=== PATIENT | female | born 1940 | race Caucasian/White ===

== ENCOUNTER 2023-02-05 12:11 | Emergency (ER) | payer MEDICARE, BC, SELFPAY ==
[2023-02-05 12:16] VITALS: BP 148/55; PULSE 61; RESP 18; TEMP 36.4; O2SAT 96; BMI 36.6
--- NOTE | 2023-02-05 12:25 | CT_ITS ---
The [address] [address] Patient Name: MAGDALENO WOODS MRN: [facility]:[id number] date: 1940 Sex: F Assigned Patient Location: ER Current Patient Location: ER Accession/Order Number: [id number] Exam Date: 02/05/2023 12:42 Report Date: 02/05/2023 13:03 At the request of: SERGIO CASTRO Procedure: CT head/brain wo con EXAM: CT head/brain wo con HISTORY: CESAR COMPARISON: None. TECHNIQUE: Axial noncontrast CT imaging of the head was performed with coronal and sagittal reformats. This CT exam was performed using one or more of the following dose reduction techniques: Automated exposure control, adjustment of the MA and/or kV according to patient size, or use of iterative reconstruction technique. FINDINGS: Calvarium/skull base: No evidence of acute fracture or destructive lesion. Mastoids and middle ears demonstrate no substantial mucosal disease. Paranasal sinuses: No air fluid levels. Brain: No acute intracranial hemorrhage. No acute large vascular territory infarct. Subcentimeter indeterminate hypodensity involving the inferior right lentiform nucleus. Minimal patchy hypoattenuation is present involving the periventricular white matter likely relating to sequela small vessel disease. Partially empty sella. No mass lesion or mass effect. No hydrocephalus. CT/CT head/brain wo con IMPRESSION: 1. No acute large vascular territory infarct or acute intracranial hemorrhage. 2. Subcentimeter age indeterminate hypodensity involving the right lentiform nucleus. This is age-indeterminate given lack available comparison. If there is clinical concern for acute ischemia recommend MRI brain for further evaluation. Electronically authenticated by: ERMELINDA SALAZAR Date: 02/05/2023 13:03
--- NOTE | 2023-02-05 12:25 | ED.GENADUL1 ---
HPI - General Adult General Chief complaint: Headache Stated complaint: HEADACHE Time Seen by Provider: 02/05/23 12:14 Source: patient Mode of arrival: walk-in Limitations: no limitations History of Present Illness HPI narrative: 82-year-old female presents to the emergency department for headache which is now resolved. She states that early this morning when she woke up her vision seemed blurred but it went away after she sat down for a short period of time. Then, about forty-five minutes ago, she was sitting at a restaurant eating breakfast and had not sudden onset of a headache. It's primarily in the back of her head and it came forward to the front of her head. The headache is now gone. She just feels a little bit shaky. No localized weakness or numbness and she had no speech issues. Related Data Allergies Allergy/AdvReac Type Severity Reaction Status Date / Time No Known Drug Allergies Allergy Verified 02/05/23 12:16 Review of Systems ROS Narrative A ten point review of systems is negative except as noted above. Exam Narrative Exam Narrative: Nurses note and vital signs reviewed and patient is not hypoxic. General: The patient appears well and in no apparent distress. Patient is resting comfortably on cart. Skin: Warm, dry, no pallor noted. There is no rash noted. Head: Normocephalic, atraumatic Eye: Normal conjunctiva, no drainage PERRL, EOMI Ears, Nose, Mouth, and Throat: oral mucosa is moist. Nares patent. Cardiovascular: Regular Rate and Rhythm Respiratory: Patient is in no distress, no accessory muscle use, lungs are clear to auscultation, no wheezing, rales or rhonchi Back: non-tender GI: Normal bowel sounds, no tenderness to palpation, no masses appreciated. No rebound, guarding, or rigidity noted. Musculoskeletal: The patient has no evidence of calf tenderness, no pitting edema, symmetrical pulses noted bilaterally Neurological: A&O x4, normal speech, upper and lower extremity strength five out of five and symmetric Psychiatric: Cooperative Constitutional Vital Signs, click to edit/add: Last Vital Signs Temp 97.6 F 02/05/23 12:16 Pulse 61 02/05/23 12:16 Resp 18 02/05/23 12:16 BP 148/55 H 02/05/23 12:16 Pulse Ox 96 02/05/23 12:16 O2 Del Method Room Air 02/05/23 12:16 Course Vital Signs Vital signs: Vital Signs Temperature 97.6 F 02/05/23 12:16 Pulse Rate 61 02/05/23 12:16 Respiratory Rate 18 02/05/23 12:16 Blood Pressure 148/55 H 02/05/23 12:16 Pulse Oximetry 96 02/05/23 12:16 Oxygen Delivery Method Room Air 02/05/23 12:16 Temperature 97.6 F 02/05/23 12:16 Pulse Rate 61 02/05/23 12:16 Respiratory Rate 18 02/05/23 12:16 Blood Pressure 148/55 H 02/05/23 12:16 Pulse Oximetry 96 02/05/23 12:16 Oxygen Delivery Method Room Air 02/05/23 12:16 Medical Decision Making MDM Narrative Medical decision making narrative: CAT scan shows no intracranial hemorrhage. The small area of hypodensity was discussed with the patient and does not appear to be related to her current visit. She is completely asymptomatic now and is being discharged home. She has no headache and she doesn't feel shaky any longer. Treatment diagnosis and follow-up were discussed with the patient. Differential Diagnosis Differential Diagnosis: subarachnoid hemorrhage, subdural hematoma, tension headache, nonspecific h Lab Data Lab results reviewed: Yes I reviewed the patient's lab results Labs: Lab Results 02/05/23 Range/Units 12:30 WBC 8.4 (4.0-11.0) 10^3/uL RBC 4.29 (4.20-5.40) 10^6/uL Hgb 13.7 (12.0-16.0) g/dL Hct 40.4 (36.0-48.0) % MCV 94.2 (81.0-99.0) fL MCH 31.9 (26.7-34.0) pg MCHC 33.9 (29.9-35.2) g/dL RDW 14.5 (11.0-15.0) % Plt Count 336 (150-450) 10^3/uL MPV 11.4 (9.5-13.5) fL Neut % (Auto) 72.8 (43.0-75.0) % Lymph % (Auto) 15.4 L (20.5-60.0) % [place] % (Auto) 8.1 (1.7-12.0) % Eos % (Auto) 2.5 (0.9-7.0) % Baso % (Auto) 1.0 (0.2-2.0) % Neut # (Auto) 6.1 (1.4-6.5) 10^3/uL Lymph # (Auto) 1.3 (1.2-3.8) 10^3/uL [place] # (Auto) 0.7 (0.3-0.8) 10^3/uL Eos # (Auto) 0.2 (0.0-0.7) 10^3/uL Baso # (Auto) 0.1 (0.0-0.1) 10^3/uL Abs Immat Gran (auto) 0.02 (0.00-0.03) 10^3/uL Imm/Tot Granulo (auto) 0.2 (0.0-0.5) % Sodium 131 L (136-145) mmol/L Potassium 4.3 (3.5-5.1) mmol/L Chloride 98 (98-107) mmol/L Carbon Dioxide 29.1 (21.0-32.0) mmol/L Anion Gap 8.2 BUN 27.0 H (7.0-18.0) mg/dL Creatinine 0.97 (0.55-1.02) mg/dL Est GFR ( Amer) >60 (>=60) Est GFR (Non-Af Amer) 55 L (>=60) BUN/Creatinine Ratio 27.8 Glucose 102 (74-106) mg/dL Calcium 9.1 (8.5-10.1) mg/dL Imaging Data CT scan - head: Radiologist's impression: Procedure: CT head/brain wo con EXAM: CT head/brain wo con HISTORY: CESAR COMPARISON: None. TECHNIQUE: Axial noncontrast CT imaging of the head was performed with coronal and sagittal reformats. This CT exam was performed using one or more of the following dose reduction techniques: Automated exposure control, adjustment of the MA and/or kV according to patient size, or use of iterative reconstruction technique. FINDINGS: Calvarium/skull base: No evidence of acute fracture or destructive lesion. Mastoids and middle ears demonstrate no substantial mucosal disease. Paranasal sinuses: No air fluid levels. Brain: No acute intracranial hemorrhage. No acute large vascular territory infarct. Subcentimeter indeterminate hypodensity involving the inferior right lentiform nucleus. Minimal patchy hypoattenuation is present involving the periventricular white matter likely relating to sequela small vessel disease. Partially empty sella. No mass lesion or mass effect. No hydrocephalus. IMPRESSION: 1. No acute large vascular territory infarct or acute intracranial hemorrhage. 2. Subcentimeter age indeterminate hypodensity involving the right lentiform nucleus. This is age-indeterminate given lack available comparison. If there is clinical concern for acute ischemia recommend MRI brain for further evaluation. Electronically authenticated by: ERMELINDA SALAZAR Date: 02/05/2023 13:03 Discharge Plan Discharge Chief Complaint: Headache Clinical Impression: Headache Patient Disposition: Home, Self-Care Time of Disposition Decision: 13:26 Condition: Good Mode of Transportation: Private Vehicle Instructions: Acute Headache (ED) Stand Alone Forms: Portal Instructions Referrals: ELKE PIKE [Primary Care Provider] - 1 week
[2023-02-05 12:35] LABS: Basophils Absolute Auto 0.1 10^3/uL (0.0-0.1); Eosinophils Absolute Auto 0.2 10^3/uL (0.0-0.7); Eosinophils Percent Auto 2.5 % (0.9-7.0); Hematocrit 40.4 % (36.0-48.0); Hemoglobin 13.7 g/dL (12.0-16.0); Immature Granulocytes Abs Auto 0.02 10^3/uL (0.00-0.03); Immature Granulocytes Pct Auto 0.2 % (0.0-0.5); Lymphocytes Absolute Auto 1.3 10^3/uL (1.2-3.8); Lymphocytes Percent Auto 15.4 % (20.5-60.0); Mean Corpuscular HGB Conc 33.9 g/dL (29.9-35.2); Mean Corpuscular Hemoglobin 31.9 pg (26.7-34.0); Mean Corpuscular Volume 94.2 fL (81.0-99.0); Mean Platelet Volume 11.4 fL (9.5-13.5); Monocytes Absolute Auto 0.7 10^3/uL (0.3-0.8); Monocytes Percent Auto 8.1 % (1.7-12.0); Neutrophils Absolute Auto 6.1 10^3/uL (1.4-6.5); Neutrophils Percent Auto 72.8 % (43.0-75.0); Platelet Count 336 10^3/uL (150-450); Red Blood Count 4.29 10^6/uL (4.20-5.40); Red Cell Distribution Width 14.5 % (11.0-15.0); White Blood Count 8.4 10^3/uL (4.0-11.0)
[2023-02-05 12:45] LABS: Anion Gap 8.2; BUN Creatinine Ratio 27.8; Calcium 9.1 mg/dL (8.5-10.1); Carbon Dioxide 29.1 mmol/L (21.0-32.0); Chloride 98 mmol/L (98-107); Estimated GFR (African America >60 (>=60); Estimated GFR (Non-African Ame 55 (>=60); Glucose 102 mg/dL (74-106); Potassium 4.3 mmol/L (3.5-5.1); Sodium 131 mmol/L (136-145)
== END 2023-02-05 13:33 | disposition home or self-care (01) ==
PROVIDERS: Emergency Provider Emergency Medicine; PCP Family Medicine
DX: R51.9 Headache, unspecified (principal)
CPT/HCPCS: 36415; 70450; 80048; 85025; 99284

== ENCOUNTER 2023-03-10 10:23 | Outpatient (OUT) | payer MEDICARE, BC, SELFPAY ==
--- NOTE | 2023-03-10 10:30 | MR_ITS ---
The [address] [address] Patient Name: MAGDALENO WOODS MRN: [id number] date: 1940 Sex: F Assigned Patient Location: MRI Current Patient Location: MRI Accession/Order Number: [id number] Exam Date: 03/10/2023 11:12 Report Date: 03/10/2023 15:36 At the request of: ELKE PIKE Procedure: MR head/brain wo con EXAM: MR head/brain wo con HISTORY: Acute Nonintractable Headache R51.9 COMPARISON: January [address] TECHNIQUE: Axial sagittal T1, axial T2, axial FLAIR, axial GRE, axial DWI. FINDINGS: 8 mm subtle diffusion hyperintensity right inferior cerebellum. Hyperintense on T2 and dark on ADC map Mild parenchymal volume loss. Mild underlying T2 hyperintensity in the central white matter, periventricular white matter, and joaquin. There is no cortical abnormality. There is no mass, mass effect, nor hydrocephalus. The right vertebral arteries diminutive the left is dominant. Patent flow voids of the distal basilar and internal carotid arteries. The extra-axial structures appear unremarkable. The internal auditory canals appear normal. 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 Probable dominant left vertebral artery. Associated T2 hyperintensity. Consider short interval follow-up MRI with MRA and contrast to exclude appropriate evolution and an enhancing lesion. Mild underlying T2 hyperintensity in the white matter and joaquin. Most likely sequela small vessel ischemic change or other demyelinating process Results placed in the stat call folder to expedite Electronically authenticated by: TATYANA ADAME Date: 03/10/2023 15:36
== END 2023-03-10 10:24 | disposition home or self-care (01) ==
LOC: MRI 10:24
PROVIDERS: PCP Family Medicine; Visit Provider Family Medicine
DX: R51.9 Headache, unspecified (principal)
CPT/HCPCS: 70551

== ENCOUNTER 2023-03-24 14:54 | Outpatient (OUT) | payer MEDICARE, BC, SELFPAY ==
--- NOTE | 2023-03-24 15:03 | MR_ITS ---
The [address] [address] Patient Name: MAGDALENO WOODS MRN: [facility]:[id number] date: 1940 Sex: F Assigned Patient Location: LAB Current Patient Location: LAB Accession/Order Number: [id number] Exam Date: 03/24/2023 15:21 Report Date: 03/24/2023 16:55 At the request of: ELKE PIKE Procedure: MR angio head wo/w con MR angio head wo/w con, 03/24/2023 3:21 PM EST INDICATION: Cerebrovascular accident I63.50 COMPARISON: Prior MRI dated 03/10/2023 Technique: Multiplanar, multisequential [id number] MRA images of [place] were obtained without contrast. 3-D reconstruction was performed. FINDINGS: The visualized portion of [place] is unremarkable. The DENI, MCA, SE[employer]GER and the vertebral and basilar arteries are unremarkable. The right vertebral artery ends in PICA. The left vertebral artery is dominant. There are patent posterior and anterior communicating arteries. The right posterior communicating artery is hypoplastic. No aneurysm or significant stenosis is noted. Small encephalomalacia within the right cerebellar hemisphere is noted. MR/MR angio head wo/w con IMPRESSION: Normal MRA of the brain. STENOSIS REFERENCE: MILD = <50% stenosis. MODERATE = 50-69% stenosis. SEVERE = >70% stenosis. Electronically authenticated by: NORBERT MADDOX Date: 03/24/2023 16:55
[2023-03-24 15:09] LABS: Estimated GFR (African America >60 (>=60); Estimated GFR (Non-African Ame >60 (>=60)
== END 2023-03-24 14:55 | disposition home or self-care (01) ==
LOC: LAB 14:54
PROVIDERS: PCP Family Medicine; Visit Provider Family Medicine
DX: I63.50 Cerebral infarction due to unspecified occlusion or stenosis of unspecified cerebral artery (principal)
CPT/HCPCS: 36415; 70546; 82565; A9575

== ENCOUNTER 2023-03-31 14:01 | Outpatient (OUT) | payer MEDICARE, BC, SELFPAY ==
--- NOTE | 2023-03-31 14:05 | US_ITS ---
[address] [address] Patient Name: MAGDALENO WOODS MRN: [id number] date: 1940 Sex: F Assigned Patient Location: Current Patient Location: [facility] Accession/Order Number: [id number] Exam Date: 03/31/2023 14:11 Report Date: 04/01/2023 07:11 At the request of: ELKE PIKE Procedure: US carotid duplex BI EXAMINATION: US carotid duplex BI HISTORY: Cerebrovascular Accident I63.50 COMPARISON: No relevant comparison available. TECHNIQUE: Duplex Doppler ultrasound analysis of carotid and vertebral arteries. . Bilateral carotid arterial duplex examination was performed using B-mode, color flow and spectral analysis. Carotid stenosis is reported according to validated velocity parameters, similar to NASCET criteria. FINDINGS: RIGHT CAROTID ARTERY Marked atherosclerotic plaque. Maximum area reduction 70% in the proximal ICA Subclavian: PSV: 289.7 cm/s cm/s EDV: 18.1 cm/s cm/s CCA: Prox: PSV: 90.5 cm/s cm/s EDV: 13.6 cm/s cm/s Mid: PSV: 85.4 cm/s cm/s EDV: 17.6 cm/s cm/s Distal: PSV: 62.0 cm/s cm/s EDV: 8.9 cm/s cm/s BULB: PSV: 64.6 cm/s cm/s EDV: 12.8 cm/s cm/s ICA: Prox: PSV: 112.9 cm/s cm/s EDV: 16.0 cm/s cm/s Mid: PSV: 127.0 cm/s cm/s EDV: 28.4 cm/s cm/s Distal: PSV: 70.7 cm/s cm/s EDV: 16.3 cm/s cm/s ECA: PSV: 99.1 cm/s cm/s EDV: 7.2 cm/s cm/s VERTEBRAL: PSV: 41.5 cm/s cm/s EDV: 6.6 cm/s cm/s, antegrade ICA/CCA ratio: PSV: 1.5 EDV: 1.6 LEFT CAROTID ARTERY Moderate atherosclerotic plaque. Maximum area of reduction 57% in the carotid bulb Subclavian: PSV: 154.9 cm/s cm/s EDV: 0.0 cm/s CCA: Prox: PSV: 133.2 cm/s cm/s EDV: 18.9 cm/s Mid: PSV: 123.3 cm/s cm/s EDV: 20.9 cm/s Distal: PSV: 80.1 cm/s cm/s EDV: 13.9 cm/s BULB: PSV: 83.6 cm/s cm/s EDV: 17.6 cm/s ICA: Prox: PSV: 88.8 cm/s cm/s EDV: 25.4 cm/s Mid: PSV: 114.0 cm/s cm/s EDV: 31.7 cm/s Distal: PSV: 110.8 cm/s cm/s EDV: 30.0 cm/s ECA: PSV: 151.0 cm/s cm/s EDV: 9.1 cm/s VERTEBRAL: PSV: 47.9 cm/s cm/s EDV: 12.8 cm/s , antegrade ICA/CCA ratio: PSV: 0.9 EDV: 1.5 US/US carotid duplex BI IMPRESSION: 70% stenosis measured in the proximal right ICA 0-49% flow stenosis left internal carotid artery Spectral Doppler US Thresholds (Reference: Butch EG, et al. Radiology 2000; 214:247-252) Stenosis (%) PSV (cm/sec) VICA/VCCA 0-49 <150 <2.5 50-69 150-225 2.5-4.0 >70 >225 >4.0 Electronically authenticated by: STUART TEJADA Date: 04/01/2023 07:11
--- OUTSIDE RECORDS SUMMARY | 2023-03-31 14:05 | XMS_ITS | CCD ---
Author Name Unknown Address [address] [place] [id number] Organization [facility] Care Team Providers Care Induction Heat Treater Name Role Phone ANGELITA HOFF Primary Care Unavailable KATI MARSHALL Admitting Unavailable SELF, REFERRED Referring Unavailable JON BAHENA Attending Unavailable ELTAHAWY, DR CORCORAN Admitting Unavailable ELTAHAWY, DR CORCORAN Attending Unavailable PETZNICK, DR BEDOYA Primary Care Unavailable PETZNICK, DR BEDOYA Admitting Unavailable PETZNICK, DR BEDOYA Attending Unavailable PETZNICK, DR BEDOYA Primary Care Unavailable PETZNICK, DR BEDOYA Consulting Unavailable ELTAHAWY, DR CORCORAN Admitting Unavailable ELTAHAWY, DR CORCORAN Attending Unavailable PETZNICK, DR BEDOYA Primary Care Unavailable BARBARAJOB Graham Consulting Unavailable RIANAHOTHELOISA DICKSON Attending Unavailable BARBARAJOB Attending Unavailable PETZNICK, ELKE Tse Attending Unavailable PETZNICK, ELKE Tse Referring Unavailable APLINGJOHN Attending Unavailable APLING, JOHN Wright Attending Unavailable Problems Active Problems Problem Classification Problem Date Documented Date Episodic/Chronic Acute myocardial infarction (2 sources) Non-ST elevation (NSTEMI) myocardial infarction; Translations: [Non-ST elevation (NSTEMI) myocardial infarction] Onset: 05-02-2022 Chronic Coronary atherosclerosis and other heart disease (6 sources) 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; Translations: [ASHD TANGIRNAQ CA W/O ANGINA PECTORIS] Onset: 05-02-2022 Chronic Disorders of lipid metabolism (3 sources) Mixed hyperlipidemia; Translations: [MIXED HYPERLIPIDEMIA] Onset: 05-02-2022 Chronic Essential hypertension (3 sources) Essential (primary) hypertension; Translations: [ESSENTIAL PRIMARY HYPERTENSION] Onset: 05-02-2022 Chronic Unclassified (3 sources) COUGH, UNSPECIFIED; Translations: [COUGH, UNSPECIFIED] Onset: 07-07-2022 Unclassified (1 source) CONTACT W/AND (SUSP) EXPOS COVID-19; Translations: [CONTACT W/AND (SUSP) EXPOS COVID-19] Onset: 07-07-2022 Past or Other Problems Problem Classification Problem Date Documented Da te Episodic/Chronic Unclassified (1 source) COUGH, UNSPECIFIED; Translations: [COUGH, UNSPECIFIED] Onset: 07-02-2022 Results Test Name Value Interpretation Reference Range Facility Office Visiton 11-10-2022 Follow-up visit [id number] PeggyMagdaleno Aislinn 1940 F Date Provider Department Center 11/10/2022 3848-ELOISA WILSON [facility] Family History Problem Relation Age of Onset Heart attack Father Stroke Father Heart failure Paternal Grandfather Family Status - Relation Status Age at Father Paternal Grandfather Level of Service:92232 MI OFFICE/OUTPATIENT ESTABLISHED LOW MDM 20-29 MIN Reason for Visit and Comments: Follow-up [892789] - 6 mo follow up Normal [facility] Covid-19 PCR (CVDTB)on SARS-CoV-2 (COVID-19) RNA OMAR+probe Ql (Unsp spec) Not detected Normal NOT DETECTED [facility] Comment on above: Result Comment: This test is not yet approved or cleared by the [place] FDA. When there are no FDA-approved or cleared tests available, and other criteria are met, FDA can make tests available under an emergency access mechanism called an Emergency Use Authorization (EUA). The EUA for this test is supported by the [place] of Health and Human Service's (HHS's) declaration that circumstances exist to justify the emergency use of in vitro diagnostics for the detection and/or diagnosis of the virus that causes COVID-19. This EUA will remain in effect (meaning this test can be used) for the duration of the COVID-19 declaration justifying emergency of IVDs, unless it is terminated or revoked by FDA (after which the test may no longer be used). When diagnostic testing is negative, the possibility of a false negative should be considered in the context of a patient's recent exposures and the presence of clinical signs and symptoms consistent with SARS-CoV-2. Performed By: #### C VDTB #### [facility] [address] [place] [address] Dr. Lisa Mckeon SYMPTOMATIC COVID-19 ANTIGEN on 07-02-2022 EUA Statement SEE BELOW Normal [facility] Comment on above: Result Comment: This test has not been FDA cleared or approved, but has been authorized by the FDA under an Emergency Use Authorization (EUA) for use by authorized laboratories certified under CLIA that meet the requirements to perform moderate or high complexity testing. This test has been authorized only for the detection of proteins from SARS-CoV-2, not for any other viruses or pathogens. The emergency use of this test is authorized for the duration of the declaration that circumstances exist justifying the authorization of emergency use of in vitro diagnostic tests for detection and/or diagnosis of Covid-19 under section 564(b)(1) of the Act, 21 U.S.C. 360bbb-3(b)(1), unless the declaration is terminated or authorization is revoked sooner. Performed By: #### C VDAGS #### [facility] [address] [place] [address] Dr. Lisa Mckeon SARS-CoV-2 (COVID-19) RNA OMAR+probe Ql (Unsp spec) Negative Normal NEGATIVE [facility] Comment on above: Performed By: #### C VDAGS #### [facility] [address] [place] [address] Dr. Lisa Mckeon CBC AUTO DIFFon 05-09-2022 BASO # 0.1 103/ul Normal 0.0-0.1 [facility] Comment on above: Performed By: #### C BC #### [facility] [address] [place] [address] Dr. Lisa Mckeon Basophils/100 WBC (Bld) 0.9 % Normal 0.2-2.0 [facility] Comment on above: Performed By: #### C BC #### [facility] [address] [place] [address] Dr. Lisa Mckeon EO # 0.2 103/ul Normal 0.0-0.7 [facility] Comment on above: Performed By: #### C BC #### [facility] [address] [place] [address] Dr. Lisa Mckeon Eosinophils/100 WBC (Bld) 2.6 % Normal 0.9-7.0 [facility] Comment on above: Performed By: #### C BC #### [facility] [address] [place] [address] Dr. Lisa Mckeon Erythrocyte distribution width (RBC) [Ratio] 14.5 % Normal 11.0-15.0 [facility] Comment on above: Performed By: #### C BC #### [facility] [address] [place] [address] Dr. Lisa Mckeon Hematocrit (Bld) [Volume fraction] 40.4 % Normal 36.0-48.0 [facility] Comment on above: Performed By: #### C BC #### [facility] [address] [place] [address] Dr. Lisa Mckeon Hemoglobin (Bld) [Mass/Vol] 13.5 g/dL Normal 12.0-16.0 [facility] Comment on above: Performed By: #### C BC #### [facility] [address] [place] [address] Dr. Lisa Mckeon IG # 0.04 10e3/ul Critically high 0.00-0.03 [facility] Comment on above: Performed By: #### C BC #### [facility] [address] [place] [address] Dr. Lisa Mckeon IG % 0.5 % Normal 0.0-0.5 [facility] Comment on above: Performed By: #### C BC #### [facility] [address] [place] [address] Dr. Lisa Mckeon LYMPH # 1.3 103/ul Normal 1.2-3.8 [facility] Comment on above: Performed By: #### C BC #### [facility] [address] [place] [address] Dr. Lisa Mckeon Lymphocytes/100 WBC (Bld) 16.2 % Critically low 20.5-60.0 [facility] Comment on above: Performed By: #### C BC #### [facility] [address] [place] [address] Dr. Lisa Mckeon MANUAL DIFF REQ NO Normal [facility] Comment on above: Performed By: #### C BC #### [facility] [address] [place] [address] Dr. Lisa Mckeon MCH (RBC) [Entitic mass] 30.8 pg Normal 26.7-34.0 [facility] Comment on above: Performed By: #### C BC #### [facility] [address] [place] [address] Dr. Lisa Mckeon MCHC (RBC) [Mass/Vol] 33.4 g/dL Normal 29.9-35.2 [facility] Comment on above: Performed By: #### C BC #### [facility] [address] [place] [address] Dr. Lisa Mckeon MCV (RBC) [Entitic vol] 92.0 fL Normal 81.0-99.0 [facility] Comment on above: Performed By: #### C BC #### [facility] [address] [place] [address] Dr. Lisa Mckeon MONO # 0.7 103/ul Normal 0.3-0.8 [facility] Comment on above: Performed By: #### C BC #### [facility] [address] [place] [address] Dr. Lisa Mckeon Monocytes/100 WBC (Bld) 8.7 % Normal 1.7-12.0 [facility] Comment on above: Performed By: #### C BC #### [facility] [address] [place] [address] Dr. Lisa Mckeon NEUT # 5.6 103/ul Normal 1.4-6.5 [facility] Comment on above: Performed By: #### C BC #### [facility] [address] [place] [address] Dr. Lisa Mckeon Neutrophils/100 WBC (Bld) 71.1 % Normal 43.0-75.0 [facility] Comment on above: Performed By: #### C BC #### [facility] [address] [place] [address] Dr. Lisa Mckeon Platelet mean volume (Bld) [Entitic vol] 11.7 fL Normal 9.5-13.5 [facility] Comment on above: Performed By: #### C BC #### [facility] [address] [place] [address] Dr. Lisa Mckeon PLT 319 103/ul Normal 150-450 [facility] Comment on above: Performed By: #### C BC #### [facility] [address] [address] [address] Lisa Mckeon RBC 4.39 106/ul Normal 4.20-5.40 [facility] Comment on above: Performed By: #### C BC #### [facility] [address] [place] [address] Dr. Lisa Mckeon WBC 7.9 103/ul Normal 4.0-11.0 [facility] Comment on above: Performed By: #### C BC #### [facility] [address] [place] [address] Dr. Lisa Mckeon LIPID PROFILEon 05-09-2022 CHOL-HDL RATIO NORM SEE BELOW Normal [facility] Comment on above: Result Comment: 3.3 - 4.4 LOW RISK 4.4 - 7.1 AVERAGE RISK 7.1 - 11.0 MODERATE RISK >11.0 HIGH RISK Performed By: #### L IPID, CMP #### [facility] [address] [place] [address] Dr. Lisa Mckeon Cholesterol [Mass/Vol] 101 mg/dL Normal <=200 [facility] Comment on above: Performed By: #### L IPID, CMP #### [facility] [address] [place] [address] Dr. Lisa Mckeon Cholesterol in HDL [Mass/Vol] 42 mg/dL Normal 40-60 [facility] Comment on above: Performed By: #### L IPID, CMP #### [facility] [address] [place] [address] Dr. Lisa Mckeon Cholesterol in LDL [Mass/Vol] 43.8 mg/dL Normal [facility] Comment on above: Performed By: #### L IPID, CMP #### [facility] [address] [address] [address] Lisa Mckeon Cholesterol.total/Ch olesterol in HDL [Mass ratio] 2.4 {ratio} Normal [facility] Comment on above: Performed By: #### L IPID, CMP #### [facility] [address] [place] [address] Dr. Lisa Mckeon HDL NORMAL > or = 60 mg/dl - LOW CARDIOVASCULAR RISK <40 mg/dl - HIGH CARDIOVASCULAR RISK Normal [facility] Comment on above: Performed By: #### L IPID, CMP #### [facility] [address] [address] [address] Lisa Mkceon LDL CALC NORMAL SEE BELOW Normal [facility] Comment on above: Result Comment: <100 mg/dl OPTIMAL 100 - 129 mg/dl NEAR OR ABOVE OPTIMAL 130 - 159 mg/dl BORDERLINE HIGH 160 - 189 mg/dl HIGH >190 mg/dl VERY HIGH Performed By: #### L IPID, CMP #### [facility] [address] [place] [address] Dr. Lisa Mckeon Triglyceride [Mass/Vol] 76 mg/dL Normal <=150 [facility] Comment on above: Performed By: #### L IPID, CMP #### [facility] [address] [place] [address] Dr. Lisa Mckeon VLDL CALC 15.2 mg/dL Normal [facility] Comment on above: Performed By: #### L IPID, CMP #### [facility] [address] [place] [address] Dr. Lisa Mckeon PROF 14(COMP METB)on 023 Albumin [Mass/Vol] 3.4 g/dL Normal 3.4-5.0 [facility] Comment on above: Performed By: #### L IPID, CMP #### [facility] [address] [place] [address] Dr. Lisa Mckeon Albumin/Globulin [Mass ratio] 1.1 {ratio} Normal [facility] Comment on above: Performed By: #### L IPID, CMP #### [facility] [address] [address] [address] Lisa Mckeon ALP [Catalytic activity/Vol] 69 U/L Normal 46-116 [facility] Comment on above: Performed By: #### L IPID, CMP #### [facility] [address] [address] [address] Lisa Mckeon ALT [Catalytic activity/Vol] 24 U/L Normal 14-59 [facility] Comment on above: Performed By: #### L IPID, CMP #### [facility] [address] [place] [address] Dr. Lisa Mckeon Anion gap [Moles/Vol] 13.2 mmol/L Normal [facility] Comment on above: Performed By: #### L IPID, CMP #### [facility] [address] [place] [address] Dr. Lisa Mckeon AST [Catalytic activity/Vol] 17 U/L Normal 15-37 [facility] Comment on above: Performed By: #### L IPID, CMP #### [facility] [address] [place] [address] Dr. Lisa Mckeon Bilirubin [Mass/Vol] 0.4 mg/dL Normal 0.2-1.0 [facility] Comment on above: Performed By: #### L IPID, CMP #### [facility] [address] [place] [address] Dr. Lisa Mckeon Calcium [Mass/Vol] 9.3 mg/dL Normal 8.5-10.1 [facility] Comment on above: Performed By: #### L IPID, CMP #### [facility] [address] [place] [address] Dr. Lisa Mckeon Chloride [Moles/Vol] 100 mmol/L Normal 98-107 [facility] Comment on above: Performed By: #### L IPID, CMP #### [facility] [address] [place] [address] Dr. Lisa Mckeon CO2 [Moles/Vol] 28.8 mmol/L Normal 21.0-32.0 [facility] Comment on above: Performed By: #### L IPID, CMP #### [facility] [address] [address] [address] Lisa Mckeon Creatinine [Mass/Vol] 0.72 mg/dL Normal 0.55-1.02 [facility] Comment on above: Performed By: #### L IPID, CMP #### [facility] [address] [address] [address] Lisa Mckeon EGFR-AF CYMRO >60 Normal >=60 [facility] Comment on above: Performed By: #### L IPID, CMP #### [facility] [address] [address] [address] Lisa Mckeon EGFR-NON AF CYMRO >60 Normal >=60 [facility] Comment on above: Performed By: #### L IPID, CMP #### [facility] [address] [address] [address] Lisa Mckeon Globulin (S) [Mass/Vol] 3.1 g/dL Normal [facility] Comment on above: Performed By: #### L IPID, CMP #### [facility] [address] [address] [address] Lisa Mckeon Glucose [Mass/Vol] 89 mg/dL Normal 74-106 [facility] Comment on above: Performed By: #### L IPID, CMP #### [facility] [address] [address] [address] Lisa Mckeon Potassium [Moles/Vol] 5.0 mmol/L Normal 3.5-5.1 [facility] Comment on above: Performed By: #### L IPID, CMP #### [facility] [address] [address] [address] Lisa Mckeon Protein [Mass/Vol] 6.5 g/dL Normal 6.4-8.2 [facility] Comment on above: Performed By: #### L IPID, CMP #### [facility] [address] [address] [address] Lisa Mckeon Sodium [Moles/Vol] 137 mmol/L Normal 136-145 [facility] Comment on above: Performed By: #### L IPID, CMP #### [facility] [address] [place], [place] [address] Dr. Lisa Mckeon Urea nitrogen [Mass/Vol] 27.0 mg/dL Critically high 7.0-18.0 [facility] Comment on above: Performed By: #### L IPID, CMP #### [facility] [address] [place], [place] [address] Dr. Lisa Mckeon Urea nitrogen/Creatinine [Mass ratio] 37.5 mg/mg Normal [facility] Comment on above: Performed By: #### L IPID, CMP #### [facility] [address] [place], [place] [address] Dr. Lisa Mckeon Office Visiton 05-02-2022 Follow-up visit [id number] Magdaleno Woods 1940 F Date Provider Department Center 05/02/2022 JOB HAWKINS [facility] Family History Problem Relation Age of Onset Heart attack Father Stroke Father Heart failure Paternal Grandfather Family Status - Relation Status Age at Father Paternal Grandfather Level of Service:89183 MI OFFICE/OUTPATIENT ESTABLISHED MOD MDM 30-39 MIN Reason for Visit and Comments: Coronary Artery Disease [187] Hypertension [073982] Normal [facility] Complete Blood Count with Au to Diffon 06-20-2021 Basophils (Bld) [#/Vol] 0.04 10*3/uL Normal 0.00-0.20 [facility] Comment on above: Performed By: #### C BCAD, LIPD, CMP, TSH #### [facility] [address] [place], [place] [id number] Basophils/100 WBC (Bld) 0.6 % Normal [facility] Comment on above: Performed By: #### C BCAD, LIPD, CMP, TSH #### [facility] [address] [place], [place] [id number] Eosinophils (Bld) [#/Vol] 0.00 10*3/uL Low 0.02-0.50 [facility] Comment on above: Performed By: #### C BCAD, LIPD, CMP, TSH #### [facility] [address] [place], [place] [id number] Eosinophils/100 WBC (Bld) 0.0 % Normal [facility] Comment on above: Performed By: #### C BCAD, LIPD, CMP, TSH #### [facility] [address] [place], [place] [id number] Erythrocyte distribution width (RBC) [Ratio] 14.0 % Normal 11.0-15.0 [facility] Comment on above: Performed By: #### C BCAD, LIPD, CMP, TSH #### [facility] [address] [place], [place] [id number] Hematocrit (Bld) [Volume fraction] 40.6 % Normal 35.0-47.0 [facility] Comment on above: Performed By: #### C BCAD, LIPD, CMP, TSH #### [facility] [address] [place], [place] [id number] Hemoglobin (Bld) [Mass/Vol] 13.2 g/dL Normal 11.6-15.5 [facility] Comment on above: Performed By: #### C BCAD, LIPD, CMP, TSH #### [facility] [address] [place], [place] [id number] Lymphocytes (Bld) [#/Vol] 1.3 10*3/uL Normal 0.9-3.9 [facility] Comment on above: Performed By: #### C BCAD, LIPD, CMP, TSH #### [facility] [address] [place], [place] [id number] Lymphocytes/100 WBC (Bld) 20.4 % Normal [facility] Comment on above: Performed By: #### C BCAD, LIPD, CMP, TSH #### [facility] [address] [place], [place] [id number] MCH (RBC) [Entitic mass] 30.1 pg Normal 27.0-33.0 [facility] Comment on above: Performed By: #### C BCAD, LIPD, CMP, TSH #### [facility] [address] [place], [place] [id number] MCHC (RBC) [Mass/Vol] 32.5 g/dL Normal 32.0-36.0 [facility] Comment on above: Performed By: #### C BCAD, LIPD, CMP, TSH #### [facility] [address] [facility] [place] [id number] MCV (RBC) [Entitic vol] 93 fL Normal 80-100 [facility] Comment on above: Performed By: #### C BCAD, LIPD, CMP, TSH #### [facility] [address] [place], [place] [id number] Monocytes (Bld) [#/Vol] 0.8 10*3/uL Normal 0.2-0.9 [facility] Comment on above: Performed By: #### C BCAD, LIPD, CMP, TSH #### [facility] [address] [facility] [place] [id number] Monocytes/100 WBC (Bld) 12.3 % Normal [facility] Comment on above: Performed By: #### C BCAD, LIPD, CMP, TSH #### [facility] [address] [place], [place] [id number] Neutrophils (Bld) [#/Vol] 4.3 10*3/uL Normal 1.5-7.8 [facility] Comment on above: Performed By: #### C BCAD, LIPD, CMP, TSH #### [facility] [address] [place], [place] [id number] Neutrophils/100 WBC (Bld) 66.4 % Normal [facility] Comment on above: Performed By: #### C BCAD, LIPD, CMP, TSH #### [facility] [address] [place], [place] [id number] Platelet mean volume (Bld) [Entitic vol] 12.80 fL High 7.50-12.50 [facility] Comment on above: Performed By: #### C BCAD, LIPD, CMP, TSH #### [facility] [address] [facility] [id number] Platelets (Bld) [#/Vol] 228 10*3/uL Normal 140-400 [facility] Comment on above: Performed By: #### C BCAD, LIPD, CMP, TSH #### [facility] [address] [facility] [place] [id number] RBC (Bld) [#/Vol] 4.38 10*6/uL Normal 3.90-5.20 [facility] Comment on above: Performed By: #### C BCAD, LIPD, CMP, TSH #### [facility] [address] [place], [place] [id number] RDW-SD 47.0 fL Normal 37.0-50.0 [facility] Comment on above: Performed By: #### C BCAD, LIPD, CMP, TSH #### [facility] [address] [place], [place] [id number] WBC (Bld) [#/Vol] 6.5 10*3/uL Normal 3.8-11.0 [facility] Comment on above: Performed By: #### C BCAD, LIPD, CMP, TSH #### [facility] [address] [place], [place] [id number] Comprehensive Metabolic Pane sharif 06-20-2021 Albumin [Mass/Vol] 4.1 g/dL Normal 3.6-5.1 [facility] Comment on above: Performed By: #### C BCAD, LIPD, CMP, TSH #### [facility] [address] [place], [place] [id number] Albumin/Globulin [Mass ratio] 2.0 {ratio} Normal 1.0-2.5 [facility] Comment on above: Performed By: #### C BCAD, LIPD, CMP, TSH #### [facility] [address] [place], [place] [id number] ALP [Catalytic activity/Vol] 64 U/L Normal 35-119 [facility] Comment on above: Performed By: #### C BCAD, LIPD, CMP, TSH #### [facility] [address] [place], [place] [id number] ALT [Catalytic activity/Vol] 31 U/L Normal 6-33 [facility] Comment on above: Result Comment: 02/27 Female reference range changed. Performed By: #### C BCAD, LIPD, CMP, TSH #### [facility] [address] [place], [place] [id number] Anion gap [Moles/Vol] 17 mmol/L Normal 12-20 [facility] Comment on above: Result Comment: Effe ctive 04/04/2019 reference range changed. Performed By: #### C BCAD, LIPD, CMP, TSH #### [facility] [address] [place], [place] [id number] AST [Catalytic activity/Vol] 26 U/L Normal 9-34 [facility] Comment on above: Performed By: #### C BCAD, LIPD, CMP, TSH #### [facility] [address] [place], [place] [id number] Bilirubin [Mass/Vol] 0.35 mg/dL Normal 0.30-1.20 [facility] Comment on above: Performed By: #### C BCAD, LIPD, CMP, TSH #### [facility] [address] [place], [place] [id number] BUN/CREA 33 Ratio High 6-22 [facility] Comment on above: Performed By: #### C BCAD, LIPD, CMP, TSH #### [facility] [address] [place], [place] [id number] Calcium [Mass/Vol] 9.5 mg/dL Normal 8.6-10.[address] [facility] Comment on above: Performed By: #### C BCAD, LIPD, CMP, TSH #### [facility] [address] [place], [place] [id number] Chloride [Moles/Vol] 104 mmol/L Normal 98-107 [place] [facility] Comment on above: Performed By: #### C BCAD, LIPD, CMP, TSH #### [facility] [address] [place], [place] [id number] CO2 [Moles/Vol] 22 mmol/L Normal 20-31 [facility] Comment on above: Performed By: #### C BCAD, LIPD, CMP, TSH #### [facility] [address] [place], [place] [id number] Creatinine [Mass/Vol] 0.9 mg/dL Normal 0.6-1.4 [facility] Comment on above: Performed By: #### C BCAD, LIPD, CMP, TSH #### [facility] [address] [place], [place] [id number] eGFRAA 72 mL/min/1.73m2 Normal >60 [facility] Comment on above: Performed By: #### C BCAD, LIPD, CMP, TSH #### [facility] [address] [place], [place] [id number] eGFRNAA 60 mL/min/1.73m2 Low >60 [facility] Comment on above: Performed By: #### C BCAD, LIPD, CMP, TSH #### [facility] [address] [place], [place] [id number] Globulin (S) [Mass/Vol] 2.1 g/dL Normal 1.9-3.7 [facility] Comment on above: Performed By: #### C BCAD, LIPD, CMP, TSH #### [facility] [address] [place], [place] [id number] Glucose [Mass/Vol] 106 mg/dL High 65-99 [facility] Comment on above: Result Comment: For FASTING Glucose --- ADA reference ranges: Normal 65-99 mg/dl Prediabetes 100-125 Diabetes >/= 126 Performed By: #### C BCAD, LIPD, CMP, TSH #### [facility] [address] [place], [place] [id number] Potassium [Moles/Vol] 4.8 mmol/L Normal 3.5-5.5 [facility] Comment on above: Performed By: #### C BCAD, LIPD, CMP, TSH #### [facility] [address] [place], [place] [id number] Protein [Mass/Vol] 6.2 g/dL Normal 6.1-8.1 [facility] Comment on above: Performed By: #### C BCAD, LIPD, CMP, TSH #### [facility] [address] [place], [place] [id number] Sodium [Moles/Vol] 138 mmol/L Normal 135-146 [place] [facility] Comment on above: Performed By: #### C BCAD, LIPD, CMP, TSH #### [facility] [address] [place], [place] [id number] Urea nitrogen [Mass/Vol] 30 mg/dL High 7-25 [facility] Comment on above: Performed By: #### C BCAD, LIPD, CMP, TSH #### [facility] [address] [place], [place] [id number] Lipid Panelon 06-20-2021 Cholesterol [Mass/Vol] 108 mg/dL Low 125-200 [facility] Comment on above: Result Comment: Low risk < 200mg/dL Borderline risk 201-239 mg/dl High risk > or equal to 240 Performed By: #### C BCAD, LIPD, CMP, TSH #### [facility] [address] [place], [place] [id number] Cholesterol in HDL [Mass/Vol] 34 mg/dL Low >40 [facility] Comment on above: Result Comment: High Cardiovascular Risk HDL <40 mg/dL Low Cardiovascular Risk HDL > or equal to 60 mg/dl Performed By: #### C BCAD, LIPD, CMP, TSH #### [facility] [address] [place], [place] [id number] Cholesterol in LDL [Mass/Vol] 50 mg/dL Normal [facility] Comment on above: Result Comment: LDL ATP III CLASSIFICATION LDL less than 100 mg/dl Optimal LDL 100-129 mg/dl Near or above optimal LDL 130-159 Borderline high LDL 160-189 High LDL greater than 189 mg/dl Very High Performed By: #### C BCAD, LIPD, CMP, TSH #### [facility] [address] [place], [place] [id number] Cholesterol in VLDL [Mass/Vol] 24 mg/dL Normal [facility] Comment on above: Performed By: #### C BCAD, LIPD, CMP, TSH #### [facility] [address] [place], [place] [id number] Cholesterol.total/Ch olesterol in HDL [Mass ratio] 3 {ratio} Normal [facility] Comment on above: Performed By: #### C BCAD, LIPD, CMP, TSH #### [facility] [address] [place], [place] [id number] Triglyceride [Mass/Vol] 119 mg/dL Normal 30-150 [facility] Comment on above: Result Comment: TRIG ATPIII CLASSIFICATIONS TRIG less than 150 mg/dl Normal TRIG 150-199 mg/dl Borderline High TRIG 200-500 mg/dl High TRIG greather than 500 mg/dl Very High Performed By: #### C BCAD, LIPD, CMP, TSH #### [facility] [address] [place], [place] [id number] TSHon 06-20-2021 TSH 2.640 uIU/mL Normal 0.400-4.500 [facility] Comment on above: Performed By: #### C BCAD, LIPD, CMP, TSH #### [facility] [address] [place], [place] [id number] CREATININE BLOODon Creatinine [Mass/Vol] 0.81 mg/dL Normal 0.60-1.20 [facility] Comment on above: Order Comment: No: D o not add to previous draw Performed By: #### 5 7307, 50801 #### [facility] [address] [place] [address], [facility] GFR/1.73 sq M.predicted among blacks MDRD (S/P/Bld) [Vol rate/Area] mL/min/{1.73_m2} Normal >60 [facility] Comment on above: Order Comment: No: D o not add to previous draw Result Comment: Calc ulation may not be valid for patients over 70 years Performed By: #### 5 7307, 22819 #### [facility] [address] [place] [address], [facility] GFR/1.73 sq M.predicted among non-blacks MDRD (S/P/Bld) [Vol rate/Area] mL/min/{1.73_m2} Normal >60 [facility] Comment on above: Order Comment: No: D o not add to previous draw Result Comment: Calc ulation may not be valid for patients over 70 years Performed By: #### 5 7307, 26610 #### [facility] [address] [place] [address], [facility] Cardiovascular Lab Reporton 2021 Cardiovascular Lab Report [facility] Patient Name: [facility] MR #: [id number] Department of Physician: Jennifer Beebe M.D. Division of Service Date: 04/19/2021 Cardiology Birthdate: 1940 Adult Cardiovascular Room #: 4AB [id number] [place] [address] Cardiovascular Laboratory Report CLINICAL PRESENTATION: The patient is a 80-year-old female with history of obesity, hypertension, and hyperlipidemia. The patient was admitted with chest pain and diagnosed with NSTEMI. Her troponin peaked at approximately 2.5. She is referred for cardiac catheterization. FINAL IMPRESSION: 1. Cardiac catheterization reveals severe single-vessel CAD. The proximal LAD has 80% stenosis and the first diagonal branch has 80% stenosis. This is a bifurcation stenosis, Retana classification 1, 1, 1. This was successfully treated with bifurcation stenting using the DK crush technique. The LAD was treated with a Synergy 3.0 x 20 mm drug-eluting stent. The first diagonal branch was treated with a 2.5 x 32 mm drug-eluting stent. Final kissing balloon angioplasty was performed with an NC Emerge 2.5 x 8 mm balloon in the 1st diagonal branch and an NC Emerge 3.5 x 8 mm balloon in the LAD. Final proximal optimization technique (POT) was also performed with a 3.5 mm noncompliant balloon. 2. The RCA has diffuse 30% to 40% stenosis in the mid segment. 3. The circumflex is patent. PLAN: 1. Aggressive medical therapy for secondary prevention of CAD, status post PCI. 2. Aspirin 81 mg daily long-term. 3. Effient (prasugrel) 10 mg daily. After 3-6 months, can de-escalate from prasugrel to clopidogrel 75 mg daily. Recommend long-term dual-antiplatelet therapy (DAPT) for bifurcation coronary stenting. 4. High-intensity statin therapy. 5. LVEDP is elevated at 21 mmHg, consistent with acute diastolic congestive heart failure. Start spironolactone and/or SGLT2 inhibitor for HFpEF. 6. Outpatient followup with [facility]. 7. Referral to cardiac rehabilitation. PROCEDURES: Coronary angiogram, left heart catheterization, PCI LAD, PCI 1st diagonal branch, conscious sedation at 121 minutes. INDICATION: NSTEMI. PROCEDURE DESCRIPTION: The patient was brought to the cardiac catheterization lab in a fasting state. Informed written consent was obtained. She was prepped and draped in usual sterile fashion over the left wrist. Time-out was performed. She was given Versed and fentanyl for sedation. A 1% lidocaine was infiltrated in the left radial artery. A 6-Portuguese Terumo Glidesheath slender was placed in the left radial artery. Radial anti-vasospasm cocktail of verapamil 2.5 mg and nitroglycerin 200 mcg was administered through the sheath. All catheter exchanges were made over the Wiggins guidewire. A 5-Portuguese JR4 was used to engage the right coronary artery. A 5-Portuguese JL3.5 was used to engage the left main coronary artery. Coronary angiogram was performed in multiple orthogonal views using hand injection of contrast. 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 I elected to proceed with PCI. Heparin anticoagulation was administered for this procedure. ACT was maintained greater than 200 seconds. A [facility] EBU 3.0 guide was engaged to the left main coronary artery. A Prowater wire was manipulated to the distal LAD. A BMW wire was manipulated to the first diagonal branch. The first diagonal branch was dilated with an Emerge 2.5 x 20 mm balloon at 8 atmospheres, but this could not pass all the way through, so I then used a Takeru 2.0 x 15 mm balloon for further predilation of the first diagonal branch at 14 atmospheres. The LAD was pre-dilated. There was moderate calcification, and therefore, I used an AngioSculpt 3.0 x 15 mm scoring balloon. This was inflated to 12 atmospheres. At this time, it was apparent that there was embolization of thrombus to the mid to distal LAD. There was lucency and limited blood flow beyond this lucency consistent with thrombus embolization. I then rapidly performed aspiration thrombectomy using a priority one aspiration catheter and this resolved the issue with confucianist of blood flow into the LAD. At this point, the situation was stabilized and I proceeded with the PCI procedure. Aggrastat bolus was also administered and then Aggrastat was turned off at the end of the procedure. I elected to use a DK Crush Technique for bifurcation stenosis with Retana classification 1, 1, 1 bifurcation stenosis. The 1st Diagonal branch also had severe disease in its mid section, so I elected to use one long stent for the diagonal branch. The Synergy 2.5 x 32 mm drug-eluting stent was deployed in the first diagonal branch. A 3.0 x 15 mm NC balloon was in the LAD and this was then used to crushed the proxima (more content not included)... Normal [facility] POC GLUCOSE LABon 2021 Glucose [Mass/Vol] 125 mg/dL High 70-100 [facility] Comment on above: Performed By: #### 0 0121, 71087, 24201, 73949 #### [facility] [address] Glucose [Mass/Vol] 103 mg/dL High 70-100 [facility] Comment on above: Performed By: #### 5 7317, 02624 #### [facility] [address] [facility]. [address] UFH HEPARIN ASSAYon 04-20-19 UNFRACTIONATED HEPARIN <0.10 Critically low 0.30-0.70 [facility] Comment on above: Order Comment: This order is a replacement of the rejected order with accession number [id number]. Result Comment: Resu lts called. Accurately read back by Sharona Chaidez, RN, 4B pt's nurse, at 0029, 20-Apr-2021. Rivaroxaban and Apixaban will interfere with the anti Xa assay used to monitor UFH and LMWH. Performed By: #### 0 0121, 11986, 64012, 53327 #### [facility] [address] [facility]. [address] CBC COMPLETE BLOOD COUNTon 0 04-19-2021 Erythrocyte distribution width (RBC) [Ratio] 14.2 % Normal 11.5-15.0 [facility] Comment on above: Order Comment: No: D o not add to previous draw Performed By: #### 5 9207, 01082 #### [facility] [address] [place] [address], [facility] Hematocrit (Bld) [Volume fraction] 40.5 % Normal 36.0-45.0 [facility] Comment on above: Order Comment: No: D o not add to previous draw Performed By: #### 5 73, 18571 #### [facility] [address] [place] [id number], [facility] Hemoglobin (Bld) [Mass/Vol] 13.9 g/dL Normal 12.0-15.0 [facility] Comment on above: Order Comment: No: D o not add to previous draw Performed By: #### 5 73, 54085 #### [facility] [address] [place] [id number], [facility] MCH (RBC) [Entitic mass] 31.2 pg Normal 27.0-33.0 [facility] Comment on above: Order Comment: No: D o not add to previous draw Performed By: #### 5 73, 21958 #### [facility] [address] [place] [id number], [facility] MCHC (RBC) [Mass/Vol] 34.3 g/dL Normal 32.0-35.0 [facility] Comment on above: Order Comment: No: D o not add to previous draw Performed By: #### 5 73Maia, 18090 #### [facility] [address] [place] [address], [facility] MCV (RBC) [Entitic vol] 90.8 fL Normal 82.0-98.0 [facility] Comment on above: Order Comment: No: D o not add to previous draw Performed By: #### 5 7365, 33054 #### [facility] [address] [place] [address], [facility] Nucleated RBC/100 WBC (Bld) [Ratio] 0 % Normal 0-0 [facility] Comment on above: Order Comment: No: D o not add to previous draw Performed By: #### 5 7307, 03722 #### [facility] [address] [place] [id number], [facility] PLAT CNT 233 10*3/uL Normal 150-400 [facility] Comment on above: Order Comment: No: D o not add to previous draw Performed By: #### 5 7307, 46147 #### [facility] [address] [place] [address], [facility] RBC (Bld) [#/Vol] 4.46 10*6/uL Normal 3.80-5.00 [facility] Comment on above: Order Comment: No: D o not add to previous draw Performed By: #### 5 7307, 60413 #### [facility] [address] [place] [address], [place] WBC (Bld) [#/Vol] 9.64 10*3/uL Normal 4.00-10.60 [facility] Comment on above: Order Comment: No: D o not add to previous draw Performed By: #### 5 7307, 03524 #### [facility] [address] [place] [address], [facility] HEMOGLOBIN A1Con 04-19-2021 Glucose [Moles/Vol] 126 mmol/L Normal [facility] Comment on above: Order Comment: Yes: Add to Previous draw if able Performed By: #### 3 1791 #### [facility] [address] [place] [address], [facility] HbA1c (Bld) [Mass fraction] 6.0 % Normal 4.0-6.0 [facility] Comment on above: Order Comment: Yes: Add to Previous draw if able Performed By: #### 3 1791 #### [facility] [address] [place] [address], [place] LIPID PROFILEon 04-19-2021 Cholesterol [Mass/Vol] 113 mg/dL Low 120-200 [facility] Comment on above: Result Comment: CHOL ESTEROL REFERENCE RANGE: 20 YEARS AND OLDER CARDIOVASCULAR RISK Less than 200 mg/dl Low Risk 200 to 239 mg/dl Borderline Risk 240 mg/dl and greater High Risk Performed By: #### 4 6413 #### [facility] [address] [place] [address], [facility] Cholesterol in HDL [Mass/Vol] 35 mg/dL Normal 23-92 [facility] Comment on above: Result Comment: Slig ht variation in normal range could be due to gender and/or age. HDL CHOLESTEROL REFERENCE RANGE: 20 years and older Cardiovascular Risk > or =60 mg/dL Desirable 40 TO 59 mg/dL Low Risk <40 mg/dL High Risk Performed By: #### 4 6413 #### [facility] [address] [place] [address], [place] Cholesterol in LDL [Mass/Vol] 51 mg/dL Normal 0-130 [facility] Comment on above: Result Comment: LDL IS A CALCULATION LDL IS ONLY VALID IF THE TRIG IS LESS THAN 400. Performed By: #### 4 6413 #### [facility] [address] [place] [address], [facility] Cholesterol.total/Ch olesterol in HDL [Mass ratio] 3.2 {ratio} Normal .0-4.5 [facility] Comment on above: Performed By: #### 4 6413 #### [facility] [address] [place] [address], [facility] NON-HDL CHOLESTEROL 78 mg/dL Normal The [facility] Comment on above: Performed By: #### 4 6413 #### [facility] [address] [place] [address], [facility] Triglyceride [Mass/Vol] 133 mg/dL Normal 40-149 [facility] Comment on above: Result Comment: TRIG LYCERIDE REFERENCE RANGE: 20 YEARS AND OLDER CARDIOVASCULAR RISK LESS THAN 150 mg/dl LOW RISK 150 TO 199 mg/dl BORDERLINE RISK 200 mg/dl AND GREATER HIGH RISK Performed By: #### 4 4513 #### [facility] [address] [place] [address], [place] VLDL CHOL 27 mg/dL Normal 0-40 [facility] Comment on above: Performed By: #### 4 5113 #### [facility] [address] [facility] [address], [facility] POC GLUCOSE LABon 04-19-2021 Glucose [Mass/Vol] 104 mg/dL High 70-100 [facility] Comment on above: Performed By: #### 5 7307, 39527 #### [facility] [address] [facility] [place] [address], [facility] TROPONIN-Ion 04-19-2021 Troponin I.cardiac [Mass/Vol] 2.01 ng/mL Critically high 0.00-0.04 [facility] Comment on above: Order Comment: No: D o not add to previous draw Result Comment: M-MI EVIOUS CRITICAL RESULT REFERENCE RANGES: 0.00 - 0.04 ng/ml NORMAL 0.05 - 0.50 ng/ml INDETERMINATE > 0.50 ng/ml CONSISTENT WITH AN M.I. Performed By: #### 3 5200 #### [facility] [address] [facility]. [address] Troponin I.cardiac [Mass/Vol] 2.46 ng/mL Critically high 0.00-0.04 [facility] Comment on above: Result Comment: M-MI EVIOUS CRITICAL RESULT REFERENCE RANGES: 0.00 - 0.04 ng/ml NORMAL 0.05 - 0.50 ng/ml INDETERMINATE > 0.50 ng/ml CONSISTENT WITH AN M.I. Performed By: #### 5 7307, 28172 #### [facility] [address] UFH HEPARIN ASSAYon 04-19-19 UNFRACTIONATED HEPARIN 0.35 IU/mL Normal 0.30-0.70 [facility] Comment on above: Result Comment: [place] roxaban and Apixaban will interfere with the anti Xa assay used to monitor UFH and LMWH. Performed By: #### 5 7307, 22463 #### [facility] [address] [place] [address], [facility] APTTon 04-18-2021 aPTT Coag (Bld) [Time] 46.6 s High 25.0-35.[address] [facility] Comment on above: Order Comment: No: D o not add to previous draw Result Comment: ALL RESULTS MUST BE INTERPRETED WITH RESPECT TO BLOOD DRAWING ARTIFACT OR DILUTION ERROR OF ANTICOAGULANT AT THE TIME OF SAMPLING. THE APTT SHOULD NOT BE USED TO MONITOR UNFRACTIONATED HEPARIN THERAPY, THIS LABORATORY NO LONGER HAS AN ESTABLISHED THERAPEUTIC RANGE BASED ON THE APTT. IT IS RECOMMENDED THAT THE UFH - HEPARIN ASSAY (ANTI-XA ACTIVITY) BE USED FOR THIS PURPOSE. Performed By: #### 5 7307, 90380 #### [facility] [address] aPTT Coag (Bld) [Time] 58.2 s High 25.0-35.[address] [facility] Comment on above: Result Comment: Resu lt checked and called. Accurately read back by KJ VELAZQUEZ RN ON 04/18/2021 AT 17:56 ALL RESULTS MUST BE INTERPRETED WITH RESPECT TO BLOOD DRAWING ARTIFACT OR DILUTION ERROR OF ANTICOAGULANT AT THE TIME OF SAMPLING. THE APTT SHOULD NOT BE USED TO MONITOR UNFRACTIONATED HEPARIN THERAPY, THIS LABORATORY NO LONGER HAS AN ESTABLISHED THERAPEUTIC RANGE BASED ON THE APTT. IT IS RECOMMENDED THAT THE UFH - HEPARIN ASSAY (ANTI-XA ACTIVITY) BE USED FOR THIS PURPOSE. Performed By: #### 0 0121, 87018, 11854, 25272 #### [facility] [address] CBC W/DIFFon 04-18-2021 ABS IMM GRANS 0.0 10*3/uL Normal 0.0-0.2 [facility] Comment on above: Order Comment: This order is a replacement of the rejected order with accession number [id number]. Performed By: #### 0 0121, 94142, 32462, 30116 #### [facility] [address] ABS NEUTROPHILS 6.6 10*3/uL Normal 1.6-7.[address] [facility] Comment on above: Order Comment: This order is a replacement of the rejected order with accession number [id number]. Performed By: #### 0 0121, 30201, 92501, 92729 #### [facility] [address] [place] [address], [facility] Basophils (Bld) [#/Vol] 0.1 10*3/uL Normal 0.0-0.2 [facility] Comment on above: Order Comment: This order is a replacement of the rejected order with accession number [id number]. Performed By: #### 0 0121, 08448, 67116, 27721 #### [facility] [address] [place] [address], [facility] Basophils/100 WBC (Bld) 0.8 % Normal 0.0-1.0 [facility] Comment on above: Order Comment: This order is a replacement of the rejected order with accession number [id number]. Performed By: #### 0 0121, 65804, 30146, 69997 #### [facility] [address] [place] [address], [facility] Eosinophils (Bld) [#/Vol] 0.2 10*3/uL Normal 0.0-0.5 [facility] Comment on above: Order Comment: This order is a replacement of the rejected order with accession number [id number]. Performed By: #### 0 0121, 29840, 97369, 06349 #### [facility] [address] [place] [address], [facility] Eosinophils/100 WBC (Bld) 2.2 % Normal 0.0-6.0 [facility] Comment on above: Order Comment: This order is a replacement of the rejected order with accession number [id number]. Performed By: #### 0 0121, 53462, 38423, 81065 #### [facility] [address] [place] [address], [facility] Erythrocyte distribution width (RBC) [Ratio] 14.0 % Normal 11.5-15.0 [facility] Comment on above: Order Comment: This order is a replacement of the rejected order with accession number [id number]. Performed By: #### 0 0121, 84740, 95363, 63670 #### [facility] [address] Hematocrit (Bld) [Volume fraction] 43.4 % Normal 36.0-45.[address] [facility] Comment on above: Order Comment: This order is a replacement of the rejected order with accession number [id number]. Performed By: #### 0 0121, 12807, 37760, 29991 #### [facility] [address] Hemoglobin (Bld) [Mass/Vol] 14.1 g/dL Normal 12.0-15.[address] [facility] Comment on above: Order Comment: This order is a replacement of the rejected order with accession number [id number]. Performed By: #### 0 0121, 40823, 58616, 80789 #### [facility] [address] IMM PLATELET FRAC 7.9 % High 0.8-6.3 [facility] Comment on above: Order Comment: This order is a replacement of the rejected order with accession number [id number]. Performed By: #### 0 0121, 88331, 62409, 89300 #### [facility] [address] IMMATURE GRANS 0.3 % Normal 0.0-1.0 [facility] Comment on above: Order Comment: This order is a replacement of the rejected order with accession number [id number]. Performed By: #### 0 0121, 83316, 25655, 80088 #### [facility] [address] Lymphocytes (Bld) [#/Vol] 2.5 10*3/uL Normal 1.2-4.[address] [facility] Comment on above: Order Comment: This order is a replacement of the rejected order with accession number [id number]. Performed By: #### 0 0121, 28331, 00273, 96027 #### [facility] [address] Lymphocytes/100 WBC (Bld) 23.8 % Normal 20.0-45.0 [facility] Comment on above: Order Comment: This order is a replacement of the rejected order with accession number [id number]. Performed By: #### 0 0121, 88596, 82667, 40886 #### [facility] [address] MCH (RBC) [Entitic mass] 30.4 pg Normal 27.0-33.0 [facility] Comment on above: Order Comment: This order is a replacement of the rejected order with accession number [id number]. Performed By: #### 0 0121, 62387, 21551, 57506 #### [facility] [address] MCHC (RBC) [Mass/Vol] 32.5 g/dL Normal 32.0-35.0 [facility] Comment on above: Order Comment: This order is a replacement of the rejected order with accession number [id number]. Performed By: #### 0 0121, 47230, 19239, 69861 #### [facility] [address] MCV (RBC) [Entitic vol] 93.5 fL Normal 82.0-98.0 [facility] Comment on above: Order Comment: This order is a replacement of the rejected order with accession number [id number]. Performed By: #### 0 0121, 13620, 54628, 05623 #### [facility] [address] Monocytes (Bld) [#/Vol] 1.1 10*3/uL High 0.1-1.0 [facility] Comment on above: Order Comment: This order is a replacement of the rejected order with accession number [id number]. Performed By: #### 0 0121, 92835, 73682, 88089 #### [facility] [address] MONOS 10.6 % Normal 5.0-12.[address] [facility] Comment on above: Order Comment: This order is a replacement of the rejected order with accession number [id number]. Performed By: #### 0 0121, 94165, 62547, 25131 #### [facility] [address] Neutrophils/100 WBC (Bld) 62.3 % Normal 40.0-72.[address] [facility] Comment on above: Order Comment: This order is a replacement of the rejected order with accession number [id number]. Performed By: #### 0 0121, 19316, 22390, 95763 #### [facility] [address] Nucleated RBC/100 WBC (Bld) [Ratio] 0 % Normal 0-[address] [facility] Comment on above: Order Comment: This order is a replacement of the rejected order with accession number [id number]. Performed By: #### 0 0121, 98606, 34136, 25524 #### [facility] [address] PLAT CNT 220 10*3/uL Normal 150-400 [facility] Comment on above: Order Comment: This order is a replacement of the rejected order with accession number [id number]. Performed By: #### 0 0121, 24088, 28338, 14885 #### [facility] [address] RBC (Bld) [#/Vol] 4.64 10*6/uL Normal 3.80-5.00 The [facility] Comment on above: Order Comment: This order is a replacement of the rejected order with accession number [id number]. Performed By: #### 0 0121, 86724, 37163, 79981 #### [facility] [address] [place] [address], [facility] WBC (Bld) [#/Vol] 10.52 10*3/uL Normal 4.00-10.[address] [facility] Comment on above: Order Comment: This order is a replacement of the rejected order with accession number [id number]. Performed By: #### 0 0121, 37901, 80926, 93251 #### [facility] [address] COMP METABOLIC PANELon 04-18 Albumin [Mass/Vol] 4.1 g/dL Normal 3.5-5.7 [facility] Comment on above: Order Comment: This order is a replacement of the rejected order with accession number [id number]. Performed By: #### 0 0121, 49336, 66532, 31279 #### [facility] [address] ALKALINE PHOSPH 61 IU/L Normal 34-104 [facility] Comment on above: Order Comment: This order is a replacement of the rejected order with accession number [id number]. Performed By: #### 0 0121, 41031, 86206, 64848 #### [facility] [address] ALT [Catalytic activity/Vol] 20 U/L Normal 7-[address] [facility] Comment on above: Order Comment: This order is a replacement of the rejected order with accession number [id number]. Performed By: #### 0 0121, 02323, 03125, 55981 #### [facility] [address] [place] [address], [facility] AST [Catalytic activity/Vol] 29 U/L Normal 13-[address] [facility] Comment on above: Order Comment: This order is a replacement of the rejected order with accession number [id number]. Performed By: #### 0 0121, 61824, 66521, 66327 #### [facility] [address] [place] [address], [place] Bilirubin [Mass/Vol] 0.5 mg/dL Normal 0.3-1.[address] [facility] Comment on above: Order Comment: This order is a replacement of the rejected order with accession number [id number]. Performed By: #### 0 0121, 29558, 36296, 64618 #### [facility] [address] [place] [address], [place] Calcium [Mass/Vol] 9.5 mg/dL Normal 8.6-10.3 [facility] Comment on above: Order Comment: This order is a replacement of the rejected order with accession number [id number]. Performed By: #### 0 0121, 61635, 27145, 21882 #### [facility] [address] [place] [address], [place] Chloride [Moles/Vol] 101 mmol/L Normal 98-[address] [facility] Comment on above: Order Comment: This order is a replacement of the rejected order with accession number [id number]. Performed By: #### 0 0121, 62292, 10150, 48658 #### [facility] [address] [place] [address], [place] CO2 [Moles/Vol] 26 mmol/L Normal 21-31 [facility] Comment on above: Order Comment: This order is a replacement of the rejected order with accession number [id number]. Performed By: #### 0 0121, 48700, 17495, 19529 #### [facility] [address] [place] [address], [place] Creatinine [Mass/Vol] 0.83 mg/dL Normal 0.60-1.[address] [facility] Comment on above: Order Comment: This order is a replacement of the rejected order with accession number [id number]. Performed By: #### 0 0121, 15255, 49414, 44138 #### [facility] [address] [place] [address], [place] GFR/1.73 sq M.predicted among blacks MDRD (S/P/Bld) [Vol rate/Area] mL/min/{1.73_m2} Normal >60 [facility] Comment on above: Order Comment: This order is a replacement of the rejected order with accession number [id number]. Result Comment: Calc ulation may not be valid for patients over 70 years Performed By: #### 0 0121, 67386, 84930, 07193 #### [facility] [address] [place] [address], [place] GFR/1.73 sq M.predicted among non-blacks MDRD (S/P/Bld) [Vol rate/Area] mL/min/{1.73_m2} Normal >60 [facility] Comment on above: Order Comment: This order is a replacement of the rejected order with accession number [id number]. Result Comment: Calc ulation may not be valid for patients over 70 years Performed By: #### 0 0121, 17744, 37492, 14447 #### [facility] [address] [place] [address], [place] Glucose [Mass/Vol] 98 mg/dL Normal 70-100 [facility] Comment on above: Order Comment: This order is a replacement of the rejected order with accession number [id number]. Performed By: #### 0 0121, 88029, 57462, 65414 #### [facility] [address] [place] [address], [place] Potassium [Moles/Vol] 4.5 mmol/L Normal 3.5-5.1 [facility] Comment on above: Order Comment: This order is a replacement of the rejected order with accession number [id number]. Performed By: #### 0 0121, 31947, 48243, 23793 #### [facility] [address] [place] [address], [facility] Protein [Mass/Vol] 7.0 g/dL Normal 6.0-8.3 [facility] Comment on above: Order Comment: This order is a replacement of the rejected order with accession number [id number]. Performed By: #### 0 0121, 06837, 34785, 73977 #### [facility] [address] [place] [address], [facility] Sodium [Moles/Vol] 134 mmol/L Low 136-145 [facility] Comment on above: Order Comment: This order is a replacement of the rejected order with accession number [id number]. Performed By: #### 0 0121, 45341, 26803, 03672 #### [facility] [address] [place] [address], [facility] Urea nitrogen [Mass/Vol] 26 mg/dL High 7-25 [facility] Comment on above: Order Comment: This order is a replacement of the rejected order with accession number [id number]. Performed By: #### 0 0121, 39330, 18715, 04549 #### [facility] [address] [place] [address], [facility] LACTATE BLOODon 04-18-2021 Lactate [Moles/Vol] 1.6 mmol/L Normal .5-2.2 [facility] Comment on above: Order Comment: No: D o not add to previous draw Performed By: #### 1 0054 #### [facility] [address] [place] [address], [facility] MAGNESIUM BLOODon 04-18-2021 Magnesium [Mass/Vol] 1.5 mg/dL Low 1.9-2.7 [facility] Comment on above: Order Comment: This order is a replacement of the rejected order with accession number [id number]. Performed By: #### 0 0121, 54830, 19427, 38454 #### [facility] [address] [place] [address], [facility] PHOSPHORUS BLOODon Phosphate [Mass/Vol] 3.3 mg/dL Normal 2.5-5.0 [facility] Comment on above: Order Comment: This order is a replacement of the rejected order with accession number [id number]. Performed By: #### 0 0121, 87871, 29381, 16920 #### [facility] [address] [facility] [place], [place] [address] PORTABLE CHEST 1 VIEWon 03-31 PORTABLE CHEST 1 VIEW [facility] Department of Radiology [address] [place] [address] Patient Name: MAGDALENO WOODS : 1940 Sex: F Age: Race: Other Pt. Location: [facility] Patient Status: E Ordered Date: 04/18/2021 5:10:00 PM Completed Date: 04/18/2021 05:24 PM Requesting Provider: ABBY JEROME Attending Provider: DONI SAXENA Report Copy To: Signs & Symptoms: Chest Pain History: Comments: evaluate for Cardiomegaly Exam: PORTABLE CHEST 1 VIEW PORTABLE CHEST 1 VIEW 04/18/2021 5:24 PM CLINICAL INDICATIONS: Chest Pain TECHNOLOGIST COMMENTS: Chest Pain QUESTION FOR THE RADIOLOGIST: evaluate for Cardiomegaly PROTOCOL: AP(PA) view was obtained. COMPARISON: No prior study FINDINGS: Upper mediastinum unremarkable hilar regions normal. Heart appears enlarged but is magnified by AP portable technique. There is some mild pulmonary venous congestion no pneumonia no pleural effusion IMPRESSION: Mild pulmonary venous congestion no pneumonia no pleural effusion. Mild cardiomegaly Electronically signed: Leilani Mccullough. Transcribed by: [email or web address], User Resident: Electronically Signed by: LEILANI MCCULLOUGH @ 04/18/2021 05:28 PM Normal [facility] Comment on above: Order Comment: evalu ate for Cardiomegaly PROTHROMBIN TIMEon 2 INR Coag (PPP) [Relative time] 1.12 {INR} Normal 0.91-1.16 [facility] Comment on above: Result Comment: ACCC P RECOMMENDED INR FOR WARFARIN THERAPY ------- ------- CONDITION INR PROPHYLAXIS OF VENOUS THROMBOSIS 2-3 (HIGH-RISK SURGERY) TREATMENT OF VENOUS THROMBOSIS 2-3 TREATMENT OF PULMONARY EMBOLISM 2-3 PREVENTION OF SYSTEMIC EMBOLISM: 2-3 ACUTE MYOCARDIAL INFARCTION TISSUE HEART VALVES VALVULAR HEART DISEASE ATRIAL FIBRILLATION RECURRENT SYSTEMIC EMBOLISM MECHANICAL HEART VALVE 2.5-3.5 FROM: ORAL ANTICOAGULANTS. MECHANISM OF ACTION, CLINICAL EFFECTIVENESS, AND OPTIMAL THERAPEUTIC RANGE. CHEST 1995;108:231S-246S. Performed By: #### 0 0121, 64147, 47888, 69043 #### [facility] [address] [facility] [place] [address], [facility] PT Coag (PPP) [Time] 14.4 s Normal 12.3-14.8 [facility] Comment on above: Result Comment: ALL RESULTS MUST BE INTERPRETED WITH RESPECT TO BLOOD DRAWING ARTIFACT OR DILUTION ERROR OF ANTICOAGULANT AT THE TIME OF SAMPLING. Performed By: #### 0 0121, 87649, 77850, 15011 #### [facility] [address] [place] [address], [facility] TROPONIN-Ion 04-18-2021 Troponin I.cardiac [Mass/Vol] 2.26 ng/mL Critically high 0.00-0.04 [facility] Comment on above: Order Comment: This order is a replacement of the rejected order with accession number [id number]. Result Comment: M-MI EVIOUS CRITICAL RESULT REFERENCE RANGES: 0.00 - 0.04 ng/ml NORMAL 0.05 - 0.50 ng/ml INDETERMINATE > 0.50 ng/ml CONSISTENT WITH AN M.I. Performed By: #### 0 0121, 70962, 67538, 10179 #### [facility] [address] [facility] [place] [address], [facility] Troponin I.cardiac [Mass/Vol] 1.52 ng/mL Critically high 0.00-0.04 [facility] Comment on above: Result Comment: M-TR OPONIN INITIAL CRITICAL HIGH; RESPUN AND RETESTED M-CRITICAL RESULT(S) REVIEWED, CALLED TO AND READ BACK BY Blayne Carlisle RN at 1845. REFERENCE RANGES: 0.00 - 0.04 ng/ml NORMAL 0.05 - 0.50 ng/ml INDETERMINATE > 0.50 ng/ml CONSISTENT WITH AN M.I. Performed By: #### 5 7307, 05087 #### [facility] [address] [place] [address], [facility] UFH HEPARIN ASSAYon 04-18-19 UNFRACTIONATED HEPARIN 0.16 IU/mL Critically low 0.30-0.70 [facility] Comment on above: Result Comment: Resu lt checked and called. Accurately read back by LUH GARCIA RN ON 04/18/2021 AT 20:49 Rivaroxaban and Apixaban will interfere with the anti Xa assay used to monitor UFH and LMWH. Performed By: #### 5 7307, 90323 #### [facility] [address] [place] [address], [facility] Encounters Encounter Date Encounter Type Care Provider Facility Start: 03-09-2023 End: 03-09-2023 ambulatory JOHN B APLING Not Available Start: 02-23-2023 End: 02-23-2023 ambulatory JOHN Wright APLING Not Available Start: 02-13-2023 End: 02-13-2023 ambulatory ELKE Dedrick MICHELLEJOSH Not Available Start: 11-10-2022 End: 11-10-2022 [facility] Start: 07-02-2022 End: 07-02-[address] ELKE PIKE Facility:[facility] Start: 05-09-2022 End: 05-10-[address] JEWELL SALAZAR Facility:[facility] Start: 05-02-2022 End: 05-02-2022 ambulatory JOB JIMENEZ [facility] Start: 09-10-[address] JEWELL SALAZAR Facili ty:[facility] Start: 04-18-2021 End: 2021 Evaluation and management of inpatient ANGELITA HOFF Facility:[facility] Procedures Date Procedure Procedure Detail Performing Clinician Start: 11-10-2022 [facility] Payers Date Payer Category Payer Medicare [id number] 1957 Self-pay [id number] 1957 Unknown [id number] 1940 Unknown [id number] 2.16.8 [id number] 1940 Unknown [id number] 2.16.84 [id number] 1940 Unknown [id number] 2.16.84 [id number] 1940 Unknown [id number] 1940 Unknown [id number] 2.16.840 [id number] 1940 Unknown [id number] [id number] Unknown [id number] 2.16.84 [id number] Progress note 11-10-2022 Note Date & Type Note Facility 11-10-2022 Note Cardiology Follow Up Progress Note Chief Complaint: follow up HPI: Magdaleno Woods is a 82 y.o. female past medical history including CAD status post PCI of For spinal branch of LAD, hypertension, hyperlipidemia. She presents to cardiology clinic for routine follow-up. Patient adamantly denies any cardiac complaints or concerns. Patient denies any chest pain or shortness of breath. Patient denies any lower extremity edema, orthopnea, or proximal nocturnal dyspnea. No near-syncope or syncope. No dizziness or lightheadedness. She remains on cardiac rehab. She is doing well. She denies any cardiac complaints with her activity at rehab. Cardiology ROS: GENERAL: Denies fever, chills, night sweats, weight loss. HEENT: Denies changes in vision, photophobia, changes in hearing, epistaxis, oral bleeding. CARDIOVASCULAR: Denies chest pain, exertional dyspnea, orthopnea/PND, lower extremity edema, palpitations, lightheadedness/dizziness. RESPIRATORY: Denies SOB, coughing, wheezing GI: Denies abdominal pain, nausea/vomiting, heartburn, melena/hematochezia. RENAL: Denies dysuria, hematuria, flank pain. MSK: Denies muscle weakness/pain, arthralgias/joint pain. NEUROLOGIC: Denies LOC, weakness, numbness, headaches. SKIN: Denies abnormal rashes or bleeding. PSYCH: Denies significant anxiety, depression, sleep disturbances. Medications Current Outpatient Medications on File Prior to Visit Medication Sig Dispense Refill acetaminophen (Tylenol) 500 mg tablet Take 500 mg by mouth at bedtime. amLODIPine (Norvasc) 5 mg tablet Take 1 tablet (5 mg) by mouth once daily as directed. 90 tablet 3 aspirin 81 mg chewable tablet in the morning. atorvastatin (Lipitor) 80 mg tablet atorvastatin 80 mg tablet TAKE 1 TABLET BY MOUTH ONCE DAILY 90 tablet 3 clopidogrel (Plavix) 75 mg tablet clopidogrel 75 mg tablet TAKE 1 TABLET BY MOUTH ONCE DAILY 90 tablet 3 levothyroxine (Synthroid, Levoxyl) 150 mcg tablet Euthyrox 150 mcg tablet TAKE 1 TABLET BY MOUTH ONCE DAILY ON AN EMPTY STOMACH IN THE MORNING lisinopriL-hydrochlorothiazide 20-25 mg tablet lisinopril 20 mg-hydrochlorothiazide 25 mg tablet TAKE 1 TABLET BY MOUTH ONCE DAILY spironolactone (Aldactone) 25 mg tablet spironolactone 25 mg tablet TAKE 1 TABLET BY MOUTH ONCE DAILY WITH FOOD No current facility-administered medications on file prior to visit. Allergies Patient has no known allergies. Physical Exam VITAL SIGNS: BP 111/51 (BP Location: Left arm, Patient Position: Sitting, BP Cuff Size: Large adult) Pulse 53 Ht 1.575 m (5' 2 ) Wt 91 kg (200 lb 9.6 oz) SpO2 97% BMI 36.69 kg/m??? Constitutional: Well developed, Well nourished, No acute distress, Non-toxic appearance. HENT: Normocephalic, Atraumatic, Bilateral external ears have normal appearance, Nose appears normal, nares are patent. Eyes: PERRLA, EOMI, Conjunctiva normal, No discharge. Neck: Normal range of motion, No tenderness, Supple, No stridor. No cervical lymphadenopathy noted. Cardiovascular: Normal heart rate, Normal rhythm, No murmurs, No rubs, No gallops. Thorax & Lungs: Normal breath sounds, No respiratory distress, No wheezing, No chest tenderness to palpation. Abdomen: Bowel sounds normal, Soft, Nontender, No masses, No pulsatile masses. Skin: Warm, Dry, No erythema, No rash. Back: No tenderness, No CVA tenderness. Extremities: Intact distal pulses, No edema, No tenderness, No cyanosis, No clubbing. Musculoskeletal: Grossly normal strength in extremities Neurologic: Alert & oriented x 3, no gross focal neurological deficits Psychiatric: Affect normal, Judgment normal, Mood normal. Impression: -CAD status post PCI of first diagonal branch of LAD: No angina or anginal equivalent -Hypertension: Well-controlled -Hyperlipidemia: on high intensity statin -Bradycardia: Chronic, asymptomatic Plan: -Given that PCI was over 1 year ago, discussed discontinuation of Plavix and continuing with aspirin monotherapy. She denies any bleeding complications and would like to remain on DAPT at this time. We will continue DAPT. Continue malik intensity statin -Patient is not on beta-sonu due to bradycardia. -Continue current antihypertensive regimen. Blood pressure is well controlled -Optimize medical management -Aggressive risk factor modification -Plan of care discussed with patient. All questions were answered. Patient voices understanding and is agreeable with current plan. -Patient was educated on red flag symptoms. Strict return precautions were provided. Patient verbalizes understanding -Follow-up in cardiology clinic in 6 months, or sooner as needed Eloisa Wilson MD Interventional Cardiology [facility] Progress note 05-02-2022 Note Date & Type Note Facility 05-02-2022 Note Hypertension is well controlled 120/59 Continue amlodipine, lisinopril/HCTZ and aldactone Script for routine labs provided to pt [facility] Progress note 05-02-2022 Note Date & Type Note Facility 05-02-2022 Note Continue statin [facility] Progress note 05-02-2022 Note Date & Type Note Facility 05-02-2022 Note Coronary artery dise ase is stable Tolerating cardiac rehab well GDMT- continue ASA, lipitor, plavix, lisinopril [facility] Progress note 05-02-2022 Note Date & Type Note Facility 05-02-2022 Note [facility] CARDIOLOGY PROGR ESS NOTE HPI: Magdaleno Woods is a 82 y.o. female here for Coronary Artery Disease and Hypertension Patient here for 6 mo follow up CAD, hypertension, and acute [place]. Says her LE edema is no more than usual. Denies chest pain and SOB. Goes to cardiac rehab at [facility] 3 days a week. Overall she is doing very well. Review of Systems Cardiovascular: Positive for leg swelling. Musculoskeletal: Positive for arthritis, back pain and joint pain. All other systems reviewed and are negative. Visit Vitals BP 120/59 (BP Location: Left arm, Patient Position: Sitting) Pulse 53 Ht 1.562 m (5' 1.5 ) Wt 90.7 kg (200 lb) SpO2 99% BMI 37.18 kg/m??? Smoking Status Never BSA 1.98 m??? No Known Allergies Medications: Current Outpatient Medications on File Prior to Visit Medication Sig Dispense Refill amLODIPine (Norvasc) 5 mg tablet Take 5 mg by mouth in the morning. aspirin 81 mg chewable tablet in the morning. atorvastatin (Lipitor) 80 mg tablet atorvastatin 80 mg tablet TAKE 1 TABLET BY MOUTH ONCE DAILY clopidogrel (Plavix) 75 mg tablet clopidogrel 75 mg tablet TAKE 1 TABLET BY MOUTH ONCE DAILY levothyroxine (Synthroid, Levoxyl) 150 mcg tablet Euthyrox 150 mcg tablet TAKE 1 TABLET BY MOUTH ONCE DAILY ON AN EMPTY STOMACH IN THE MORNING lisinopriL-hydrochlorothiazide 20-25 mg tablet lisinopril 20 mg-hydrochlorothiazide 25 mg tablet TAKE 1 TABLET BY MOUTH ONCE DAILY spironolactone (Aldactone) 25 mg tablet spironolactone 25 mg tablet TAKE 1 TABLET BY MOUTH ONCE DAILY WITH FOOD No current facility-administered medications on file prior to visit. Physical Exam: Constitutional: Appearance: Normal appearance. Without apparent distress, obese HENT: Head: Normocephalic and atraumatic. Nose: Nose normal. Mouth/Throat: Mouth: Mucous membranes are moist. Eyes: Extraocular Movements: Extraocular movements intact. Conjunctiva/sclera: Conjunctivae normal. Neck: Vascular: No JVD. Cardiovascular: Rate and Rhythm: Normal rate and regular rhythm. Pulses: Dorsalis pedis pulses are 3 on the right side and 3on the left side. Posterior tibial pulses are 3 on the right side and 3 on the left side. Heart sounds: Normal heart sounds, S1 normal and S2 normal. Pulmonary: Effort: Pulmonary effort is normal. Breath sounds: Normal breath sounds. Abdominal: General: Bowel sounds are normal. Palpations: Abdomen is soft. Musculoskeletal: General: Normal range of motion. Cervical back: Normal range of motion. Right lower leg: No edema. Left lower leg: No edema. Skin: General: Skin is warm and dry. Capillary Refill: Capillary refill takes less than 2 seconds. Neurological: General: No focal deficit present. Mental Status: She is alert and oriented to person, place, and time. Psychiatric: Mood and Affect: Mood normal. Behavior: Behavior normal. Thought Content: Thought content normal. Judgment: Judgment normal. Labs: 06/03/21 renal function normal K+ 5.0 Last lab values have been reviewed CV Testin04/19/21 Cath 04/19/21 Echo Assessment/Plan: Coronary arteriosclerosis Coronary artery disease is stable Tolerating cardiac rehab well GDMT- continue ASA, lipitor, plavix, lisinopril Hyperlipidemia Continue statin Hypertensive disorder Hypertension is well controlled 120/59 Continue amlodipine, lisinopril/HCTZ and aldactone Script for routine labs provided to pt RTC 6 months [facility] Progress note 05-02-2022 Note Date & Type Note Facility 05-02-2022 Note Patient here for 6 m o follow up CAD, hypertension, and acute WA. Says her LE edema is no more than usual. Denies chest pain and SOB. Goes to cardiac rehab at [facility] 3 days a week. Review of Systems Cardiovascular: Positive for leg swelling. Musculoskeletal: Positive for arthritis, back pain and joint pain. All other systems reviewed and are negative. [facility] Discharge summary note 2021 Note Date & Type Note Facility 2021 Note MR#: [id number] I [facility] Pt. Name: Magdaleno Woods Admitted: 04/18/2021 Discharged: 2021 Date of : 1940 Physician: Jon Bahena MD DISCHARGE SUMMARY PRIMARY CARE PHYSICIAN: Not on record. CONSULTING PHYSICIAN: Cardiology Team. FINAL DIAGNOSES: 1. Acute non-ST elevation myocardial infarction status post cardiac catheterization, status post stent deployment. 2. Essential hypertension. 3. Unspecified dyslipidemia. 4. Morbid obesity. 5. Hypothyroidism, asymptomatic. HOSPITAL COURSE: This is a 81-year-old female with past medical history of aforementioned comorbidities, who came to the hospital with chest pain with positive cardiac markers concerning for an acute non-ST elevation myocardial infarction. The patient admitted, started on heparin infusion along with medical management. The patient was seen by Cardiology and underwent cardiac catheterization, which the patient tolerated well, revealed severe single-vessel coronary artery disease. Two stents were deployed, which the patient tolerated very well. The patient was monitored overnight without any chest pain or shortness of breath, remained stable. The patient was discharged on medical management. The patient was also started on beta-sonu as the patient has baseline bradycardia and will be followed by Cardiology as an outpatient for further recommendation and medical optimization. PHYSICAL EXAMINATION: GENERAL: When examined today, hemodynamically stable. NECK: Supple. CARDIOVASCULAR: Regular rate and rhythm. ABDOMEN: Positive bowel sounds. EXTREMITIES: No pedal edema. LABORATORY DATA: Reviewed. MEDICATIONS: Per the computer reconciliation list. TIME SPENT: Time spent in coordination of care 35 minutes. Electronically Signed by: Jon Bahena MD 04/23/2021 08:00 A Jon Bahena MD Date Dict: 04/20/2021/08:49 A/Jon Bahena MD Date Trans: 2021 09:07 Theo/glen [id number] [facility] Summary Purpose Family History No Family History Records FoundNo Family History Records FoundNo Family History Records FoundNo Family History Records FoundNo Family History Records Found Advance Directives No Advanced Directives Records FoundNo Advanced Directives Records FoundNo Advanced Directives Records FoundNo Advanced Directives Records FoundNo Advanced Directives Records Found Additional Source Comments INFORMATION SOURCE (unrecogn ized section and content) DATE CREATED AUTHOR 04/25/[address] [facility] DATE CREATED AUTHOR AUTHOR'S ORGANIZ ATION 06/21/2021 [facility] dical Specialist DATE CREATED AUTHOR AUTHOR'S ORGANIZ ATION 07/07/2022 [facility] DATE CREATED AUTHOR AUTHOR'S ORGANIZ ATION 11/10/2022 [facility] DATE CREATED AUTHOR AUTHOR'S ORGANIZ ATION 03/10/2023 [facility] dical Specialists EPIC FOR RECORDS PERTAINING TO PATIENTS WHO ARE OR HAVE BEEN ENROLLED IN A CHEMICAL DEPENDENCY/SUBSTANCEABUSE PROGRAM, SOME INFORMATION MAY BE OMITTED. This clinical summary was aggregated from multiple sources. Caution should be exercised in using it in the provision of clinical care. This summary normalizes information from multiple sources, and as a consequence, information in this document may materially change the coding, format and clinical context of patient data. In addition, data may be omitted in some cases. CLINICAL DECISIONS SHOULD BE BASED ON THE PRIMARY CLINICAL RECORDS. [facility]. provides no warranty or guarantee of the accuracy or completeness of information in this document.
--- NOTE | 2023-03-31 15:40 | CA_ITS ---
Patient Name: MAGDALENO WOODS MR#: [id number] : 1940 Exam Date: 03/31/2023 Ordering Doctor: DR ELKE PIKE ECHOCARDIOGRAM REPORT PROCEDURE: CA ECHO DOPPLER COMPLETE INDICATIONS: Cerebrovascular accident COMPARISON: None. DESCRIPTION: COMPLETE ECHOCARDIOGRAM Real-time transthoracic echocardiography with 2D, M-mode, spectral and color flow Doppler performed. QUALITY: Technical quality was good. LEFT VENTRICLE: Normal chamber size. Thickened septal wall. LV EF: Global left ventricular systolic function is hyperdynamic. Visual estimation of left ventricular ejection fraction is 65-70% DIASTOLIC: Grade 2, moderate diastolic dysfunction. ATRIAL SEPTUM: Inadequately seen. LEFT ATRIUM: Mild dilatation. RIGHT ATRIUM: Moderate dilatation. RIGHT VENTRICLE: Normal chamber size. Normal right ventricular systolic function. TRICUSPID VALVE: Normal mobility and thickness. Mild to moderate regurgitation. Mild pulmonary hypertension. RVSP 38mmHg MITRAL VALVE: Normal mobility and thickness. No evidence of mitral valve stenosis. Moderate mitral annular calcification. Mild mitral regurgitation. AORTIC VALVE: Normal trileaflet appearance. Thickened aortic valve. Normal leaflet mobility. No evidence of aortic valve stenosis. Trivial aortic regurgitation. AORTIC ROOT: Normal diameter and appearance. PULMONIC VALVE: Normal thickness and mobility. No stenosis. Trivial regurgitation. PERICARDIUM: No evidence of pericardial effusion. IVC: Collapses with inspirations. Normal size. CONCLUSION: 1. Global left ventricular systolic function is hyperdynamic; visually estimated ejection fraction 65 to 70% 2. The right ventricle is normal in size and systolic function 3. Grade 2, moderate diastolic dysfunction 4. Biatrial enlargement 5. Mild to moderate tricuspid regurgitation 6. Mildly elevated right ventricular systolic pressure; RVSP 38 mmHg 7. Mild mitral regurgitation Adult Echocardiography Procedure Report Left Ventricle LVEDD (3.7 - 5.6 cm): 4.52 cm LVESD (2.2 - 4.0 cm): 2.92 cm LVIVS thickness (0.6 - 1.2 cm): 1.23 cm LVPW thickness (0.5 - 1.0 cm): 0.89 cm e': 0.08 m/s E - e': 13.64 LVOT Max Gradient: 4.69 mm[Hg] LVOT Area (cm2): 1.08 m/s Peak Velocity (LVOT): 1.08 m/s Mean Velocity (LVOT): 0.65 m/s LVOT Diameter 1.89 cm Left Ventricular Ejection Fraction: 82.21 % Left Atrium LA Volume Index (2D A2C): 41.64 ml/m2 Left Atrium Systolic Dimension: 3.72 cm Mitral Valve MV E to A Ratio: 0.92 Mitral Valve A-Wave Peak Velocity: 1.14 m/s Mitral Valve E-Wave Peak Velocity: 1.05 m/s Right Ventricle RV Internal Diastolic Dimension: 3.50 cm Aorta AO Root Diam: 2.81 cm Ascending Ao Diam: 2.84 cm Aortic Valve AoV Area (Peak Jerad): 2.18 cm2, 2.18 cm2 AoV Area (VTI): 1.86 cm2, 1.86 cm2 Peak Velocity(Antegrade Flow): 1.40 m/s Peak Gradient(Antegrade Flow): 7.81 mm[Hg] Mean Velocity(Antegrade Flow): 1.02 m/s Mean Gradient(Antegrade Flow): 4.51 mm[Hg] Velocity Time Integral: 35.06 cm Tricuspid Valve Peak Velocity (Regurgitant Flow): 2.75 m/s, 2.94 m/s, 3.19 m/s, 2.95 m/s Pulmonic Valve Mean Gradient: 4.34 mm[Hg], 3.01 mm[Hg] Mean Velocity: 0.97 m/s, 0.82 m/s Peak Velocity: 1.27 m/s Peak Gradient: 7.89 mm[Hg], 5.08 mm[Hg] Right Atrium Right Atrium Systolic Pressure: 54.22 ml, 54.22 ml Dictated by: Nam Williamson M.D. on 04/07/2023 at 09:27 Approved by: Nam Williamson M.D. on 04/07/2023 at 09:30
== END 2023-03-31 14:02 | disposition home or self-care (01) ==
LOC: US 14:01
PROVIDERS: PCP Family Medicine; Visit Provider Family Medicine
DX: I63.50 Cerebral infarction due to unspecified occlusion or stenosis of unspecified cerebral artery (principal); R06.00 Dyspnea, unspecified; R42 Dizziness and giddiness
CPT/HCPCS: 93306; 93880

== ENCOUNTER 2023-04-10 02:01 | Emergency (ER) | payer MEDICARE, BC, SELFPAY ==
[2023-04-10] VITALS (14 sets, daily range): BP systolic 116; BP diastolic 88; PULSE 44–59; RESP 12–18; TEMP 36.5; O2SAT 96–98; BMI 36.2
--- NOTE | 2023-04-10 02:09 | ECG_ITS ---
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
--- OUTSIDE RECORDS SUMMARY | 2023-04-10 02:22 | XMS_ITS | CCD ---
Author Name Unknown Address [address] [place] [id number] Organization [facility] Care Team Providers Care Supervising Film Or Videotape Editor Name Role Phone ANGELITA HOFF Primary Care [...] disease (6 sources) Atherosclerotic heart disease of [place] coronary artery without angina pectoris; Translations: [ASHD ELY SHOSHONE CA W/O ANGINA PECTORIS] Onset: 05-02-2022 Chronic [...] Range Facility Office Visiton 11-10-2022 Follow-up visit [id number] PeggyMagdaleno Aislinn 1940 F Date Provider Department Center 11/10/2022 3848-ELOISA WILSON [facility] Family History Problem Relation Age of Onset Heart attack Father Stroke Father Heart failure Paternal Grandfather Family Status - Relation Status Age at Father Paternal Grandfather Level of Service:02659 OR OFFICE/OUTPATIENT ESTABLISHED LOW MDM 20-29 MIN Reason for Visit and Comments: Follow-up [188638] - 6 mo follow up Normal [facility] Covid-19 PCR (CVDTB)on SARS-CoV-2 (COVID-19) RNA OMAR+probe Ql (Unsp spec) Not detected Normal NOT DETECTED [facility] Comment on above: Result Comment: This test is not yet approved or cleared by the [place] FDA. When there are no FDA-approved or cleared tests available, and other criteria are met, FDA can make tests available under an emergency access mechanism called an Emergency Use Authorization (EUA). The EUA for this test is supported by the Direct Support Staff of Health and Human Service's (HHS's) declaration [...] SARS-CoV-2. Performed By: #### C VDTB #### [facility] [address] [place] [address] Dr. Lisa Mckeon SYMPTOMATIC COVID-19 ANTIGEN on 07-02-2022 EUA Statement SEE BELOW Normal [facility] Comment on above: Result Comment: This [...] sooner. Performed By: #### C VDAGS #### [facility] [address] [place] [address] Dr. Lisa Mckeon SARS-CoV-2 (COVID-19) RNA OMRA+probe Ql (Unsp spec) Negative Normal NEGATIVE [facility] Comment on above: Performed By: #### C VDAGS #### [facility] [address] [place] [address] Dr. Lisa Mckeon CBC AUTO DIFFon 05-09-2022 BASO # 0.1 103/ul Normal 0.0-0.1 [facility] Comment on above: Performed By: #### C BC #### [facility] [address] [place] [address] Dr. Lisa Mckeon Basophils/100 WBC (Bld) 0.9 % Normal 0.2-2.[address] [facility] Comment on above: Performed By: #### C BC #### [facility] [address] [place] [address] Dr. Lisa Mckeon EO # 0.2 103/ul Normal 0.0-0.7 [facility] Comment on above: Performed By: #### C BC #### [facility] [address] [place] [address] Dr. Lisa Mckeon Eosinophils/100 WBC (Bld) 2.6 % Normal 0.9-7.0 [facility] Comment on above: Performed By: #### C BC #### [facility] [address] [place] [address] Dr. Lisa Mckeon Erythrocyte distribution width (RBC) [Ratio] 14.5 % Normal 11.0-15.0 [facility] Comment on above: Performed By: #### C BC #### [facility] [address] [place] [address] Dr. Lisa Mckeon Hematocrit (Bld) [Volume fraction] 40.4 % Normal 36.0-48.0 [facility] Comment on above: Performed By: #### C BC #### [facility] [address] [place] [address] Dr. Lisa Mckeon Hemoglobin (Bld) [Mass/Vol] 13.5 g/dL Normal 12.0-16.0 [facility] Comment on above: Performed By: #### C BC #### [facility] [address] [place] [address] Dr. Lisa Mckeon IG # 0.04 10e3/ul Critically high 0.00-0.03 [facility] Comment on above: Performed By: #### C BC #### [facility] [address] [place] [address] Dr. Lisa Mckeon IG % 0.5 % Normal 0.0-0.[address] [facility] Comment on above: Performed By: #### C BC #### [facility] [address] [place] [address] Dr. Lisa Mckeon LYMPH # 1.3 103/ul Normal 1.2-3.[address] [facility] Comment on above: Performed By: #### C BC #### [facility] [address] [place] [address] Dr. Lisa Mckeon Lymphocytes/100 WBC (Bld) 16.2 % Critically low 20.5-60.0 [facility] Comment on above: Performed By: #### C BC #### [facility] [address] [place] [address] Dr. Lisa Mckeon MANUAL DIFF REQ NO Normal [facility] Comment on above: Performed By: #### C BC #### [facility] [address] [place] [address] Dr. Lisa Mckeon MCH (RBC) [Entitic mass] 30.8 pg Normal 26.7-34.0 [facility] Comment on above: Performed By: #### C BC #### [facility] [address] [place] [address] Dr. Lisa Mckeon MCHC (RBC) [Mass/Vol] 33.4 g/dL Normal 29.9-35.2 [facility] Comment on above: Performed By: #### C BC #### [facility] [address] [place] [address] Dr. Lisa Mckeon MCV (RBC) [Entitic vol] 92.0 fL Normal 81.0-99.0 [facility] Comment on above: Performed By: #### C BC #### [facility] [address] [place] [address] Dr. Lisa Mckeon MONO # 0.7 103/ul Normal 0.3-0.8 [facility] Comment on above: Performed By: #### C BC #### [facility] [address] [place] [address] Dr. Lisa Mckeon Monocytes/100 WBC (Bld) 8.7 % Normal 1.7-12.0 [facility] Comment on above: Performed By: #### C BC #### [facility] [address] [place] [address] Dr. Lisa Mckeon NEUT # 5.6 103/ul Normal 1.4-6.[address] [facility] Comment on above: Performed By: #### C BC #### [facility] [address] [place] [address] Dr. Lisa Mckeon Neutrophils/100 WBC (Bld) 71.1 % Normal 43.0-75.[address] [facility] Comment on above: Performed By: #### C BC #### [facility] [address] [place] [address] Dr. Lisa Mckeon Platelet mean volume (Bld) [Entitic vol] 11.7 fL Normal 9.5-13.5 [facility] Comment on above: Performed By: #### C BC #### [facility] [address] [place] [address] Dr. Lisa Mckeon PLT 319 103/ul Normal 150-[address] [facility] Comment on above: Performed By: #### C BC #### [facility] [address] [address] [address] Lisa Mckeon RBC 4.39 106/ul Normal 4.20-5.[address] [facility] Comment on above: Performed By: #### C BC #### [facility] [address] [place] [address] Dr. Lisa Mckeon WBC 7.9 103/ul Normal 4.0-11.0 [facility] Comment on above: Performed By: #### C BC #### [facility] [address] [place] [address] Dr. Lisa Mckeon LIPID PROFILEon 05-09-2022 CHOL-HDL RATIO NORM SEE BELOW Normal [facility] Comment on above: Result Comment: 3.3 - 4.4 LOW RISK 4.4 - 7.1 AVERAGE RISK 7.1 - 11.0 MODERATE RISK >11.0 HIGH RISK Performed By: #### L IPID, CMP #### [facility] [address] [place] [address] Dr. Lisa Mckeon Cholesterol [Mass/Vol] 101 mg/dL Normal <=[address] [facility] Comment on above: Performed By: #### L IPID, CMP #### [facility] [address] [place] [address] Dr. Lisa Mckeon Cholesterol in HDL [Mass/Vol] 42 mg/dL Normal 40-[address] [facility] Comment on above: Performed By: #### L IPID, CMP #### [facility] [address] [place] [address] Dr. Lisa Mckeon Cholesterol in LDL [Mass/Vol] 43.8 mg/dL Normal [facility] Comment on above: Performed By: #### L IPID, CMP #### [facility] [address] [address] [address] Lisa Mckeon Cholesterol.total/Ch olesterol in HDL [Mass ratio] 2.4 {ratio} Normal [facility] Comment on above: Performed By: #### L IPID, CMP #### [facility] [address] [place] [address] Dr. Lisa Mckeon HDL NORMAL > or = 60 mg/dl - LOW CARDIOVASCULAR RISK <40 mg/dl - HIGH CARDIOVASCULAR RISK Normal [facility] Comment on above: Performed By: #### L IPID, CMP #### [facility] [address] [address] [address] Lisa Mckeon LDL CALC NORMAL SEE BELOW Normal [facility] Comment on above: Result Comment: <100 mg/dl OPTIMAL 100 - 129 mg/dl NEAR OR ABOVE OPTIMAL 130 - 159 mg/dl BORDERLINE HIGH 160 - 189 mg/dl HIGH >190 mg/dl VERY HIGH Performed By: #### L IPID, CMP #### [facility] [address] [place] [address] Dr. Lisa Mckeon Triglyceride [Mass/Vol] 76 mg/dL Normal <=150 [facility] Comment on above: Performed By: #### L IPID, CMP #### [facility] [address] [place] [address] Dr. Lisa Mckeon VLDL CALC 15.2 mg/dL Normal [facility] Comment on above: Performed By: #### L IPID, CMP #### [facility] [address] [place] [address] Dr. Lisa Mckeon PROF 14(COMP METB)on 023 Albumin [Mass/Vol] 3.4 g/dL Normal 3.4-5.0 [facility] Comment on above: Performed By: #### L IPID, CMP #### [facility] [address] [place] [address] Dr. Lisa Mckeon Albumin/Globulin [Mass ratio] 1.1 {ratio} Normal [facility] Comment on above: Performed By: #### L IPID, CMP #### [facility] [address] [address] [address] Lisa Mckeon ALP [Catalytic activity/Vol] 69 U/L Normal 46-116 [facility] Comment on above: Performed By: #### L IPID, CMP #### [facility] [address] [address] [address] Lisa Mckeon ALT [Catalytic activity/Vol] 24 U/L Normal 14-59 [facility] Comment on above: Performed By: #### L IPID, CMP #### [facility] [address] [place] [address] Dr. Lisa Mckeon Anion gap [Moles/Vol] 13.2 mmol/L Normal [facility] Comment on above: Performed By: #### L IPID, CMP #### [facility] [address] [place] [address] Dr. Lisa Mckeon AST [Catalytic activity/Vol] 17 U/L Normal 15-37 [facility] Comment on above: Performed By: #### L IPID, CMP #### [facility] [address] [place] [address] Dr. Lisa Mckeon Bilirubin [Mass/Vol] 0.4 mg/dL Normal 0.2-1.0 [facility] Comment on above: Performed By: #### L IPID, CMP #### [facility] [address] [place] [address] Dr. Lisa Mckeon Calcium [Mass/Vol] 9.3 mg/dL Normal 8.5-10.1 [facility] Comment on above: Performed By: #### L IPID, CMP #### [facility] [address] [place] [address] Dr. Lisa Mckeon Chloride [Moles/Vol] 100 mmol/L Normal 98-[address] [facility] Comment on above: Performed By: #### L IPID, CMP #### [facility] [address] [place] [address] Dr. Lisa Mckeon CO2 [Moles/Vol] 28.8 mmol/L Normal 21.0-32.0 [facility] Comment on above: Performed By: #### L IPID, CMP #### [facility] [address] [address] [address] Lisa Mckeon Creatinine [Mass/Vol] 0.72 mg/dL Normal 0.55-1.[address] [facility] Comment on above: Performed By: #### L IPID, CMP #### [facility] [address] [address] [address] Lisa Mckeon EGFR-AF MONTSERRATIAN >60 Normal >=60 [facility] Comment on above: Performed By: #### L IPID, CMP #### [facility] [address] [address] [address] Lisa Mckeon EGFR-NON AF MONTSERRATIAN >60 Normal >=60 [facility] Comment on above: Performed By: #### L IPID, CMP #### [facility] [address] [address] [address] Lisa Mckeon Globulin (S) [Mass/Vol] 3.1 g/dL Normal [facility] Comment on above: Performed By: #### L IPID, CMP #### [facility] [address] [address] [address] Lisa Mckeon Glucose [Mass/Vol] 89 mg/dL Normal 74-106 [facility] Comment on above: Performed By: #### L IPID, CMP #### [facility] [address] [address] [address] Lisa Mckeon Potassium [Moles/Vol] 5.0 mmol/L Normal 3.5-5.[address] [facility] Comment on above: Performed By: #### L IPID, CMP #### [facility] [address] [address] [address] Lisa Mckeon Protein [Mass/Vol] 6.5 g/dL Normal 6.4-8.2 [facility] Comment on above: Performed By: #### L IPID, CMP #### [facility] [address] [address] [address] Lisa Mckeon Sodium [Moles/Vol] 137 mmol/L Normal 136-145 [facility] Comment on above: Performed By: #### L IPID, CMP #### [facility] [address] [place], [place] [address] Dr. Lisa Mckeon Urea nitrogen [Mass/Vol] 27.0 mg/dL Critically high 7.0-18.0 [facility] Comment on above: Performed By: #### L IPID, CMP #### [facility] [address] [place], [place] [address] Dr. Lisa Mckeon Urea nitrogen/Creatinine [Mass ratio] 37.5 mg/mg Normal [facility] Comment on above: Performed By: #### L IPID, CMP #### [facility] [address] [place], [place] [address] Dr. Lisa Mckeon Office Visiton 05-02-2022 Follow-up visit [id number] Magdaleno Woods 1940 F Date Provider Department Center 05/02/2022 JOB HAWKINS [facility] Family History Problem Relation Age of Onset Heart attack Father Stroke Father Heart failure Paternal Grandfather Family Status - Relation Status Age at Father Paternal Grandfather Level of Service:84600 OR OFFICE/OUTPATIENT ESTABLISHED MOD MDM 30-39 MIN Reason for Visit and Comments: Coronary Artery Disease [187] Hypertension [653085] Normal [facility] Complete Blood Count with Au to Diffon 06-20-2021 Basophils (Bld) [#/Vol] 0.04 10*3/uL Normal 0.00-0.20 [facility] Comment on above: Performed By: #### C BCAD, LIPD, CMP, TSH #### [facility] [address] [place], [place] [id number] Basophils/100 WBC (Bld) 0.6 % Normal [facility] Comment on above: Performed By: #### C BCAD, LIPD, CMP, TSH #### [facility] [address] [place], [place] [id number] Eosinophils (Bld) [#/Vol] 0.00 10*3/uL Low 0.02-0.50 [facility] Comment on above: Performed By: #### C BCAD, LIPD, CMP, TSH #### [facility] [address] [place], [place] [id number] Eosinophils/100 WBC (Bld) 0.0 % Normal [facility] Comment on above: Performed By: #### C BCAD, LIPD, CMP, TSH #### [facility] [address] [place], [place] [id number] Erythrocyte distribution width (RBC) [Ratio] 14.0 % Normal 11.0-15.0 [facility] Comment on above: Performed By: #### C BCAD, LIPD, CMP, TSH #### [facility] [address] [place], [place] [id number] Hematocrit (Bld) [Volume fraction] 40.6 % Normal 35.0-47.0 [facility] Comment on above: Performed By: #### C BCAD, LIPD, CMP, TSH #### [facility] [address] [place], [place] [id number] Hemoglobin (Bld) [Mass/Vol] 13.2 g/dL Normal 11.6-15.5 [facility] Comment on above: Performed By: #### C BCAD, LIPD, CMP, TSH #### [facility] [address] [place], [place] [id number] Lymphocytes (Bld) [#/Vol] 1.3 10*3/uL Normal 0.9-3.9 [facility] Comment on above: Performed By: #### C BCAD, LIPD, CMP, TSH #### [facility] [address] [place], [place] [id number] Lymphocytes/100 WBC (Bld) 20.4 % Normal [facility] Comment on above: Performed By: #### C BCAD, LIPD, CMP, TSH #### [facility] [address] [place], [place] [id number] MCH (RBC) [Entitic mass] 30.1 pg Normal 27.0-33.0 [facility] Comment on above: Performed By: #### C BCAD, LIPD, CMP, TSH #### [facility] [address] [place], [place] [id number] MCHC (RBC) [Mass/Vol] 32.5 g/dL Normal 32.0-36.0 [facility] Comment on above: Performed By: #### C BCAD, LIPD, CMP, TSH #### [facility] [address] [facility] [place] [id number] MCV (RBC) [Entitic vol] 93 fL Normal 80-100 [facility] Comment on above: Performed By: #### C BCAD, LIPD, CMP, TSH #### [facility] [address] [place], [place] [id number] Monocytes (Bld) [#/Vol] 0.8 10*3/uL Normal 0.2-0.9 [facility] Comment on above: Performed By: #### C BCAD, LIPD, CMP, TSH #### [facility] [address] [facility] [place] [id number] Monocytes/100 WBC (Bld) 12.3 % Normal [facility] Comment on above: Performed By: #### C BCAD, LIPD, CMP, TSH #### [facility] [address] [place], [place] [id number] Neutrophils (Bld) [#/Vol] 4.3 10*3/uL Normal 1.5-7.8 [facility] Comment on above: Performed By: #### C BCAD, LIPD, CMP, TSH #### [facility] [address] [place], [place] [id number] Neutrophils/100 WBC (Bld) 66.4 % Normal [facility] Comment on above: Performed By: #### C BCAD, LIPD, CMP, TSH #### [facility] [address] [place], [place] [id number] Platelet mean volume (Bld) [Entitic vol] 12.80 fL High 7.50-12.50 [facility] Comment on above: Performed By: #### C BCAD, LIPD, CMP, TSH #### [facility] [address] [facility] [place] [id number] Platelets (Bld) [#/Vol] 228 10*3/uL Normal 140-400 [facility] Comment on above: Performed By: #### C BCAD, LIPD, CMP, TSH #### [facility] [address] [facility] [place] [id number] RBC (Bld) [#/Vol] 4.38 10*6/uL Normal 3.90-5.20 [facility] Comment on above: Performed By: #### C BCAD, LIPD, CMP, TSH #### [facility] [address] [place], [place] [id number] RDW-SD 47.0 fL Normal 37.0-50.0 [facility] Comment on above: Performed By: #### C BCAD, LIPD, CMP, TSH #### [facility] [address] [place], [place] [id number] WBC (Bld) [#/Vol] 6.5 10*3/uL Normal 3.8-11.0 [facility] Comment on above: Performed By: #### C BCAD, LIPD, CMP, TSH #### [facility] [address] [place], [place] [id number] Comprehensive Metabolic Pane sharif 06-20-2021 Albumin [Mass/Vol] 4.1 g/dL Normal 3.6-5.1 [facility] Comment on above: Performed By: #### C BCAD, LIPD, CMP, TSH #### [facility] [address] [place], [place] [id number] Albumin/Globulin [Mass ratio] 2.0 {ratio} Normal 1.0-2.5 [facility] Comment on above: Performed By: #### C BCAD, LIPD, CMP, TSH #### [facility] [address] [place], [place] [id number] ALP [Catalytic activity/Vol] 64 U/L Normal 35-119 [facility] Comment on above: Performed By: #### C BCAD, LIPD, CMP, TSH #### [facility] [address] [place], [place] [id number] ALT [Catalytic activity/Vol] 31 U/L Normal 6-33 [facility] Comment on above: Result Comment: 02/27 Female reference range changed. Performed By: #### C BCAD, LIPD, CMP, TSH #### [facility] [address] [place], [place] [id number] Anion gap [Moles/Vol] 17 mmol/L Normal 12-20 [facility] Comment on above: Result Comment: Effe ctive 04/04/2019 reference range changed. Performed By: #### C BCAD, LIPD, CMP, TSH #### [facility] [address] [place], [place] [id number] AST [Catalytic activity/Vol] 26 U/L Normal 9-[address] [facility] Comment on above: Performed By: #### C BCAD, LIPD, CMP, TSH #### [facility] [address] [place], [place] [id number] Bilirubin [Mass/Vol] 0.35 mg/dL Normal 0.30-1.20 [facility] Comment on above: Performed By: #### C BCAD, LIPD, CMP, TSH #### [facility] [address] [place], [place] [id number] BUN/CREA 33 Ratio High 6-[address] [facility] Comment on above: Performed By: #### C BCAD, LIPD, CMP, TSH #### [facility] [address] [place], [place] [id number] Calcium [Mass/Vol] 9.5 mg/dL Normal 8.6-10.2 [facility] Comment on above: Performed By: #### C BCAD, LIPD, CMP, TSH #### [facility] [address] [place], [place] [id number] Chloride [Moles/Vol] 104 mmol/L Normal 98-107 [facility] Comment on above: Performed By: #### C BCAD, LIPD, CMP, TSH #### [facility] [address] [place], [place] [id number] CO2 [Moles/Vol] 22 mmol/L Normal 20-[address] [facility] Comment on above: Performed By: #### C BCAD, LIPD, CMP, TSH #### [facility] [address] [place], [place] [id number] Creatinine [Mass/Vol] 0.9 mg/dL Normal 0.6-1.[address] [facility] Comment on above: Performed By: #### C BCAD, LIPD, CMP, TSH #### [facility] [address] [place], [place] [id number] eGFRAA 72 mL/min/1.73m2 Normal >60 [facility] Comment on above: Performed By: #### C BCAD, LIPD, CMP, TSH #### [facility] [address] [place], [place] [id number] eGFRNAA 60 mL/min/1.73m2 Low >60 [facility] Comment on above: Performed By: #### C BCAD, LIPD, CMP, TSH #### [facility] [address] [place], [place] [id number] Globulin (S) [Mass/Vol] 2.1 g/dL Normal 1.9-3.7 [facility] Comment on above: Performed By: #### C BCAD, LIPD, CMP, TSH #### [facility] [address] [place], [place] [id number] Glucose [Mass/Vol] 106 mg/dL High 65-99 [facility] Comment on above: Result Comment: For FASTING Glucose --- ADA reference ranges: Normal 65-99 mg/dl Prediabetes 100-125 Diabetes >/= 126 Performed By: #### C BCAD, LIPD, CMP, TSH #### [facility] [address] [place], [place] [id number] Potassium [Moles/Vol] 4.8 mmol/L Normal 3.5-5.5 [facility] Comment on above: Performed By: #### C BCAD, LIPD, CMP, TSH #### [facility] [address] [place], [place] [id number] Protein [Mass/Vol] 6.2 g/dL Normal 6.1-8.1 [facility] Comment on above: Performed By: #### C BCAD, LIPD, CMP, TSH #### [facility] [address] [place], [place] [id number] Sodium [Moles/Vol] 138 mmol/L Normal 135-146 [facility] Comment on above: Performed By: #### C BCAD, LIPD, CMP, TSH #### [facility] [address] [place], [place] [id number] Urea nitrogen [Mass/Vol] 30 mg/dL High 7-25 [facility] Comment on above: Performed By: #### C BCAD, LIPD, CMP, TSH #### [facility] [address] [place], [place] [id number] Lipid Panelon 06-20-2021 Cholesterol [Mass/Vol] 108 mg/dL Low 125-200 [facility] Comment on above: Result Comment: Low risk < 200mg/dL Borderline risk 201-239 mg/dl High risk > or equal to 240 Performed By: #### C BCAD, LIPD, CMP, TSH #### [facility] [address] [place], [place] [id number] Cholesterol in HDL [Mass/Vol] 34 mg/dL Low >40 [facility] Comment on above: Result Comment: High Cardiovascular Risk HDL <40 mg/dL Low Cardiovascular Risk HDL > or equal to 60 mg/dl Performed By: #### C BCAD, LIPD, CMP, TSH #### [facility] [address] [place], [place] [id number] Cholesterol in LDL [Mass/Vol] 50 mg/dL Normal [facility] Comment on above: Result Comment: LDL ATP III CLASSIFICATION LDL less than 100 mg/dl Optimal LDL 100-129 mg/dl Near or above optimal LDL 130-159 Borderline high LDL 160-189 High LDL greater than 189 mg/dl Very High Performed By: #### C BCAD, LIPD, CMP, TSH #### [facility] [address] [place], [place] [id number] Cholesterol in VLDL [Mass/Vol] 24 mg/dL Normal [facility] Comment on above: Performed By: #### C BCAD, LIPD, CMP, TSH #### [facility] [address] [place], [place] [id number] Cholesterol.total/Ch olesterol in HDL [Mass ratio] 3 {ratio} Normal [facility] Comment on above: Performed By: #### C BCAD, LIPD, CMP, TSH #### [facility] [address] [place], [place] [id number] Triglyceride [Mass/Vol] 119 mg/dL Normal 30-150 [facility] Comment on above: Result Comment: TRIG ATPIII CLASSIFICATIONS TRIG less than 150 mg/dl Normal TRIG 150-199 mg/dl Borderline High TRIG 200-500 mg/dl High TRIG greather than 500 mg/dl Very High Performed By: #### C BCAD, LIPD, CMP, TSH #### [facility] [address] [place], [place] [id number] TSHon 06-20-2021 TSH 2.640 uIU/mL Normal 0.400-4.500 [facility] io [facility]ter Comment on above: Performed By: #### C BCAD, LIPD, CMP, TSH #### [facility] [address] [place], [place] [id number] CREATININE BLOODon Creatinine [Mass/Vol] 0.81 mg/dL Normal 0.60-1.20 [facility] Comment on above: Order Comment: No: D o not add to previous draw Performed By: #### 5 7307, 82044 #### [facility] [address] [place] [address], [facility] GFR/1.73 sq M.predicted among blacks MDRD (S/P/Bld) [Vol rate/Area] mL/min/{1.73_m2} Normal >60 [facility] Comment on above: Order Comment: No: D o not add to previous draw Result Comment: Calc ulation may not be valid for patients over 70 years Performed By: #### 5 7307, 83005 #### [facility] [address] [place] [address], [facility] GFR/1.73 sq M.predicted among non-blacks MDRD (S/P/Bld) [Vol rate/Area] mL/min/{1.73_m2} Normal >60 [facility] Comment on above: Order Comment: No: D o not add to previous draw Result Comment: Calc ulation may not be valid for patients over 70 years Performed By: #### 5 7307, 94417 #### [facility] [address] [place] [address], [facility] Cardiovascular Lab Reporton 2021 Cardiovascular Lab Report [facility] Patient Name: [facility] Magdaleno MR #: [id number] Department of Physician: Jennifer Beebe M.D. Division of Service Date: 04/19/2021 Cardiology Birthdate: 1940 Adult Cardiovascular Room #: 4AB [id number] [place] [address] Cardiovascular Laboratory Report CLINICAL PRESENTATION: The patient [...] inhibitor for HFpEF. 6. Outpatient followup with [facility]. 7. Referral to cardiac rehabilitation. PROCEDURES: [...] infiltrated in the left radial artery. A 6-Hungarian Terumo Glidesheath slender was placed in the left radial artery. Radial anti-vasospasm cocktail of verapamil 2.5 mg and nitroglycerin 200 mcg was administered through the sheath. All catheter exchanges were made over the Wiggins guidewire. A 5-Hungarian JR4 was used to engage the right coronary artery. A 5-Hungarian JL3.5 was used to engage the left main coronary artery. Coronary angiogram was performed in multiple orthogonal views using hand injection of contrast. 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 I elected to proceed with PCI. Heparin anticoagulation was administered for this procedure. ACT was maintained greater than 200 seconds. A Peek@Utronic EBU 3.0 guide was engaged to the [...] catheter and this resolved the issue with baptism of blood flow into the LAD. At [...] proxima (more content not included)... Normal [facility] POC GLUCOSE LABon 2021 Glucose [Mass/Vol] 125 mg/dL High 70-100 [facility] Comment on above: Performed By: #### 0 0121, 28853, 83927, 26401 #### [facility] [address] Glucose [Mass/Vol] 103 mg/dL High 70-100 [facility] Comment on above: Performed By: #### 5 7338, 86361 #### [facility] [address] [facility] UFH HEPARIN ASSAYon 04-20-19 UNFRACTIONATED HEPARIN <0.10 Critically low 0.30-0.70 [facility] Comment on above: Order Comment: This order is a replacement of the rejected order with accession number [id number]. Result Comment: Resu lts called. Accurately read back by Sharona Chaidez, RN, 4B pt's nurse, at 0029, 20-Apr-2021. Rivaroxaban and Apixaban will interfere with the anti Xa assay used to monitor UFH and LMWH. Performed By: #### 0 0121, 38626, 18189, 01988 #### [facility] [address] [facility] CBC COMPLETE BLOOD COUNTon 0 04-19-2021 Erythrocyte distribution width (RBC) [Ratio] 14.2 % Normal 11.5-15.0 [facility] Comment on above: Order Comment: No: D o not add to previous draw Performed By: #### 5 6715, 58547 #### [facility] [address] [place] [address], [facility] Hematocrit (Bld) [Volume fraction] 40.5 % Normal 36.0-45.0 [facility] Comment on above: Order Comment: No: D o not add to previous draw Performed By: #### 5 73, 78224 #### [facility] [address] [place] [id number], [facility] Hemoglobin (Bld) [Mass/Vol] 13.9 g/dL Normal 12.0-15.0 [facility] Comment on above: Order Comment: No: D o not add to previous draw Performed By: #### 5 73, 57604 #### [facility] [address] [place] [address], [facility] MCH (RBC) [Entitic mass] 31.2 pg Normal 27.0-33.0 [facility] Comment on above: Order Comment: No: D o not add to previous draw Performed By: #### 5 73, 82745 #### [facility] [address] [place] [address], [facility] MCHC (RBC) [Mass/Vol] 34.3 g/dL Normal 32.0-35.0 [facility] Comment on above: Order Comment: No: D o not add to previous draw Performed By: #### 5 73Maia, 75213 #### [facility] [address] [place] [address], [facility] MCV (RBC) [Entitic vol] 90.8 fL Normal 82.0-98.0 [facility] Comment on above: Order Comment: No: D o not add to previous draw Performed By: #### 5 7348, 77998 #### [facility] [address] [place] [address], [facility] Nucleated RBC/100 WBC (Bld) [Ratio] 0 % Normal 0-0 [facility] Comment on above: Order Comment: No: D o not add to previous draw Performed By: #### 5 7307, 86821 #### [facility] [address] [place] [id number], [facility] PLAT CNT 233 10*3/uL Normal 150-400 [facility] Comment on above: Order Comment: No: D o not add to previous draw Performed By: #### 5 7307, 32053 #### [facility] [address] [place] [address], [facility] RBC (Bld) [#/Vol] 4.46 10*6/uL Normal 3.80-5.[address] [facility] Comment on above: Order Comment: No: D o not add to previous draw Performed By: #### 5 7307, 30751 #### [facility] [address] [place] [address], [place] WBC (Bld) [#/Vol] 9.64 10*3/uL Normal 4.00-10.[address] [facility] Comment on above: Order Comment: No: D o not add to previous draw Performed By: #### 5 7307, 05148 #### [facility] [address] [place] [address], [facility] HEMOGLOBIN A1Con 04-19-2021 Glucose [Moles/Vol] 126 mmol/L Normal [facility] Comment on above: Order Comment: Yes: Add to Previous draw if able Performed By: #### 3 1791 #### [facility] [address] [place] [address], [facility] HbA1c (Bld) [Mass fraction] 6.0 % Normal 4.0-6.0 [facility] Comment on above: Order Comment: Yes: Add to Previous draw if able Performed By: #### 3 1791 #### [facility] [address] [place] [address], [place] LIPID PROFILEon 04-19-2021 Cholesterol [Mass/Vol] 113 mg/dL Low 120-200 [facility] Comment on above: Result Comment: CHOL ESTEROL REFERENCE RANGE: 20 YEARS AND OLDER CARDIOVASCULAR RISK Less than 200 mg/dl Low Risk 200 to 239 mg/dl Borderline Risk 240 mg/dl and greater High Risk Performed By: #### 4 6413 #### [facility] [address] [place] [address], [facility] Cholesterol in HDL [Mass/Vol] 35 mg/dL Normal 23-92 [facility] Comment on above: Result Comment: Slig ht variation in normal range could be due to gender and/or age. HDL CHOLESTEROL REFERENCE RANGE: 20 years and older Cardiovascular Risk > or =60 mg/dL Desirable 40 TO 59 mg/dL Low Risk <40 mg/dL High Risk Performed By: #### 4 6413 #### [facility] [address] [place] [address], [place] Cholesterol in LDL [Mass/Vol] 51 mg/dL Normal 0-130 [facility] Comment on above: Result Comment: LDL IS A CALCULATION LDL IS ONLY VALID IF THE TRIG IS LESS THAN 400. Performed By: #### 4 6413 #### [facility] [address] [place] [address], [facility] Cholesterol.total/Ch olesterol in HDL [Mass ratio] 3.2 {ratio} Normal .0-4.5 [facility] Comment on above: Performed By: #### 4 6413 #### [facility] [address] [place] [address], [facility] NON-HDL CHOLESTEROL 78 mg/dL Normal [facility] Comment on above: Performed By: #### 4 6413 #### [facility] [address] [place] [address], [facility] Triglyceride [Mass/Vol] 133 mg/dL Normal 40-149 [facility] Comment on above: Result Comment: TRIG LYCERIDE REFERENCE RANGE: 20 YEARS AND OLDER CARDIOVASCULAR RISK LESS THAN 150 mg/dl LOW RISK 150 TO 199 mg/dl BORDERLINE RISK 200 mg/dl AND GREATER HIGH RISK Performed By: #### 4 5013 #### [facility] [address] [place] [address], [place] VLDL CHOL 27 mg/dL Normal 0-40 [facility] Comment on above: Performed By: #### 4 0313 #### [facility] [address] [facility] [place] [address], [facility] POC GLUCOSE LABon 04-19-2021 Glucose [Mass/Vol] 104 mg/dL High 70-100 [facility] Comment on above: Performed By: #### 5 7307, 43534 #### [facility] [address] [place] [address], [facility] TROPONIN-Ion 04-19-2021 Troponin I.cardiac [Mass/Vol] 2.01 ng/mL Critically high 0.00-0.04 [facility] Comment on above: Order Comment: No: D o not add to previous draw Result Comment: M-OR EVIOUS CRITICAL RESULT REFERENCE RANGES: 0.00 - 0.04 ng/ml NORMAL 0.05 - 0.50 ng/ml INDETERMINATE > 0.50 ng/ml CONSISTENT WITH AN M.I. Performed By: #### 3 5200 #### [facility] [address] [facility]. [address] Troponin I.cardiac [Mass/Vol] 2.46 ng/mL Critically high 0.00-0.04 [facility] Comment on above: Result Comment: M-OR EVIOUS CRITICAL RESULT REFERENCE RANGES: 0.00 - 0.04 ng/ml NORMAL 0.05 - 0.50 ng/ml INDETERMINATE > 0.50 ng/ml CONSISTENT WITH AN M.I. Performed By: #### 5 7307, 27157 #### [facility] [address] UFH HEPARIN ASSAYon 04-19-19 UNFRACTIONATED HEPARIN 0.35 IU/mL Normal 0.30-0.70 [facility] Comment on above: Result Comment: Jessa roxaban and Apixaban will interfere with the anti Xa assay used to monitor UFH and LMWH. Performed By: #### 5 7307, 62937 #### [facility] [address] [place] [address], [facility] APTTon 04-18-2021 aPTT Coag (Bld) [Time] 46.6 s High 25.0-35.0 [facility] Comment on above: Order Comment: No: [...] THIS PURPOSE. Performed By: #### 5 7307, 04529 #### [facility] [address] aPTT Coag (Bld) [Time] 58.2 s High 25.0-35.0 [facility] Comment on above: Result Comment: Resu [...] THIS PURPOSE. Performed By: #### 0 0121, 63332, 89669, 88553 #### [facility] [address] CBC W/DIFFon 04-18-2021 ABS IMM GRANS 0.0 10*3/uL Normal 0.0-0.2 [facility] Comment on above: Order Comment: This order is a replacement of the rejected order with accession number [id number]. Performed By: #### 0 0121, 37758, 09583, 25884 #### [facility] [address] ABS NEUTROPHILS 6.6 10*3/uL Normal 1.6-7.6 [facility] Comment on above: Order Comment: This order is a replacement of the rejected order with accession number [id number]. Performed By: #### 0 0121, 21755, 77566, 56487 #### [facility] [address] [place] [address], [facility] Basophils (Bld) [#/Vol] 0.1 10*3/uL Normal 0.0-0.2 [facility] Comment on above: Order Comment: This order is a replacement of the rejected order with accession number [id number]. Performed By: #### 0 0121, 36133, 20891, 74182 #### [facility] [address] [place] [address], [facility] Basophils/100 WBC (Bld) 0.8 % Normal 0.0-1.0 [facility] Comment on above: Order Comment: This order is a replacement of the rejected order with accession number [id number]. Performed By: #### 0 0121, 64117, 38482, 16953 #### [facility] [address] [place] [address], [facility] Eosinophils (Bld) [#/Vol] 0.2 10*3/uL Normal 0.0-0.5 [facility] Comment on above: Order Comment: This order is a replacement of the rejected order with accession number [id number]. Performed By: #### 0 0121, 18204, 44693, 30644 #### [facility] [address] [place] [address], [facility] Eosinophils/100 WBC (Bld) 2.2 % Normal 0.0-6.0 [facility] Comment on above: Order Comment: This order is a replacement of the rejected order with accession number [id number]. Performed By: #### 0 0121, 54242, 02609, 86208 #### [facility] [address] [place] [address], [facility] Erythrocyte distribution width (RBC) [Ratio] 14.0 % Normal 11.5-15.0 [facility] Comment on above: Order Comment: This order is a replacement of the rejected order with accession number [id number]. Performed By: #### 0 0121, 99409, 37403, 97265 #### [facility] [address] Hematocrit (Bld) [Volume fraction] 43.4 % Normal 36.0-45.0 [facility] Comment on above: Order Comment: This order is a replacement of the rejected order with accession number [id number]. Performed By: #### 0 0121, 57780, 00011, 05541 #### [facility] [address] Hemoglobin (Bld) [Mass/Vol] 14.1 g/dL Normal 12.0-15.0 [facility] Comment on above: Order Comment: This order is a replacement of the rejected order with accession number [id number]. Performed By: #### 0 0121, 95002, 01966, 85286 #### [facility] [address] IMM PLATELET FRAC 7.9 % High 0.8-6.[address] [facility] Comment on above: Order Comment: This order is a replacement of the rejected order with accession number [id number]. Performed By: #### 0 0121, 09552, 19637, 81881 #### [facility] [address] IMMATURE GRANS 0.3 % Normal 0.0-1.0 [facility] Comment on above: Order Comment: This order is a replacement of the rejected order with accession number [id number]. Performed By: #### 0 0121, 19933, 35661, 11453 #### [facility] [address] Lymphocytes (Bld) [#/Vol] 2.5 10*3/uL Normal 1.2-4.0 [facility] Comment on above: Order Comment: This order is a replacement of the rejected order with accession number [id number]. Performed By: #### 0 0121, 30570, 08787, 52573 #### [facility] [address] Lymphocytes/100 WBC (Bld) 23.8 % Normal 20.0-45.0 [facility] Comment on above: Order Comment: This order is a replacement of the rejected order with accession number [id number]. Performed By: #### 0 0121, 99047, 52836, 17088 #### [facility] [address] MCH (RBC) [Entitic mass] 30.4 pg Normal 27.0-33.0 [facility] Comment on above: Order Comment: This order is a replacement of the rejected order with accession number [id number]. Performed By: #### 0 0121, 54029, 83768, 75139 #### [facility] [address] MCHC (RBC) [Mass/Vol] 32.5 g/dL Normal 32.0-35.0 [facility] Comment on above: Order Comment: This order is a replacement of the rejected order with accession number [id number]. Performed By: #### 0 0121, 01403, 31864, 07671 #### [facility] [address] MCV (RBC) [Entitic vol] 93.5 fL Normal 82.0-98.0 [facility] Comment on above: Order Comment: This order is a replacement of the rejected order with accession number [id number]. Performed By: #### 0 0121, 28098, 05155, 23440 #### [facility] [address] Monocytes (Bld) [#/Vol] 1.1 10*3/uL High 0.1-1.0 [facility] Comment on above: Order Comment: This order is a replacement of the rejected order with accession number [id number]. Performed By: #### 0 0121, 34240, 72352, 69253 #### [facility] [address] MONOS 10.6 % Normal 5.0-12.0 [facility] Comment on above: Order Comment: This order is a replacement of the rejected order with accession number [id number]. Performed By: #### 0 0121, 99507, 21056, 78526 #### [facility] [address] Neutrophils/100 WBC (Bld) 62.3 % Normal 40.0-72.0 [facility] Comment on above: Order Comment: This order is a replacement of the rejected order with accession number [id number]. Performed By: #### 0 0121, 52945, 62022, 58903 #### [facility] [address] Nucleated RBC/100 WBC (Bld) [Ratio] 0 % Normal 0-0 [facility] Comment on above: Order Comment: This order is a replacement of the rejected order with accession number [id number]. Performed By: #### 0 0121, 82636, 46272, 49975 #### [facility] [address] PLAT CNT 220 10*3/uL Normal 150-400 The [facility] Comment on above: Order Comment: This order is a replacement of the rejected order with accession number [id number]. Performed By: #### 0 0121, 09651, 89491, 03859 #### [facility] [address] RBC (Bld) [#/Vol] 4.64 10*6/uL Normal 3.80-5.[address] [facility] Comment on above: Order Comment: This order is a replacement of the rejected order with accession number [id number]. Performed By: #### 0 0121, 00944, 82697, 74214 #### [facility] [address] [place] [address], [facility] WBC (Bld) [#/Vol] 10.52 10*3/uL Normal 4.00-10.60 [facility] Comment on above: Order Comment: This order is a replacement of the rejected order with accession number [id number]. Performed By: #### 0 0121, 28727, 34977, 26444 #### [facility] [address] COMP METABOLIC PANELon 04-18 Albumin [Mass/Vol] 4.1 g/dL Normal 3.5-5.7 [facility] Comment on above: Order Comment: This order is a replacement of the rejected order with accession number [id number]. Performed By: #### 0 0121, 67364, 41556, 05954 #### [facility] [address] ALKALINE PHOSPH 61 IU/L Normal 34-104 [facility] Comment on above: Order Comment: This order is a replacement of the rejected order with accession number [id number]. Performed By: #### 0 0121, 99743, 56607, 81541 #### [facility] [address] ALT [Catalytic activity/Vol] 20 U/L Normal 7-52 [facility] Comment on above: Order Comment: This order is a replacement of the rejected order with accession number [id number]. Performed By: #### 0 0121, 59306, 06319, 53270 #### [facility] [address] [place] [address], [facility] AST [Catalytic activity/Vol] 29 U/L Normal 13-39 [facility] Comment on above: Order Comment: This order is a replacement of the rejected order with accession number [id number]. Performed By: #### 0 0121, 36108, 21612, 53463 #### [facility] [address] [place] [address], [place] Bilirubin [Mass/Vol] 0.5 mg/dL Normal 0.3-1.0 [facility] Comment on above: Order Comment: This order is a replacement of the rejected order with accession number [id number]. Performed By: #### 0 0121, 66592, 36234, 69419 #### [facility] [address] [place] [address], [place] Calcium [Mass/Vol] 9.5 mg/dL Normal 8.6-10.3 [facility] Comment on above: Order Comment: This order is a replacement of the rejected order with accession number [id number]. Performed By: #### 0 0121, 93061, 63505, 37871 #### [facility] [address] [place] [address], [place] Chloride [Moles/Vol] 101 mmol/L Normal 98-107 [facility] Comment on above: Order Comment: This order is a replacement of the rejected order with accession number [id number]. Performed By: #### 0 0121, 77399, 98803, 01480 #### [facility] [address] [place] [address], [place] CO2 [Moles/Vol] 26 mmol/L Normal 21-31 [facility] Comment on above: Order Comment: This order is a replacement of the rejected order with accession number [id number]. Performed By: #### 0 0121, 93038, 21477, 12125 #### [facility] [address] [place] [address], [place] Creatinine [Mass/Vol] 0.83 mg/dL Normal 0.60-1.20 [facility] Comment on above: Order Comment: This order is a replacement of the rejected order with accession number [id number]. Performed By: #### 0 0121, 36941, 80909, 40961 #### [facility] [address] [place] [address], [place] GFR/1.73 sq M.predicted among blacks MDRD (S/P/Bld) [Vol rate/Area] mL/min/{1.73_m2} Normal >60 [facility] Comment on above: Order Comment: This order is a replacement of the rejected order with accession number [id number]. Result Comment: Calc ulation may not be valid for patients over 70 years Performed By: #### 0 0121, 31677, 15185, 94166 #### [facility] [address] [place] [address], [place] GFR/1.73 sq M.predicted among non-blacks MDRD (S/P/Bld) [Vol rate/Area] mL/min/{1.73_m2} Normal >60 [facility] Comment on above: Order Comment: This order is a replacement of the rejected order with accession number [id number]. Result Comment: Calc ulation may not be valid for patients over 70 years Performed By: #### 0 0121, 72054, 24327, 87566 #### [facility] [address] [place] [address], [place] Glucose [Mass/Vol] 98 mg/dL Normal 70-100 [facility] Comment on above: Order Comment: This order is a replacement of the rejected order with accession number [id number]. Performed By: #### 0 0121, 59347, 49982, 35377 #### [facility] [address] [place] [address], [place] Potassium [Moles/Vol] 4.5 mmol/L Normal 3.5-5.1 The [facility] Comment on above: Order Comment: This order is a replacement of the rejected order with accession number [id number]. Performed By: #### 0 0121, 30812, 40536, 96699 #### [facility] [address] [place] [address], [facility] Protein [Mass/Vol] 7.0 g/dL Normal 6.0-8.3 The [facility] [place] Comment on above: Order Comment: This order is a replacement of the rejected order with accession number [id number]. Performed By: #### 0 0121, 57787, 90769, 04619 #### [facility] [address] [place] [address], [facility] Sodium [Moles/Vol] 134 mmol/L Low 136-145 The [facility] [place] Comment on above: Order Comment: This order is a replacement of the rejected order with accession number [id number]. Performed By: #### 0 0121, 68222, 04842, 89168 #### [facility] [address] [place] [address], [facility] Urea nitrogen [Mass/Vol] 26 mg/dL High 7-25 The [facility] Comment on above: Order Comment: This order is a replacement of the rejected order with accession number [id number]. Performed By: #### 0 0121, 68138, 32102, 52407 #### [facility] [address] [place] [address], [facility] LACTATE BLOODon 04-18-2021 Lactate [Moles/Vol] 1.6 mmol/L Normal .5-2.2 [facility] Comment on above: Order Comment: No: D o not add to previous draw Performed By: #### 1 0054 #### [facility] [address] [place] [address], [facility] MAGNESIUM BLOODon 04-18-2021 Magnesium [Mass/Vol] 1.5 mg/dL Low 1.9-2.7 The [facility] Comment on above: Order Comment: This order is a replacement of the rejected order with accession number [id number]. Performed By: #### 0 0121, 72736, 34730, 96458 #### [facility] [address] [place] [address], [facility] PHOSPHORUS BLOODon Phosphate [Mass/Vol] 3.3 mg/dL Normal 2.5-5.0 The [facility] Comment on above: Order Comment: This order is a replacement of the rejected order with accession number [id number]. Performed By: #### 0 0121, 73402, 09667, 88712 #### [facility] [address] [facility] [place], [place] [address] PORTABLE CHEST 1 VIEWon 03-31 PORTABLE CHEST 1 VIEW [facility] Department of Radiology [address] [place] [address] Patient Name: MAGDALENO WOODS : 1940 Sex: F Age: Race: Other Pt. Location: [facility] Patient Status: E Ordered Date: 04/18/2021 5:10:00 [...] cardiomegaly Electronically signed: Leilani Mccullough. Transcribed by: [email or web address], User Resident: Electronically Signed by: LEILANI MCCULLOUGH @ 04/18/2021 05:28 PM Normal [facility] Comment on above: Order Comment: evalu ate for Cardiomegaly PROTHROMBIN TIMEon 2 INR Coag (PPP) [Relative time] 1.12 {INR} Normal 0.91-1.16 The [facility] Comment on above: Result Comment: ACCC P [...] CHEST 1995;108:231S-246S. Performed By: #### 0 0121, 05476, 90915, 31921 #### [facility] [address] [place] [address], [facility] PT Coag (PPP) [Time] 14.4 s Normal 12.3-14.8 The [facility] Comment on above: Result Comment: ALL RESULTS MUST BE INTERPRETED WITH RESPECT TO BLOOD DRAWING ARTIFACT OR DILUTION ERROR OF ANTICOAGULANT AT THE TIME OF SAMPLING. Performed By: #### 0 0121, 02351, 87060, 21496 #### [facility] [address] [place] [address], [facility] TROPONIN-Ion 04-18-2021 Troponin I.cardiac [Mass/Vol] 2.26 ng/mL Critically high 0.00-0.04 The [facility] Comment on above: Order Comment: This order is a replacement of the rejected order with accession number [id number]. Result Comment: M-OR EVIOUS CRITICAL RESULT REFERENCE RANGES: 0.00 - 0.04 ng/ml NORMAL 0.05 - 0.50 ng/ml INDETERMINATE > 0.50 ng/ml CONSISTENT WITH AN M.I. Performed By: #### 0 0121, 74442, 49823, 12922 #### [facility] [address] [place] [address], [facility] Troponin I.cardiac [Mass/Vol] 1.52 ng/mL Critically high 0.00-0.04 The [facility] Comment on above: Result Comment: M-TR OPONIN INITIAL CRITICAL HIGH; RESPUN AND RETESTED M-CRITICAL RESULT(S) REVIEWED, CALLED TO AND READ BACK BY Blayne Carlisle RN at 1845. REFERENCE RANGES: 0.00 - 0.04 ng/ml NORMAL 0.05 - 0.50 ng/ml INDETERMINATE > 0.50 ng/ml CONSISTENT WITH AN M.I. Performed By: #### 5 7307, 57710 #### [facility] [address] [place] [address], [facility] UFH HEPARIN ASSAYon 04-18-19 UNFRACTIONATED HEPARIN 0.16 IU/mL Critically low 0.30-0.70 The [facility] Comment on above: Result Comment: Resu lt checked and called. Accurately read back by LUH GARCIA RN ON 04/18/2021 AT 20:49 Rivaroxaban and Apixaban will interfere with the anti Xa assay used to monitor UFH and LMWH. Performed By: #### 5 7307, 15535 #### [facility] [address] [place] [address], [facility] Encounters Encounter Date Encounter Type Care Provider Facility Start: 03-09-2023 End: 03-09-2023 ambulatory JOHN B APLING Not Available Start: 02-23-2023 End: 02-23-2023 ambulatory JOHN Wright APLING Not Available Start: 02-13-2023 End: 02-13-2023 ambulatory ELKE Dedrick MICHELLEJOSH Not Available Start: 11-10-2022 End: 11-10-2022 [facility] Start: 07-02-2022 End: 07-02-[address] ELKE PIKE Facility:[facility] Start: 05-09-2022 End: 05-10-[address] JEWELL SALAZAR Facility:[facility] Start: 05-02-2022 End: 05-02-2022 ambulatory JOB JIMENEZ [facility] Start: 09-10-[address] JEWELL SALAZAR Facili ty:[facility] Start: 04-18-2021 End: 2021 Evaluation and management of inpatient ANGELITA HOFF Facility:[facility] Procedures Date Procedure Procedure Detail Performing Clinician Start: 11-10-2022 [facility] Payers Date Payer Category Payer Medicare [id number] 1957 Self-pay [id number] 1957 Unknown [id number] 1940 Unknown [id number] 2.16.8 [id number] 1940 Unknown [id number] 2.16.84 [id number] 1940 Unknown [id number] 2.16.84 [id number] 1940 Unknown [id number] [id number] 1940 Unknown [id number] [id number] 1940 Unknown [id number] [id number] Unknown [id number] 2.16.84 [id number] Progress note 11-10-2022 Note Date & Type [...] as needed Eloisa Wilson MD Interventional Cardiology [facility] Progress note 05-02-2022 Note Date & Type Note Facility 05-02-2022 Note Hypertension is well controlled 120/59 Continue amlodipine, lisinopril/HCTZ and aldactone Script for routine labs provided to pt [facility] Progress note 05-02-2022 Note Date & Type Note Facility 05-02-2022 Note Continue statin [facility] Progress note 05-02-2022 Note Date & Type Note Facility 05-02-2022 Note Coronary artery dise ase is stable Tolerating cardiac rehab well GDMT- continue ASA, lipitor, plavix, lisinopril [facility] Progress note 05-02-2022 Note Date [...] and SOB. Goes to cardiac rehab at [facility] 3 days a week. Overall she [...] labs provided to pt RTC 6 months [facility] Progress note 05-02-2022 Note Date & Type Note Facility 05-02-2022 Note Patient here for 6 m o follow up CAD, hypertension, and acute WA. Says her LE edema is no more than usual. Denies chest pain and SOB. Goes to cardiac rehab at [facility] 3 days a week. Review of Systems Cardiovascular: Positive for leg swelling. Musculoskeletal: Positive for arthritis, back pain and joint pain. All other systems reviewed and are negative. [facility] Discharge summary note 2021 Note Date & Type Note Facility 2021 Note MR#: [id number] I [facility] Pt. Name: Magdaleno Woods Admitted: 04/18/2021 Discharged: [...] Bahena MD Date Trans: 2021 09:07 Theo/glen LARSEN_[id number] [facility] Summary Purpose Family History No Family [...] and content) DATE CREATED AUTHOR 04/25/2021 The [facility] DATE CREATED AUTHOR AUTHOR'S ORGANIZ ATION 06/21/2021 [facility] DATE CREATED AUTHOR AUTHOR'S ORGANIZ ATION 07/07/2022 [facility] DATE CREATED AUTHOR AUTHOR'S ORGANIZ ATION 11/10/2022 [facility] DATE CREATED AUTHOR AUTHOR'S ORGANIZ ATION 03/10/2023 [facility] EPIC FOR RECORDS PERTAINING [...] BE BASED ON THE PRIMARY CLINICAL RECORDS. [facility] [employer] [facility]. provides no warranty or guarantee of the accuracy or completeness of information in this document.
--- NOTE | 2023-04-10 02:27 | ED.GENADUL1 ---
HPI - General Adult General Chief complaint: Chest Pain Stated complaint: CHEST PAIN Time Seen by Provider: 04/10/23 02:02 Source: patient and family History of Present Illness HPI narrative: This 82-year-old female with a history of an myocardial infarction with 2 coronary stents presents for evaluation of discomfort in her upper abdomen associated with mild nausea and diaphoresis with some mild dizziness upon awakening this morning. The patient states she had chicken breast with sweet potato and spinach for dinner last night. She had some nausea but has not vomited. She states that she knows that women have different presentations of heart attack so she wanted to be checked out. She is not having any cynthia chest pain or shortness of breath. The patient's states that they recently found out that she has a spot on her brain and some calcifications in her carotid arteries so this is better than normal for her. She also recently had an echocardiogram. She is not having any jaw, arm or back pain. Related Data Home Medications Medication Instructions Recorded Confirmed amlodipine 5 mg tablet 5 mg PO DAILY 04/10/23 04/10/23 aspirin 81 mg chewable tablet 81 mg PO DAILY 04/10/23 04/10/23 atorvastatin 80 mg tablet 80 mg PO DAILY 04/10/23 04/10/23 clopidogrel 75 mg tablet 75 mg PO DAILY 04/10/23 04/10/23 levothyroxine 150 mcg tablet 150 mcg PO DAILY 04/10/23 04/10/23 lisinopril 20 1 tab PO DAILY 04/10/23 04/10/23 mg-hydrochlorothiazide 25 mg tablet spironolactone 25 mg tablet 25 mg PO DAILY 04/10/23 04/10/23 Allergies Allergy/AdvReac Type Severity Reaction Status Date / Time No Known Drug Allergies Allergy Verified 04/10/23 02:11 Review of Systems ROS Status of ROS 10 or more systems reviewed and unremarkable except as noted in history and below [facility] Social History Smoking status: Never smoker Exam Narrative Exam Narrative: Nurses note and vital signs reviewed and patient is not hypoxic. Noted to be mildly bradycardic with pulse in the 40s and 50s General: The patient appears well and in no apparent distress. Patient is resting comfortably on cart. Skin: Warm, dry, no pallor noted. There is no rash noted. Head: Normocephalic, atraumatic Eye: Normal conjunctiva, no drainage, EOMI. PERRL Ears, Nose, Mouth, and Throat: oral mucosa is moist. Cardiovascular: Regular Rate and Rhythm He cardiac with pulse in the 40s and 50s, pulses are brisk and equal. No murmurs rubs or gallops appreciated Respiratory: Patient is in no distress, no accessory muscle use, lungs are clear to auscultation, no wheezing, rales or rhonchi Back: non-tender, no CVA tenderness bilaterally to percussion. GI: Normal bowel sounds, mild epigastric tenderness, no pulsatile masses, no right upper quadrant and left upper quadrant or lower abdominal tenderness to deep palpation Musculoskeletal: The patient has no evidence of calf tenderness, no pitting edema, symmetrical pulses noted bilaterally Neurological: A&O x4, normal speech Psychiatric: Cooperative Constitutional Vital Signs, click to edit/add: Last Vital Signs Temp 97.7 F 04/10/23 02:06 Pulse 44 L 04/10/23 03:50 Resp 12 04/10/23 03:50 BP 116/88 04/10/23 02:07 Pulse Ox 96 04/10/23 03:50 O2 Del Method Room Air 04/10/23 02:06 Course Vital Signs Vital signs: Vital Signs Temperature 97.7 F 04/10/23 02:06 Pulse Rate 54 L 04/10/23 02:06 Respiratory Rate 18 04/10/23 02:06 Blood Pressure 116/88 04/10/23 02:06 Pulse Oximetry 96 04/10/23 02:06 Oxygen Delivery Method Room Air 04/10/23 02:06 Temperature 97.7 F 04/10/23 02:06 Pulse Rate 44 L 04/10/23 03:50 Respiratory Rate 12 04/10/23 03:50 Blood Pressure 116/88 04/10/23 02:07 Pulse Oximetry 96 04/10/23 03:50 Oxygen Delivery Method Room Air 04/10/23 02:06 Medical Decision Making [facility] Narrative Medical decision making narrative: ELKE PIKE ECHOCARDIOGRAM REPORT PROCEDURE: CA ECHO DOPPLER COMPLETE INDICATIONS: Cerebrovascular accident COMPARISON: None. DESCRIPTION: COMPLETE ECHOCARDIOGRAM Real-time transthoracic echocardiography with 2D, M-mode, spectral and color flow Doppler performed. QUALITY: Technical quality was good. LEFT VENTRICLE: Normal chamber size. Thickened septal wall. LV EF: Global left ventricular systolic function is hyperdynamic. Visual estimation of left ventricular ejection fraction is 65-70% DIASTOLIC: Grade 2, moderate diastolic dysfunction. ATRIAL SEPTUM: Inadequately seen. LEFT ATRIUM: Mild dilatation. RIGHT ATRIUM: Moderate dilatation. RIGHT VENTRICLE: Normal chamber size. Normal right ventricular systolic function. TRICUSPID VALVE: Normal mobility and thickness. Mild to moderate regurgitation. Mild pulmonary hypertension. RVSP 38mmHg MITRAL VALVE: Normal mobility and thickness. No evidence of mitral valve stenosis. Moderate mitral annular calcification. Mild mitral regurgitation. AORTIC VALVE: Normal trileaflet appearance. Thickened aortic valve. Normal leaflet mobility. No evidence of aortic valve stenosis. Trivial aortic regurgitation. AORTIC ROOT: Normal diameter and appearance. PULMONIC VALVE: Normal thickness and mobility. No stenosis. Trivial regurgitation. PERICARDIUM: No evidence of pericardial effusion. IVC: Collapses with inspirations. Normal size. CONCLUSION: 1. Global left ventricular systolic function is hyperdynamic; visually estimated ejection fraction 65 to 70% 2. The right ventricle is normal in size and systolic function 3. Grade 2, moderate diastolic dysfunction 4. Biatrial enlargement Continued Report - Page 2 of 3 Patient Name: MAGDALENO WOODS MR#: [id number] : 1940 Exam Date: 03/31/2023 Ordering Doctor: DR ELKE PIKE 5. Mild to moderate tricuspid regurgitation 6. Mildly elevated right ventricular systolic pressure; RVSP 38 mmHg Exam Date: 03/10/2023 11:12 Report Date: 03/10/2023 15:36 At the request of: ELKE PIKE Procedure: MR head/brain wo con EXAM: MR head/brain wo con HISTORY: Acute Nonintractable Headache R51.9 COMPARISON: January [address] TECHNIQUE: Axial sagittal T1, axial T2, axial FLAIR, axial GRE, axial DWI. FINDINGS: 8 mm subtle diffusion hyperintensity right inferior cerebellum. Hyperintense on T2 and dark on ADC map Mild parenchymal volume loss. Mild underlying T2 hyperintensity in the central white matter, periventricular white matter, and joaquin. There is no cortical abnormality. There is no mass, mass effect, nor hydrocephalus. The right vertebral arteries diminutive the left is dominant. Patent flow voids of the distal basilar and internal carotid arteries. The extra-axial structures appear unremarkable. The internal auditory canals appear normal. 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 Probable dominant left vertebral artery. Associated T2 hyperintensity. Consider short interval follow-up MRI with MRA and contrast to exclude appropriate evolution and an enhancing lesion. Mild underlying T2 hyperintensity in the white matter and joaquin. Most likely sequela small vessel ischemic change or other demyelinating process Results placed in the stat call folder to expedite Electronically authenticated by: TATYANA ADAME Date: 03/10/2023 15:36 This 82-year-old female with a history of heart disease presents for evaluation of discomfort in her upper abdomen that awakened her from sleep. She states that she was nauseated but did not vomit. She was also mildly diaphoretic and dizzy. She did not have any cynthia chest pain or shortness of breath. There is no radiation of her epigastric discomfort into her arm back or jaw. She is on Plavix. Recently had an echocardiogram which is included in this chart as well as MRAs of the brain after having a slight stroke. An EKG done upon arrival is a sinus bradycardia at 47 beats for minute with a right bundle branch block and right axis deviation. He is in cardiac rehab and I noted that her pulse in rehab even with exercises in the 60s and 70s. AN IV was placed and she was medicated with 324 mg baby aspirin, Zofran and pepcid. Was also given IV fluids. Routine labs were reviewed. She has a normal white count and hemoglobin. Electrolytes are normal with a slight decrease in her sodium at 131. Troponin is normal. LFTs and lipase are normal. Discussed the results of her recent echocardiogram and MRI/MRA with her and her . I discussed the results of her labs with her as well. The patient told the nurse that she was feeling completely better and wished to be discharged home. She was seen and evaluated. I offered her a repeat troponin but she declined stating she is feeling completely better and wished to be discharged home at this time. She was encouraged to return to emergency department for worsening symptoms any chest pain shortness of breath dizziness syncope or other complaints. She is in agreement with this plan. No new medications were prescribed at time of discharge. Medical Records Medical records reviewed: Yes I reviewed the patient's medical records Medical records narrative: Recently had echocardiogram which is included in the body of this report as well as MRA of the brain Lab Data Lab results reviewed: Yes I reviewed the patient's lab results Lab results narrative: Labs including troponin are normal Labs: Lab Results 04/10/23 Range/Units 02:15 WBC 8.5 (4.0-11.0) 10^3/uL RBC 4.10 L (4.20-5.40) 10^6/uL Hgb 12.9 (12.0-16.0) g/dL Hct 39.4 (36.0-48.0) % MCV 96.1 (81.0-99.0) fL MCH 31.5 (26.7-34.0) pg MCHC 32.7 (29.9-35.2) g/dL RDW 15.0 (11.0-15.0) % Plt Count 279 (150-450) 10^3/uL MPV 11.8 (9.5-13.5) fL Neut % (Auto) 62.7 (43.0-75.0) % Lymph % (Auto) 21.1 (20.5-60.0) % Glascock % (Auto) 12.0 (1.7-12.0) % Eos % (Auto) 2.8 (0.9-7.0) % Baso % (Auto) 0.8 (0.2-2.0) % Neut # (Auto) 5.4 (1.4-6.5) 10^3/uL Lymph # (Auto) 1.8 (1.2-3.8) 10^3/uL Glascock # (Auto) 1.0 H (0.3-0.8) 10^3/uL Eos # (Auto) 0.2 (0.0-0.7) 10^3/uL Baso # (Auto) 0.1 (0.0-0.1) 10^3/uL Abs Immat Gran (auto) 0.05 H (0.00-0.03) 10^3/uL Imm/Tot Granulo (auto) 0.6 H (0.0-0.5) % Sodium 131 L (136-145) mmol/L Potassium 4.3 (3.5-5.1) mmol/L Chloride 99 (98-107) mmol/L Carbon Dioxide 26.7 (21.0-32.0) mmol/L Anion Gap 9.6 BUN 31.0 H (7.0-18.0) mg/dL Creatinine 0.94 (0.55-1.02) mg/dL Est GFR ( Amer) >60 (>=60) Est GFR (Non-Af Amer) 57 L (>=60) BUN/Creatinine Ratio 33.0 Glucose 107 H (74-106) mg/dL Lactate 0.9 (0.4-2.0) mmol/L Calcium 9.0 (8.5-10.1) mg/dL Total Bilirubin 0.4 (0.2-1.0) mg/dL AST 47 H (15-37) U/L ALT 48 (14-59) U/L Alkaline Phosphatase 73 (46-116) U/L Troponin I High Sens 6.6 (4.0-51.3) pg/mL Total Protein 6.4 (6.4-8.2) g/dL Albumin 3.1 L (3.4-5.0) g/dL Globulin 3.3 g/dL Albumin/Globulin Ratio 0.9 Lipase 58.0 (16.0-77.0) U/L ECG Data Attestation: I personally reviewed and interpreted this ECG as follows: (Sinus bradycardia at 47 beats for minute, right axis deviation, right bundle branch block, no acute ST segment elevation or T-wave inversion,) Discharge Plan Discharge Chief Complaint: Chest Pain Clinical Impression: Abdominal pain, epigastric Patient Disposition: Home, Self-Care Time of Disposition Decision: 03:53 Condition: Good Prescriptions / Home Meds: No Action amlodipine 5 mg tablet 5 mg PO DAILY atorvastatin 80 mg tablet 80 mg PO DAILY clopidogrel 75 mg tablet 75 mg PO DAILY lisinopril-hydrochlorothiazide 20-25 mg tablet 1 tab PO DAILY spironolactone 25 mg tablet 25 mg PO DAILY levothyroxine 150 mcg tablet 150 mcg PO DAILY aspirin 81 mg tablet,chewable 81 mg PO DAILY Instructions: Abdominal Pain (ED), Epigastric Pain (ED) Stand Alone Forms: Portal Instructions Referrals: ELKE PIKE [Primary Care Provider] - 1 week
[2023-04-10 02:30] LABS: Basophils Absolute Auto 0.1 10^3/uL (0.0-0.1); Basophils Percent Auto 0.8 % (0.2-2.0); Eosinophils Absolute Auto 0.2 10^3/uL (0.0-0.7); Eosinophils Percent Auto 2.8 % (0.9-7.0); Hematocrit 39.4 % (36.0-48.0); Hemoglobin 12.9 g/dL (12.0-16.0); Immature Granulocytes Abs Auto 0.05 10^3/uL (0.00-0.03); Immature Granulocytes Pct Auto 0.6 % (0.0-0.5); Lymphocytes Absolute Auto 1.8 10^3/uL (1.2-3.8); Lymphocytes Percent Auto 21.1 % (20.5-60.0); Mean Corpuscular HGB Conc 32.7 g/dL (29.9-35.2); Mean Corpuscular Hemoglobin 31.5 pg (26.7-34.0); Mean Corpuscular Volume 96.1 fL (81.0-99.0); Mean Platelet Volume 11.8 fL (9.5-13.5); Neutrophils Absolute Auto 5.4 10^3/uL (1.4-6.5); Neutrophils Percent Auto 62.7 % (43.0-75.0); Platelet Count 279 10^3/uL (150-450); White Blood Count 8.5 10^3/uL (4.0-11.0)
[2023-04-10 02:43] LABS: Alanine Aminotransferase 48 U/L (14-59); Albumin Globulin Ratio 0.9; Albumin Level 3.1 g/dL (3.4-5.0); Alkaline Phosphatase 73 U/L (46-116); Anion Gap 9.6; Aspartate Amino Transferase 47 U/L (15-37); Bilirubin Total 0.4 mg/dL (0.2-1.0); Carbon Dioxide 26.7 mmol/L (21.0-32.0); Chloride 99 mmol/L (98-107); Estimated GFR (African America >60 (>=60); Estimated GFR (Non-African Ame 57 (>=60); Globulin 3.3 g/dL; Glucose 107 mg/dL (74-106); Potassium 4.3 mmol/L (3.5-5.1); Sodium 131 mmol/L (136-145); Total Protein 6.4 g/dL (6.4-8.2)
[2023-04-10 02:45] LABS: Lactate/Lactic Acid 0.9 mmol/L (0.4-2.0)
[2023-04-10 02:47] LABS: Troponin I High Sensitivity 6.6 pg/mL (4.0-51.3)
[2023-04-10] MEDS: 0.9 % SODIUM CHLORIDE 1,000 ML 500 ML IV (03:05)
[2023-04-10] MEDS: ONDANSETRON PF 4 MG/2 ML VIAL IV (03:07)
[2023-04-10] MEDS: ASPIRIN 81 MG TAB.CHEW 324 MG PO (03:07)
[2023-04-10] MEDS: FAMOTIDINE/PF 20 MG/2 ML VIAL IV (03:07)
== END 2023-04-10 04:22 | disposition home or self-care (01) ==
PROVIDERS: Emergency Provider Emergency Medicine; PCP Family Medicine
DX: R10.13 Epigastric pain (principal); I25.2 Old myocardial infarction; Z95.5 Presence of coronary angioplasty implant and graft; Z79.82 Long term (current) use of aspirin; Z79.899 Other long term (current) drug therapy; Z79.890 Hormone replacement therapy
CPT/HCPCS: 36415; 80053; 83605; 83690; 84484; 85025; 93005; 96361; 96374; 96375; 99284; J2405

== ENCOUNTER 2024-02-02 12:55 | Outpatient (OUT) | payer MEDICARE, BC, SELFPAY ==
--- NOTE | 2024-02-02 13:00 | CA_ITS ---
Patient Name: MAGDALENO WOODS MR#: [id number] : 1940 Exam Date: 02/02/2024 Ordering Doctor: MANA MCKEON M.D. ECHOCARDIOGRAM REPORT PROCEDURE: CA ECHO DOPPLER COMPLETE INDICATIONS: Diastolic heart failure, h/o NM, cardiac stent x2, hypertension COMPARISON: None. DESCRIPTION: COMPLETE ECHOCARDIOGRAM Real-time transthoracic echocardiography with 2D, M-mode, spectral and color flow Doppler performed. QUALITY: Technical quality was good. LEFT VENTRICLE: Normal chamber size and roque thickness. LV EF: Normal left ventricular ejection fraction 55%.No wall motion abnormalities DIASTOLIC: Grade II diastolic dysfunction. ATRIAL SEPTUM: Appears intact. LEFT ATRIUM: Mild dilatation. RIGHT ATRIUM: Mild dilatation. RIGHT VENTRICLE: Normal chamber size. Normal right ventricular systolic function. TRICUSPID VALVE: Normal mobility and thickness. No stenosis with mild regurgitation. Doppler studies reveal moderately elevated right sided pressures. RVSP 58 mmHg MITRAL VALVE: Normal mobility and thickness. Mild mitral annular calcification. No mitral stenosis. No mitral regurgitation. AORTIC VALVE: Normal trileaflet appearance. Thickened aortic valve. Normal leaflet mobility. No evidence of aortic valve stenosis. No aortic regurgitation. AORTIC ROOT: Normal diameter and appearance. PULMONIC VALVE: Not well visualized. No stenosis. No regurgitation. PERICARDIUM: No evidence of pericardial effusion. IVC: IVC is normal in size with collapse with inspiration. PLEURA: CONCLUSION: Normal left ventricle chamber size and roque thickness. Normal left ventricular ejection fraction 55%. No wall motion abnormalities. Grade II diastolic dysfunction. Moderately elevated right sided pressures. RVSP 58 mmHg Biatrial mild dilatation Mild tricuspid regurgitation Adult Echocardiography Procedure Report Left Ventricle LVEDD (3.7 - 5.6 cm): 4.62 cm LVESD (2.2 - 4.0 cm): 2.73 cm LVIVS thickness (0.6 - 1.2 cm): 1.06 cm LVPW thickness (0.5 - 1.0 cm): 0.83 cm e': 0.08 m/s E - e': 12.94 LVOT Max Gradient: 4.83 mm[Hg] LVOT Area (cm2): 1.10 m/s Peak Velocity (LVOT): 1.10 m/s Mean Velocity (LVOT): 0.57 m/s LVOT Diameter 1.87 cm Left Ventricular Ejection Fraction: Left Atrium LA Volume Index (2D A2C): 42.41 ml/m2 Left Atrium Systolic Dimension: 4.30 cm Mitral Valve MV E to A Ratio: 1.10 MV Max Gradient: MV Mean Gradient: Mitral Valve A-Wave Peak Velocity: 0.90 m/s Mitral Valve E-Wave Peak Velocity: 0.99 m/s Cardiovascular Orifice Area: Right Ventricle RV Internal Diastolic Dimension: Aorta AO Root Diam: 2.86 cm Ascending Ao Diam: Aortic Valve AoV Area (Peak Jerad): 2.14 cm2, 2.14 cm2 AoV Area (VTI): 1.92 cm2, 1.92 cm2 Deceleration Mcnairy: Pressure Half-Time: Peak Velocity(Antegrade Flow): 1.41 m/s Peak Gradient(Antegrade Flow): 7.99 mm[Hg] Mean Velocity(Antegrade Flow): 0.78 m/s Mean Gradient(Antegrade Flow): 3.06 mm[Hg] Velocity Time Integral: 30.90 cm Tricuspid Valve Peak Velocity (Regurgitant Flow): 3.02 m/s, 3.52 m/s Peak Velocity: Pulmonic Valve Mean Gradient: 2.84 mm[Hg] Mean Velocity: 0.80 m/s Peak Velocity: 1.11 m/s, 0.89 m/s Peak Gradient: 3.20 mm[Hg], 4.94 mm[Hg] Right Atrium Right Atrium Systolic Pressure: 51.10 ml, 51.10 ml Dictated by: Luis F Werner MD on 02/03/2024 at 18:58 Approved by: Luis F Werner MD on 02/03/2024 at 19:19
== END 2024-02-02 12:56 | disposition home or self-care (01) ==
LOC: CARD 12:55
PROVIDERS: PCP Family Medicine; Visit Provider Internal Medicine Cardiovascular Disease
DX: I51.89 Other ill-defined heart diseases (principal); I34.0 Nonrheumatic mitral (valve) insufficiency
CPT/HCPCS: 93306

== ENCOUNTER 2024-02-04 07:03 | Outpatient (OUT) | payer MEDICARE, BC, SELFPAY ==
--- OUTSIDE RECORDS SUMMARY | 2024-02-04 07:08 | XMS_ITS | CCD ---
Author Organization [facility] Care Team Providers Care Clay Artisan Name Role Phone ANGELITA HOFF Primary Care Unavailable KATI MARSHALL Admitting Unavailable SELF, REFERRED Referring Unavailable IGLESIA BAHENA Attending Unavailable ELTAHAWY, DR CORCORAN Admitting Unavailable ELTAHAWY, DR CORCORAN Attending Unavailable PETZNICK, DR BEDOYA Primary Care Unavailable PETZNICK, DR BEDOYA Admitting Unavailable PETZNICK, DR BEDOYA Attending Unavailable PETZNICK, DR BEDOYA Primary Care Unavailable PETZNICK, DR BEDOYA Consulting Unavailable ELTAHAWY, DR CORCORAN Admitting Unavailable ELTAHAWY, DR CORCORAN Attending Unavailable PETZNICK, DR BEDOYA Primary Care Unavailable TAMMY JIMENEZ Consulting Unavailable Maggy Burnett Unavailable Petznick, DO Kate Primary Care Provider YRIS Burnett Attending Provider Petznick, DO Kate Primary Care Provider YRIS Burnett Attending Provider Petznick, DO Kate Primary Care Provider DO Artie Keita Attending Provider PetKate sexton DO Unavailable Petdarshan WHEAT Kate M Primary Care Provider Juan Byrne Unavailable Artie Keita DO Unavailable Glendy, Kate Primary Care Unavailable Maggy Burnett Attending Unavailable Maggy Burnett Admitting Unavailable Petdarshan, Kate Primary Care Unavailable Maggy Burnett Attending Unavailable Maggy Burnett Admitting Unavailable MurArtie rebolledo Admitting Unavailable Petznick, Kate Primary Care Unavailable Neela, Artie Attending Unavailable ALGHOTHANI, MANA Attending Unavailable ALGHOTHANI, JOSEAMATaina Attending Unavailable ALGHOTHRANDOLPH, MANA Attending Unavailable PETZNICK, KATE M Attending Unavailable PETZNICK, KATE M Referring Unavailable LOVEGRACIELA ORTIZ Attending Unavailable PETZNICK, KATE M Referring Unavailable APLINGJOHN Attending Unavailable PETZNICK, KATE M Attending Unavailable PETZNICK, KATE M Referring Unavailable PETZNICK, RAVI Morrison Attending Unavailable PETZNICK, KATE M Referring Unavailable LOVE, GRACIELA W Attending Unavailable APLING, JOHN Wright Attending Unavailable PETZNICK, RAVI Morrison Attending Unavailable PETZNICK, RAVI Morrison Referring Unavailable PETZNICK, KATE M Attending Unavailable JUAN SHAW A Attending Unavailable PETZNICK, KATE M Referring Unavailable MURARTIE REBOLLEDO W Attending Unavailable FELTJUAN EDWARDS A Referring Unavailable Allergies Allergy Classification Reported Allergen(s) Allergy Type Date of Onset Reaction(s) Facility (5 sources) Cephalexin; Translations: [CEPHALEXIN] Drug Allergy 10-21-2023 Rash [facility] Medications Current Medications Medication Drug Class(es) Dates Sig (Normalized) Sig (Original) acetaminophen 500 mg oral capsule (4 sources) take 2 capsules by mouth at bedtime Acetaminophen 500 MG capsule Take 2 capsules by mouth at bedtime. Active amLODIPine 5 mg oral tablet (8 sources) Dihydropyridine Calcium Channel Sonu Start: 10-20-2023 Amlodipine Active MG PO October 20, 2023 12:00am FreeTextSig: Oral; Note: Source Status: Taking; Qty: 90 Tablet; Provider: Lex Winter ( ) Start: 12-18-2022 take 1 tablet by faina th in the morning amLODIPine (Norvasc) 5 MG tablet Indications: Essential hypertension (CMS/HCC) Take 1 tablet (5 mg) by mouth in the morning. 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 12/18/2022 Active atorvastatin 80 mg oral tablet (8 sources) HMG-CoA Reductase Inhibitor Start: 11-02-2023 End: 11-01-2024 take 1 tablet by mouth in the morning atorvastatin (Lipitor) 80 MG tablet Indications: Hypercholesteremia (CMS/HCC) Take 1 tablet (80 mg) by mouth in the morning. 90 tablet 3 11/02/2023 11/01/2024 Active Start: 10-20-2023 take 1 tablet by faina th once daily in the morning Atorvastatin Active 1 TAB PO Every morning October 20, 2023 12:00am FreeTextSig: TAKE 1 TABLET BY MOUTH IN THE MORNING Oral; Note: Source Status: Taking; Refills: 1; Qty: 90 Each; Provider: GLENDY BEDOYA take 1 tablet by faina th in the morning Atorvastatin Calcium 80 MG TAKE 1 TABLET BY MOUTH IN THE MORNING Oral for 90 Days Active clindamycin 150 mg oral capsule (3 sources) Lincosamide Antibacterial Start: 01-27-2024 End: 02-06-2024 take 1 capsule by mouth every eight hours clindamycin (Cleocin) 150 MG capsule Indications: 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 , 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 Take 1 capsule (150 mg) by mouth every 8 (eight) hours for 10 days 30 capsule 01/27/2024 02/06/2024 Active clopidogrel 75 mg oral tablet (8 sources) P2Y12 Platelet Inhibitor Start: 12-17-2023 take 1 tablet by mouth in the morning clopidogrel (Plavix) 75 MG tablet Indications: 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 (CMS/HCC) TAKE 1 TABLET BY MOUTH IN THE MORNING 90 tablet 12/17/2023 Active Start: 10-20-2023 take 1 tablet by faina th once daily in the morning Clopidogrel Active 1 TAB PO Every morning October 20, 2023 12:00am FreeTextSig: TAKE 1 TABLET BY MOUTH IN THE MORNING Oral; Note: Source Status: Taking; Refills: 1; Qty: 90 Each; Provider: GLENDY BEDOYA take 1 tablet by faina th in the morning Clopidogrel Bisulfate 75 MG TAKE 1 TABLET BY MOUTH IN THE MORNING Oral for 90 Days Active furosemide 20 mg oral tablet (3 sources) Loop Diuretic Start: 10-20-2023 Furosemide Active 20 MG PO October 20, 2023 12:00am hydroCHLOROthiazide 25 mg / lisinopril 20 mg oral tablet (8 sources) Thiazide Diuretic, Angiotensin Converting Enzyme Inhibitor Start: 10-20-2023 take 1 tablet by mouth once daily Lisinopril-Hydr ochlorothiazide Active TAB PO October 20, 2023 12:00am FreeTextSig: TAKE 1 TABLET BY MOUTH ONCE DAILY FOR 90 DAYS Oral; Note: Source Status: Taking; Refills: 3; Qty: 90 Each; Provider: GLENDY BEDOYA Start: 05-18-2023 End: 05-17-2024 take 1 tablet by mouth in the morning lisinopril-hydroCHLOROthiazide 20-25 MG tablet Indications: Essential hypertension (CMS/HCC) Take 1 tablet by mouth in the morning. 90 tablet 3 05/18/2023 05/17/2024 Active Lisinopril-hydro CHLOROthiazide 20-25 MG TAKE 1 TABLET BY MOUTH ONCE DAILY FOR 90 DAYS Oral for 90 Days Active levothyroxine sodium 0.15 mg oral tablet (8 sources) l-Thyroxine Start: 09-07-2023 take 1 tablet by mouth once daily in the morning Levothyroxine Active MCG PO October 20, 2023 12:00am FreeTextSig: TAKE 1 TABLET BY MOUTH ONCE DAILY ON AN EMPTY STOMACH IN THE MORNING Oral; Note: Source Status: Taking; Refills: 1; Qty: 90 Each; Provider: GLENDY BEDOYA take 1 tablet by faina once daily in the morning Levothyroxine Sodium 150 MCG TAKE 1 TABL ET BY MOUTH ONCE DAILY ON AN EMPTY STOMACH IN THE MORNING Oral for 90 Days Active Multiple Vitamin (Daily Vitamins) tablet (4 sources) take 1 tablet by mouth once daily Multiple Vitamin (Daily Vitamins) tablet Take 1 tablet by mouth 1 (one) time each day at the same time. Active spironolactone 25 mg oral tablet (8 sources) Aldosterone Antagonist Start: 05-04-19 take 1 tablet by mouth once daily at mealtime Spironolactone Active 25 MG PO October 20, 2023 12:00am FreeTextSig: TAKE 1 TABLET BY MOUTH ONCE DAILY WITH FOOD Oral; Note: Source Status: Taking; Refills: 0; Qty: 90 Each; Provider: GLENDY BEDOYA take 1 tablet by faina th once daily at mealtime Spironolactone 25 MG TAKE 1 TABLET BY MO UTH ONCE DAILY WITH FOOD Oral for 90 Days Active Problems Active Problems Problem Classification Problem Date Documented Date Episodic/Chronic Chronic kidney disease (4 sources) Chronic kidney disease stage 3A ; Translations: [Stage 3a chronic kidney disease (HCC)] Onset: 11-19-2022 Resolved: 12-15-2023 12-15-2023 Chronic Coronary atherosclerosis and other heart disease (12 sources) Atherosclerotic heart disease of [place] coronary artery without angina pectoris; Translations: [Unstable angina co-occurrent and due to coronary arteriosclerosis] Onset: 05-08-2021 Resolved: 06-15-2023 Chronic Disorders of lipid metabolism (11 sources) Mixed hyperlipidemia; Translations: [Pure hypercholesterolemia] Onset: 05-08-2021 Resolved: 06-15-2023 11-19-2022 Chronic Essential hypertension (5 sources) Essential (primary) hypertension; Translations: [Essential hypertension] Onset: 05-15-2022 11-19-2022 Chronic Hypertension with complications and secondary hypertension (2 sources) Hypertensive heart and chronic kidney disease with heart failure and stage 1 through stage 4 chronic kidney disease, or unspecified chronic kidney disease; Translations: [Hypertensive heart and chronic kidney disease with heart failure and stage 1 through stage 4 chronic kidney disease, or unspecified chronic kidney disease] Onset: 01-28-2024 Chronic Occlusion or stenosis of precerebral arteries (11 sources) Left carotid artery stenosis; Translations: [Occlusion and stenosis of left carotid artery] Onset: 04-21-2023 Chronic Osteoarthritis (8 sources) Degenerative joint disease involving multiple joints; Translations: [Primary generalized (osteo)arthritis] Onset: 11-19-2022 11-19-2022 Chronic Other aftercare (2 sources) Long-term current use of anticoagulant; 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] 01-27-2024 Episodic Other and ill-defined heart disease (2 sources) Other ill-defined heart diseases; Translations: [Other ill-defined heart diseases] Onset: 01-28-2024 Chronic Other connective tissue disease (2 sources) Other specified soft tissue disorders; Translations: [Other specified soft tissue disorders] Onset: 01-28-2024 Episodic Other non-epithelial cancer of skin (4 sources) Basal cell carcinoma of lower lip; Translations: [Basal cell carcinoma of skin of lip] 01-27-2024 Episodic Other nutritional; endocrine; and metabolic disorders (4 sources) Severe obesity; Translations: [Class 3 severe obesity due to excess calories with serious comorbidity and body mass index (BMI) of 40.0 to 44.9 in adult] Onset: 11-19-2022 06-15-2023 Chronic Other screening for suspected conditions (not mental disorders or infectious disease) (1 source) Abnormal findings on diagnostic imaging of other specified body structures; Translations: [Abnormal carotid ultrasound] Chronic Residual codes; unclassified (1 source) Other specified health status Episodic Thyroid disorders (4 sources) Acquired hypothyroidism; Translations: [Hypothyroidism, unspecified] Onset: 11-19-2022 11-19-2022 Chronic Unclassified (3 sources) COUGH, UNSPECIFIED; Translations: [COUGH, UNSPECIFIED] Onset: 07-07-2022 Unclassified (1 source) CONTACT W/AND (SUSP) EXPOS COVID-19; Translations: [CONTACT W/AND (SUSP) EXPOS COVID-19] Onset: 07-07-2022 Past or Other Problems Problem Classification Problem Date Documented Date Episodic/Chronic Acute cerebrovascular disease (4 sources) 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; Translations: [Cerebral infarction due to thrombosis of right vertebral artery] Onset: 05-18-2023 Resolved: 12-15-2023 12-15-2023 Chronic Acute myocardial infarction (4 sources) Acute non-ST segment elevation myocardial infarction; Translations: [Non-ST elevation (NSTEMI) myocardial infarction] Onset: 05-08-2021 Resolved: 06-15-2023 06-15-2023 Chronic Diabetes mellitus without complication (4 sources) Impaired fasting glycemia; Translations: [Impaired fasting glucose] Onset: 11-19-2022 11-19-2022 Episodic Other circulatory disease (4 sources) History of cerebrovascular accident; Translations: [Personal history of transient ischemic attack (TIA), and cerebral infarction without residual deficits] Onset: 06-15-2023 06-15-2023 Episodic Other diseases of veins and lymphatics (4 sources) Vascular insufficiency; Translations: [Venous insufficiency (chronic) (peripheral)] Onset: 11-19-2022 11-19-2022 Episodic Unclassified (1 source) COUGH, UNSPECIFIED; Translations: [COUGH, UNSPECIFIED] Onset: 07-02-2022 Results Test Name Value Interpretation Reference Range Facility Automated basophil %Ordered By: Artie Keita on 01-27-2024 Basophils/100 WBC (Bld) 1.1 % Normal . [facility] Comment on above: Performed By: #### C BC #### [address] Automated basophil countOrde red By: Artie Keita on 01-27-2024 Basophils (Bld) [#/Vol] 0.1 10*3/uL Normal 0.0-0.2 [facility] Comment on above: Result Comment: PERF ORMED BY: [place] [address] PATHOLOGIST [employer]OY[employer] HE[employer] NURSE RADHA MOSES M.D. Performed By: #### C BC #### [address] Automated blood monocyte cou ntOrdered By: Artie Keita on 01-27-2024 Monocytes (Bld) [#/Vol] 1.0 10*3/uL High 0.0-0.8 [facility] Comment on above: Performed By: #### C BC #### [address] Automated eosinophil %Ordere d By: Artie Keita on 01-27-2024 Eosinophils/100 WBC (Bld) 3.8 % Normal . [facility] Comment on above: Performed By: #### C BC #### [address] Automated eosinophil countOr dered By: Artie Keita on 01-27-2024 Eosinophils (Bld) [#/Vol] 0.4 10*3/uL Normal 0.0-0.45 [facility] Comment on above: Performed By: #### C BC #### [address] Automated monocyte %Ordered By: Artie Keita on 01-27-2024 Monocytes/100 WBC (Bld) 10.2 % Normal . [facility] Comment on above: Performed By: #### C BC #### [facility] [address] Automated neutrophil %Ordere d By: Artie Keita on 01-27-2024 Neutrophils/100 WBC (Bld) 65.9 % Normal . [facility] Comment on above: Performed By: #### C BC #### [facility] [address] CBC W Auto Differential pane l (Bld)on 01-27-2024 Basophils (Bld) [#/Vol] 0.1 10*3/uL 0.0 - 0.2 10*3/uL [facility] Basophils/100 WBC Manual cnt (Syn fld) 1.1 % . [facility] Eosinophils (Bld) [#/Vol] 0.4 10*3/uL 0.0 - 0.45 10*3/uL [facility] Eosinophils/100 WBC Manual cnt (Syn fld) 3.8 % . [facility] Erythrocyte distribution width (RBC) [Ratio] 16 % High 11.9 - 15.3 % [facility] Hematocrit (Bld) [Volume fraction] 39.3 % 34.0 - 46.4 % [facility] e Hemoglobin (Bld) [Mass/Vol] 13 g/dL 11.8 - 15.4 g/dL [facility] Interpretation and review of laboratory results Abnormal [facility] Lymphocytes (Bld) [#/Vol] 1.8 10*3/uL 1.00 - 4.8 10*3/uL [facility] Lymphocytes/100 WBC Manual cnt (Syn fld) 19 % . [facility] MCH (RBC) [Entitic mass] 31.5 pg 24.7 - 34.3 pg [facility] MCHC (RBC) [Mass/Vol] 33 g/dL 32.0 - 35.0 g/dL [facility] MCV (RBC) [Entitic vol] 95.3 fL 80 - 100 fL [facility] Monocytes (Bld) [#/Vol] 1 10*3/uL High 0.0 - 0.8 10*3/uL [facility] Monocytes+Macrophage s/100 WBC Manual cnt (Syn fld) 10.2 % . [facility] Neutrophils (Bld) [#/Vol] 6.2 10*3/uL 1.8 - 7.7 10*3/uL [facility] Neutrophils/100 WBC Manual cnt (Syn fld) 65.9 % . [facility] NRBC 0.1 /100{WBC} 0 - 0.5 /100{WBC} [facility] Platelet mean volume (Bld) [Entitic vol] 10 fL 6.3 - 10.7 fL [facility] are Platelets (Bld) [#/Vol] 342 10*3/uL 150 - 450 10*3/uL [facility] RBC LM.HPF (Urine sed) [#/Area] 4.12 /[HPF] 3.60 - 5.00 [facility] WBC (Bld) [#/Vol] 9.4 10*3/uL 3.8 - 11.6 10*3/uL [facility] WBC LM.HPF (Urine sed) [#/Area] 9.4 10*3/uL 3.8 - 11.6 10*3/uL [facility] Count Auto Di ffon 01-27-2024 Mean Corpuscular HGB Conc 33.0 g/dL Normal 32.0-35.0 [facility] Comment on above: Performed By: #### C BC #### [address] NRBC% 0.1 /100{WBC} Normal 0-0.5 [facility] Comment on above: Performed By: #### C BC #### [address] Erythrocyte distribution wid th [Ratio] by Automated countOrdered By: Artie Keita on 01-27-2024 Erythrocyte distribution width (RBC) [Ratio] 16.0 % High 11.9-15.3 [facility] Comment on above: Performed By: #### C BC #### [address] Erythrocytes [#/volume] in B lood by Automated countOrdered By: Artie Keita on 01-27-2024 RBC (Bld) [#/Vol] 4.12 10*6/uL Normal 3.60-5.00 [facility] Comment on above: Performed By: #### C BC #### [address] Hematocrit [Volume Fraction] of Blood by Automated countOrdered By: Artie Keita on 01-27-2024 Hematocrit (Bld) [Volume fraction] 39.3 % Normal 34.0-46.4 [facility] Comment on above: Performed By: #### C BC #### [address] Hemoglobin [Mass/volume] in BloodOrdered By: Artie Keita on 01-27-2024 Hemoglobin (Bld) [Mass/Vol] 13.0 g/dL Normal 11.8-15.4 [facility] Comment on above: Performed By: #### C BC #### [address] Leukocytes [#/volume] correc dayo for nucleated erythrocytes in Blood by Automated counOrdered By: Artie Keita on 01-27-2024 WBC corrected for nucl RBC Auto (Bld) [#/Vol] 9.4 10*3/uL 3.8-11.6 [facility] Leukocytes [#/volume] in Blo od by Automated countOrdered By: Artie Keita on 01-27-2024 WBC (Bld) [#/Vol] 9.4 10*3/uL Normal 3.8-11.6 [facility] Comment on above: Performed By: #### C BC #### [address] Lymphocytes [#/volume] in Bl ood by Automated countOrdered By: Artie Keita on 01-27-2024 Lymphocytes (Bld) [#/Vol] 1.8 10*3/uL Normal 1.00-4.8 [facility] Comment on above: Performed By: #### C BC #### [address] Lymphocytes/100 leukocytes i n Blood by Automated countOrdered By: Artie Keita on 01-27-2024 Lymphocytes/100 WBC (Bld) 19.0 % Normal . [facility] Comment on above: Performed By: #### C BC #### [address] MCH [Entitic mass] by Automa dayo countOrdered By: Artie Keita on 01-27-2024 MCH (RBC) [Entitic mass] 31.5 pg Normal 24.7-34.3 [facility] Comment on above: Performed By: #### C BC #### [address] MCHC Auto (RBC) [Mass/Vol]Or dered By: Artie Keita on 01-27-2024 MCHC (RBC) [Mass/Vol] 33.0 g/dL 32.0-35.0 [facility] MCV [Entitic volume] by Auto mated countOrdered By: Artie Keita on 01-27-2024 MCV (RBC) [Entitic vol] 95.3 fL Normal 80-100 [facility] Comment on above: Performed By: #### C BC #### [address] Neutrophils [#/volume] in Bl ood by Automated countOrdered By: Artie Keita on 01-27-2024 Neutrophils (Bld) [#/Vol] 6.2 10*3/uL Normal 1.8-7.7 [facility] Comment on above: Performed By: #### C BC #### [address] Nucleated erythrocytes [Pres ence] in Blood by Automated countOrdered By: Artie Keita on 01-27-2024 Nucleated RBC Auto Ql (Bld) 0.1 /100{WBC} 0-0.5 [facility] Platelet mean volume [Entiti c volume] in Blood by Automated countOrdered By: Artie Keita on 01-27-2024 Platelet mean volume (Bld) [Entitic vol] 10.0 fL Normal 6.3-10.7 [facility] Comment on above: Performed By: #### C BC #### [address] [place] [address] [facility] Platelets [#/volume] in Bloo d by Automated countOrdered By: Artie Keita on 01-27-2024 Platelets (Bld) [#/Vol] 342 10*3/uL Normal 150-450 [facility] Comment on above: Performed By: #### C BC #### [facility] [address] [place] [id number] [facility] VAS US LOWER EXTREMITY VENO US DUPLEX LEFTon 10-21-2023 VASC US LOWER EXTREMITY VENOUS DUPLEX LEFT US - US VENOUS UNILATERAL LIMITED Reason for exam: Left lower extremity pain Prior comparative studies: None Technique:Grayscale, color Doppler and spectral analysis was performed. Findings: Exam is extremely challenging due to habitus. Deep venous system is fully compressible throughout the left lower extremity. There is appropriate color and pulsed doppler flow throughout as well. Evaluation of the venous segments below the knee is limited. Typical appearing lymph node in the left groin noted. Impression: 1. No evidence for deep venous thrombosis in the left lower extremity on technically challenging exam. Electronically Signed Vahid Muir M.D. 2023-10-22 08:40:00 Normal Not Available US carotid doppler BIon 09-28 US carotid doppler BI [facility] [address] [place] [address] Ultrasound Report Signed Patient: Magdaleno Woods MR#: [id number] : 1940 Acct:[id number] Age/Sex: 83 / F ADM Date: 10/20/23 Loc: [facility] Room: Type: [facility] Attending Dr: Maggy Burnett [employer] PROGRAM DIRECTOR-C Ordering Provider: Maggy Burnett APRN Date of Service: 10/20/23 US/US carotid doppler BI: I65.23 Copies to: Maggy Burnett APRN CAROTID DUPLEX INDICATION: Follow-up known carotid occlusive disease PROCEDURE: Color-flow duplex scanning is used to interrogate the extracranial carotid arterial system, as well as both vertebral arteries. Both carotid bifurcations show some smooth homogeneous plaque formation. The proximal right internal carotid artery shows a highest peak systolic velocity of 99.6 cm/s with an end-diastolic velocity of 24.3 cm/s . The mid internal carotid artery measures 107 cm/s peak systolic with an end diastolic velocity of 28.2 cm/s . The distal segment measures 93.3 cm/s peak systolic with an end diastolic velocity of 28.2 cm/s . The velocities of the right common carotid artery are 84.5 cm/s peak systolic and 14.9 cm/s end-diastolic and 82.9 cm/s peak systolic and 14.3 cm/s end diastolic distally. The peak systolic velocity ratio of the internal to the common carotid artery is 1.29 . The external carotid artery measures 129 cm/s peak systolic. The right vertebral artery is patent at 46.7 cm/s peak systolic with antegrade flow. The proximal left internal carotid artery shows a highest peak systolic velocity of 45.2 cm/s with an end-diastolic velocity of 10.5 cm/s . The mid internal carotid artery measures 82.9 cm/s peak systolic with an end diastolic velocity of 21.4 cm/s . The distal segment measures 122 cm/s peak systolic with an end diastolic velocity of 18 cm/s . The velocities of the left common carotid artery are 124 cm/s peak systolic and 14.9 cm/s end-diastolic and 80.6 cm/s peak systolic and 14.3 cm/s end diastolic distally. The peak systolic velocity ratio of the internal to the common carotid artery is 1.51 . The external carotid artery measures 125 cm/s peak systolic. The left vertebral artery is patent at 38.1 cm/s peak systolic with antegrade flow. US/US carotid doppler BI IMPRESSION: MILD PLAQUE FORMATION IS NOTED BILATERALLY, WITH LESS THAN 50% STENOSIS OF BOTH EXTRACRANIAL INTERNAL CAROTID ARTERY. BOTH VERTEBRAL ARTERIES ARE PATENT WITH ANTEGRADE FLOW. Impression dictated by: Anant Romero M.D.10/20/2023 11:20 AM Dictation Location: [place] [address] Tech: Tammy Rosen Transcribed By: BARTOLO 10/20/23 112 Dictated By: Anant Romero MD 10/20/23 112 Signed By: 10/20/23 [facility] Office [facility] 08-14-2023 Follow-up visit [id number] Magdaleno Woods 1940 F Date Provider Department Center 08/14/2023 [id number] WILSON BRI [facility] Family History Problem Relation Age of Onset Heart attack Father Stroke Father Heart failure Paternal Grandfather Family Status - Relation Status Age at Father Paternal Grandfather Level of Service:05421 CT OFFICE/OUTPATIENT ESTABLISHED LOW MDM 20 MIN Normal [facility] Office [facility] 05-08-2023 Follow-up visit [id number] Magdaleno Woods 1940 F Date Provider Department Center 05/08/2023 [id number] WILSONTaina BRI [facility] Family History Problem Relation Age of Onset Heart attack Father Stroke Father Heart failure Paternal Grandfather Family Status - Relation Status Age at Father Paternal Grandfather Level of Service:81883 CT OFFICE/OUTPATIENT ESTABLISHED MOD MDM 30 MIN Normal [facility] US carotid doppler BIon 03-31 US carotid doppler BI [facility] [place] [address] Vascular Lab Report Signed Patient: Magdaleno Woods MR#: [id number] : 1940 Acct:[id number] Age/Sex: 83 / F ADM Date: 04/21/23 Loc: [facility] Room: Type: [facility] Attending Dr: Maggy RICEC Ordering Provider: Maggy Burnett APRN Date of Service: 04/21/23 US/US carotid doppler BI: I65.23 Copies to: DO Maggy Regalado APRN CAROTID DUPLEX INDICATION: TIA PROCEDURE: Color-flow duplex scanning is used to interrogate the extracranial carotid arterial system, as well as both vertebral arteries. Both carotid bifurcations show some smooth homogeneous plaque formation. The proximal right internal carotid artery shows a highest peak systolic velocity of 90.7 cm/s with an end-diastolic velocity of 24.2 cm/s . The mid internal carotid artery measures 106 cm/s peak systolic with an end diastolic velocity of 28 cm/s . The distal segment measures 87.6 cm/s peak systolic with an end diastolic velocity of 26.7 cm/s . The velocities of the right common carotid artery are 84.5 cm/s peak systolic and 13 cm/s end-diastolic and 60.4 cm/s peak systolic and 11.8 cm/s end diastolic distally. The peak systolic velocity ratio of the internal to the common carotid artery is 1.75 . The external carotid artery measures 136 cm/s peak systolic. The right vertebral artery is patent at 42.3 cm/s peak systolic with antegrade flow. The proximal left internal carotid artery shows a highest peak systolic velocity of 80.1 cm/s with an end-diastolic velocity of 17.6 cm/s . The mid internal carotid artery measures 78.5 cm/s peak systolic with an end diastolic velocity of 15.9 cm/s . The distal segment measures 172 cm/s peak systolic with an end diastolic velocity of 37.8 cm/s . The velocities of the left common carotid artery are 112 cm/s peak systolic and 20.5 cm/s end-diastolic and 71.5 cm/s peak systolic and 11.6 cm/s end diastolic distally. The peak systolic velocity ratio of the internal to the common carotid artery is 2.41 . The external carotid artery measures 118 cm/s peak systolic. The left vertebral artery is patent at 34.6 cm/s peak systolic with antegrade flow. 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 BOTH VERTEBRAL ARTERIES ARE PATENT WITH ANTEGRADE FLOW. Elevated velocities in the distal aspect of the left internal carotid artery appear more likely due to tortuosity than significant stenosis Impression dictated by: Anant Romero M.D.04/22/2023 1:29 PM Tech: Tammy Rosen Transcribed By: 04/28/23 1013 Dictated By: Anant Romero MD 04/22/23 1329 Signed By: 04/28/23 1014 Normal [facility] Covid-19 PCR (CVDTBH)on SARS-CoV-2 (COVID-19) RNA OMAR+probe Ql (Unsp spec) Not detected Normal NOT DETECTED [facility] Comment on above: Result Comment: This test is not yet approved or cleared by the [place] FDA. When there are no FDA-approved or cleared tests available, and other criteria are met, FDA can make tests available under an emergency access mechanism called an Emergency Use Authorization (EUA). The EUA for this test is supported by the [employer] Professor of Health and Human Service's (HHS's) declaration [...] SARS-CoV-2. Performed By: #### C VDTB #### [facility] [address] [place] [address] Dr. Lisa Mckeon SYMPTOMATIC COVID-19 ANTIGEN on 07-02-2022 EUA Statement SEE BELOW Normal [facility] Comment on above: Result Comment: This test [...] sooner. Performed By: #### C VDAGS #### [facility] [address] [place] [address] Dr. Lisa Mckeon SARS-CoV-2 (COVID-19) RNA OMAR+probe Ql (Unsp spec) Negative Normal NEGATIVE [facility] Comment on above: Performed By: #### C VDAGS #### [facility] [address] [place] [id number] [address] Lisa Mckeon CBC AUTO DIFFon 02-10-2023 BASO # 0.1 103/ul Normal 0.0-0.1 [facility] Comment on above: Performed By: #### C BC #### [facility] [address] [place] [address] Dr. Lisa Mckeon Basophils/100 WBC (Bld) 0.9 % Normal 0.2-2.0 [facility] Comment on above: Performed By: #### C BC #### [facility] [address] [place] [address] Dr. Lisa Mckeon EO # 0.2 103/ul Normal 0.0-0.7 [facility] Comment on above: Performed By: #### C BC #### [facility] [address] [place] [address] Dr. Lisa Mckeon Eosinophils/100 WBC (Bld) 2.6 % Normal 0.9-7.0 [facility] Comment on above: Performed By: #### C BC #### [facility] [address] [place] [address] Dr. Lisa Mckeon Erythrocyte distribution width (RBC) [Ratio] 14.5 % Normal 11.0-15.0 [facility] Comment on above: Performed By: #### C BC #### [facility] [address] [place] [address] Dr. Lisa Mckeon Hematocrit (Bld) [Volume fraction] 40.4 % Normal 36.0-48.0 [facility] Comment on above: Performed By: #### C BC #### [facility] [address] [place] [address] Dr. Lisa Mckeon Hemoglobin (Bld) [Mass/Vol] 13.5 g/dL Normal 12.0-16.0 [facility] Comment on above: Performed By: #### C BC #### [facility] [address] [place] [address] Dr. Lisa Mckeon IG # 0.04 10e3/ul Critically high 0.00-0.03 [place] Comment on above: Performed By: #### C BC #### [facility] [address] [place] [address] Dr. Lisa Mckeon IG % 0.5 % Normal 0.0-0.5 [facility] Comment on above: Performed By: #### C BC #### [facility] [address] [place] [address] Dr. Lisa Mckeon LYMPH # 1.3 103/ul Normal 1.2-3.8 [facility] Comment on above: Performed By: #### C BC #### [facility] [address] [place] [address] Dr. Lisa Mckeon Lymphocytes/100 WBC (Bld) 16.2 % Critically low 20.5-60.0 [facility] Comment on above: Performed By: #### C BC #### [facility] [address] [place] [address] Dr. Lisa Mckeon MANUAL DIFF REQ NO Normal [facility] Comment on above: Performed By: #### C BC #### [facility] [address] [place] [address] Dr. Lisa Mckeon MCH (RBC) [Entitic mass] 30.8 pg Normal 26.7-34.0 [facility] Comment on above: Performed By: #### C BC #### [facility] [address] [place] [address] Dr. Lisa Mckeon MCHC (RBC) [Mass/Vol] 33.4 g/dL Normal 29.9-35.2 [facility] Comment on above: Performed By: #### C BC #### [facility] [address] [place] [address] Dr. Lisa Mckeon MCV (RBC) [Entitic vol] 92.0 fL Normal 81.0-99.0 [facility] Comment on above: Performed By: #### C BC #### [facility] [address] [place] [address] Dr. Lisa Mckeon MONO # 0.7 103/ul Normal 0.3-0.8 [facility] Comment on above: Performed By: #### C BC #### [facility] [address] [place] [address] Dr. Lisa Mckeon Monocytes/100 WBC (Bld) 8.7 % Normal 1.7-12.0 [facility] Comment on above: Performed By: #### C BC #### [facility] [address] [place] [address] Dr. Lisa Mckeon NEUT # 5.6 103/ul Normal 1.4-6.5 [facility] Comment on above: Performed By: #### C BC #### [facility] [address] [place] [address] Dr. Lisa Mckeon Neutrophils/100 WBC (Bld) 71.1 % Normal 43.0-75.0 [facility] Comment on above: Performed By: #### C BC #### [facility] [address] [place] [address] Dr. Lisa Mckeon Platelet mean volume (Bld) [Entitic vol] 11.7 fL Normal 9.5-13.5 [facility] Comment on above: Performed By: #### C BC #### [facility] [address] [place] [address] Dr. Lisa Mckeon PLT 319 103/ul Normal 150-450 [facility] Comment on above: Performed By: #### C BC #### [facility] [address] [place] [address] Dr. Lisa Mckeon RBC 4.39 106/ul Normal 4.20-5.40 [facility] Comment on above: Performed By: #### C BC #### [facility] [address] [place] [address] Dr. Lisa Mckeon WBC 7.9 103/ul Normal 4.0-11.0 [facility] Comment on above: Performed By: #### C BC #### [facility] [address] [place] [address] Dr. Lisa Mckeon LIPID PROFILEon 05-09-2022 CHOL-HDL RATIO NORM SEE BELOW Normal [facility] Comment on above: Result Comment: 3.3 - 4.4 LOW RISK 4.4 - 7.1 AVERAGE RISK 7.1 - 11.0 MODERATE RISK >11.0 HIGH RISK Performed By: #### L IPID, CMP #### [facility] [address] [place] [address] Dr. Lisa Mckeon Cholesterol [Mass/Vol] 101 mg/dL Normal <=200 [facility] Comment on above: Performed By: #### L IPID, CMP #### [facility] [address] [address] [address] Lisa Mckeon Cholesterol in HDL [Mass/Vol] 42 mg/dL Normal 40-60 [facility] Comment on above: Performed By: #### L IPID, CMP #### [facility] [address] [address] [address] Lisa Mckeon Cholesterol in LDL [Mass/Vol] 43.8 mg/dL Normal [facility] Comment on above: Performed By: #### L IPID, CMP #### [facility] [address] [place] [address] Dr. Lisa Mckeon Cholesterol.total/Ch olesterol in HDL [Mass ratio] 2.4 {ratio} Normal [facility] Comment on above: Performed By: #### L IPID, CMP #### [facility] [address] [address] [address] Lisa Mckeon HDL NORMAL > or = 60 mg/dl - LOW CARDIOVASCULAR RISK <40 mg/dl - HIGH CARDIOVASCULAR RISK Normal [facility] Comment on above: Performed By: #### L IPID, CMP #### [facility] [address] [place] [address] Dr. Lisa Mckeon LDL CALC NORMAL SEE BELOW Normal [facility] Comment on above: Result Comment: <100 mg/dl OPTIMAL 100 - 129 mg/dl NEAR OR ABOVE OPTIMAL 130 - 159 mg/dl BORDERLINE HIGH 160 - 189 mg/dl HIGH >190 mg/dl VERY HIGH Performed By: #### L IPID, CMP #### [facility] [address] [address] [address] Lisa Mckeon Triglyceride [Mass/Vol] 76 mg/dL Normal <=150 [facility] Comment on above: Performed By: #### L IPID, CMP #### [facility] [address] [address] [address] Lisa Mckeon VLDL CALC 15.2 mg/dL Normal [facility] Comment on above: Performed By: #### L IPID, CMP #### [facility] [address] [address] [address] Lisa Mckeon PROF 14(COMP METB)on 023 Albumin [Mass/Vol] 3.4 g/dL Normal 3.4-5.0 [facility] Comment on above: Performed By: #### L IPID, CMP #### [facility] [address] [address] [address] Lisa Mckeon Albumin/Globulin [Mass ratio] 1.1 {ratio} Normal [facility] Comment on above: Performed By: #### L IPID, CMP #### [facility] [address] [address] [address] Lisa Mckeon ALP [Catalytic activity/Vol] 69 U/L Normal 46-116 [facility] Comment on above: Performed By: #### L IPID, CMP #### [facility] [address] [address] [address] Lisa Mckeon ALT [Catalytic activity/Vol] 24 U/L Normal 14-59 [facility] Comment on above: Performed By: #### L IPID, CMP #### [facility] [address] [address] [address] Lisa Mckeon Anion gap [Moles/Vol] 13.2 mmol/L Normal [facility] Comment on above: Performed By: #### L IPID, CMP #### [facility] [address] [address] [address] Lisa Mckeon AST [Catalytic activity/Vol] 17 U/L Normal 15-37 [facility] Comment on above: Performed By: #### L IPID, CMP #### [facility] [address] [address] [address] Lisa Mckeon Bilirubin [Mass/Vol] 0.4 mg/dL Normal 0.2-1.0 [facility] Comment on above: Performed By: #### L IPID, CMP #### [facility] [address] [address] [address] Lisa Mckeon Calcium [Mass/Vol] 9.3 mg/dL Normal 8.5-10.1 [facility] Comment on above: Performed By: #### L IPID, CMP #### [facility] [address] [address] [address] Lisa Mckeon Chloride [Moles/Vol] 100 mmol/L Normal 98-107 [facility] Comment on above: Performed By: #### L IPID, CMP #### [facility] [address] [address] [address] Lisa Mckeon CO2 [Moles/Vol] 28.8 mmol/L Normal 21.0-32.0 [facility] Comment on above: Performed By: #### L IPID, CMP #### [facility] [address] [place] [address] Dr. Lisa Mckeon Creatinine [Mass/Vol] 0.72 mg/dL Normal 0.55-1.02 [facility] Comment on above: Performed By: #### L IPID, CMP #### [facility] [address] [place] [address] Dr. Lisa Mckeon EGFR-AF BENINESE >60 Normal >=60 [facility] Comment on above: Performed By: #### L IPID, CMP #### [facility] [address] [place] [address] Dr. Lisa Mckeon EGFR-NON AF BENINESE >60 Normal >=60 [facility] Comment on above: Performed By: #### L IPID, CMP #### [facility] [address] [place] [address] Dr. Lisa Mckeon Globulin (S) [Mass/Vol] 3.1 g/dL Normal [facility] Comment on above: Performed By: #### L IPID, CMP #### [facility] [address] [address] [address] Lisa Mckeon Glucose [Mass/Vol] 89 mg/dL Normal 74-106 [facility] Comment on above: Performed By: #### L IPID, CMP #### [facility] [address] [place] [address] Dr. Lisa Mckeon Potassium [Moles/Vol] 5.0 mmol/L Normal 3.5-5.1 [facility] Comment on above: Performed By: #### L IPID, CMP #### [facility] [address] [address] [address] Lisa Mckeon Protein [Mass/Vol] 6.5 g/dL Normal 6.4-8.2 [facility] Comment on above: Performed By: #### L IPID, CMP #### [facility] [address] [place] [address] Dr. Lisa Mckeon Sodium [Moles/Vol] 137 mmol/L Normal 136-145 [facility] Comment on above: Performed By: #### L IPID, CMP #### [facility] [address] [place] [address] Dr. Lisa Mckeon Urea nitrogen [Mass/Vol] 27.0 mg/dL Critically high 7.0-18.0 [facility] Comment on above: Performed By: #### L IPID, CMP #### [facility] [address] [place] [address] Dr. Lisa Mckeon Urea nitrogen/Creatinine [Mass ratio] 37.5 mg/mg Normal [facility] Comment on above: Performed By: #### L IPID, CMP #### [facility] [address] [place] [address] Dr. Lisa Mckeon Complete Blood Count with Au to Diffon 06-20-2021 Basophils (Bld) [#/Vol] 0.04 10*3/uL Normal 0.00-0.20 [facility] Time Analysis Clerk Comment on above: Performed By: #### C BCAD, LIPD, CMP, TSH #### [facility] [address] [place] [id number] Basophils/100 WBC (Bld) 0.6 % Normal [facility] Clerk Comment on above: Performed By: #### C BCAD, LIPD, CMP, TSH #### [facility] [address] [place], [place] [id number] Eosinophils (Bld) [#/Vol] 0.00 10*3/uL Low 0.02-0.50 [facility] Time Analysis Clerk Comment on above: Performed By: #### C BCAD, LIPD, CMP, TSH #### [facility] [address] [place], [place] [id number] Eosinophils/100 WBC (Bld) 0.0 % Normal [facility] Specialist Comment on above: Performed By: #### C BCAD, LIPD, CMP, TSH #### [facility] [address] [place], [place] [id number] Erythrocyte distribution width (RBC) [Ratio] 14.0 % Normal 11.0-15.0 [facility] Comment on above: Performed By: #### C BCAD, LIPD, CMP, TSH #### [facility] [address] [place], [place] [id number] Hematocrit (Bld) [Volume fraction] 40.6 % Normal 35.0-47.0 [facility] Comment on above: Performed By: #### C BCAD, LIPD, CMP, TSH #### [facility] [address] [place], [place] [id number] Hemoglobin (Bld) [Mass/Vol] 13.2 g/dL Normal 11.6-15.5 [facility] Comment on above: Performed By: #### C BCAD, LIPD, CMP, TSH #### [facility] [address] [place], [place] [id number] Lymphocytes (Bld) [#/Vol] 1.3 10*3/uL Normal 0.9-3.9 [facility] Comment on above: Performed By: #### C BCAD, LIPD, CMP, TSH #### [facility] [address] [place], [place] [id number] Lymphocytes/100 WBC (Bld) 20.4 % Normal [facility] Comment on above: Performed By: #### C BCAD, LIPD, CMP, TSH #### [facility] [address] [place], [place] [id number] MCH (RBC) [Entitic mass] 30.1 pg Normal 27.0-33.0 [facility] Comment on above: Performed By: #### C BCAD, LIPD, CMP, TSH #### [facility] [address] [place], [place] [id number] MCHC (RBC) [Mass/Vol] 32.5 g/dL Normal 32.0-36.0 [facility] Comment on above: Performed By: #### C BCAD, LIPD, CMP, TSH #### [facility] [address] [place], [place] [id number] MCV (RBC) [Entitic vol] 93 fL Normal 80-100 [facility] Comment on above: Performed By: #### C BCAD, LIPD, CMP, TSH #### [facility] [address] [place], [place] [id number] Monocytes (Bld) [#/Vol] 0.8 10*3/uL Normal 0.2-0.9 [facility] Comment on above: Performed By: #### C BCAD, LIPD, CMP, TSH #### [facility] [address] [place], [place] [id number] Monocytes/100 WBC (Bld) 12.3 % Normal [facility] Comment on above: Performed By: #### C BCAD, LIPD, CMP, TSH #### [facility] [address] [place], [place] [id number] Neutrophils (Bld) [#/Vol] 4.3 10*3/uL Normal 1.5-7.8 [facility] Comment on above: Performed By: #### C BCAD, LIPD, CMP, TSH #### [facility] [address] [place], [place] [id number] Neutrophils/100 WBC (Bld) 66.4 % Normal [facility] Comment on above: Performed By: #### C BCAD, LIPD, CMP, TSH #### [facility] [address] [place], [place] [id number] Platelet mean volume (Bld) [Entitic vol] 12.80 fL High 7.50-12.50 [facility] Special[facility] Comment on above: Performed By: #### C BCAD, LIPD, CMP, TSH #### [facility] [address] [place], [place] [id number] Platelets (Bld) [#/Vol] 228 10*3/uL Normal 140-400 [facility] Specialist Comment on above: Performed By: #### C BCAD, LIPD, CMP, TSH #### [facility] [address] [place], [place] [id number] RBC (Bld) [#/Vol] 4.38 10*6/uL Normal 3.90-5.20 [facility] Specialist Comment on above: Performed By: #### C BCAD, LIPD, CMP, TSH #### [facility] [address] [place], [place] [id number] RDW-SD 47.0 fL Normal 37.0-50.0 [facility] Specialist Comment on above: Performed By: #### C BCAD, LIPD, CMP, TSH #### [facility] [address], [place] [id number] WBC (Bld) [#/Vol] 6.5 10*3/uL Normal 3.8-11.0 [facility] Time Analysis Clerk Comment on above: Performed By: #### C BCAD, LIPD, CMP, TSH #### [facility] [address] [place], [place] [id number] Comprehensive Metabolic Pane [facility] 06-20-2021 Albumin [Mass/Vol] 4.1 g/dL Normal 3.6-5.1 [facility] Specialist Comment on above: Performed By: #### C BCAD, LIPD, CMP, TSH #### [facility] [address] [place], [place] [id number] Albumin/Globulin [Mass ratio] 2.0 {ratio} Normal 1.0-2.5 [facility] Comment on above: Performed By: #### C BCAD, LIPD, CMP, TSH #### [facility] [address] [place], [place] [id number] ALP [Catalytic activity/Vol] 64 U/L Normal 35-119 [facility] Specialist Comment on above: Performed By: #### C BCAD, LIPD, CMP, TSH #### [facility] [address] [place], [place] [id number] ALT [Catalytic activity/Vol] 31 U/L Normal 6-33 [facility] Specialist Comment on above: Result Comment: 02/27 Female reference range changed. Performed By: #### C BCAD, LIPD, CMP, TSH #### [facility] [address] [place], [place] [id number] Anion gap [Moles/Vol] 17 mmol/L Normal 12-20 [facility] Comment on above: Result Comment: Effleslee ctive 04/04/2019 reference range changed. Performed By: #### C BCAD, LIPD, CMP, TSH #### [facility] [address] [facility] [place] [id number] AST [Catalytic activity/Vol] 26 U/L Normal 9-34 [facility] Comment on above: Performed By: #### C BCAD, LIPD, CMP, TSH #### [facility] [address] [facility] [place] [id number] Bilirubin [Mass/Vol] 0.35 mg/dL Normal 0.30-1.20 [facility] Comment on above: Performed By: #### C BCAD, LIPD, CMP, TSH #### [facility] [address] [place], [place] [id number] BUN/CREA 33 Ratio High 6-22 [facility] Comment on above: Performed By: #### C BCAD, LIPD, CMP, TSH #### [facility] [address] [facility] [place] [id number] Calcium [Mass/Vol] 9.5 mg/dL Normal 8.6-10.[address] [facility] Comment on above: Performed By: #### C BCAD, LIPD, CMP, TSH #### [facility] [address] [facility] [place] [id number] Chloride [Moles/Vol] 104 mmol/L Normal 98-107 [facility] Comment on above: Performed By: #### C BCAD, LIPD, CMP, TSH #### [facility] [address] [facility] [place] [id number] CO2 [Moles/Vol] 22 mmol/L Normal 20-31 [facility] Comment on above: Performed By: #### C BCAD, LIPD, CMP, TSH #### [facility] [address] [facility] [place] [id number] Creatinine [Mass/Vol] 0.9 mg/dL Normal 0.6-1.4 [facility] Comment on above: Performed By: #### C BCAD, LIPD, CMP, TSH #### [facility] [address] [place], [place] [id number] eGFRAA 72 mL/min/1.73m2 Normal >60 [facility] Time Analysis Clerk Comment on above: Performed By: #### C BCAD, LIPD, CMP, TSH #### [facility] [address] [place], [place] [id number] eGFRNAA 60 mL/min/1.73m2 Low >60 [facility] Time Analysis Clerk Comment on above: Performed By: #### C BCAD, LIPD, CMP, TSH #### [facility] [address] [place], [place] [id number] Globulin (S) [Mass/Vol] 2.1 g/dL Normal 1.9-3.7 [facility] Time Analysis Clerk Comment on above: Performed By: #### C BCAD, LIPD, CMP, TSH #### [facility] [address] [place], [place] [id number] Glucose [Mass/Vol] 106 mg/dL High 65-99 [facility] Time Analysis Clerk Comment on above: Result Comment: For FASTING Glucose --- ADA reference ranges: Normal 65-99 mg/dl Prediabetes 100-125 Diabetes >/= 126 Performed By: #### C BCAD, LIPD, CMP, TSH #### [facility] [address] [place], [place] [id number] Potassium [Moles/Vol] 4.8 mmol/L Normal 3.5-5.5 [facility] Time Analysis Clerk Comment on above: Performed By: #### C BCAD, LIPD, CMP, TSH #### [facility] [address] [place], [place] [id number] Protein [Mass/Vol] 6.2 g/dL Normal 6.1-8.1 [facility] Time Analysis Clerk Comment on above: Performed By: #### C BCAD, LIPD, CMP, TSH #### [facility] [address] [place], [place] [id number] Sodium [Moles/Vol] 138 mmol/L Normal 135-146 [facility] Time Analysis Clerk Comment on above: Performed By: #### C BCAD, LIPD, CMP, TSH #### [facility] [address] [place], [place] [id number] Urea nitrogen [Mass/Vol] 30 mg/dL High 7-25 [facility] Time Analysis Clerk Comment on above: Performed By: #### C BCAD, LIPD, CMP, TSH #### [facility] [address] [place], [place] [id number] Lipid Panelon 06-20-2021 Cholesterol [Mass/Vol] 108 mg/dL Low 125-200 [facility] Time Analysis Clerk Comment on above: Result Comment: Low risk < 200mg/dL Borderline risk 201-239 mg/dl High risk > or equal to 240 Performed By: #### C BCAD, LIPD, CMP, TSH #### [facility] [address] [place], [place] [id number] Cholesterol in HDL [Mass/Vol] 34 mg/dL Low >40 [facility] Time Analysis Clerk Comment on above: Result Comment: High Cardiovascular Risk HDL <40 mg/dL Low Cardiovascular Risk HDL > or equal to 60 mg/dl Performed By: #### C BCAD, LIPD, CMP, TSH #### [facility] [address] [place], [place] [id number] Cholesterol in LDL [Mass/Vol] 50 mg/dL Normal [facility] Specialist Comment on above: Result Comment: LDL ATP III CLASSIFICATION LDL less than 100 mg/dl Optimal LDL 100-129 mg/dl Near or above optimal LDL 130-159 Borderline high LDL 160-189 High LDL greater than 189 mg/dl Very High Performed By: #### C BCAD, LIPD, CMP, TSH #### [facility] [address] [place], [place] [id number] Cholesterol in VLDL [Mass/Vol] 24 mg/dL Normal [facility] Time Analysis Clerk Comment on above: Performed By: #### C BCAD, LIPD, CMP, TSH #### [facility] [address] [facility] [place] [id number] Cholesterol.total/Ch olesterol in HDL [Mass ratio] 3 {ratio} Normal [facility] Specialist Comment on above: Performed By: #### C BCAD, LIPD, CMP, TSH #### [facility] [address] [place], [place] [id number] Triglyceride [Mass/Vol] 119 mg/dL Normal 30-150 [facility] Time Analysis Clerk Comment on above: Result Comment: TRIG ATPIII CLASSIFICATIONS TRIG less than 150 mg/dl Normal TRIG 150-199 mg/dl Borderline High TRIG 200-500 mg/dl High TRIG greather than 500 mg/dl Very High Performed By: #### C BCAD, LIPD, CMP, TSH #### [facility] [address] [place], [place] [id number] TSHon 06-20-2021 TSH 2.640 uIU/mL Normal 0.400-4.500 [facility] Time Analysis Clerk Comment on above: Performed By: #### C BCAD, LIPD, CMP, TSH #### [facility] [address] [place], [place] [id number] CREATININE BLOODon Creatinine [Mass/Vol] 0.81 mg/dL Normal 0.60-1.20 [facility] Comment on above: Order Comment: No: D o not add to previous draw Performed By: #### 5 7307, 46287 #### [facility] [address] [facility] [place] [address], [facility] GFR/1.73 sq M.predicted among blacks MDRD (S/P/Bld) [Vol rate/Area] mL/min/{1.73_m2} Normal >60 [facility] Comment on above: Order Comment: No: D o not add to previous draw Result Comment: Calc ulation may not be valid for patients over 70 years Performed By: #### 5 7307, 52939 #### [facility] [address] [facility] [place] [address], [facility] GFR/1.73 sq M.predicted among non-blacks MDRD (S/P/Bld) [Vol rate/Area] mL/min/{1.73_m2} Normal >60 [facility] Comment on above: Order Comment: No: D o not add to previous draw Result Comment: Calc ulation may not be valid for patients over 70 years Performed By: #### 5 7307, 46240 #### [facility] [address] [place] [address], [place] Cardiovascular Lab Reporton 2021 Cardiovascular Lab Report [facility] MR #: [id number] Department of Physician: Jennifer Beebe M.D. Division of Service Date: 04/19/2021 Cardiology Birthdate: 1940 Adult Cardiovascular Room #: 4AB [id number] [facility] [address] [place], [place] [address] Cardiovascular Laboratory Report CLINICAL PRESENTATION: The patient [...] inhibitor for HFpEF. 6. Outpatient followup with [facility]. 7. Referral to cardiac rehabilitation. PROCEDURES: [...] infiltrated in the left radial artery. A 6-Palestinian Terumo Glidesheath slender was placed in the left radial artery. Radial anti-vasospasm cocktail of verapamil 2.5 mg and nitroglycerin 200 mcg was administered through the sheath. All catheter exchanges were made over the Wiggins guidewire. A 5-Palestinian JR4 was used to engage the right coronary artery. A 5-Palestinian JL3.5 was used to engage the left main coronary artery. Coronary angiogram was performed in multiple orthogonal views using hand injection of contrast. 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 I elected to proceed with PCI. Heparin anticoagulation was administered for this procedure. ACT was maintained greater than 200 seconds. A Bubblitronic EBU 3.0 guide was engaged to the [...] catheter and this resolved the issue with worship of blood flow into the LAD. At [...] proxima (more content not included)... Normal [facility] POC GLUCOSE LABon 2021 Glucose [Mass/Vol] 125 mg/dL High 70-100 [facility] Comment on above: Performed By: #### 0 0121, 78455, 95049, 77729 #### [facility] [address] [place] [address], [facility] Glucose [Mass/Vol] 103 mg/dL High 70-100 [facility] Comment on above: Performed By: #### 5 7307, 28193 #### [facility] [address] [place] [address], [facility] UFH HEPARIN ASSAYon 04-20-19 UNFRACTIONATED HEPARIN <0.10 Critically low 0.30-0.70 [facility] Comment on above: Order Comment: This order is a replacement of the rejected order with accession number [id number]. Result Comment: Resu lts called. Accurately read back by Sharona Chaidez, RN, 4B pt's nurse, at 0029, 20-Apr-2021. Rivaroxaban and Apixaban will interfere with the anti Xa assay used to monitor UFH and LMWH. Performed By: #### 0 0121, 68552, 63607, 32382 #### [facility] [address] [place] [address], [facility] CBC COMPLETE BLOOD COUNTon 0 04-19-2021 Erythrocyte distribution width (RBC) [Ratio] 14.2 % Normal 11.5-15.0 [facility] Comment on above: Order Comment: No: D o not add to previous draw Performed By: #### 5 7307, 84327 #### [facility] [address] [place] [address], [facility] Hematocrit (Bld) [Volume fraction] 40.5 % Normal 36.0-45.0 [facility] Comment on above: Order Comment: No: D o not add to previous draw Performed By: #### 5 73, 31884 #### [facility] [address] [place] [address], [facility] Hemoglobin (Bld) [Mass/Vol] 13.9 g/dL Normal 12.0-15.0 [facility] Comment on above: Order Comment: No: D o not add to previous draw Performed By: #### 5 7306, 18998 #### [facility] [address] [place] [id number], [facility] MCH (RBC) [Entitic mass] 31.2 pg Normal 27.0-33.0 [facility] Comment on above: Order Comment: No: D o not add to previous draw Performed By: #### 5 7306, 99582 #### [facility] [address] [place] [address], [facility] MCHC (RBC) [Mass/Vol] 34.3 g/dL Normal 32.0-35.0 [facility] Comment on above: Order Comment: No: D o not add to previous draw Performed By: #### 5 73, 58503 #### [facility] [address] [place] [id number], [facility] MCV (RBC) [Entitic vol] 90.8 fL Normal 82.0-98.0 [facility] Comment on above: Order Comment: No: D o not add to previous draw Performed By: #### 5 73, 79526 #### [facility] [address] [place] [address], [place] Nucleated RBC/100 WBC (Bld) [Ratio] 0 % Normal 0-0 [facility] Comment on above: Order Comment: No: D o not add to previous draw Performed By: #### 5 73, 67228 #### [facility] [address] [place] [address], [facility] PLAT CNT 233 10*3/uL Normal 150-400 [facility] Comment on above: Order Comment: No: D o not add to previous draw Performed By: #### 5 7307, 81895 #### [facility] [address] [place] [address], [facility] RBC (Bld) [#/Vol] 4.46 10*6/uL Normal 3.80-5.00 [facility] Comment on above: Order Comment: No: D o not add to previous draw Performed By: #### 5 7307, 90286 #### [facility] [address] [facility] [place] [address], [facility] WBC (Bld) [#/Vol] 9.64 10*3/uL Normal 4.00-10.60 [facility] Comment on above: Order Comment: No: D o not add to previous draw Performed By: #### 5 7307, 83686 #### [facility] [address] HEMOGLOBIN A1Con 04-19-2021 Glucose [Moles/Vol] 126 mmol/L Normal [facility] Comment on above: Order Comment: Yes: Add to Previous draw if able Performed By: #### 3 1791 #### [facility] [address] HbA1c (Bld) [Mass fraction] 6.0 % Normal 4.0-6.0 [facility] Comment on above: Order Comment: Yes: Add to Previous draw if able Performed By: #### 3 1791 #### [facility] [address] LIPID PROFILEon 04-19-2021 Cholesterol [Mass/Vol] 113 mg/dL Low 120-200 [facility] Comment on above: Result Comment: CHOL ESTEROL REFERENCE RANGE: 20 YEARS AND OLDER CARDIOVASCULAR RISK Less than 200 mg/dl Low Risk 200 to 239 mg/dl Borderline Risk 240 mg/dl and greater High Risk Performed By: #### 4 6413 #### [facility] [address] [place] [address], [facility] Cholesterol in HDL [Mass/Vol] 35 mg/dL Normal 23-92 [facility] Comment on above: Result Comment: Slig ht variation in normal range could be due to gender and/or age. HDL CHOLESTEROL REFERENCE RANGE: 20 years and older Cardiovascular Risk > or =60 mg/dL Desirable 40 TO 59 mg/dL Low Risk <40 mg/dL High Risk Performed By: #### 4 6413 #### [facility] [address] [place] [address], [facility] Cholesterol in LDL [Mass/Vol] 51 mg/dL Normal 0-130 [facility] Comment on above: Result Comment: LDL IS A CALCULATION LDL IS ONLY VALID IF THE TRIG IS LESS THAN 400. Performed By: #### 4 6413 #### [facility] [address] [place] [address], [place] Cholesterol.total/Ch olesterol in HDL [Mass ratio] 3.2 {ratio} Normal .0-4.5 [facility] Comment on above: Performed By: #### 4 6413 #### [facility] [address] [place] [address], [place] NON-HDL CHOLESTEROL 78 mg/dL Normal [facility] Comment on above: Performed By: #### 4 6413 #### [facility] [address] [place] [address], [place] Triglyceride [Mass/Vol] 133 mg/dL Normal 40-149 [facility] Comment on above: Result Comment: TRIG LYCERIDE REFERENCE RANGE: 20 YEARS AND OLDER CARDIOVASCULAR RISK LESS THAN 150 mg/dl LOW RISK 150 TO 199 mg/dl BORDERLINE RISK 200 mg/dl AND GREATER HIGH RISK Performed By: #### 4 6413 #### [facility] [address] [place] [address], [place] VLDL CHOL 27 mg/dL Normal 0-40 [facility] Comment on above: Performed By: #### 4 6413 #### [facility] [address] [place] [address], [facility] POC GLUCOSE LABon 04-19-2021 Glucose [Mass/Vol] 104 mg/dL High 70-[address] [facility] Comment on above: Performed By: #### 5 7307, 91154 #### [facility] [address] [place] [address], [facility] TROPONIN-Ion 04-19-2021 Troponin I.cardiac [Mass/Vol] 2.01 ng/mL Critically high 0.00-0.04 [facility] Comment on above: Order Comment: No: D o not add to previous draw Result Comment: M-CT EVIOUS CRITICAL RESULT REFERENCE RANGES: 0.00 - 0.04 ng/ml NORMAL 0.05 - 0.50 ng/ml INDETERMINATE > 0.50 ng/ml CONSISTENT WITH AN M.I. Performed By: #### 3 5200 #### [facility] [address] [facility] [place] [address], [facility] Troponin I.cardiac [Mass/Vol] 2.46 ng/mL Critically high 0.00-0.04 [facility] Comment on above: Result Comment: M-CT EVIOUS CRITICAL RESULT REFERENCE RANGES: 0.00 - 0.04 ng/ml NORMAL 0.05 - 0.50 ng/ml INDETERMINATE > 0.50 ng/ml CONSISTENT WITH AN M.I. Performed By: #### 5 7307, 81508 #### [facility] [address] [place] [address], [facility] UFH HEPARIN ASSAYon 04-19-19 22 UNFRACTIONATED HEPARIN 0.35 IU/mL Normal 0.30-0.70 [facility] Comment on above: Result Comment: [place] roxaban and Apixaban will interfere with the anti Xa assay used to monitor UFH and LMWH. Performed By: #### 5 7307, 11217 #### [facility] [address] APTTon 04-18-2021 aPTT Coag (Bld) [Time] 46.6 s High 25.0-35.0 [facility] Comment on above: Order Comment: [...] THIS PURPOSE. Performed By: #### 5 7307, 67532 #### [facility] [address] aPTT Coag (Bld) [Time] 58.2 s High 25.0-35.0 [facility] Comment on above: Result Comment: [...] THIS PURPOSE. Performed By: #### 0 0121, 74152, 98929, 47628 #### [facility] [address] [place] [address], [facility] CBC W/DIFFon 04-18-2021 ABS IMM GRANS 0.0 10*3/uL Normal 0.0-0.2 [facility] Comment on above: Order Comment: This order is a replacement of the rejected order with accession number [id number]. Performed By: #### 0 0121, 83471, 42954, 06556 #### [facility] [address] [place] [address], [facility] ABS NEUTROPHILS 6.6 10*3/uL Normal 1.6-7.6 The [facility] Comment on above: Order Comment: This order is a replacement of the rejected order with accession number [id number]. Performed By: #### 0 0121, 22795, 57639, 90508 #### [facility] [address] [place] [address], [facility] Basophils (Bld) [#/Vol] 0.1 10*3/uL Normal 0.0-0.2 [facility] Comment on above: Order Comment: This order is a replacement of the rejected order with accession number [id number]. Performed By: #### 0 0121, 36965, 67123, 03946 #### [facility] [address] [facility] [place] [address], [facility] Basophils/100 WBC (Bld) 0.8 % Normal 0.0-1.0 [facility] Comment on above: Order Comment: This order is a replacement of the rejected order with accession number [id number]. Performed By: #### 0 0121, 48659, 85705, 76172 #### [facility] [address] [place] [address], [facility] Eosinophils (Bld) [#/Vol] 0.2 10*3/uL Normal 0.0-0.5 [facility] Comment on above: Order Comment: This order is a replacement of the rejected order with accession number [id number]. Performed By: #### 0 0121, 16500, 97782, 67192 #### [facility] [address] [place] [address], [facility] Eosinophils/100 WBC (Bld) 2.2 % Normal 0.0-6.0 [facility] Comment on above: Order Comment: This order is a replacement of the rejected order with accession number [id number]. Performed By: #### 0 0121, 12400, 60785, 48318 #### [facility] [address] [place] [address], [facility] Erythrocyte distribution width (RBC) [Ratio] 14.0 % Normal 11.5-15.0 [facility] Comment on above: Order Comment: This order is a replacement of the rejected order with accession number [id number]. Performed By: #### 0 0121, 00239, 10790, 12258 #### [facility] [address] Hematocrit (Bld) [Volume fraction] 43.4 % Normal 36.0-45.0 [facility] Comment on above: Order Comment: This order is a replacement of the rejected order with accession number [id number]. Performed By: #### 0 0121, 86302, 61746, 56868 #### [facility] [address] Hemoglobin (Bld) [Mass/Vol] 14.1 g/dL Normal 12.0-15.0 [facility] Comment on above: Order Comment: This order is a replacement of the rejected order with accession number [id number]. Performed By: #### 0 0121, 84179, 05028, 73145 #### [facility] [address] IMM PLATELET FRAC 7.9 % High 0.8-6.3 [facility] Comment on above: Order Comment: This order is a replacement of the rejected order with accession number [id number]. Performed By: #### 0 0121, 96814, 89077, 99294 #### [facility] [address] [facility] IMMATURE GRANS 0.3 % Normal 0.0-1.0 [facility] Comment on above: Order Comment: This order is a replacement of the rejected order with accession number [id number]. Performed By: #### 0 0121, 92435, 74783, 85909 #### [facility] [address] [place] [address], [facility] Lymphocytes (Bld) [#/Vol] 2.5 10*3/uL Normal 1.2-4.0 [facility] Comment on above: Order Comment: This order is a replacement of the rejected order with accession number [id number]. Performed By: #### 0 0121, 85889, 11516, 09849 #### [facility] [address] Lymphocytes/100 WBC (Bld) 23.8 % Normal 20.0-45.0 [facility] Comment on above: Order Comment: This order is a replacement of the rejected order with accession number [id number]. Performed By: #### 0 0121, 48442, 71698, 14621 #### [facility] [address] MCH (RBC) [Entitic mass] 30.4 pg Normal 27.0-33.0 [facility] Comment on above: Order Comment: This order is a replacement of the rejected order with accession number [id number]. Performed By: #### 0 0121, 30976, 93224, 66476 #### [facility] [address] [facility] [address] MCHC (RBC) [Mass/Vol] 32.5 g/dL Normal 32.0-35.0 [facility] Comment on above: Order Comment: This order is a replacement of the rejected order with accession number [id number]. Performed By: #### 0 0121, 60515, 64727, 64634 #### [facility] [address] [place] [address], [facility] MCV (RBC) [Entitic vol] 93.5 fL Normal 82.0-98.0 [facility] Comment on above: Order Comment: This order is a replacement of the rejected order with accession number [id number]. Performed By: #### 0 0121, 66739, 80491, 82218 #### [facility] [address] [place] [address], [facility] Monocytes (Bld) [#/Vol] 1.1 10*3/uL High 0.1-1.0 [facility] Comment on above: Order Comment: This order is a replacement of the rejected order with accession number [id number]. Performed By: #### 0 0121, 92117, 18781, 93659 #### [facility] [address] [place] [address], [facility] MONOS 10.6 % Normal 5.0-12.0 [facility] Comment on above: Order Comment: This order is a replacement of the rejected order with accession number [id number]. Performed By: #### 0 0121, 05108, 37538, 18487 #### [facility] [address] Neutrophils/100 WBC (Bld) 62.3 % Normal 40.0-72.0 [facility] Comment on above: Order Comment: This order is a replacement of the rejected order with accession number [id number]. Performed By: #### 0 0121, 28762, 89630, 08123 #### [facility] [address] Nucleated RBC/100 WBC (Bld) [Ratio] 0 % Normal 0-0 [facility] Comment on above: Order Comment: This order is a replacement of the rejected order with accession number [id number]. Performed By: #### 0 0121, 96245, 51667, 49888 #### [facility] [address] [place] [address], [facility] PLAT CNT 220 10*3/uL Normal 150-400 [facility] Comment on above: Order Comment: This order is a replacement of the rejected order with accession number [id number]. Performed By: #### 0 0121, 66068, 04050, 11057 #### [facility] [address] [place] [address], [facility] RBC (Bld) [#/Vol] 4.64 10*6/uL Normal 3.80-5.[address] [facility] Comment on above: Order Comment: This order is a replacement of the rejected order with accession number [id number]. Performed By: #### 0 0121, 55598, 50202, 56098 #### [facility] [address] WBC (Bld) [#/Vol] 10.52 10*3/uL Normal 4.00-10.60 [facility] Comment on above: Order Comment: This order is a replacement of the rejected order with accession number [id number]. Performed By: #### 0 0121, 66934, 07802, 23081 #### [facility] [address] COMP METABOLIC PANELon 04-18 Albumin [Mass/Vol] 4.1 g/dL Normal 3.5-5.[address] [facility] Comment on above: Order Comment: This order is a replacement of the rejected order with accession number [id number]. Performed By: #### 0 0121, 13185, 34231, 41328 #### [facility] [address] ALKALINE PHOSPH 61 IU/L Normal 34-104 [facility] Comment on above: Order Comment: This order is a replacement of the rejected order with accession number [id number]. Performed By: #### 0 0121, 51104, 16309, 85608 #### [facility] [address] [facility] ALT [Catalytic activity/Vol] 20 U/L Normal 7-52 [facility] Comment on above: Order Comment: This order is a replacement of the rejected order with accession number [id number]. Performed By: #### 0 0121, 65730, 13537, 00867 #### [facility] [address] [place] [address], [facility] AST [Catalytic activity/Vol] 29 U/L Normal 13-39 [facility] Comment on above: Order Comment: This order is a replacement of the rejected order with accession number [id number]. Performed By: #### 0 0121, 85195, 63868, 18499 #### [facility] [address] [place] [address], [place] Bilirubin [Mass/Vol] 0.5 mg/dL Normal 0.3-1.0 [facility] Comment on above: Order Comment: This order is a replacement of the rejected order with accession number [id number]. Performed By: #### 0 0121, 11941, 72743, 72400 #### [facility] [address] [place] [address], [facility] Calcium [Mass/Vol] 9.5 mg/dL Normal 8.6-10.[address] [facility] Comment on above: Order Comment: This order is a replacement of the rejected order with accession number [id number]. Performed By: #### 0 0121, 79881, 36215, 94546 #### [facility] [address] [place] [address], [place] Chloride [Moles/Vol] 101 mmol/L Normal 98-107 [facility] Comment on above: Order Comment: This order is a replacement of the rejected order with accession number [id number]. Performed By: #### 0 0121, 64182, 12969, 12087 #### [facility] [address] [place] [address], [place] CO2 [Moles/Vol] 26 mmol/L Normal 21-31 [facility] Comment on above: Order Comment: This order is a replacement of the rejected order with accession number [id number]. Performed By: #### 0 0121, 18952, 38487, 73818 #### [facility] [address] [place] [address], [place] Creatinine [Mass/Vol] 0.83 mg/dL Normal 0.60-1.20 [facility] Comment on above: Order Comment: This order is a replacement of the rejected order with accession number [id number]. Performed By: #### 0 0121, 30287, 02898, 90417 #### [facility] [facility] [address] [place] [address], [place] GFR/1.73 sq M.predicted among blacks MDRD (S/P/Bld) [Vol rate/Area] mL/min/{1.73_m2} Normal >60 [facility] Comment on above: Order Comment: This order is a replacement of the rejected order with accession number [id number]. Result Comment: Calc ulation may not be valid for patients over 70 years Performed By: #### 0 0121, 26877, 21642, 00737 #### [facility] [address] [place] [address], [place] GFR/1.73 sq M.predicted among non-blacks MDRD (S/P/Bld) [Vol rate/Area] mL/min/{1.73_m2} Normal >60 [facility] Comment on above: Order Comment: This order is a replacement of the rejected order with accession number [id number]. Result Comment: Calc ulation may not be valid for patients over 70 years Performed By: #### 0 0121, 80977, 47588, 58390 #### [facility] [address] [place] [address], [place] Glucose [Mass/Vol] 98 mg/dL Normal 70-100 [facility] Comment on above: Order Comment: This order is a replacement of the rejected order with accession number [id number]. Performed By: #### 0 0121, 04540, 00431, 87449 #### [facility] [address] [place] [address], [place] Potassium [Moles/Vol] 4.5 mmol/L Normal 3.5-5.1 [facility] Comment on above: Order Comment: This order is a replacement of the rejected order with accession number [id number]. Performed By: #### 0 0121, 30198, 81306, 51963 #### [facility] [address] [place] [id number], [facility] Protein [Mass/Vol] 7.0 g/dL Normal 6.0-8.3 [facility] Comment on above: Order Comment: This order is a replacement of the rejected order with accession number [id number]. Performed By: #### 0 0121, 79843, 44575, 88718 #### [facility] [address] [place] [address], [facility] Sodium [Moles/Vol] 134 mmol/L Low 136-145 [facility] Comment on above: Order Comment: This order is a replacement of the rejected order with accession number [id number]. Performed By: #### 0 0121, 78043, 96289, 00330 #### [facility] [address] [place] [address], [facility] Urea nitrogen [Mass/Vol] 26 mg/dL High 7-25 [facility] Comment on above: Order Comment: This order is a replacement of the rejected order with accession number [id number]. Performed By: #### 0 0121, 13021, 48971, 90192 #### [facility] [address] [place] [id number], [facility] LACTATE BLOODon 04-18-2021 Lactate [Moles/Vol] 1.6 mmol/L Normal .5-2.2 [facility] Comment on above: Order Comment: No: D o not add to previous draw Performed By: #### 1 0054 #### [facility] [address] [place] [id number], [facility] MAGNESIUM BLOODon 04-18-2021 Magnesium [Mass/Vol] 1.5 mg/dL Low 1.9-2.7 [facility] Comment on above: Order Comment: This order is a replacement of the rejected order with accession number [id number]. Performed By: #### 0 0121, 55847, 60331, 23021 #### [facility] [address] [facility] [place] [address], [facility] PHOSPHORUS BLOODon Phosphate [Mass/Vol] 3.3 mg/dL Normal 2.5-5.0 [facility] Comment on above: Order Comment: This order is a replacement of the rejected order with accession number [id number]. Performed By: #### 0 0121, 28272, 40928, 61446 #### [facility] [address] [place] [address], [facility] PORTABLE CHEST 1 VIEWon 03-31 PORTABLE CHEST 1 VIEW [facility] Department of Radiology [address] [place] [id number] Patient Name: MAGDALENO WOODS : 1940 Sex: F Age: Race: Other Pt. Location: [facility] Patient Status: E Ordered Date: 04/18/2021 [...] cardiomegaly Electronically signed: Leilani Mccullough. Transcribed by: [email or web address], User Resident: Electronically Signed by: LEILANI MCCULLOUGH @ 04/18/2021 05:28 PM Normal [facility] Comment on above: Order Comment: evalu ate for Cardiomegaly PROTHROMBIN TIMEon 2 INR Coag (PPP) [Relative time] 1.12 {INR} Normal 0.91-1.16 [facility] Comment on above: Result Comment: [...] CHEST 1995;108:231S-246S. Performed By: #### 0 0121, 60168, 46019, 85447 #### [facility] [address] PT Coag (PPP) [Time] 14.4 s Normal 12.3-14.8 [facility] Comment on above: Result Comment: ALL RESULTS MUST BE INTERPRETED WITH RESPECT TO BLOOD DRAWING ARTIFACT OR DILUTION ERROR OF ANTICOAGULANT AT THE TIME OF SAMPLING. Performed By: #### 0 0121, 70082, 81507, 77492 #### [facility] [address] TROPONIN-Ion 04-18-2021 Troponin I.cardiac [Mass/Vol] 2.26 ng/mL Critically high 0.00-0.04 [facility] Comment on above: Order Comment: This order is a replacement of the rejected order with accession number [id number]. Result Comment: M-CT EVIOUS CRITICAL RESULT REFERENCE RANGES: 0.00 - 0.04 ng/ml NORMAL 0.05 - 0.50 ng/ml INDETERMINATE > 0.50 ng/ml CONSISTENT WITH AN M.I. Performed By: #### 0 0121, 11999, 49796, 69339 #### [facility] [address] Troponin I.cardiac [Mass/Vol] 1.52 ng/mL Critically high 0.00-0.04 [facility] Comment on above: Result Comment: M-TR OPONIN INITIAL CRITICAL HIGH; RESPUN AND RETESTED M-CRITICAL RESULT(S) REVIEWED, CALLED TO AND READ BACK BY Blayne Carlisle RN at 1845. REFERENCE RANGES: 0.00 - 0.04 ng/ml NORMAL 0.05 - 0.50 ng/ml INDETERMINATE > 0.50 ng/ml CONSISTENT WITH AN M.I. Performed By: #### 5 7307, 22380 #### [facility] [address] UFH HEPARIN ASSAYon 04-18-19 UNFRACTIONATED HEPARIN 0.16 IU/mL Critically low 0.30-0.70 [facility] Comment on above: Result Comment: Resu lt checked and called. Accurately read back by [facility] GARCIA RN ON 04/18/2021 AT 20:49 Rivaroxaban and Apixaban will interfere with the anti Xa assay used to monitor UFH and LMWH. Performed By: #### 5 7307, 98894 #### [facility] [address] [place] [id number] [place] [address] Vital Signs Date Time Vital Sign Value Performing Clinician Facility 01-27-2024 13:36-0400 Body height 157.5 cm Artie Keita DO Work Phone: [facility] 01-27-2024 13:36-0400 Body mass index (BMI) [Ratio] 38.41 kg/m2 Artie Keita DO Work Phone: [facility] 01-27-2024 13:36-0400 Body weight 95.25 kg Artie Keita DO Work Phone: [facility] 10-20-2023 11:17-0400 Body height 156.21 cm DO Kate Petznick Work Phone: [facility] 10-20-2023 11:17-0400 Body mass index (BMI) [Ratio] 39.2 kg/m2 DO Kate Petznick Work Phone: [facility] 10-20-2023 11:17-0400 Body temperature 97.8 [degF] DO Kate Petznick Work Phone: [facility] 10-20-2023 11:17-0400 Body weight 95.7 kg DO Kate Petznick Work Phone: [phone] [place] [address] 10-20-2023 11:17-0400 Diastolic blood pressure 62 mm[Hg] DO Kate Petznick Work Phone: [facility] 10-20-2023 11:17-0400 Heart rate 60 /min DO Kate Petznick Work Phone: [facility] 10-20-2023 11:17-0400 Respiratory rate 16 /min DO Kate Petznick Work Phone: [phone] [place] [address] 10-20-2023 11:17-0400 SaO2% (BldA) [Mass fraction] 98 % DO Kaet Petznick Work Phone: [facility] 10-20-2023 11:17-0400 Systolic blood pressure 110 mm[Hg] DO Kate Petznick Work Phone: [facility] 04-21-2023 10:30-0500 Body height 157.48 cm Maggy Burnett Other [employer] Other 04-21-2023 10:30-0500 Body mass index (BMI) [Ratio] 36.21 kg/m2 Maggy Burnett Other [employer] Other 04-21-2023 10:30-0500 Body temperature 97.8 [degF] Maggy Burnett Other [employer] Other 04-21-2023 10:30-0500 Body weight 89.81 kg Maggy Burnett Other [employer] Other 04-21-2023 10:30-0500 Diastolic blood pressure 64 mm[Hg] Maggy Burnett Other [employer] Other 04-21-2023 10:30-0500 SaO2% (BldA) [Mass fraction] 98 % Maggy Burnett Other [employer] Other 04-21-2023 10:30-0500 Systolic blood pressure 118 mm[Hg] Maggy Burnett Other [employer] Other Encounters Encounter Date Encounter Type Care Provider Facility Start: 01-28-2024 End: 01-28-2024 ambulatory [facility] Start: 01-27-2024 End: 01-27-2024 Patient encounter procedure DO Kate Petznick Work Phone: [facility] Work Phone: Start: 01-27-2024 End: 01-27-2024 ambulatory DO Kate Petznick Work Phone: [facility] Work Phone: Start: 01-27-2024 Encounter for other preprocedural examination Artie Keita [facility] Start: 01-27-2024 End: 01-27-2024 Bamboo flowsheet Artie Keita DO Work Phone: [facility] Start: 01-27-2024 End: 01-27-2024 Bamboo flowsheet Artie Keita DO Work Phone: [facility] Start: 01-27-2024 End: 01-27-2024 External Result Encounter Artie Kramersirenajamie DO Work Phone: [facility] Unsolicited Start: 01-27-2024 End: 01-27-2024 ambulatory ARTIE Castillo AIDEEJamie Not Available Start: 01-27-2024 End: 01-27-2024 Office outpatient new 45 minutes Artie Castillo Aideejamie DO Work Phone: [facility] Comment on above: Chronic anticoagulat ion (Primary Dx); 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; 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 Start: 12-24-2023 End: 12-24-2023 ambulatory JUAN MENENDEZJERRY Not Available Start: 12-15-2023 End: 12-15-2023 ambulatory KATE M PETZNICK Not Available Start: 10-21-2023 End: 10-21-2023 ambulatory RAVI C PETZNICK Not Available Start: 10-21-2023 End: 10-21-2023 ambulatory RAVI C PETZNICK Not Available Start: 10-20-2023 End: 10-20-2023 ambulatory DO Kate Petznick Work Phone: [facility] Work Phone: Start: 10-20-2023 End: 10-20-2023 Patient encounter procedure DO Kate Petznick Work Phone: [facility] Work Phone: Start: 10-19-2023 End: 10-19-2023 ambulatory GRACIELA LOVE Not Available Start: 10-14-2023 End: 10-14-2023 ambulatory RAVI PIKE Not Available Start: 08-14-2023 End: 08-14-2023 ambulatory [facility] Start: 06-15-2023 End: 06-15-2023 ambulatory KATE PIKE Not Available Start: 05-15-2023 End: 05-15-2023 ambulatory GRACIELA LOVE Not Available Start: 05-08-2023 End: 05-08-2023 ambulatory [facility] Start: 04-21-2023 [facility] visit new patient Maggy Randolph andrés [facility] V[facility] Surgery Start: 04-21-2023 End: 04-21-2023 Patient encounter procedure DO Kate Pike Work Phone: [facility] Start: 04-21-2023 End: 04-21-2023 ambulatory DO Kate Pike Work Phone: [facility] [employer] Other Start: 03-09-2023 End: 03-09-2023 ambulatory JOHN B APLING Not Available Start: 02-23-2023 End: 02-23-2023 ambulatory JOHN B APLING Not Available Start: 02-13-2023 End: 02-13-2023 ambulatory KATE PIKE Not Available Start: 07-02-2022 End: 07-02-[address] KATE PIKE Facility:[facility] Start: 05-09-2022 End: 05-10-[address] JEWELL SALAZAR Facility:[facility] Start: 09-10-[address] JEWELL SALAZAR Facili ty:[facility] Start: 04-18-2021 End: 2021 Evaluation and management of inpatient ANGELITA COWANWALDO Facility:[facility] Procedures Date Procedure Procedure Detail Performing Clinician Start: 01-27-2024 Complete blood count with white cell differential, automated Artie Keita DO Work Phone: Start: 07-23-2024 Doppler ultrasonogra phy of bilateral carotid arteries DO Kate Pike Work Phone: Plan of Treatment Date Care Activity Detail Author Start: 12-14-2024 Medicare Annual Wellness (AWV) Medicare Annual Wellness (AWV) [facility] Start: 10-19-2024 End: 10-19-2024 Patient encounter procedure 10/19/2024 9:00 AM EDT Office Visit [facility] [address] [place] [address] Graciela Love MD [address] [facility] [address] [address] [facility] Start: 06-09-2024 End: 06-09-2024 Patient encounter procedure 06/09/2024 9:30 AM EDT Office Visit [facility] [address] [place] [address] Kate Pike DO [address] [place] [address] [facility] [address] Start: 02-22-2024 End: 02-22-2024 Patient encounter procedure 02/22/2024 3:30 PM EST Office Visit [facility] [address] [place] [phone] Artie Keita, [address] [place] [address] [facility] Start: 11-29-2023 Influenza vaccination Influenza Vaccine (#1) [facility] Start: 04-21-2023 Doppler ultrasonography of bilateral carotid arteries US carotid doppler BI [facility] Start: 04-21-2023 US.doppler Carotid arteries - [facility] US.doppler Carotid a rteries - [facility] Immunizations Immunization Date Immunization Notes Care Provider Fa cility 01-06-2024 influenza virus vacc ine, unspecified formulation Artie Keita DO Work Phone: [facility] 12-29-2023 SARS-COV-2 (COVID-19 ) vaccine, mRNA, spike protein, LNP, PF, 50 mcg/0.5 mL [facility] Work Phone: [facility] 01-05-2023 Influenza, Seasonal, Quadrivalent, Adjuvanted [facility] Work [facility]: [facility] 12-31-2022 SARS-COV-2 (COVID-19 ) vaccine, mRNA, spike protein, LNP, PF, 50 mcg/0.5 mL [facility] DO Work Phone: [facility] 12-05-2022 RSV, recombinant, pr otein subunit RSVpreF, adjuvant reconstitu, 120mcg/0.5mL, PF (Arexvy) [facility] DO Work Phone: [facility] 07-28-2022 SARS-COV-2 (COVID-19 ) vaccine, mRNA, spike protein, LNP, bivalent, preservative free, 30 mcg/0.3 mL dose, hina-sucrose formulation [facility] DO Work Phone: [facility] 01-08-2022 Influenza, High-dose Seasonal, Quadrivalent, Preservative Free [facility] [employer] Work Phone: [facility] 12-31-2021 Moderna Bivalent Perez ster Vaccination [facility] DO Work Phone: [facility] 12-31-2021 SARS-COV-2 (COVID-19 ) vaccine, mRNA, spike protein, LNP, bivalent, preservative free, 30 mcg/0.3 mL dose, hina-sucrose formulation [facility] DO Work Phone: [facility] 08-05-2021 Moderna SARS-CoV-2 Vaccination [email or web address] DO Work Phone: [facility] 12-28-2020 Influenza, High-dose Seasonal, Quadrivalent, Preservative Free [facility] Work Phone: [facility] 12-28-2019 influenza, injectabl e, quadrivalent, preservative free Artie Murcek DO Work Phone: [facility] 12-18-2018 Influenza, High-dose Seasonal, Quadrivalent, Preservative Free Artie Murcek DO Work Phone: [facility] 05-20-2018 pneumococcal conjuga te vaccine, 13 valent Artie Murcek DO Work Phone: [facility] 12-22-2017 influenza, injectabl e, quadrivalent, preservative free Artie Murcek DO Work Phone: [facility] 12-25-2016 zoster vaccine, live Benjami n Murcek DO Work Phone: [facility] 12-19-2016 influenza, injectabl e, quadrivalent, preservative free Artie Murcek DO Work Phone: [facility] 01-08-2015 pneumococcal polysaccharide vaccine, 23 valent Artie Murcek DO Work Phone: [facility] Healthcare Payers Date Payer Category [id number] 2010 Medicare MEDICARE [id number] 1959 Medicare [id number] 1959 Self-pay [id number] 1959 Unknown [id number] 1940 Unknown [id number] 2.16.840.1.954122.3.579.2 .647 1940 Unknown [id number] 2.16.840.1.951541.3.579.2 .593 1940 Unknown [id number] 2.16.840.1.331985.3.579.2 .593 1940 Unknown [id number] 2.16.840.1.048889.3.579.2 .1259 1940 Unknown [id number] 2.16.840.1.581305.3.579.2 .1259 1940 Unknown [id number] 2.16.840.1.828797.3.579.2 .1259 1940 Unknown [id number] 2.16.840.1.906525.3.579.2 .1259 1940 Unknown [id number] 2.16.840.1.764623.3.579.2 .1259 1940 Unknown [id number] 2.16.840.1.771698.3.579.2 .1259 1940 Unknown [id number] 2.16.840.1.036358.3.579.2 .1259 1940 Unknown [id number] 2.16.840.1.420263.3.579.2 .1259 1940 Unknown [id number] 2.16.840.1.452296.3.579.2 .1259 1940 Unknown [id number] 2.16.840.1.943107.3.579.2 .1259 1940 Unknown [id number] 2.16.840.1.756191.3.579.2 .1259 1940 Unknown [id number] 2.16.840.1.027683.3.579.2 .1259 [employer] [facility] [id number] 2.16.840.1.478782.19 Unknown [id number] 2.16.840.1.289454.3.579.2 .593 Unknown [id number] 2.16.840.1.868169.3.579.2 .531 Unknown [id number] 2.16.840.1.722675.3.579.2 .531 Unknown [id number] 2.16840.1.795502.3.579.2 .531 Social History Date Type Detail Facility Start: 12-11-2022 End: 12-15-2023 Sex Assigned At [facility] Start: 1940 Sex Assigned At Female [facility] Start: 10-14-2023 End: 10-20-2023 Tobacco smoking status NHIS Never smoked tobacco (finding) [facility] Start: 10-14-2023 Tobacco use and exposure Smokeless tobacco non-user [facility] Start: 12-24-2023 End: 01-27-2024 Alcoholic beverage intake Ex-drinker (finding) [facility] Start: 12-11-2022 End: 12-15-2023 History of Social function [facility] Within the last year , have you been afraid of your partner or ex-partner? No [facility] Do you belong to any clubs or organizations such as congregation groups, unions, fraternal or athletic groups, or school groups? Yes [facility] Are you now , , , , never or living with a partner? [facility] How often to you hav e a drink containing alcohol? Monthly or less [facility] How many standard dr inks containing alcohol do you have on a typical day? Patient does not drink [facility] How often do you hav e 6 or more drinks on 1 occasion? Never [facility] How hard is it for y ou to pay for the very basics like food, housing, medical care, and heating Somewhat hard [facility] Do you feel stress - tense, restless, nervous, or anxious, or unable to sleep at night because your mind is troubled all the time - these days [OSQ] Not at all [facility] (I/We) worried wheth er (my/our) food would run out before (I/we) got money to buy more. Never true [facility] Start: 05-15-2023 Alcohol Comment glass of wine very occasionally [facility] Start: 09-03-2022 Gender identity Identifies as female gender (finding) [facility] Start: 09-03-2022 Sexual orientation Heterosexual (finding) [facility] History of Present illness Narrative 01-27-2024 Artie Keita, - 01/27/2024 1:30 PM EDT Note Date & Type Note Facility 01-27-2024 History of Presen t illness Narrative Allergies as of 01/27/2024 - Reviewed 12/24/2023 Allergen Reaction Noted Keflex [cephalexin] Rash 10/21/2023 Past Medical History: Diagnosis Date Acute non-ST segment elevation myocardial infarction (CMS/HCC) 05/08/2021 Arthritis left hand Arthritis of hand, 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 Carotid artery occlusion February 2023 Cerebrovascular accident (CVA) due to thrombosis of right vertebral artery ([facility]/HCC) 05/18/2023 History of being hospitalized 2013 Sudden drop in BP-observation HL (hearing loss) 1993 Hypercholesteremia ([facility]/HCC) Hypertension ([facility]/HCC) Hypothyroid ([facility]) Myocardial infarction (CMS/HCC) 03/2021 [facility] HI with 2 stents Shoulder injury R shoulder injury-limited range of motion Current Outpatient Medications: Acetaminophen 500 MG capsule, Take 2 capsules by mouth at bedtime., Disp: , Rfl: amLODIPine (Norvasc) 5 MG tablet, Take 1 tablet (5 mg) by mouth in the morning., Disp: , Rfl: aspirin 81 MG chewable tablet, Chew 1 tablet (81 mg) 1 (one) time each day at the same time., Disp: , Rfl: atorvastatin (Lipitor) 80 MG tablet, Take 1 tablet (80 mg) by mouth in the morning., Disp: 90 tablet, Rfl: 3 clopidogrel (Plavix) 75 MG tablet, TAKE 1 TABLET BY MOUTH IN THE MORNING, Disp: 90 tablet, Rfl: 0 levothyroxine (Synthroid, Levoxyl) 150 MCG tablet, TAKE 1 TABLET BY MOUTH ONCE DAILY ON AN EMPTY STOMACH IN THE MORNING, Disp: 90 tablet, Rfl: 1 lisinopril-hydroCHLOROthiazide 20-25 MG tablet, Take 1 tablet by mouth in the morning., Disp: 90 tablet, Rfl: 3 Multiple Vitamin (Daily Vitamins) tablet, Take 1 tablet by mouth 1 (one) time each day at the same time., Disp: , Rfl: spironolactone (Aldactone) 25 MG tablet, Take 1 tablet (25 mg) by mouth in the morning. Take with food.., Disp: 90 tablet, Rfl: 3 Past Surgical History: Procedure Laterality Date CATARACT EXTRACTION Bilateral Left: 07/2020, Right: 08/2020 CHOLECYSTECTOMY CORONARY STENT PLACEMENT 03/2021 HI- 2 stents placed MR ANGIOGRAM HEAD W AND WO IV CONTRAST 03/24/2023 MR ANGIOGRAM HEAD W AND WO IV CONTRAST TUBAL LIGATION Social History Socioeconomic History Marital status: Spouse name: Not on file Number of children: Not on file Years of education: Not on file Highest education level: Not on file Occupational History Not on file Tobacco Use Smoking status: Never Smokeless tobacco: Never Vaping Use Vaping status: Never Used Substance and Sexual Activity Alcohol use: Not Currently Comment: glass of wine very occasionally Drug use: Never Sexual activity: Yes Partners: Male control/protection: None Other Topics Concern Not on file Social History Narrative Not on file Social Drivers of Health Financial Resource Strain: Medium Risk (12/11/2022) Overall Financial Resource Strain (CARDIA) Difficulty of Paying Living Expenses: Somewhat hard Food Insecurity: No Food Insecurity (12/11/2022) Hunger Vital Sign Worried About Running Out of Food in the Last Year: Never true Ran Out of Food in the Last Year: Never true Transportation Needs: No Transportation Needs (12/11/2022) PRAPARE - Transportation Lack of Transportation (Medical): No Lack of Transportation (Non-Medical): No Physical Activity: Sufficiently Active (12/11/2022) Exercise Vital Sign Days of Exercise per Week: 4 days Minutes of Exercise per Session: 150+ min Stress: No Stress Concern Present (12/11/2022) [place] [employer] - Occupational Stress Questionnaire Feeling of Stress : Not at all Social Connections: Socially Integrated (12/11/2022) Social Connection and Isolation Panel [NHANES] Frequency of Communication with Friends and Family: Three times a week Frequency of Social Gatherings with Friends and Family: More than three times a week Attends Nondenominational Services: More than 4 times per year Active Member of Clubs or Organizations: Yes Attends Club or Organization Meetings: More than 4 times per year Marital Status: Intimate Partner Violence: Unknown (05/21/2023) [facility] Fear of Current or Ex-Partner: Not on file Emotionally Abused: Not on file Physically Abused: Not on file Sexually Abused: Not on file Physically or Sexually Abused: Not on file Housing Stability: Low Risk (12/11/2022) Housing Stability Vital Sign Unable to Pay for Housing in the Last Year: No Number of Places Lived in the Last Year: 1 Unstable Housing in the Last Year: No Subjective Patient ID: [id number] Patient is an 83-year-old female referred from Dermatology with 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 Review of Systems ROS The specialty specific review of systems is noncontributory except for that recorded in the intake questionnaire and /or described in the history of present illness. Objective ENT Physical Exam Physical Exam Constitutional: Appearance: Normal appearance. HENT: Head: Atraumatic. Ears: External ear shows no abnormality Bilateral ear canals are clear Tympanic membranes intact, no evidence of middle ear fluid or other pathology. Nose: External nose appears to be normal Nares patent. Septal deviation to the right No evidence of polyp, mass or pus bilaterally. Oral Cavity: No evidence of trismus Lips appear normal Dental good Tongue of normal size and configuration, floor of mouth mucosa clear. Buccal mucosa shows no evidence of ulceration, mass or other abnormality Hard palate soft palate mucosa intact with no evidence of mass, ulceration or other abnormality Uvula of normal size and configuration Oropharynx: Tonsils small Posterior pharyngeal wall normal Neck: No evidence of palpable abnormality Thyroid without evidence of thyromegaly or mass. No cervical lymphadenopathy present. Cardiovascular: Rate and Rhythm: Normal rate and regular rhythm. . Skin: General: There are nodular tumors of the right cutaneous lip/chin to individual was probably measuring a little over cm for both. The right cheek shows a small area of superficial ulceration that is only 4 or 5 mm. Neurological: General: No focal deficit present. Mental Status: alert and oriented to person, place, and time. Assessment/Plan Machelle was seen today for suspicious skin lesion. Diagnoses and all orders for this visit: Chronic anticoagulation (Primary) Comments: Have to be off her anticoagulants 5 days preoperatively. 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 These include but are not limited to disfigurment, scarring, poor cosemetic results, difficuty with function of the organ/site involved with the resection a/o flap, bleeding, infection, of the flap, numbness, neuro/vascular injury, need for additional surgery a/o treatment, etc. The pateint has consented to proceed. documented in this encounter [facility] Progress note 08-14-2023 Note Date & Type Note Facility 08-14-2023 Note [facility] Follow Up Progress Note HPI: Magdaleno Woods is a 83 y.o. female past medical history including CAD status post PCI of first diagonal branch of LAD, hypertension, hyperlipidemia. She presents to cardiology clinic for routine follow-up. Patient here for 3 mo follow up CAD, hypertension, hyperlipidemia, and bradycardia. Had routine labs w/ lipid panel in May 2023. She is doing well from cardiac standpoint. Denies chest pain, SOB, palpitations, and lightheadedness/syncope. She attends phase 3 cardiac rehab at [facility] twice a week. Cardiology ROS: 10 point ROS is performed and is negative unless otherwise specified in HPI. Medications Current Outpatient Medications on File Prior to Visit Medication Sig Dispense Refill amLODIPine (Norvasc) 5 mg tablet TAKE 1 TABLET BY MOUTH ONCE DAILY DIRECTED 90 tablet 3 aspirin 81 mg chewable [...] known allergies. Physical Exam VITAL SIGNS: BP 114/52 (BP Location: Left arm, Patient Position: Sitting) Pulse 61 Ht 1.575 m (5' 2 ) Wt 95.3 kg (210 lb) SpO2 97% BMI 38.41 kg/m??? Constitutional: Well developed, Well nourished, No [...] not on beta-sonu due to bradycardia. -Continue Amlodipine 5 mg, lisinopril-hydrochlorothiazide 20-25 mg, and spironolactone 25 mg daily for hypertension. Blood pressure is well controlled -Optimize medical management -Aggressive risk factor modification -Plan of care discussed with patient. All questions were answered. Patient voices understanding and is agreeable with current plan. -Patient was educated on red flag symptoms. Strict return precautions were provided. Patient verbalizes understanding -Follow-up in cardiology clinic in 3 months, or sooner as needed Mana Wilson MD Interventional Cardiology [facility] Progress note 05-08-2023 Note Date & Type Note Facility 05-08-2023 Note Patient here for 6 m o follow up CAD, hypertension, hyperlipidemia, and bradycardia. She had carotid US and echo last month. A week or so later she presented to [facility] ED for abdominal pain and wanted checked out for possible heart issues. She is now seeing vascular surgery in [place], and is scheduled to see neurology soon for the first time. Continues to deny chest pain, SOB, palpitations, and lightheadedness/syncope. Her LE edema is no more than her usual she states. Still no bleeding issues on the Plavix. Review of Systems Constitutional: Positive for malaise/fatigue. Musculoskeletal: Positive for arthritis, back pain and joint pain. All other systems reviewed and are negative. [facility] Progress note 05-08-2023 Note Date & Type Note Facility 05-08-2023 Note Cardiology Follow Up Progress Note Chief Complaint: follow up HPI: Magdaleno Woods is a 83 y.o. female past medical history including CAD status post PCI of first diagonal branch of LAD, hypertension, hyperlipidemia. She presents to cardiology clinic for routine follow-up. Patient was recently evaluated in the emergency department for upper abdominal pain. At that time, she adamantly denied any chest pain. Cardiac workup was unremarkable, including negative cardiac enzymes. This was reportedly after having a heavy meal the night before. Today, patient states that she is doing well. Did she denies any recurrence of symptoms. She adamantly denies any chest pain. She denies any shortness of breath. She denies any lower extremity edema, orthopnea, or paroxysmal nocturnal dyspnea. She states that she continues to go to cardiac rehab, and she adamantly denies any chest pain/abdominal pain/shortness of breath with activity including biking or walking. Cardiology ROS: GENERAL: Denies fever, chills, night [...] Refill amLODIPine (Norvasc) 5 mg tablet Take 1 [...] TABLET BY MOUTH ONCE DAILY WITH FOOD [DISCONTINUED] acetaminophen (Tylenol) 500 mg tablet Take 500 mg by mouth at bedtime. No current facility-administered medications on file prior to visit. Allergies Patient has no known allergies. Physical Exam VITAL SIGNS: BP 116/68 (BP Location: Left arm, Patient Position: Sitting) Pulse 55 Ht 1.575 m (5' 2 ) Wt 93.9 kg (207 lb) SpO2 98% BMI 37.86 kg/m??? Constitutional: Well developed, Well nourished, No [...] is not on beta-sonu due to bradycardia. She remains bradycardic but without symptoms. Continue holding beta sonu -Continue Amlodipine 5 mg, lisinopril-hydrochlorothiazide 20-25 mg, and spironolactone 25 mg daily for hypertension. Blood pressure is well controlled -I told patient that if she had any recurrence of upper abdominal pain, or if she was concerned about any chest pain, we could proceed with stress testing. She defers at this time -Optimize medical management -Aggress (more content not included)... [facility] Evaluation note 04-21-2023 Note Date & Type Note Facility 04-21-2023 Evaluation note Encounter Date Diagnosis Assessment Notes Mar, Left carotid stenosis (ICD-10 - I65.22) We reviewed the ultrasound findings from outside facility which by velocity does not correlate to the interpretation and their read. We did repeat the ultrasound here in our office today of her bilateral carotid arteries which shows no hemodynamically significant stenosis on the right and 50 to 69% stenosis on the left. She is asymptomatic of her carotid occlusive disease and on good medical therapy with use of aspirin, Plavix, and statin medication daily. We discussed the signs and symptoms of carotid occlusive disease and when would be appropriate to return for further evaluation prior to her next scheduled appointment. We discussed the carotid handout and all questions were addressed. We will plan to see her back in 6 months with repeat duplex studies here in our office. If at that time these remain stable and she continues to be asymptomatic and on good medical therapy, we will consider annual follow-up thereafter. She verbalizes understanding of all discussion, agrees with this plan, denies any questions. Mar, Non-smoker (ICD-10 - Z78.9) [employer] Other Discharge summary note 2021 Note Date & Type Note Facility 2021 Note MR#: [id number] I [facility] Pt. Name: Magdaleno Woods Admitted: 04/18/2021 Discharged: 2021 Date of : 1940 Physician: Iglesia Bahena MD DISCHARGE SUMMARY PRIMARY CARE PHYSICIAN: [...] of care 35 minutes. Electronically Signed by: Iglesia Bahena MD 04/23/2021 08:00 A Iglesia Bahena MD Date Dict: 04/20/2021/08:49 A/Iglesia Bahena MD Date Trans: 2021 09:07 A/glen [id number] [facility] Evaluation note Note Date & Type Note Facility Evaluation note No assessment information availa ble [facility] Work Phone: Evaluation note Note Date & Type Note Facility Evaluation note Diagnosis Onset Date Left carotid stenosis acute [facility] Work Phone: Evaluation note Note Date & Type Note Facility Evaluation note Diagnosis Medicare annual wellness visit, subsequent- Primary Essential hypertension ([facility]) Unspecified essential hypertension 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 ([facility]) Stage 3a chronic kidney disease (HCC) ([facility]) Primary osteoarthritis involving multiple joints Acquired hypothyroidism ([facility]) Unspecified hypothyroidism Impaired fasting glucose Morbid obesity due to excess calories ([facility]) Pure hypercholesterolemia ([facility]) Pure hypercholesterolemia Acquired hypothyroidism ([facility])- Primary Unspecified hypothyroidism Impaired fasting glucose Essential hypertension ([facility]) Unspecified essential hypertension Pure hypercholesterolemia ([facility]) Pure hypercholesterolemia 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 ([facility]) Carotid stenosis, asymptomatic, bilateral Stage 3a chronic kidney disease (HCC) ([facility]) Primary osteoarthritis involving multiple joints Class 3 severe obesity due to excess calories with serious comorbidity and body mass index (BMI) of 40.0 to 44.9 in adult ([facility]) History of CVA (cerebrovascular accident) Transient ischemic attack (TIA), and cerebral infarction without residual deficits Medicare annual wellness visit, subsequent- Primary Impaired fasting glucose Essential hypertension ([facility]) Unspecified essential hypertension 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 (CMS/HCC) Carotid stenosis, asymptomatic, bilateral Primary osteoarthritis involving multiple joints Acquired hypothyroidism (CMS/HCC) Unspecified hypothyroidism Pure hypercholesterolemia (CMS/HCC) Pure hypercholesterolemia History of CVA (cerebrovascular accident) Transient ischemic attack (TIA), and cerebral infarction without residual deficits Class 3 severe obesity due to excess calories with serious comorbidity and body mass index (BMI) of 40.0 to 44.9 in adult (CMS/HCC) Skin lesion of face Unspecified disorder of skin and subcutaneous tissue Stasis dermatitis Varicose veins of lower extremities with inflammation Chronic anticoagulation- Primary Encounter for long-term (current) use of anticoagulants 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 documented in this encounter [facility] History general Narrative - Reported Note Date & Type Note Facility History general Narrative - Reported Type Medical History HTN Medical History hyperlipidemia Medical History Heart Disease Surgical History Cardiac Stents Surgical History cholecystectomy Surgical History D & C Surgical History Cataracts B/L Hospitalization History see above [employer] Other Summary Purpose Family History No Family History Records Found Relationship Condition Age at Onset Recorded Date/T celi father Unknown family member Family history of other condition Unknow n mother Unknown Advance Directives No Advanced Directives Records Found Advance Directive Response Recorded Date/ Time Advance Directives No April 27, 2023 3:19pm Chief Complaint and Reason for Visit Chief Complaint i65.23 Chief Complaint 6 MO WITH CAR U/S AT 1030AM I65.23 Chief Complaint 6 MO WITH CAR U/S AT 1030AM I65.23 Reason for Visit Left carotid stenosi s Chief Complaint Z01.818 Additional Source Comments INFORMATION SOURCE (unrecogn ized section and content) DATE CREATED AUTHOR 04/25/2021 [facility] DATE CREATED AUTHOR AUTHOR'S ORGANIZ ATION 06/21/2021 [facility] dical Specialist DATE CREATED AUTHOR AUTHOR'S ORGANIZ ATION 07/07/2022 [facility] DATE CREATED AUTHOR AUTHOR'S ORGANIZ ATION 01/29/2024 [facility] DATE CREATED AUTHOR AUTHOR'S ORGANIZ ATION 01/30/[address] 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 Procedures CT OFFICE/OUTPATIENT NEW HIGH MDM 60 MINUTES Juan Shaw, RISK CONTROL SPECIALIST-SALES ENGINEERING MANAGER [address] [place] [address] Phone: tel: fax: Artie Keita, DO [address] [place] [address] Phone: tel: fax: Referral ID Status Reason Start Date Expiration Date V isits Requested Visits Authorized [id number] Closed Specialty Services Required 12/31/2023 06/28/2024 1 1 Care Teams (unrecognized sec tion and content) Team Status: Active Member Role Status Dates Kate Pike DO Primary Care Provider Active Team Status: Inactive Member Role Status Dates Kate Pike DO Primary Care Provider Active Start: April 21, 2023 End: April 21, 2023 YRIS Calles Attending Provider Active Start: April 21, 2023 End: April 21, 2023 Team Status: Inactive Member Role Status Dates Kate Pike DO Primary Care Provider Active Start: October 20, 2023 End: October 20, 2023 Anant Romero MD Attending Provider Active S tart: October 20, 2023 End: October 20, 2023 Team Status: Active Member Role Status Dates Kate Pike DO Primary Care Provider Active Start: October 20, 2023 YRIS Calles Attending Provider Active Start: October 20, 2023 Team Status: Inactive Member Role Status Dates Kate Pike DO Primary Care Provider Active Start: October 20, 2023 End: October 20, 2023 YRIS Calles Attending Provider Active Start: October 20, 2023 End: October 20, 2023 Team Status: Inactive Member Role Status Dates Kate Pike DO Primary Care Provider Active Start: January 27, 2024 End: January 27, 2024 Artie Keita DO Attending Provider Active S tart: January 27, 2024 End: January 27, 2024 Clay Artisan Relationship Specialty Start Date End Date Kate Pike Dedrick, DO [address] [place] [address] PCP - ACO Reach 08/21/22 Kate Pike, DO [address] [place] [address] PCP - General Family Medicine 08/05/22 Juan Shaw APRN-SALES ENGINEERING MANAGER [address] [place] [address] Nurse Practitioner Dermatology 01/27/24 Artie Keita, DO [address] [place] [address] Otolaryngology 01/27/24 Clay Artisan Relationship Specialty Start Date End Date Kate Pike Dedrick, DO [address] [place] [address] PCP - ACO Reach 08/21/22 Kate Pike, DO [address] [place] [address] PCP - General Family Medicine 08/05/22 Juan Shaw APRN-SALES ENGINEERING MANAGER [address] [place] [address] Nurse Practitioner Dermatology 01/27/24 Artie Kieta, DO [address] [place] [address] Otolaryngology 01/27/24 Clay Artisan Relationship Specialty Start Date End Date Salvadordarshan Kate Dedrick DO [address] [place] [address] PCP - ACO Reach 08/21/22 Kate Pike DO [address] [place] [address] PCP - General Family Medicine 08/05/22 Juan Shaw APRN-SALES ENGINEERING MANAGER [address] [place] [address] Nurse Practitioner Dermatology 01/27/24 Artie Keita, [address] [place] [address] Otolaryngology 01/27/24 Goals (unrecognized section and content) Goals may be documented in a n alternate section FOR RECORDS PERTAINING TO PATIENTS WHO ARE [...] BE BASED ON THE PRIMARY CLINICAL RECORDS. [email or web address] provides no warranty or guarantee of the accuracy or completeness of information in this document.
[2024-02-04 07:58] LABS: Calcium 8.9 mg/dL (8.5-10.1); Carbon Dioxide 27.1 mmol/L (21.0-32.0); Chloride 105 mmol/L (98-107); Chol HDL Ratio 2.4; Cholesterol 102 mg/dL (<=200); Estimated GFR (African America 60 (>=60 mL/min/1.73m^2); Estimated GFR (Non-African Ame 49 (>=60 mL/min/1.73m^2); Glucose 102 mg/dL (74-106); HDL Cholesterol 43 mg/dL (40-60); LDL Cholesterol Calculated 46.4 mg/dL; Potassium 5.1 mmol/L (3.5-5.1); Sodium 139 mmol/L (136-145); Triglycerides 63 mg/dL (<=150); VLDL CHOLESTEROL 12.6 mg/dL
== END 2024-02-04 07:04 | disposition home or self-care (01) ==
LOC: LAB 07:05
PROVIDERS: PCP Family Medicine; Visit Provider Internal Medicine Cardiovascular Disease
DX: M79.89 Other specified soft tissue disorders (principal); I13.0 Hypertensive heart and chronic kidney disease with heart failure and stage 1 through stage 4 chronic kidney disease, or unspecified chronic kidney disease; E78.2 Mixed hyperlipidemia
CPT/HCPCS: 36415; 80048; 80061; 83880

== ENCOUNTER 2024-02-23 12:37 | Emergency (ER) | payer MEDICARE, BC, SELFPAY ==
[2024-02-23 12:42] VITALS: BP 165/61; PULSE 68; TEMP 36.6; O2SAT 100; BMI 38.4
--- NOTE | 2024-02-23 12:54 | CT_ITS ---
The [address] [address] Patient Name: MAGDALENO WOODS MRN: [id number] date: 1940 Sex: F Assigned Patient Location: ER Current Patient Location: ER Accession/Order Number: [id number] Exam Date: 02/23/2024 13:05 Report Date: 02/23/2024 13:36 At the request of: APRYL AQUINO Procedure: CT head/brain wo con EXAMINATION: CT head/brain wo con, CT facial bones wo con HISTORY: fall , bilateral periorbital bruising, forehead laceration COMPARISON: CT head 02/05/2023 TECHNIQUE: Axial CT images were obtained without IV contrast. Dose reduction techniques were achieved by using automated exposure control and/or adjustment of mA and/or kV according to patient size and/or use of iterative reconstruction technique. 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 No edema, hemorrhage, mass, acute infarction, or inappropriate atrophy. CSF SPACES: No hydrocephalus, subarachnoid hemorrhage, or mass. Appropriate for age. SKULL: No fracture, mass, or other significant visible lesion. SINUSES: No significant mucosal thickening or fluid. ORBITS: No appreciable abnormality. FACIAL BONES: No fracture or displacement. OTHER: Prominent bruising/edema within subcutaneous fat overlying the forehead and anterior scalp. CT/CT head/brain wo con IMPRESSION: 1. Prominent subcutaneous bruising/edema overlying the forehead and involving the anterior scalp. 2. No fracture of the calvarium or facial bones. 3. No intracranial hemorrhage or acute abnormality brain. Age consistent chronic changes. Electronically authenticated by: CLARIBEL CHAHAL Date: 02/23/2024 13:36
--- NOTE | 2024-02-23 12:55 | CT_ITS ---
The [address] [address] Patient Name: MAGDALENO WOODS MRN: [id number] date: 1940 Sex: F Assigned Patient Location: ER Current Patient Location: ER Accession/Order Number: [id number] Exam Date: 02/23/2024 13:05 Report Date: 02/23/2024 13:36 At the request of: APRYL AQUINO Procedure: CT facial bones wo con EXAMINATION: CT head/brain wo con, CT facial bones wo con HISTORY: fall , bilateral periorbital bruising, forehead laceration COMPARISON: CT head 02/05/2023 TECHNIQUE: Axial CT images were obtained without IV contrast. Dose reduction techniques were achieved by using automated exposure control and/or adjustment of mA and/or kV according to patient size and/or use of iterative reconstruction technique. 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 No edema, hemorrhage, mass, acute infarction, or inappropriate atrophy. CSF SPACES: No hydrocephalus, subarachnoid hemorrhage, or mass. Appropriate for age. SKULL: No fracture, mass, or other significant visible lesion. SINUSES: No significant mucosal thickening or fluid. ORBITS: No appreciable abnormality. FACIAL BONES: No fracture or displacement. OTHER: Prominent bruising/edema within subcutaneous fat overlying the forehead and anterior scalp. CT/CT facial bones wo con IMPRESSION: 1. Prominent subcutaneous bruising/edema overlying the forehead and involving the anterior scalp. 2. No fracture of the calvarium or facial bones. 3. No intracranial hemorrhage or acute abnormality brain. Age consistent chronic changes. Electronically authenticated by: CLARIBEL CHAHAL Date: 02/23/2024 13:36
--- NOTE | 2024-02-23 12:55 | CT_ITS ---
The [address] [address] Patient Name: MAGDALENO WOODS MRN: [id number] date: 1940 Sex: F Assigned Patient Location: ER Current Patient Location: Accession/Order Number: [id number] Exam Date: 02/23/2024 13:05 Report Date: 02/23/2024 13:44 At the request of: APRYL AQUINO Procedure: CT cervical spine wo con EXAMINATION: CT cervical spine wo con HISTORY: fall ; head injury, fall, forehead laceration COMPARISON: No relevant comparison available. TECHNIQUE: Axial, Coronal, and Sagittal images were created without IV contrast. Dose reduction techniques were achieved by using automated exposure control and/or adjustment of mA and/or kV according to patient size and/or use of iterative reconstruction technique. FINDINGS: VERTEBRAL BODIES: Slight reversal of the normal lordotic curvature. No fracture or bone lesion. Mild grade 1 anterolisthesis of C4 on 5. FACET JOINTS: Multilevel mild to moderate degenerative changes. No disruption or abnormal widening. DISCS: Moderate narrowing C5-6, C6-C7 with prominent posterior disc-osteophyte complexes. Mild narrowing C4-5 with posterior disc osteophyte complex. CENTRAL CANAL: Suspect moderate narrowing of mid and lower cervical canal secondary to degenerative disc disease. No evidence of hemorrhage. PARASPINAL AREA: No visible mass. CT/CT cervical spine wo con IMPRESSION: 1. No appreciable acute abnormality. 2. Moderate degenerative changes. Electronically authenticated by: CLARIBEL CHAHAL Date: 02/23/2024 13:44
--- NOTE | 2024-02-23 13:01 | PC.NURSE ---
Dark blue bruising and swelling present above right and left eye, skin intact, ice packs applied to bilateral eye area.
--- NOTE | 2024-02-23 13:27 | ED_ITS ---
Documented by User: JOHN Dorantes 02/23/24 18:22 HPI HPI - Head Injury General Chief complaint: Head Injury Stated complaint: FALL, HEAD INJURY Time Seen by Provider: 02/23/24 12:48 Source: patient Mode of arrival: walk-in Limitations: no limitations History of Present Illness HPI Narrative: 83-year-old female presents to the emergency department with her with complaint of injuries to her head and face status post fall at 0600 hrs. this morning. Patient states she fell getting out of bed, hitting her head on a chest nearby. States pain is minimal. Notes of wound to her forehead, as well as, bruising around her eyes. She does have some wounds to the right cheek, but states that these are status post surgery for skin cancer evaluation. She is on blood thinning medicine, Plavix. She denies any loss of consciousness, appreciable headache, neck, back, extremity, chest, abdominal, pelvic pain. Quality:?Blunt trauma Severity:?Moderate Timing:?As above Context: Normal setting and activity? Modifying factors:?pain worse with palpation Associated symptoms: as above Related Data Home Medications ?Medication ?Instructions ?Recorded ?Confirmed amlodipine 5 mg tablet 5 mg PO DAILY 04/10/23 02/23/24 aspirin 81 mg chewable tablet 81 mg PO DAILY 04/10/23 02/23/24 atorvastatin 80 mg tablet 80 mg PO DAILY 04/10/23 02/23/24 clopidogrel 75 mg tablet 75 mg PO DAILY 04/10/23 02/23/24 levothyroxine 150 mcg tablet 150 mcg PO DAILY 04/10/23 02/23/24 lisinopril 20 1 tab PO DAILY 04/10/23 02/23/24 mg-hydrochlorothiazide 25 mg tablet spironolactone 25 mg tablet 25 mg PO DAILY 04/10/23 02/23/24 Allergies Allergy/AdvReac Type Severity Reaction Status Date / Time cephalexin (From Keflex) Allergy Severe Hives Verified 02/23/24 12:51 Opioid HPI Opioid Management Most Recent Pain and Opioid Data: No Data to Display Review of Systems ROS Narrative CONST: Denies activity change, diaphoresis HENT: +facial swelling. Denies dental injury (wears dentures), ear pain EYES: +orbital/periorbital swelling, tenderness. Denies visual changes, eye pain RESP: Denies shortness of breath, chest tightness CV: Denies chest pain, palpitations GI: Denies abd pain, nausea : Denies flank pain MS: Denies arthralgias, myalgias, back pain, neck pain SKIN: + bruising. Denies known color change, swelling NEURO: +headache.? HEMATOLOGIC: + plavix use PSYCHIATRIC: Denies confusion [facility] Medical History (Updated 02/23/24 @ 14:01 by JOHN Dorantes) Hypothyroid ?E03.9 - Hypothyroidism, unspecified (ICD-10) HTN (hypertension) ?I10 - Essential (primary) hypertension (ICD-10) Surgical History (Updated 02/23/24 @ 12:53 by Mackenzie Clark) H/O heart artery stent ?Z95.5 - Presence of coronary angioplasty implant and graft (ICD-10) Social History Smoking status: Never smoker Exam Narrative Exam Narrative: Vital signs reviewed Nurses notes noted CONST: Nontoxic, well appearing, well nourished, in no distress.? No diaphore sis.?? HENT: normocephalic.? + small puncture wound to the mid forehead. + mild tenderness. + swelling, bruising to the medial, bilat periorbital and orbital regions without any tenderness. There is no crepitus, instability, step off of the scalp, face. Moist mucous membrane, no abnormalities of the nose noted, normal appearing ext ears.? No drainage, blood from ears.? Hearing normal.? No dental injury. EYES: PERRL, EOMI.? Normal appearing conjunctiva, no apparent discharge bilat.? NECK: normal appearance, no tenderness, swelling CV: normal rate, regular rhythm, no murmur RESP: normal effort, speaking in complete sentences, Lung sounds clear and equal bilat.? No wheezes, rales, rhonchi.? No chest tenderness CHEST:? nontender.? 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 No extremity tenderness, swelling.? No tenderness of the spinous process, paraspinal musculature of the C, T, L-S spines SKIN: + puncture wound as noted above. + bruising.? Warm, dry.? No abrasions, pallor NEURO: A&Ox 3, GCS = 15, no sensory, motor deficits.? CN II-XII normal as tested .? No abnormalities noted with coordination PSYCH: normal mood, affect.? Normal speech.? Memory intact. Constitutional Vital Signs, click to edit/add: Last Vital Signs Temp 97.9 F 02/23/24 12:42 Pulse 68 02/23/24 12:42 Resp 18 02/23/24 12:42 BP 165/61 H 02/23/24 12:42 Pulse Ox 100 02/23/24 12:42 O2 Del Method Room Air 02/23/24 12:42 Course Vital Signs Vital signs: Vital Signs Temperature 97.9 F 02/23/24 12:42 Pulse Rate 68 02/23/24 12:42 Respiratory Rate 18 02/23/24 12:42 Blood Pressure 165/61 H 02/23/24 12:42 Pulse Oximetry 100 02/23/24 12:42 Oxygen Delivery Method Room Air 02/23/24 12:42 Temperature 97.9 F 02/23/24 12:42 Pulse Rate 68 02/23/24 12:42 Respiratory Rate 18 02/23/24 12:42 Blood Pressure 165/61 H 02/23/24 12:42 Pulse Oximetry 100 02/23/24 12:42 Oxygen Delivery Method Room Air 02/23/24 12:42 MDM - Head Injury MDM Narrative Medical decision making narrative: This is a pleasant 83-year-old female presented to the emergency department with her with complaint of injury status post fall this morning. Fell after she got a bed, striking her head on a nearby chest. Patient is on Plavix. Complains of bruising, swelling around her eyes without any pain or tenderness. Complains of some tenderness, wound to mid forehead. She has some wounds to the right side of her cheek they were from skin surgery recently. Denies any loss of consciousness, neck, back, chest, abdominal, extremity, pelvic pain. On arrival, afebrile, vital signs are stable. On exam, nontoxic, well-appearing patient in no apparent distress. She has bruising noted to the orbital and periorbital medial upper regions. No tenderness. No crepitus, step-off. EOMI without pain. PERRL. She has small puncture wound to the mid forehead. There is some bleeding, not pressurized. Controlled with Band-Aid. There is associated tenderness without crepitus, step-off. No tenderness to the C, T, LS-spine's. She is moving all 4 extremities without pain. No tenderness to the chest, abdomen. CT head, neck, facial bone imaging, per radiologist reveals no acute findings Patient declined any pain medication during ED course. Her tetanus is up-to-date. History and record review Discussion with independent historian: Spouse Favor head contusion, forehead wound, neck strain status post fall ICH, fracture, dislocation less likely based on imaging Reevaluation: Patient remained stable during ED course. She declined any pain medication. She remained alert, oriented x 3, neurologically intact Disposition ? The patient was discharged. Plan: Patient will be discharged to home. Condition at time of disposition: stable Advised Tylenol for discomfort, ice packs to forehead, face. Advised to follow up with primary provider. Advised to return for any worsen ing and/or development of new, concerning signs or symptoms PLEASE NOTE: Portions of the medical record may have been produced using electronic supervisor engine repair and may contain errors with respect to translation of words which may not have been identified prior to finalization of the chart. Medical Records Attestation: I reviewed the patient's medical records. Imaging Data CT head, face, C spine: Radiologist's impression: ITS Impressions Head CT 02/23/24 12:54 IMPRESSION: 1. Prominent subcutaneous bruising/edema overlying the forehead and involving the anterior scalp. 2. No fracture of the calvarium or facial bones. 3. No intracranial hemorrhage or acute abnormality brain. Age consistent chronic changes. Electronically authenticated by: CLARIBEL CHAHAL Date: 02/23/2024 13:[address] 02/23/24 12:55 IMPRESSION: 1. No appreciable acute abnormality. 2. Moderate degenerative changes. Electronically authenticated by: CLARIBEL CHAHAL Date: 02/23/2024 13:[address] 02/23/24 12:55 IMPRESSION: 1. Prominent subcutaneous bruising/edema overlying the forehead and involving the anterior scalp. 2. No fracture of the calvarium or facial bones. 3. No intracranial hemorrhage or acute abnormality brain. Age consistent chronic changes. Electronically authenticated by: CLARIBEL CHAHAL Date: 02/23/2024 13:36 Discharge Plan Discharge Chief Complaint: Head Injury Clinical Impression: Contusion of head Qualifiers: Encounter type: initial encounter Contusion of head detail: scalp Qualified Code(s): S00.03XA - Contusion of scalp, initial encounter Puncture wound of forehead Qualifiers: Encounter type: initial encounter Qualified Code(s): S01.83XA - Puncture wound without foreign body of other part of head, initial encounter Neck strain Qualifiers: Encounter type: initial encounter Qualified Code(s): S16.1XXA - Strain of muscle, fascia and tendon at neck level, initial encounter Contusion of face Qualifiers: Encounter type: initial encounter Qualified Code(s): S00.83XA - Contusion of other part of head, initial encounter Patient Disposition: Home, Self-Care Time of Disposition Decision: 13:59 Condition: Good Mode of Transportation: Private Vehicle Prescriptions / Home Meds: No Action amlodipine 5 mg tablet 5 mg PO DAILY atorvastatin 80 mg tablet 80 mg PO DAILY clopidogrel 75 mg tablet 75 mg PO DAILY lisinopril-hydrochlorothiazide 20-25 mg tablet 1 tab PO DAILY spironolactone 25 mg tablet 25 mg PO DAILY levothyroxine 150 mcg tablet 150 mcg PO DAILY aspirin 81 mg tablet,chewable 81 mg PO DAILY Print Language: Telugu Instructions: Puncture Wound (ED), Head Injury (ED), Cervical Sprain (ED), Facial Contusion (ED) Referrals: ELKE PIKE [Primary Care Provider] - 1 week Discharge Date/Time: 02/23/24 14:44 Documented by User: Anant Healy MD 02/23/24 19:56 HPI HPI - Head Injury General Chief complaint: Head Injury Stated complaint: FALL, HEAD INJURY Time Seen by Provider: 02/23/24 12:48 Related Data Home Medications ?Medication ?Instructions ?Recorded ?Confirmed amlodipine 5 mg tablet 5 mg PO DAILY 04/10/23 02/23/24 aspirin 81 mg chewable tablet 81 mg PO DAILY 04/10/23 02/23/24 atorvastatin 80 mg tablet 80 mg PO DAILY 04/10/23 02/23/24 clopidogrel 75 mg tablet 75 mg PO DAILY 04/10/23 02/23/24 levothyroxine 150 mcg tablet 150 mcg PO DAILY 04/10/23 02/23/24 lisinopril 20 1 tab PO DAILY 04/10/23 02/23/24 mg-hydrochlorothiazide 25 mg tablet spironolactone 25 mg tablet 25 mg PO DAILY 04/10/23 02/23/24 Allergies Allergy/AdvReac Type Severity Reaction Status Date / Time cephalexin (From Keflex) Allergy Severe Hives Verified 02/23/24 12:51 Opioid HPI Opioid Management Most Recent Pain and Opioid Data: No Data to Display [facility] Medical History (Updated 02/23/24 @ 14:01 by JOHN Dorantes) Hypothyroid ?E03.9 - Hypothyroidism, unspecified (ICD-10) HTN (hypertension) ?I10 - Essential (primary) hypertension (ICD-10) Surgical History (Updated 02/23/24 @ 12:53 by Mackenzie Clark) H/O heart artery stent ?Z95.5 - Presence of coronary angioplasty implant and graft (ICD-10) Social History Smoking status: Never smoker Exam Constitutional Vital Signs, click to edit/add: Last Vital Signs Temp 97.9 F 02/23/24 12:42 Pulse 68 02/23/24 12:42 Resp 18 02/23/24 12:42 BP 165/61 H 02/23/24 12:42 Pulse Ox 100 02/23/24 12:42 O2 Del Method Room Air 02/23/24 12:42 Course Vital Signs Vital signs: Vital Signs Temperature 97.9 F 02/23/24 12:42 Pulse Rate 68 02/23/24 12:42 Respiratory Rate 18 02/23/24 12:42 Blood Pressure 165/61 H 02/23/24 12:42 Pulse Oximetry 100 02/23/24 12:42 Oxygen Delivery Method Room Air 02/23/24 12:42 Temperature 97.9 F 02/23/24 12:42 Pulse Rate 68 02/23/24 12:42 Respiratory Rate 18 02/23/24 12:42 Blood Pressure 165/61 H 02/23/24 12:42 Pulse Oximetry 100 02/23/24 12:42 Oxygen Delivery Method Room Air 02/23/24 12:42 MDM - Head Injury MDM Narrative Medical decision making narrative: This is a pleasant 83-year-old female presented to the emergency department with her with complaint of injury status post fall this morning. Fell after she got a bed, striking her head on a nearby chest. Patient is on Plavix. Complains of bruising, swelling around her eyes without any pain or tenderness. Complains of some tenderness, wound to mid forehead. She has some wounds to the right side of her cheek they were from skin surgery recently. Denies any loss of consciousness, neck, back, chest, abdominal, extremity, pelvic pain. On arrival, afebrile, vital signs are stable. On exam, nontoxic, well-appearing patient in no apparent distress. She has bruising noted to the orbital and periorbital medial upper regions. No tenderness. No crepitus, step-off. EOMI without pain. PERRL. She has small puncture wound to the mid forehead. There is some bleeding, not pressurized. Controlled with Band-Aid. There is associated tenderness without crepitus, step-off. No tenderness to the C, T, LS-spine's. She is moving all 4 extremities without pain. No tenderness to the chest, abdomen. CT head, neck, facial bone imaging, per radiologist reveals no acute findings Patient declined any pain medication during ED course. Her tetanus is up-to-date. History and record review Discussion with independent historian: Spouse Favor head contusion, forehead wound, neck strain status post fall ICH, fracture, dislocation less likely based on imaging Reevaluation: Patient remained stable during ED course. She declined any pain medication. She remained alert, oriented x 3, neurologically intact Disposition ? The patient was discharged. Plan: Patient will be discharged to home. Condition at time of disposition: stable Advised Tylenol for discomfort, ice packs to forehead, face. Advised to follow up with primary provider. Advised to return for any worsening and/or development of new, concerning signs or symptoms I, Dr Healy, have reviewed the above progress note and course of action in the ER; agree with the above. I have personally seen and evaluated this patient, gone over history and physical, and discussed disposition and treatment plan with the patient. PLEASE NOTE: Portions of the medical record may have been produced using electronic supervisor engine repair and may contain errors with respect to translation of words which may not have been identified prior to finalization of the chart. Imaging Data CT head, face, C spine: Radiologist's impression: ITS Impressions Head CT 02/23/24 12:54 IMPRESSION: 1. Prominent subcutaneous bruising/edema overlying the forehead and involving the anterior scalp. 2. No fracture of the calvarium or facial bones. 3. No intracranial hemorrhage or acute abnormality brain. Age consistent chronic changes. Electronically authenticated by: CLARIBEL CHAHAL Date: 02/23/2024 13:[address] 02/23/24 12:55 IMPRESSION: 1. No appreciable acute abnormality. 2. Moderate degenerative changes. Electronically authenticated by: CLARIBEL CHAHAL Date: 02/23/2024 13:[address] 02/23/24 12:55
[2024-02-23] MEDS: ADACEL DIPH,PERTUSS(ACELL),TET VAC/PF 0.5 ML ADULT SYRINGE IM (13:31)
[2024-02-23] MEDS: BACITRACIN 0.9 GM PACKET 1 PACKET TOPICAL (13:33)
== END 2024-02-23 14:44 | disposition home or self-care (01) ==
PROVIDERS: Emergency Provider Emergency Medicine; PCP Family Medicine
DX: S00.03XA Contusion of scalp, initial encounter (principal); S01.83XA Puncture wound without foreign body of other part of head, initial encounter; Z79.02 Long term (current) use of antithrombotics/antiplatelets; S16.1XXA Strain of muscle, fascia and tendon at neck level, initial encounter; Z95.5 Presence of coronary angioplasty implant and graft; W06.XXXA Fall from bed, initial encounter; W22.03XA Walked into furniture, initial encounter; Z23 Encounter for immunization
CPT/HCPCS: 70450; 70486; 72125; 90471; 90715; 99284

== ENCOUNTER 2024-03-07 10:46 | Outpatient (OUT) | payer MEDICARE, BC, SELFPAY ==
[2024-03-07 11:55] LABS: Anion Gap 10.9; Calcium 9.3 mg/dL (8.5-10.1); Carbon Dioxide 27.9 mmol/L (21.0-32.0); Chloride 105 mmol/L (98-107); Estimated GFR (African America 58 (>=60 mL/min/1.73m^2); Estimated GFR (Non-African Ame 48 (>=60 mL/min/1.73m^2); Glucose 93 mg/dL (74-106); Potassium 4.8 mmol/L (3.5-5.1); Sodium 139 mmol/L (136-145)
== END 2024-03-07 10:47 | disposition home or self-care (01) ==
LOC: LAB 10:52
PROVIDERS: PCP Family Medicine; Visit Provider Internal Medicine Cardiovascular Disease
DX: I11.0 Hypertensive heart disease with heart failure (principal)
CPT/HCPCS: 36415; 80048

== ENCOUNTER 2024-05-09 07:26 | Outpatient (RCR) | payer MEDICARE, BC, SELFPAY | END 2024-05-23 14:02 | disposition home or self-care (01) | LOC: CRPH3 07:26 | PROVIDERS: PCP Family Medicine; Visit Provider Internal Medicine Cardiovascular Disease | DX: Z98.61 Coronary angioplasty status (principal) ==

== ENCOUNTER 2024-06-03 12:11 | Outpatient (OUT) | payer MEDICARE, BC, SELFPAY ==
--- OUTSIDE RECORDS SUMMARY | 2024-06-03 12:24 | XMS_ITS | CCD ---
Author Organization [facility] CliniSypr Care Team Providers Care Rn Spine Name Role Phone ANGELITA HOFF Primary Care [...] Unavailable Petznick, DO Kate Primary Care Provider [phone] YRIS Burnett Attending Provider Petznick, DO Kate Primary Care Provider YRIS Burnett Attending Provider Petznick, DO Kate Primary Care Provider DO Artie Keita Attending Provider [phone] PetKate sexton DO M Unavailable Petcarmellaick , Kate M Primary Care Provider Juan Byrne Unavailable Artie Keita DO Unavailable Petdarshan DO, Kate Primary Care Provider Artie Keita DO Attending Provider Petdarshan, Kate Primary Care Unavailable Ruttino, Maggy R Admitting Unavailable Ruttino, Maggy R Attending Unavailable Ruttino, Maggy R Admitting Unavailable Ruttino, Maggy R Attending Unavailable Petznick, Kate Primary Care Unavailable Murcek, Artie Admitting Unavailable Murcek, Artie Attending Unavailable Petznick, Kate Primary Care Unavailable Murcek, Artie Admitting Unavailable Murcek, Artie Attending Unavailable LOVE, GRACIELA W Attending Unavailable PETZNICK, KATE M Referring Unavailable PETZNICK, KATE M Attending Unavailable PETZNICK, KATE M Referring Unavailable PETZNICK, RAVI Morrison Attending Unavailable PETZNICK, KATE M Referring Unavailable LOVE, GRACIELA W Attending Unavailable PETZNICK, RAVI Morrison Attending Unavailable PETZNICK, RAVI Morrison Referring Unavailable PETZNICK, KATE M Attending Unavailable FELTER, JUAN A Attending Unavailable PETZNICK, KATE M Referring Unavailable MURCEK, ARTIE W Attending Unavailable FELTER, JUAN A Referring Unavailable MURCEK, ARTIE W Attending Unavailable MURCEK, ARTIE W Attending Unavailable FELTERJUAN A Referring Unavailable MURCEK, ARTIE W Attending Unavailable ALGHOTHANI, MANA Attending Unavailable ALGHOTHANI, MANA Attending Unavailable ALGHOTHANI, LEED Attending Unavailable Allergies Allergy Classification Reported Allergen(s) Allergy Type Date of Onset Reaction(s) Facility (18 sources) Cephalexin; Translations: [CEPHALEXIN] Drug Allergy 10-21-2023 Rash [facility] Medications Current Medications Medication Drug Class(es) Dates Sig (Normalized) Sig (Original) acetaminophen 500 mg oral capsule (17 sources) take 2 capsules by mouth at bedtime Acetaminophen 500 MG capsule Take 2 capsules by mouth at bedtime. 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 12/18/2022 Active atorvastatin 80 mg oral tablet (20 sources) HMG-CoA Reductase Inhibitor Start: 10-20-2023 End: 11-01-2024 take 1 tablet by mouth in the morning atorvastatin (Lipitor) 80 MG tablet Indications: Hypercholesteremia (CMS/HCC) Take 1 tablet (80 mg) by mouth in the morning. 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 (CMS/HCC) TAKE 1 TABLET BY MOUTH IN THE MORNING 90 tablet 3 03/17/2024 Active Start: 12-30-2022 End: 12-30-2023 take 1 tablet by mouth in the morning clopidogrel (Plavix) 75 MG tablet Indications: 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 (CMS/HCC) TAKE 1 TABLET BY MOUTH IN THE MORNING 90 tablet 12/17/2023 Active hydroCHLOROthiazide 12.5 mg oral tablet (3 sources) Thiazide Diuretic Start: 02-23-2024 End: 02-22-2025 hydroCHLOROthiazide (HYDRODiuril) 12.5 MG tablet Take 12.5 mg by mouth 02/23/2024 02/22/2025 Active hydroCHLOROthiazide 25 mg / lisinopril 20 mg oral tablet (20 sources) Thiazide Diuretic, Angiotensin Converting Enzyme Inhibitor Start: 10-20-2023 take 1 tablet by mouth once daily Lisinopril-Hydrochlorot hiazide 20-25 mg tablet Active TAB PO October 19, 2023 11:00pm FreeTextSig: TAKE 1 TABLET BY MOUTH ONCE [...] Active levothyroxine sodium 0.15 mg oral tablet (20 sources) l-Thyroxine Start: 03-08-2024 take 1 tablet by mouth before mealtime levothyroxine (Synthroid, Levoxyl) 150 MCG tablet Indications: Acquired hypothyroidism (CMS/HCC) Take 1 tablet (150 mcg) by mouth in the morning. Take before meals. 90 tablet 1 03/08/2024 Active Start: 09-07-2023 take 1 tablet by faina th once daily in the morning levothyroxine (Synthroid, Levoxyl) 150 MCG tablet Indications: Acquired hypothyroidism (CMS/HCC) TAKE 1 TABLET BY MOUTH ONCE DAILY ON AN EMPTY STOMACH IN THE MORNING 90 tablet 1 09/07/2023 Active take 1 tablet by faina th once daily in the morning Levothyroxine Sodium 150 MCG TAKE 1 TABLET BY MOUTH ONCE DAILY ON AN EMPTY STOMACH IN THE MORNING Oral for 90 Days Active Multiple Vitamin (Daily Vitamins) tablet (17 sources) take 1 tablet by mouth once daily Multiple Vitamin (Daily Vitamins) tablet Take 1 tablet by mouth 1 (one) time each day at the same time. Active spironolactone 25 mg oral tablet (20 sources) Aldosterone Antagonist Start: 05-04-19 take 1 tablet by mouth in the morning spironolactone (Aldactone) 25 MG tablet Indications: Essential hypertension (CMS/HCC) Take 1 tablet (25 mg) by mouth in the morning. Take with food.. 90 tablet 3 05/04/2023 Active take 1 tablet by faina th once daily at mealtime Spironolactone 25 MG TAKE 1 TABLET BY [facility] ONCE DAILY WITH FOOD Oral for 90 Days Active Completed/Discontinued Medications Medication Drug Class(es) Dates Sig (Normalized) Sig (Original) furosemide 20 mg oral tablet (6 sources) Loop Diuretic Start: 10-20-2023 End: 12-15-2023 furosemide (Lasix) 20 MG tablet Indications: Venous insufficiency , Stasis dermatitis 1 tablet bid x 1 week then daily 37 tablet 11/05/2023 12/15/2023 Discontinued hydrOXYzine hydrochloride 25 mg oral tablet (2 sources) Antihistamine Start: 10-21-2023 End: 12-15-2023 take 1 tablet by mouth every eight hours hydrOXYzine HCl (Atarax) 25 MG tablet Indications: Cellulitis of left lower extremity , Edema of left lower extremity Take 1 tablet (25 mg) by mouth every 8 (eight) hours if needed for itching for up to 10 days 30 tablet 1 10/21/2023 12/15/2023 Discontinued Problems Active Problems Problem Classification Problem Date Documented Date Episodic/Chronic Chronic kidney disease (17 sources) Chronic kidney disease stage 3A ; Translations: [Stage 3a chronic kidney disease (HCC)] Onset: 11-19-2022 Resolved: 12-15-2023 12-15-2023 Chronic Coronary atherosclerosis and other heart disease (20 sources) Atherosclerotic heart disease of enterprise coronary artery without angina pectoris; Translations: [Unstable angina co-occurrent and due to coronary arteriosclerosis] Onset: 05-08-2021 Resolved: 06-15-2023 Chronic Disorders of lipid metabolism (20 sources) Mixed hyperlipidemia; Translations: [Pure hypercholesterolemia] Onset: 05-08-2021 Resolved: 06-15-2023 11-19-2022 Chronic Essential hypertension (20 sources) Essential (primary) hypertension; Translations: [Essential hypertension] Onset: 05-15-2022 11-19-2022 Chronic Hypertension with complications and secondary hypertension (4 sources) Hypertensive heart disease with heart failure; Translations: [Hypertensive heart and chronic kidney disease with heart failure and stage 1 through stage 4 chronic kidney disease, or unspecified chronic kidney disease] Onset: 01-28-2024 Chronic Neoplasms of unspecified nature or uncertain behavior (2 sources) Neoplastic disease; Translations: [Neoplasm of unspecified behavior of bone, soft tissue, and skin] 12-24-2023 Episodic Occlusion or stenosis of precerebral arteries (20 sources) Left carotid artery stenosis; Translations: [Occlusion and stenosis of left carotid artery] Onset: 04-21-2023 Chronic Osteoarthritis (20 sources) Degenerative joint disease involving multiple joints; Translations: [Primary generalized (osteo)arthritis] Onset: 11-19-2022 11-19-2022 Chronic Other aftercare (2 sources) Long-term current use of anticoagulant; Translations: [USP (current) use of anticoagulants] 01-27-2024 Episodic Other and ill-defined heart disease (2 sources) Other ill-defined heart diseases; Translations: [Other ill-defined heart diseases] Onset: 01-28-2024 Chronic Other non-epithelial cancer of skin (11 sources) Basal cell carcinoma of lower lip; Translations: [Basal cell carcinoma of skin of lip] Onset: 02-12-2024 01-27-2024 Episodic Other nutritional; endocrine; and metabolic disorders (19 sources) Severe obesity; Translations: [Class 3 severe obesity due to excess calories with serious comorbidity and body mass index (BMI) of 40.0 to 44.9 in adult] Onset: 11-19-2022 06-15-2023 Chronic Other screening for suspected conditions (not mental disorders or infectious disease) (1 source) Abnormal findings on diagnostic imaging of other specified body structures; Translations: [Abnormal carotid ultrasound] Chronic Other skin disorders (4 sources) Lesion of skin of face; Translations: [Disorder of the skin and subcutaneous tissue, unspecified] 12-15-2023 Episodic Residual codes; unclassified (1 source) Other specified health status Episodic Thyroid disorders (19 sources) Acquired hypothyroidism; Translations: [Hypothyroidism, unspecified] Onset: 11-19-2022 11-19-2022 Chronic Unclassified (3 sources) COUGH, UNSPECIFIED; Translations: [COUGH, UNSPECIFIED] Onset: 07-07-2022 Unclassified (1 source) CONTACT W/AND (SUSP) EXPOS COVID-19; Translations: [CONTACT W/AND (SUSP) EXPOS COVID-19] Onset: 07-07-2022 Past or Other Problems Problem Classification Problem Date Documented Date Episodic/Chronic Acute cerebrovascular disease (17 sources) 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; Translations: [Cerebral infarction due to thrombosis of right vertebral artery] Onset: 05-18-2023 Resolved: 12-15-2023 12-15-2023 Chronic Acute myocardial infarction (17 sources) Acute non-ST segment elevation myocardial infarction; Translations: [Non-ST elevation (NSTEMI) myocardial infarction] Onset: 05-08-2021 Resolved: 06-15-2023 06-15-2023 Chronic Diabetes mellitus without complication (19 sources) Impaired fasting glycemia; Translations: [Impaired fasting glucose] Onset: 11-19-2022 11-19-2022 Episodic Other circulatory disease (19 sources) History of cerebrovascular accident; Translations: [Personal history of transient ischemic attack (TIA), and cerebral infarction without residual deficits] Onset: 06-15-2023 06-15-2023 Episodic Other connective tissue disease (2 sources) Other specified soft tissue disorders; Translations: [Other specified soft tissue disorders] Onset: 01-28-2024 Episodic Other diseases of veins and lymphatics (17 sources) Vascular insufficiency; Translations: [Venous insufficiency (chronic) (peripheral)] Onset: 11-19-2022 11-19-2022 Episodic Other diseases of veins and lymphatics (2 sources) Stasis dermatitis; Translations: [Venous insufficiency (chronic) (peripheral)] 12-16-2023 Episodic Unclassified (1 source) COUGH, UNSPECIFIED; Translations: [COUGH, UNSPECIFIED] Onset: 07-02-2022 Results Test Name Value Interpretation Reference Range Facility ALL BASIC METABOLIC PANELon 03-07-2024 Anion gap [Moles/Vol] 10.9 mmol/L [facility] Calcium [Mass/Vol] 9.3 mg/dL 8.5 - 10. 1 mg/dL [facility] Chloride [Moles/Vol] 105 mmol/L 98 - 107 mmol/L [facility] CO2 [Moles/Vol] 27.9 mmol/L 21.0 - 32.0 mmol/L [facility] Creatinine [Mass/Vol] 1.1 mg/dL High 0.55 - 1.02 mg/dL [facility] GFR/1.73 sq M.predicted CKD-EPI (S/P/Bld) [Vol rate/Area] 58 Low >=60 mL/min/1.73m 2 [facility] Glucose [Mass/Vol] 93 mg/dL 74 - 106 mg/dL [facility] Interpretation and review of laboratory results Abnormal [facility] Potassium [Moles/Vol] 4.8 mmol/L 3.5 - 5.1 mmol/L [facility] Sodium [Moles/Vol] 139 mmol/L 136 - 145 mmol/L [facility] EGFR-NON AF GEORGIAN 48 Low >=60 mL/min/1.73m 2 [facility] Urea nitrogen [Mass/Vol] 33 mg/dL High 7.0 - 18.0 mg/dL [facility] Urea nitrogen/Creatinine [Mass ratio] 30 mg/mg [facility] 36on 02-23-2024 36 Regarding echo and l ab result from 02/12/2024: please increase her hydrochlorothiazide to 37.5 mg daily and have her get a BMP in 1 week. thanks Patient made aware of need for additional hydrochlorothiazide 12.5mg. Sent into her pharmacy. BMP faxed to [facility]. Patient verbalized understanding. [facility] 02-12-2024 L --- Specimen: [id number] Received: 02/15/24 Status: YELITZA Sykes Num: [id number] Spec Type: Surgical Subm Dr: Artie Keita DO Tissues: A Skin-Other than Cyst, tag, debridement or plastic repair (RIGHT CHEEK) B Skin-Other than Cyst, tag, debridement or plastic repair (LIP) Procedures: HE/16, Breanna/Wayne L4/2 Age/ Patient Sex Location Account Attending Physician Magdaleno Woods 83/F [place] [id number] Artie Keita DO SPEC NUM: [id number] RECD: 02/15/24 STATUS: YELITZA SYKES NUM: [id number] SHERRY: 02/12/24- [facility] DR: Artie Keita DO ENTERED: 02/15/[address]: [facility] SPEC TYPE: Surgical DEPT: S ENTERED BY: [id number] RECV BY: [id number] ORDERED: HE/16, Gross/Micro L4/2 ORDERED: /, Gross/Micro L4/2 Pathological Diagnosis A, skin, right cheek, excision: -Mild postbiopsy change including moderate chronic inflammation in superficial dermis without residual malignancy -Mild background solar elastosis and patchy mild actinic keratosis or actinic effect of the epidermis, including occasional mild proliferative epithelial type, and may be considered as mild to moderate squamous atypia -All margins are negative for malignancy or high-grade dysplasia B, skin, lip, excision: -Mild postbiopsy scar with small residual foci of basal cell carcinoma of the nodular type -Tumor DOI is 1.5 mm -No evidence of lymphovascular or perineural invasion -Incidental background severe solar elastosis -All margins are negative for malignancy Clinical Information Basal cell carcinoma lower lip, squamous cell carcinoma right cheek Specimen: [id number] Received: 02/15/24 Status: YELITZA Sykes Num: [id number] Spec Type: Surgical Subm Dr: Artie Keita DO Tissues: A Skin-Other than Cyst, tag, debridement or plastic repair (RIGHT CHEEK) B Skin-Other than Cyst, tag, debridement or plastic repair (LIP) Procedures: Breanna/Wayne L4/2 Patient: Magdaleno Woods [id number] (Continued) Specimen: [id number] Received: 02/15/24 (Continued) Signed (signature on file) Temitope Mckeon MD 02/17/24 1234 Specimen: [id number] Received: 02/15/24 Status: YELITZA Sykes Num: [id number] Spec Type: Surgical Subm Dr: Artie Keita DO Tissues: A Skin-Other than Cyst, tag, debridement or plastic repair (RIGHT CHEEK) B Skin-Other than Cyst, tag, debridement or plastic repair (LIP) Procedures: , Gross/Micro L4/2 Patient: Magdaleno Woods [id number] (Continued) Specimen: [id number] Received: 02/15/24 (Continued) Gross Description Part A is received in formalin labeled with the patients name, date of , and right cheek is a wong-house, finely granular ellipse of skin, oriented by the surgeon with a short suture at the inferior margin, and a long suture at the medial margin. The specimen is 0.9 cm superior to inferior, 0.5 cm medial to lateral, and excised to a depth of 0.3 cm. Serial sections reveal yellow-house, glistening and uniform cut surfaces. The specimen is entirely submitted progressing from the superior to the inferior pole large tip in cassette A1?A4, respectively. Cassettes: A1 Intact superior polar tip A2 1 full-thickness cross-section A3 1 full-thickness cross-section A4 Intact inferior polar tip (4, ns, [id number] A)JG Part B is received in formalin labeled with the patients name, date of , and basal cell carcinoma lip is a wong-house, finely granular ellipse of skin, oriented by the surgeon with a long suture at the medial margin, and a short suture at the inferolateral pole large tip. The specimen is 1.9 cm medial to inferolateral, 1.2 cm superior to inferior, and excised to depth of 0.5 cm. The specimen is inked as follows: Superolateral-Yellow Inferolateral-Blue Inferomedial-Brooks Superolateral- Green Deep-Black Serial sections reveal yellow-house, glistening and uniform cut surfaces. The specimen is entirely submitted progressing from medial (more content not included)... Normal [facility] ALL BASIC METABOLIC PANELon 02-04-2024 Anion gap [Moles/Vol] 12 mmol/L [facility] Calcium [Mass/Vol] 8.9 mg/dL 8.5 - 10. 1 mg/dL [facility] Chloride [Moles/Vol] 105 mmol/L 98 - 107 mmol/L [facility] CO2 [Moles/Vol] 27.1 mmol/L 21.0 - 32.0 mmol/L [facility] Creatinine [Mass/Vol] 1.07 mg/dL High 0.55 - 1.02 mg/dL [facility] GFR/1.73 sq M.predicted CKD-EPI (S/P/Bld) [Vol rate/Area] 60 >=60 mL/min/1.73m 2 [facility] Glucose [Mass/Vol] 102 mg/dL 74 - 106 mg/dL [facility] Interpretation and review of laboratory results Abnormal [facility] Potassium [Moles/Vol] 5.1 mmol/L 3.5 - 5.1 mmol/L [facility] Sodium [Moles/Vol] 139 mmol/L 136 - 145 mmol/L [facility] TBH EGFR-NON AF GEORGIAN 49 Low >=60 mL/min/1.73m 2 [facility] Urea nitrogen [Mass/Vol] 30 mg/dL High 7.0 - 18.0 mg/dL [facility] Urea nitrogen/Creatinine [Mass ratio] 28 mg/mg [facility] ALL LIPID PROFILE (FASTING)o n 02-04-2024 CHOL HDL RATIO 2.4 [facility] Comment on above: 3.3 - 4.4 LOW RISK 4.4 - 7.1 AVERAGE RISK 7.1 - 11.0 MODERATE RISK >11.0 HIGH RISK Cholesterol [Mass/Vol] 102 mg/dL NINF - 200 mg/dL [facility] Cholesterol in HDL [Mass/Vol] 43 mg/dL 40 - 60 mg/dL [facility] Comment on above: > or =60 mg/dl - LOW CARDIOVASCULAR RISK <40 mg/dl - HIGH CARDIOVASCULAR RISK Magnesium [Mass/Vol] 46.4 mg/dL [facility] Comment on above: <100 mg/dl OPTIMAL 100-129 mg/dl NEAR OR ABOVE OPTIMAL 130-159 mg/dl BORDERLINE HIGH 160-189 mg/dl HIGH >190 mg/dl VERY HIGH Magnesium [Mass/Vol] 12.6 mg/dL [facility] Triglyceride [Mass/Vol] 63 mg/dL [facility]F - 150 mg/dL [facility] ALL PRO BNPon 02-04-2024 NT PRO B TYPE NATRIURETIC PEPT 386 pg/mL NINF - 1800.0 pg/mL [facility] No Panel Informationon 02-03 [facility] Office Visiton 01-28-2024 Follow-up visit [id number] Magdaleno Woods 1940 F Date Provider Department Center 01/28/2024 [facility]8MANA WILSON BRI Adame [facility] Family History Problem Relation Age of Onset Heart attack Father Stroke Father Heart failure Paternal Grandfather Family Status - Relation Status Age at Father Paternal Grandfather Level of Service:91481 [place] OFFICE/OUTPATIENT ESTABLISHED MOD MDM 30 MIN Normal [facility] Automated basophil %Ordered By: Artie Keita on 01-27-2024 Basophils/100 WBC (Bld) 1.1 % Normal . [facility] Comment on above: Performed By: #### C BC #### [facility] [address] Automated basophil countOrde red By: Artie Keita on 01-27-2024 Basophils (Bld) [#/Vol] 0.1 10*3/uL Normal 0.0-0.2 [facility] Comment on above: Result Comment: PERF ORMED BY: [facility] [address] [place] [address] PATHOLOGIST DIESEL MAINTENANCE TECHNICIAN RADHA MOSES M.D. Performed By: #### C BC #### [address] Automated blood monocyte cou ntOrdered By: Artie Keita on 01-27-2024 Monocytes (Bld) [#/Vol] 1.0 10*3/uL High 0.0-0.8 [facility] Comment on above: Performed By: #### C BC #### [address] Automated eosinophil %Ordere d By: Artie Keita on 01-27-2024 Eosinophils/100 WBC (Bld) 3.8 % Normal . [facility] Comment on above: Performed By: #### C BC #### [address] Automated eosinophil countOr dered By: Artie Keita on 01-27-2024 Eosinophils (Bld) [#/Vol] 0.4 10*3/uL Normal 0.0-0.45 [facility] Comment on above: Performed By: #### C BC #### [address] Automated monocyte %Ordered By: Artie Keita on 01-27-2024 Monocytes/100 WBC (Bld) 10.2 % Normal . [facility] Comment on above: Performed By: #### C BC #### [address] Automated neutrophil %Ordere d By: Artie Keita on 01-27-2024 Neutrophils/100 WBC (Bld) 65.9 % Normal . [facility] Comment on above: Performed By: #### C BC #### [address] Basophils Auto (Bld) [#/Vol] Ordered By: Artie Keita on 01-27-2024 Basophils (Bld) [#/Vol] Automated basophil count 0.0-0.2 [facility] Basophils/100 WBC Auto (Bld) Ordered By: Artie Keita on 10-30-2024 Basophils/100 WBC (Bld) Automated basophil % . [facility] CBC W Auto Differential pane l (Bld)on 01-27-2024 Basophils (Bld) [#/Vol] 0.1 10*3/uL 0.0 - 0.2 10*3/uL [facility] Basophils/100 WBC Manual cnt (Syn fld) 1.1 % . [facility] Eosinophils (Bld) [#/Vol] 0.4 10*3/uL 0.0 - 0.45 10*3/uL [facility] Eosinophils/100 WBC Manual cnt (Syn fld) 3.8 % . [facility] Erythrocyte distribution width (RBC) [Ratio] 16 % High 11.9 - 15.3 % [facility] Hematocrit (Bld) [Volume fraction] 39.3 % 34.0 - 46.4 % [facility] Hemoglobin (Bld) [Mass/Vol] 13 g/dL 11.8 - 15.4 g/dL [facility] Interpretation and review of laboratory results Abnormal [facility] Lymphocytes (Bld) [#/Vol] 1.8 10*3/uL 1.00 - 4.8 10*3/uL [facility] Lymphocytes/100 WBC Manual cnt (Syn fld) 19 % . [facility] MCH (RBC) [Entitic mass] 31.5 pg 24.7 - 34.3 pg [facility] MCHC (RBC) [Mass/Vol] 33 g/dL 32.0 - 35.0 g/dL [facility] MCV (RBC) [Entitic vol] 95.3 fL 80 - 100 fL [facility] Monocytes (Bld) [#/Vol] 1 10*3/uL High 0.0 - 0.8 10*3/uL [facility] Monocytes+Macrophag es/100 WBC Manual cnt (Syn fld) 10.2 % . [facility] Neutrophils (Bld) [#/Vol] 6.2 10*3/uL 1.8 - 7.7 10*3/uL [facility] Neutrophils/100 WBC Manual cnt (Syn fld) 65.9 % . [facility] NRBC 0.1 /100{WBC} 0 - 0.5 /100{WBC} [facility] Platelet mean volume (Bld) [Entitic vol] 10 fL 6.3 - 10.7 fL [facility] Platelets (Bld) [#/Vol] 342 10*3/uL 150 - 450 10*3/uL [facility] RBC LM.HPF (Urine sed) [#/Area] 4.12 /[HPF] 3.60 - 5.00 [facility] WBC (Bld) [#/Vol] 9.4 10*3/uL 3.8 - 11.6 10*3/uL [facility] WBC LM.HPF (Urine sed) [#/Area] 9.4 10*3/uL 3.8 - 11.6 10*3/uL [facility] Complete Blood Count Auto Di ffon 01-27-2024 Mean Corpuscular HGB Conc 33.0 g/dL Normal 32.0-35.0 [facility] Comment on above: Performed By: #### C BC #### [address] NRBC% 0.1 /100{WBC} Normal 0-0.5 [facility] Comment on above: Performed By: #### C BC #### [address] Eosinophils Auto (Bld) [#/Vo l]Ordered By: Artie Keita on 01-27-2024 Eosinophils (Bld) [#/Vol] Automated eosinophil count 0.0-0.45 [facility] Eosinophils/100 WBC Auto (Bl d)Ordered By: Artie Keita on 01-27-2024 Eosinophils/100 WBC (Bld) Automated eosinophil % . [facility] Erythrocyte distribution wid th Auto (RBC) [Ratio]Ordered By: Artie Keita on 01-27-2024 Erythrocyte distribution width (RBC) [Ratio] Erythrocyte distribution width [Ratio] by Automated count High 11.9-15.3 [facility] Erythrocyte distribution wid th [Ratio] by Automated countOrdered By: Artie Keita on 01-27-2024 Erythrocyte distribution width (RBC) [Ratio] 16.0 % High 11.9-15.3 [facility] Comment on above: Performed By: #### C BC #### [address] Erythrocytes [#/volume] in B lood by Automated countOrdered By: Artie Keita on 01-27-2024 RBC (Bld) [#/Vol] 4.12 10*6/uL Normal 3.60-5.00 [facility] Comment on above: Performed By: #### C BC #### [address] Hematocrit Auto (Bld) [Volum e fraction]Ordered By: Artie Keita on 01-27-2024 Hematocrit (Bld) [Volume fraction] Hematocrit [Volume Fraction] of Blood by Automated count 34.0-46.4 [facility] Hematocrit [Volume Fraction] of Blood by Automated countOrdered By: Artie Keita on 01-27-2024 Hematocrit (Bld) [Volume fraction] 39.3 % Normal 34.0-46.4 [facility] Comment on above: Performed By: #### C BC #### [address] Hemoglobin [Mass/volume] in BloodOrdered By: Artie Keita on 01-27-2024 Hemoglobin (Bld) [Mass/Vol] 13.0 g/dL Normal 11.8-15.4 [facility] Comment on above: Performed By: #### C BC #### [address] Hemoglobin (Bld) [Mass/Vol] Hemoglobin [Mass/volume] in Blood 11.8-15.4 [facility] Leukocytes [#/volume] correc dayo for nucleated erythrocytes in Blood by Automated counOrdered By: Artie Keita on 01-27-2024 WBC corrected for nucl RBC Auto (Bld) [#/Vol] 9.4 10*3/uL 3.8-11.6 [facility] WBC corrected for nucl RBC Auto (Bld) [#/Vol] Leukocytes [#/volume] corrected for nucleated erythrocytes in Blood by Automated coun 3.8-11.6 [facility] Leukocytes [#/volume] in Blo od by Automated countOrdered By: Artie Keita on 01-27-2024 WBC (Bld) [#/Vol] 9.4 10*3/uL Normal 3.8-11.6 [facility] Comment on above: Performed By: #### C BC #### [address] Lymphocytes Auto (Bld) [#/Vo l]Ordered By: Artie Keita on 01-27-2024 Lymphocytes (Bld) [#/Vol] Lymphocytes [#/volume] in Blood by Automated count 1.00-4.8 [facility] Lymphocytes [#/volume] in Bl ood by Automated countOrdered By: Artie Keita on 01-27-2024 Lymphocytes (Bld) [#/Vol] 1.8 10*3/uL Normal 1.00-4.8 [facility] Comment on above: Performed By: #### C BC #### [address] Lymphocytes/100 WBC Auto (Bl d)Ordered By: Artie Keita on 01-27-2024 Lymphocytes/100 WBC (Bld) Lymphocytes/100 leukocytes in Blood by Automated count . [facility] Lymphocytes/100 leukocytes i n Blood by Automated countOrdered By: Artie Keita on 01-27-2024 Lymphocytes/100 WBC (Bld) 19.0 % Normal . [facility] Comment on above: Performed By: #### C BC #### [address] MCH Auto (RBC) [Entitic mass ]Ordered By: Artie Keita on 01-27-2024 MCH (RBC) [Entitic mass] MCH [Entitic mass] by Automated count 24.7-34.3 [facility] MCH [Entitic mass] by Automa dayo countOrdered By: Artie Keita on 01-27-2024 MCH (RBC) [Entitic mass] 31.5 pg Normal 24.7-34.3 [facility] Comment on above: Performed By: #### C BC #### [address] MCHC Auto (RBC) [Mass/Vol]Or dered By: Artie Keita on 01-27-2024 MCHC (RBC) [Mass/Vol] 33.0 g/dL 32.0-35.0 [facility] MCHC (RBC) [Mass/Vol] MCHC [Mass/volume] by Automated count 32.0-35.0 [facility] MCV Auto (RBC) [Entitic vol] Ordered By: Artie Keita on 01-27-2024 MCV (RBC) [Entitic vol] MCV [Entitic volume] by Automated count 80-100 [facility] MCV [Entitic volume] by Auto mated countOrdered By: Artie Keita on 01-27-2024 MCV (RBC) [Entitic vol] 95.3 fL Normal 80-100 [facility] Comment on above: Performed By: #### C BC #### [facility] [address] Monocytes Auto (Bld) [#/Vol] Ordered By: Artie Keita on 01-27-2024 Monocytes (Bld) [#/Vol] Automated blood monocyte count High 0.0-0.8 [facility] Monocytes/100 WBC Auto (Bld) Ordered By: Artie Keita on 01-27-2024 Monocytes/100 WBC (Bld) Automated monocyte % . [facility] Neutrophils Auto (Bld) [#/Vo l]Ordered By: Artie Keita on 01-27-2024 Neutrophils (Bld) [#/Vol] Neutrophils [#/volume] in Blood by Automated count 1.8-7.7 [facility] Neutrophils [#/volume] in Bl ood by Automated countOrdered By: Artie Keita on 01-27-2024 Neutrophils (Bld) [#/Vol] 6.2 10*3/uL Normal 1.8-7.7 [facility] Comment on above: Performed By: #### C BC #### [facility] [address] [place] [address] [place] Neutrophils/100 WBC Auto (Bl d)Ordered By: Artie Keita on 01-27-2024 Neutrophils/100 WBC (Bld) Automated neutrophil % . [facility] Nucleated erythrocytes [Pres ence] in Blood by Automated countOrdered By: Artie Keita on 01-27-2024 Nucleated RBC Auto Ql (Bld) 0.1 /100{WBC} 0-0.5 [facility] Nucleated RBC Auto Ql (Bld) Nucleated erythrocytes [Presence] in Blood by Automated count 0-0.5 [facility] Platelet mean volume Auto (B ld) [Entitic vol]Ordered By: Artie Keita on 01-27-2024 Platelet mean volume (Bld) [Entitic vol] Platelet mean volume [Entitic volume] in Blood by Automated count 6.3-10.7 [facility] Platelet mean volume [Entiti c volume] in Blood by Automated countOrdered By: Artie Keita on 01-27-2024 Platelet mean volume (Bld) [Entitic vol] 10.0 fL Normal 6.3-10.7 [facility] Comment on above: Performed By: #### C BC #### [facility] [address] Platelets Auto (Bld) [#/Vol] Ordered By: Artie Keita on 01-27-2024 Platelets (Bld) [#/Vol] Platelets [#/volume] in Blood by Automated count 150-450 [facility] Platelets [#/volume] in Bloo d by Automated countOrdered By: Artie Keita on 01-27-2024 Platelets (Bld) [#/Vol] 342 10*3/uL Normal 150-450 [facility] Comment on above: Performed By: #### C BC #### [facility] [address] [place] [address] RBC Auto (Bld) [#/Vol]Ordere d By: Artie Keita on 01-27-2024 RBC (Bld) [#/Vol] Erythrocytes [#/volu me] in Blood by Automated count 3.60-5.00 [facility] WBC Auto (Bld) [#/Vol]Ordere d By: Artie Keita on 01-27-2024 WBC (Bld) [#/Vol] Leukocytes [#/volume ] in Blood by Automated count 3.8-11.6 [facility] No Panel Informationon 12-23 Type of biopsy: tangential Informed consent: discussed and consent obtained Informed consent comment: The risks and benefits of the biopsy were discussed. Risks include but are not limited to bleeding, infection, scarring, pain, and nerve damage. An opportunity to ask questions prior to the procedure was permitted and all questions were answered. Patient was prepped and draped in usual sterile fashion: area cleansed with alcohol. Anesthesia: the lesion was anesthetized in a standard fashion Anesthetic: 1% lidocaine w/ epinephrine 1-100,000 buffered w/ 8.4% NaHCO3 Instrument used: DermaBlade Hemostasis achieved with: electrodesiccation Outcome: patient tolerated procedure well Outcome comment: The specimen was placed in a prelabeled formalin container to be sent for pathology Post-procedure details: sterile dressing applied and wound care instructions given Post-procedure details comment: Emphasized need to contact clinic for any signs of infection, uncontrollable bleeding, or complications. Dressing type: bandage Additional details: Photo taken yes Amount of lidocaine used: 0.5 cc Pufetto Type of biopsy: tangential Informed consent: discussed and consent obtained Informed consent comment: The risks and benefits of the biopsy were discussed. Risks include but are not limited to bleeding, infection, scarring, pain, and nerve damage. An opportunity to ask questions prior to the procedure was permitted and all questions were answered. Patient was prepped and draped in usual sterile fashion: area cleansed with alcohol. Anesthesia: the lesion was anesthetized in a standard fashion Anesthetic: 1% lidocaine w/ epinephrine 1-100,000 buffered w/ 8.4% NaHCO3 Instrument used: DermaBlade Hemostasis achieved with: electrodesiccation Outcome: patient tolerated procedure well Outcome comment: The specimen was placed in a prelabeled formalin container to be sent for pathology Post-procedure details: sterile dressing applied and wound care instructions given Post-procedure details comment: Emphasized need to contact clinic for any signs of infection, uncontrollable bleeding, or complications. Dressing type: bandage Additional details: Photo taken yes Amount of lidocaine used: 0.5 cc Pufetto Type of biopsy: tangential Informed consent: discussed and consent obtained Informed consent comment: The risks and benefits of the biopsy were discussed. Risks include but are not limited to bleeding, infection, scarring, pain, and nerve damage. An opportunity to ask questions prior to the procedure was permitted and all questions were answered. Patient was prepped and draped in usual sterile fashion: area cleansed with alcohol. Anesthesia: the lesion was anesthetized in a standard fashion Anesthetic: 1% lidocaine w/ epinephrine 1-100,000 buffered w/ 8.4% NaHCO3 Instrument used: DermaBlade Hemostasis achieved with: electrodesiccation Outcome: patient tolerated procedure well Outcome comment: The specimen was placed in a prelabeled formalin container to be sent for pathology Post-procedure details: sterile dressing applied and wound care instructions given Post-procedure details comment: Emphasized need to contact clinic for any signs of infection, uncontrollable bleeding, or complications. Dressing type: bandage Additional details: Photo taken yes Amount of lidocaine used: 0.5 cc [facility] HbA1c (Bld) [Mass fraction]o n 12-15-2023 Interpretation and review of laboratory results Normal [facility] Laboratory - Hematology and Cell countson 12-15-2023 HbA1c (Bld) [Mass fraction] 5.7 % [facility] US LOWER EXTREMITY VENO US DUPLEX LEFTon 10-21-2023 [facility] US LOWER EXTREMITY VENOUS DUPLEX LEFT US - US VENOUS UNILATERAL LIMITED Reason for exam: Left lower extremity pain Prior comparative studies: None Technique:Grayscale,col or Doppler and spectral analysis was performed. Findings: [...] carotid doppler BIon 09-28 US carotid doppler [facility] [address] [place] [address] Ultrasound Report Signed Patient: Magdaleno Woods MR#: [id number] : 1940 Acct:[id number] Age/Sex: 83 / F ADM Date: 10/20/23 Loc: [facility] Room: Type: [facility] Attending Dr: Maggy Burnett PATTERN HANGER-C Ordering Provider: Maggy Burnett APRN Date of [...] Anant Romero M.D.10/20/2023 11:20 AM Dictation Location: [place] [address] Tech: Tammy Reinbolt Transcribed By: BARTOLO 10/20/23 1120 Dictated By: Anant Romero MD 10/20/23 1120 Signed By: 10/20/23 1120 Normal [facility] Office Visiton 08-14-2023 Follow-up visit [id number] Magdaleno Woods 1940 F Date Provider Department Center 08/14/2023 [facility]8-RIANASWATIZEENAT LEETaina CARD [facility] Family History Problem Relation Age of Onset Heart attack Father Stroke Father Heart failure Paternal Grandfather Family Status - Relation Status Age at Father Paternal Grandfather Level of Service:25980 [place] OFFICE/OUTPATIENT ESTABLISHED LOW MDM 20 MIN Normal [facility] US carotid doppler BIon 03-31 US carotid doppler BI [facility] [address] Vascular Lab Report Signed Patient: Magdaleno Woods MR#: [id number] : 1940 Acct:[id number] Age/Sex: 83 / F ADM Date: 04/21/23 Loc: [facility] Room: Type: [facility] Attending Dr: Maggy Burnett PATTERN HANGER-C Ordering Provider: Maggy Burnett APRN Date of [...] Anant Romero M.D.04/22/2023 1:29 PM Tech: Tammy Silas Transcribed By: 04/28/23 1013 Dictated By: Anant Romero MD 04/22/23 1329 Signed By: 04/28/23 1014 Normal [facility] Covid-19 PCR (CVDTBH)on SARS-CoV-2 (COVID-19) RNA OMAR+probe Ql (Unsp spec) Not detected Normal NOT DETECTED [facility] Comment on above: Result Comment: This test is not yet approved or cleared by the [place] FDA. When there are no FDA-approved or cleared tests available, and other criteria are met, FDA can make tests available under an emergency access mechanism called an Emergency Use Authorization (EUA). The EUA for this test is supported by the Emergency Room Orderly of Health and Human Service's (HHS's) declaration [...] SARS-CoV-2. Performed By: #### C VDTB #### [facility] [address] [place] [address] Dr. Lisa Mckeon SYMPTOMATIC COVID-19 ANTIGEN on 07-02-2022 EUA Statement SEE BELOW Normal [facility] Comment on above: Result Comment: This [...] sooner. Performed By: #### C VDAGS #### [facility] [address] [place] [address] Dr. Lisa Mckeon SARS-CoV-2 (COVID-19) RNA OMAR+probe Ql (Unsp spec) Negative Normal NEGATIVE [facility] Comment on above: Performed By: #### C VDAGS #### [facility] [address] [place] [address] Dr. Lisa Mckeon CBC AUTO DIFFon 05-09-2022 BASO # 0.1 103/ul Normal 0.0-0.1 [facility] Comment on above: Performed By: #### C BC #### [facility] [address] [place] [address] [address] Lisa Mckeon Basophils/100 WBC (Bld) 0.9 % Normal 0.2-2.0 [facility] Comment on above: Performed By: #### C BC #### [facility] [address] [place] [address] [address] Lisa Mckeon EO # 0.2 103/ul Normal 0.0-0.7 [facility] Comment on above: Performed By: #### C BC #### [facility] [address] [place] [address] Dr. Lisa Mckeon Eosinophils/100 WBC (Bld) 2.6 % Normal 0.9-7.0 [facility] Comment on above: Performed By: #### C BC #### [facility] [address] [place] [address] Dr. Lisa Mckeon Erythrocyte distribution width (RBC) [Ratio] 14.5 % Normal 11.0-15.0 [facility] Comment on above: Performed By: #### C BC #### [facility] [address] [place] [address] Dr. Lisa Mckeon Hematocrit (Bld) [Volume fraction] 40.4 % Normal 36.0-48.0 [facility] Comment on above: Performed By: #### C BC #### [facility] [address] [place] [address] Dr. Lisa Mckeon Hemoglobin (Bld) [Mass/Vol] 13.5 g/dL Normal 12.0-16.0 [facility] Comment on above: Performed By: #### C BC #### [facility] [address] [place] [address] Dr. Lisa Mckeon IG # 0.04 10e3/ul Critically high 0.00-0.03 [facility] Comment on above: Performed By: #### C BC #### [facility] [address] [place] [address] Dr. Lisa Mckeon IG % 0.5 % Normal 0.0-0.5 [facility] Comment on above: Performed By: #### C BC #### [facility] [address] [place] [address] Dr. Lisa Mckeon LYMPH # 1.3 103/ul Normal 1.2-3.8 [facility] Comment on above: Performed By: #### C BC #### [facility] [address] [place] [address] Dr. Lisa Mckeon Lymphocytes/100 WBC (Bld) 16.2 % Critically low 20.5-60.0 [facility] Comment on above: Performed By: #### C BC #### [facility] [address] [place] [address] Dr. Lisa Mckeon MANUAL DIFF REQ NO Normal [facility] Comment on above: Performed By: #### C BC #### [facility] [address] [place] [address] Dr. Lisa Mckeon MCH (RBC) [Entitic mass] 30.8 pg Normal 26.7-34.0 [facility] Comment on above: Performed By: #### C BC #### [facility] [address] [place] [address] Dr. Lisa Mckeon MCHC (RBC) [Mass/Vol] 33.4 g/dL Normal 29.9-35.2 [facility] Comment on above: Performed By: #### C BC #### [facility] [address] [place] [address] Dr. Lisa Mckeon MCV (RBC) [Entitic vol] 92.0 fL Normal 81.0-99.0 [facility] Comment on above: Performed By: #### C BC #### [facility] [address] [place] [address] Dr. Lisa Mckeon MONO # 0.7 103/ul Normal 0.3-0.8 [facility] Comment on above: Performed By: #### C BC #### [facility] [address] [place] [address] Dr. Lisa Mckeon Monocytes/100 WBC (Bld) 8.7 % Normal 1.7-12.0 [facility] Comment on above: Performed By: #### C BC #### [facility] [address] [place] [address] Dr. Lisa Mckeon NEUT # 5.6 103/ul Normal 1.4-6.5 [facility] Comment on above: Performed By: #### C BC #### [facility] [address] [place] [address] Dr. Lisa Mckeon Neutrophils/100 WBC (Bld) 71.1 % Normal 43.0-75.0 [facility] Comment on above: Performed By: #### C BC #### [facility] [address] [place] [address] Dr. Lisa Mckeon Platelet mean volume (Bld) [Entitic vol] 11.7 fL Normal 9.5-13.5 [facility] Comment on above: Performed By: #### C BC #### [facility] [address] [place] [address] Dr. Lisa Mckeon PLT 319 103/ul Normal 150-450 [facility] Comment on above: Performed By: #### C BC #### [facility] [address] [place] [address] Dr. Lisa Mckeon RBC 4.39 106/ul Normal 4.20-5.40 [facility] Comment on above: Performed By: #### C BC #### [facility] [address] [place] [address] Dr. Lisa Mckeon WBC 7.9 103/ul Normal 4.0-11.0 [facility] Comment on above: Performed By: #### C BC #### [facility] [address] [place] [address] Dr. Lisa Mckeon LIPID PROFILEon 05-09-2022 CHOL-HDL RATIO NORM SEE BELOW Normal [facility] Comment on above: Result Comment: 3.3 - 4.4 LOW RISK 4.4 - 7.1 AVERAGE RISK 7.1 - 11.0 MODERATE RISK >11.0 HIGH RISK Performed By: #### L IPID, CMP #### [facility] [address] [place] [address] Dr. Lisa Mckeon Cholesterol [Mass/Vol] 101 mg/dL Normal <=200 [facility] Comment on above: Performed By: #### L IPID, CMP #### [facility] [address] [place] [address] [address] Lisa Mckeon Cholesterol in HDL [Mass/Vol] 42 mg/dL Normal 40-60 [facility] Comment on above: Performed By: #### L IPID, CMP #### [facility] [address] [place] [address] [address] Lisa Mckeon Cholesterol in LDL [Mass/Vol] 43.8 mg/dL Normal [facility] Comment on above: Performed By: #### L IPID, CMP #### [facility] [address] [place] [address] [address] Lisa Mckeon Cholesterol.total/C holesterol in HDL [Mass ratio] 2.4 {ratio} Normal [facility] Comment on above: Performed By: #### L IPID, CMP #### [facility] [address] [place] [address] [address] Lisa Mckeon HDL NORMAL > or = 60 mg/dl - LO W CARDIOVASCULAR RISK <40 mg/dl - HIGH CARDIOVASCULAR RISK Normal [facility] Comment on above: Performed By: #### L IPID, CMP #### [facility] [address] [place] [address] [address] Lisa Mckeon LDL CALC NORMAL SEE BELOW Normal [facility] Comment on above: Result Comment: <100 mg/dl OPTIMAL 100 - 129 mg/dl NEAR OR ABOVE OPTIMAL 130 - 159 mg/dl BORDERLINE HIGH 160 - 189 mg/dl HIGH >190 mg/dl VERY HIGH Performed By: #### L IPID, CMP #### [facility] [address] [place] [address] [address] Lisa Mckeon Triglyceride [Mass/Vol] 76 mg/dL Normal <=150 [facility] Comment on above: Performed By: #### L IPID, CMP #### [facility] [address] [place] [address] Dr. Lisa Mckeon VLDL CALC 15.2 mg/dL Normal [facility] Comment on above: Performed By: #### L IPID, CMP #### [facility] [address] [place] [address] [address] Lisa Mckeon PROF 14(COMP METB)on 023 Albumin [Mass/Vol] 3.4 g/dL Normal 3.4-5.0 [facility] Comment on above: Performed By: #### L IPID, CMP #### [facility] [address] [place] [address] Dr. Lisa Mckeon Albumin/Globulin [Mass ratio] 1.1 {ratio} Normal [facility] Comment on above: Performed By: #### L IPID, CMP #### [facility] [address] [place] [address] [address] Lisa Mckeon ALP [Catalytic activity/Vol] 69 U/L Normal 46-116 [facility] Comment on above: Performed By: #### L IPID, CMP #### [facility] [address] [place] [address] Dr. Lisa Mckeon ALT [Catalytic activity/Vol] 24 U/L Normal 14-59 [facility] Comment on above: Performed By: #### L IPID, CMP #### [facility] [address] [place] [address] Dr. Lisa Mckeon Anion gap [Moles/Vol] 13.2 mmol/L Normal [facility] Comment on above: Performed By: #### L IPID, CMP #### [facility] [address] [place] [address] Dr. Lisa Mckeon AST [Catalytic activity/Vol] 17 U/L Normal 15-37 [facility] Comment on above: Performed By: #### L IPID, CMP #### [facility] [address] [place] [address] [address] Lisa Mckeon Bilirubin [Mass/Vol] 0.4 mg/dL Normal 0.2-1.0 [facility] Comment on above: Performed By: #### L IPID, CMP #### [facility] [address] [place] [address] [address] Lisa Mckeon Calcium [Mass/Vol] 9.3 mg/dL Normal 8.5-10.1 [facility] Comment on above: Performed By: #### L IPID, CMP #### [facility] [address] [place], [place] [id number] Dr. Lisa Mckeon Chloride [Moles/Vol] 100 mmol/L Normal 98-107 [facility] Comment on above: Performed By: #### L IPID, CMP #### [facility] [address] [place] [address] Dr. Lisa Mckeon CO2 [Moles/Vol] 28.8 mmol/L Normal 21.0-32.0 [facility] Comment on above: Performed By: #### L IPID, CMP #### [facility] [address] [place] [address] Dr. Lisa Mckeon Creatinine [Mass/Vol] 0.72 mg/dL Normal 0.55-1.02 [facility] Comment on above: Performed By: #### L IPID, CMP #### [facility] [address] [place] [address] Dr. Lisa Mckeon EGFR-AF GEORGIAN >60 Normal >=60 [facility] Comment on above: Performed By: #### L IPID, CMP #### [facility] [address] [place] [address] Dr. Lisa Mckeon EGFR-NON AF GEORGIAN >60 Normal >=60 [facility] Comment on above: Performed By: #### L IPID, CMP #### [facility] [address] [place] [address] Dr. Lisa Mckeon Globulin (S) [Mass/Vol] 3.1 g/dL Normal [facility] Comment on above: Performed By: #### L IPID, CMP #### [facility] [address] [place] [address] Dr. Lisa Mckeon Glucose [Mass/Vol] 89 mg/dL Normal 74-106 [facility] Comment on above: Performed By: #### L IPID, CMP #### [facility] [address] [place] [address] Dr. Lisa Mckeon Potassium [Moles/Vol] 5.0 mmol/L Normal 3.5-5.1 [facility] Comment on above: Performed By: #### L IPID, CMP #### [facility] [address] [place] [address] Dr. Lisa Mckeon Protein [Mass/Vol] 6.5 g/dL Normal 6.4-8.2 [facility] Comment on above: Performed By: #### L IPID, CMP #### [facility] [address] [place] [address] Dr. Lisa Mckeon Sodium [Moles/Vol] 137 mmol/L Normal 136-[facility] [facility] Comment on above: Performed By: #### L IPID, CMP #### [facility] [address] [place] [address] Dr. Lisa Mckeon Urea nitrogen [Mass/Vol] 27.0 mg/dL Critically high 7.0-18.0 [facility] Comment on above: Performed By: #### L IPID, CMP #### [facility] [address] [place] [address] Dr. Lisa Mckeon Urea nitrogen/Creatinine [Mass ratio] 37.5 mg/mg Normal [facility] Comment on above: Performed By: #### L IPID, CMP #### [facility] [address] [place] [address] Dr. Lisa Mckeon Complete Blood Count with Au to Diffon 06-20-2021 Basophils (Bld) [#/Vol] 0.04 10*3/uL Normal 0.00-0.20 [facility] Investment Director Comment on above: Performed By: #### C BCAD, LIPD, CMP, TSH #### [facility] [address] [place], [place] [id number] Basophils/100 WBC (Bld) 0.6 % Normal [facility] Investment Director Comment on above: Performed By: #### C BCAD, LIPD, CMP, TSH #### [facility] [address] [place], [place] [id number] Eosinophils (Bld) [#/Vol] 0.00 10*3/uL Low 0.02-0.50 [facility] Investment Director Comment on above: Performed By: #### C BCAD, LIPD, CMP, TSH #### [facility] [address] [place], [place] [id number] Eosinophils/100 WBC (Bld) 0.0 % Normal [place] Investment Director Comment on above: Performed By: #### C BCAD, LIPD, CMP, TSH #### [facility] [address] [place], [place] [id number] Erythrocyte distribution width (RBC) [Ratio] 14.0 % Normal 11.0-15.0 [facility] Specialist Comment on above: Performed By: #### C BCAD, LIPD, CMP, TSH #### [facility] [address] [place], [place] [id number] Hematocrit (Bld) [Volume fraction] 40.6 % Normal 35.0-47.0 [facility] Specialist Comment on above: Performed By: #### C BCAD, LIPD, CMP, TSH #### [facility] [address] [place], [place] [id number] Hemoglobin (Bld) [Mass/Vol] 13.2 g/dL Normal 11.6-15.5 [facility] Specialist Comment on above: Performed By: #### C BCAD, LIPD, CMP, TSH #### [facility] [address] [place], [place] [id number] Lymphocytes (Bld) [#/Vol] 1.3 10*3/uL Normal 0.9-3.9 [facility] Specialist Comment on above: Performed By: #### C BCAD, LIPD, CMP, TSH #### [facility] [address] [place], [place] [id number] Lymphocytes/100 WBC (Bld) 20.4 % Normal [facility] Specialist Comment on above: Performed By: #### C BCAD, LIPD, CMP, TSH #### [facility] [address] [place], [place] [id number] MCH (RBC) [Entitic mass] 30.1 pg Normal 27.0-33.0 [facility] Specialist Comment on above: Performed By: #### C BCAD, LIPD, CMP, TSH #### [facility] [address] [place], [place] [id number] MCHC (RBC) [Mass/Vol] 32.5 g/dL Normal 32.0-36.0 [facility] Specialist Comment on above: Performed By: #### C BCAD, LIPD, CMP, TSH #### [facility] [address] [place], [place] [id number] MCV (RBC) [Entitic vol] 93 fL Normal 80-100 [facility] Specialist Comment on above: Performed By: #### C BCAD, LIPD, CMP, TSH #### [facility] [address] [place], [place] [id number] Monocytes (Bld) [#/Vol] 0.8 10*3/uL Normal 0.2-0.9 [facility] Specialist Comment on above: Performed By: #### C BCAD, LIPD, CMP, TSH #### [facility] [address] [place], [place] [id number] Monocytes/100 WBC (Bld) 12.3 % Normal [facility] Specialist Comment on above: Performed By: #### C BCAD, LIPD, CMP, TSH #### [facility] [address] [place], [place] [id number] Neutrophils (Bld) [#/Vol] 4.3 10*3/uL Normal 1.5-7.8 [facility] Specialist Comment on above: Performed By: #### C BCAD, LIPD, CMP, TSH #### [facility] [address] [place], [place] [id number] Neutrophils/100 WBC (Bld) 66.4 % Normal [facility] Specialist Comment on above: Performed By: #### C BCAD, LIPD, CMP, TSH #### [facility] [address] [place], [place] [id number] Platelet mean volume (Bld) [Entitic vol] 12.80 fL High 7.50-12.50 [facility] Specialist Comment on above: Performed By: #### C BCAD, LIPD, CMP, TSH #### [facility] [address] [place], [place] [id number] Platelets (Bld) [#/Vol] 228 10*3/uL Normal 140-400 [facility] Specialist Comment on above: Performed By: #### C BCAD, LIPD, CMP, TSH #### [facility] [address] [place], [place] [id number] RBC (Bld) [#/Vol] 4.38 10*6/uL Normal 3.90-5.20 [place] Investment Director Comment on above: Performed By: #### C BCAD, LIPD, CMP, TSH #### [facility] [address] [place], [place] [id number] RDW-SD 47.0 fL Normal 37.0-50.0 [facility] Investment Director Comment on above: Performed By: #### C BCAD, LIPD, CMP, TSH #### [facility] [address] [place], [place] [id number] WBC (Bld) [#/Vol] 6.5 10*3/uL Normal 3.8-11.0 [facility] Investment Director Comment on above: Performed By: #### C BCAD, LIPD, CMP, TSH #### [facility] [address] [place], [place] [id number] Comprehensive Metabolic Pane sharif 06-20-2021 Albumin [Mass/Vol] 4.1 g/dL Normal 3.6-5.1 [facility] Investment Director Comment on above: Performed By: #### C BCAD, LIPD, CMP, TSH #### [facility] [address] [place], [place] [id number] Albumin/Globulin [Mass ratio] 2.0 {ratio} Normal 1.0-2.5 [facility] Investment Director Comment on above: Performed By: #### C BCAD, LIPD, CMP, TSH #### [facility] [address] [place], [place] [id number] ALP [Catalytic activity/Vol] 64 U/L Normal 35-119 [facility] Investment Director Comment on above: Performed By: #### C BCAD, LIPD, CMP, TSH #### [facility] [address] [place], [place] [id number] ALT [Catalytic activity/Vol] 31 U/L Normal 6-33 [facility] Investment Director Comment on above: Result Comment: 02/27 Female reference range changed. Performed By: #### C BCAD, LIPD, CMP, TSH #### [facility] [address] [place], [place] [id number] Anion gap [Moles/Vol] 17 mmol/L Normal 12-20 [facility] Investment Director Comment on above: Result Comment: Effe ctive 04/04/2019 reference range changed. Performed By: #### C BCAD, LIPD, CMP, TSH #### [facility] [address] [facility] [place] [id number] AST [Catalytic activity/Vol] 26 U/L Normal 9-34 [facility] Comment on above: Performed By: #### C BCAD, LIPD, CMP, TSH #### [facility] [address] [place], [place] [id number] Bilirubin [Mass/Vol] 0.35 mg/dL Normal 0.30-1.20 [facility] Specialist Comment on above: Performed By: #### C BCAD, LIPD, CMP, TSH #### [facility] [address] [facility] [place] [id number] BUN/CREA 33 Ratio High 6-22 [facility] Comment on above: Performed By: #### C BCAD, LIPD, CMP, TSH #### [facility] [address] [facility] [id number] Calcium [Mass/Vol] 9.5 mg/dL Normal 8.6-10.2 [facility] Comment on above: Performed By: #### C BCAD, LIPD, CMP, TSH #### [facility] [address] [place], [place] [id number] Chloride [Moles/Vol] 104 mmol/L Normal 98-107 [facility] Specialist Comment on above: Performed By: #### C BCAD, LIPD, CMP, TSH #### [facility] [address] [facility] [place] [id number] CO2 [Moles/Vol] 22 mmol/L Normal 20-31 [facility] Comment on above: Performed By: #### C BCAD, LIPD, CMP, TSH #### [facility] [address] [facility] [place] [id number] Creatinine [Mass/Vol] 0.9 mg/dL Normal 0.6-1.4 [facility] Comment on above: Performed By: #### C BCAD, LIPD, CMP, TSH #### [facility] [address] [facility] [place] [id number] eGFRAA 72 mL/min/1.73m2 Normal >60 [place] Investment Director Comment on above: Performed By: #### C BCAD, LIPD, CMP, TSH #### [facility] [address] [place], [place] [id number] eGFRNAA 60 mL/min/1.73m2 Low >60 [facility] Investment Director Comment on above: Performed By: #### C BCAD, LIPD, CMP, TSH #### [facility] [address] [place], [place] [id number] Globulin (S) [Mass/Vol] 2.1 g/dL Normal 1.9-3.7 [facility] Investment Director Comment on above: Performed By: #### C BCAD, LIPD, CMP, TSH #### [facility] [address] [place], [place] [id number] Glucose [Mass/Vol] 106 mg/dL High 65-99 [facility] [place] Investment Director Comment on above: Result Comment: For FASTING Glucose --- ADA reference ranges: Normal 65-99 mg/dl Prediabetes 100-125 Diabetes >/= 126 Performed By: #### C BCAD, LIPD, CMP, TSH #### [facility] [address] [place], [place] [id number] Potassium [Moles/Vol] 4.8 mmol/L Normal 3.5-5.5 [facility] Investment Director Comment on above: Performed By: #### C BCAD, LIPD, CMP, TSH #### [facility] [address] [place], [place] [id number] Protein [Mass/Vol] 6.2 g/dL Normal 6.1-8.1 [facility] [place] Investment Director Comment on above: Performed By: #### C BCAD, LIPD, CMP, TSH #### [facility] [address] [place], [place] [id number] Sodium [Moles/Vol] 138 mmol/L Normal 135-146 [facility] [place] Investment Director Comment on above: Performed By: #### C BCAD, LIPD, CMP, TSH #### [facility] [address] [place], [place] [id number] Urea nitrogen [Mass/Vol] 30 mg/dL High 7-25 [facility] Investment Director Comment on above: Performed By: #### C BCAD, LIPD, CMP, TSH #### [facility] [address] [place], [place] [id number] Lipid Panelon 06-20-2021 Cholesterol [Mass/Vol] 108 mg/dL Low 125-200 [facility] Specialist Comment on above: Result Comment: Low risk < 200mg/dL Borderline risk 201-239 mg/dl High risk > or equal to 240 Performed By: #### C BCAD, LIPD, CMP, TSH #### [facility] [address] [place], [place] [id number] Cholesterol in HDL [Mass/Vol] 34 mg/dL Low >40 [facility] Specialist Comment on above: Result Comment: High Cardiovascular Risk HDL <40 mg/dL Low Cardiovascular Risk HDL > or equal to 60 mg/dl Performed By: #### C BCAD, LIPD, CMP, TSH #### [facility] [address] [place], [place] [id number] Cholesterol in LDL [Mass/Vol] 50 mg/dL Normal [facility] Investment Director Comment on above: Result Comment: LDL ATP III CLASSIFICATION LDL less than 100 mg/dl Optimal LDL 100-129 mg/dl Near or above optimal LDL 130-159 Borderline high LDL 160-189 High LDL greater than 189 mg/dl Very High Performed By: #### C BCAD, LIPD, CMP, TSH #### [facility] [address] [place], [place] [id number] Cholesterol in VLDL [Mass/Vol] 24 mg/dL Normal [facility] Specialist Comment on above: Performed By: #### C BCAD, LIPD, CMP, TSH #### [facility] [address] [place], [place] [id number] Cholesterol.total/C holesterol in HDL [Mass ratio] 3 {ratio} Normal [facility] Specialist Comment on above: Performed By: #### C BCAD, LIPD, CMP, TSH #### [facility] [address] [place], [place] [id number] Triglyceride [Mass/Vol] 119 mg/dL Normal 30-150 [facility] Investment Director Comment on above: Result Comment: TRIG ATPIII CLASSIFICATIONS TRIG less than 150 mg/dl Normal TRIG 150-199 mg/dl Borderline High TRIG 200-500 mg/dl High TRIG greather than 500 mg/dl Very High Performed By: #### C BCAD, LIPD, CMP, TSH #### [facility] [address] [place] [id number] TSHon 06-20-2021 TSH 2.640 uIU/mL Normal 0.400-4.500 [facility] Investment Director Comment on above: Performed By: #### C BCAD, LIPD, CMP, TSH #### [facility] [address] [place], [place] [id number] CREATININE BLOODon Creatinine [Mass/Vol] 0.81 mg/dL Normal 0.60-1.20 [facility] Comment on above: Order Comment: No: D o not add to previous draw Performed By: #### 5 7307, 04792 #### [facility] [address] [place] [address], [facility] GFR/1.73 sq M.predicted among blacks MDRD (S/P/Bld) [Vol rate/Area] mL/min/{1.73_m2} Normal >60 [facility] Comment on above: Order Comment: No: D o not add to previous draw Result Comment: Calc ulation may not be valid for patients over 70 years Performed By: #### 5 7307, 11473 #### [facility] [address] [place] [address], [facility] GFR/1.73 sq M.predicted among non-blacks MDRD (S/P/Bld) [Vol rate/Area] mL/min/{1.73_m2} Normal >60 [facility] Comment on above: Order Comment: No: D o not add to previous draw Result Comment: Calc ulation may not be valid for patients over 70 years Performed By: #### 5 7307, 28980 #### [facility] [address] [place] [address], [facility] Cardiovascular Lab Reporton 2021 Cardiovascular Lab Report [facility] Patient Name: [facility] Magdaleno MR #: [id number] Department of Physician: Jennifer Beebe M.D. Division of Service Date: 04/19/2021 Cardiology Birthdate: 1940 Adult Cardiovascular Room #: 4AB [id number] [facility] [address] [place] [address] Cardiovascular Laboratory Report CLINICAL PRESENTATION: The patient [...] inhibitor for HFpEF. 6. Outpatient followup with [facility]. 7. Referral to cardiac rehabilitation. PROCEDURES: [...] infiltrated in the left radial artery. A 6-South African Terumo Glidesheath slender was placed in the left radial artery. Radial anti-vasospasm cocktail of verapamil 2.5 mg and nitroglycerin 200 mcg was administered through the sheath. All catheter exchanges were made over the Wiggins guidewire. A 5-[place] African JR4 was used to engage the right coronary artery. A 5-[place] JL3.5 was used to engage the left main coronary artery. Coronary angiogram was performed in multiple orthogonal views using hand injection of contrast. 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 I elected to proceed with PCI. Heparin anticoagulation was administered for this procedure. ACT was maintained greater than 200 seconds. A ImaginAb EBU 3.0 guide was engaged to the [...] proxima (more content not included)... Normal [facility] POC GLUCOSE LABon 2021 Glucose [Mass/Vol] 125 mg/dL High 70-100 [facility] Comment on above: Performed By: #### 0 0121, 97188, 72113, 51986 #### [facility] [address] Glucose [Mass/Vol] 103 mg/dL High 70-100 [facility] Comment on above: Performed By: #### 5 7307, 46217 #### [facility] [address] [facility]. [address] UFH HEPARIN ASSAYon 04-20-19 UNFRACTIONATED HEPARIN <0.10 Critically low 0.30-0.70 [facility] Comment on above: Order Comment: This order is a replacement of the rejected order with accession number [id number]. Result Comment: Resu lts called. Accurately read back by Sharona Chaidez, RN, 4B pt's nurse, at 0029, 20-Apr-2021. Rivaroxaban and Apixaban will interfere with the anti Xa assay used to monitor UFH and LMWH. Performed By: #### 0 0121, 44648, 56654, 06175 #### [facility] [address] [facility]. [address] CBC COMPLETE BLOOD COUNTon 0 04-19-2021 Erythrocyte distribution width (RBC) [Ratio] 14.2 % Normal 11.5-15.0 [facility] Comment on above: Order Comment: No: D o not add to previous draw Performed By: #### 5 7307, 13668 #### [facility] [address] Hematocrit (Bld) [Volume fraction] 40.5 % Normal 36.0-45.0 [facility] Comment on above: Order Comment: No: D o not add to previous draw Performed By: #### 5 73, 80218 #### [facility] [address] [place] [address], [facility] Hemoglobin (Bld) [Mass/Vol] 13.9 g/dL Normal 12.0-15.0 [facility] Comment on above: Order Comment: No: D o not add to previous draw Performed By: #### 5 73, 07985 #### [facility] [address] [place] [address], [facility] MCH (RBC) [Entitic mass] 31.2 pg Normal 27.0-33.0 [facility] Comment on above: Order Comment: No: D o not add to previous draw Performed By: #### 5 73, 65388 #### [facility] [address] [place] [address], [facility] MCHC (RBC) [Mass/Vol] 34.3 g/dL Normal 32.0-35.0 [facility] Comment on above: Order Comment: No: D o not add to previous draw Performed By: #### 5 73, 68584 #### [facility] [address] [place] [id number], [facility] MCV (RBC) [Entitic vol] 90.8 fL Normal 82.0-98.0 [facility] Comment on above: Order Comment: No: D o not add to previous draw Performed By: #### 5 73, 81395 #### [facility] [address] [place] [id number], [facility] Nucleated RBC/100 WBC (Bld) [Ratio] 0 % Normal 0-0 [facility] Comment on above: Order Comment: No: D o not add to previous draw Performed By: #### 5 73, 60832 #### [facility] [address] [place] [address], [place] PLAT CNT 233 10*3/uL Normal 150-400 [facility] Comment on above: Order Comment: No: D o not add to previous draw Performed By: #### 5 7307, 11576 #### [facility] [address] [place] [address], [facility] RBC (Bld) [#/Vol] 4.46 10*6/uL Normal 3.80-5.00 [facility] Comment on above: Order Comment: No: D o not add to previous draw Performed By: #### 5 7307, 12116 #### [facility] [address] [place] [address], [facility] WBC (Bld) [#/Vol] 9.64 10*3/uL Normal 4.00-10.60 [facility] Comment on above: Order Comment: No: D o not add to previous draw Performed By: #### 5 7307, 60926 #### [facility] [address] HEMOGLOBIN A1Con 04-19-2021 Glucose [Moles/Vol] 126 mmol/L Normal [facility] Comment on above: Order Comment: Yes: Add to Previous draw if able Performed By: #### 3 1791 #### [facility] [address] [facility] [address] HbA1c (Bld) [Mass fraction] 6.0 % Normal 4.0-6.0 [facility] Comment on above: Order Comment: Yes: Add to Previous draw if able Performed By: #### 3 1791 #### [facility] [address] [place] [id number], [facility] LIPID PROFILEon 04-19-2021 Cholesterol [Mass/Vol] 113 mg/dL Low 120-200 [facility] Comment on above: Result Comment: CHOL ESTEROL REFERENCE RANGE: 20 YEARS AND OLDER CARDIOVASCULAR RISK Less than 200 mg/dl Low Risk 200 to 239 mg/dl Borderline Risk 240 mg/dl and greater High Risk Performed By: #### 4 6413 #### [facility] [address] [place] [address], [facility] Cholesterol in HDL [Mass/Vol] 35 mg/dL Normal 23-92 [facility] Comment on above: Result Comment: Slig ht variation in normal range could be due to gender and/or age. HDL CHOLESTEROL REFERENCE RANGE: 20 years and older Cardiovascular Risk > or =60 mg/dL Desirable 40 TO 59 mg/dL Low Risk <40 mg/dL High Risk Performed By: #### 4 6413 #### [facility] [address] [place] [address], [facility] Cholesterol in LDL [Mass/Vol] 51 mg/dL Normal 0-130 [facility] Comment on above: Result Comment: LDL IS A CALCULATION LDL IS ONLY VALID IF THE TRIG IS LESS THAN 400. Performed By: #### 4 6413 #### [facility] [address] [place] [address], [facility] Cholesterol.total/C holesterol in HDL [Mass ratio] 3.2 {ratio} Normal .0-4.5 [facility] Comment on above: Performed By: #### 4 6413 #### [facility] [address] [place] [address], [facility] NON-HDL CHOLESTEROL 78 mg/dL Normal [facility] Comment on above: Performed By: #### 4 6413 #### [facility] [address] [place] [address], [facility] Triglyceride [Mass/Vol] 133 mg/dL Normal 40-149 [facility] Comment on above: Result Comment: TRIG LYCERIDE REFERENCE RANGE: 20 YEARS AND OLDER CARDIOVASCULAR RISK LESS THAN 150 mg/dl LOW RISK 150 TO 199 mg/dl BORDERLINE RISK 200 mg/dl AND GREATER HIGH RISK Performed By: #### 4 6413 #### [facility] [address] [place] [id number], [facility] VLDL CHOL 27 mg/dL Normal 0-40 [facility] Comment on above: Performed By: #### 4 6413 #### [facility] [address] POC GLUCOSE LABon 04-19-2021 Glucose [Mass/Vol] 104 mg/dL High 70-100 [facility] Comment on above: Performed By: #### 5 7307, 14787 #### [facility] [address] [facility] [place] [address], [facility] TROPONIN-Ion 04-19-2021 Troponin I.cardiac [Mass/Vol] 2.01 ng/mL Critically high 0.00-0.04 [facility] Comment on above: Order Comment: No: D o not add to previous draw Result Comment: M-TN EVIOUS CRITICAL RESULT REFERENCE RANGES: 0.00 - 0.04 ng/ml NORMAL 0.05 - 0.50 ng/ml INDETERMINATE > 0.50 ng/ml CONSISTENT WITH AN M.I. Performed By: #### 3 5200 #### [facility] [address] Troponin I.cardiac [Mass/Vol] 2.46 ng/mL Critically high 0.00-0.04 [facility] Comment on above: Result Comment: M-TN EVIOUS CRITICAL RESULT REFERENCE RANGES: 0.00 - 0.04 ng/ml NORMAL 0.05 - 0.50 ng/ml INDETERMINATE > 0.50 ng/ml CONSISTENT WITH AN M.I. Performed By: #### 5 7307, 31637 #### [facility] [address] UFH HEPARIN ASSAYon 04-19-19 UNFRACTIONATED HEPARIN 0.35 IU/mL Normal 0.30-0.70 [facility] Comment on above: Result Comment: Jessa roxaban and Apixaban will interfere with the anti Xa assay used to monitor UFH and LMWH. Performed By: #### 5 7307, 77310 #### [facility] [address] [facility] [place] [address], [facility] APTTon 04-18-2021 aPTT Coag (Bld) [Time] 46.6 s High 25.0-35.0 [facility] Comment on above: Order Comment: No: D [...] THIS PURPOSE. Performed By: #### 5 7307, 73143 #### [address] aPTT Coag (Bld) [Time] 58.2 s High 25.0-35.0 [facility] Comment on above: Result Comment: Resu lt [...] THIS PURPOSE. Performed By: #### 0 0121, 40373, 94442, 11835 #### [facility] [address] CBC W/DIFFon 04-18-2021 ABS IMM GRANS 0.0 10*3/uL Normal 0.0-0.2 [facility] Comment on above: Order Comment: This order is a replacement of the rejected order with accession number [id number]. Performed By: #### 0 0121, 93858, 78158, 50541 #### [facility] [address] ABS NEUTROPHILS 6.6 10*3/uL Normal 1.6-7.6 [facility] Comment on above: Order Comment: This order is a replacement of the rejected order with accession number [id number]. Performed By: #### 0 0121, 14251, 75467, 39266 #### [facility] [address] [place] [address], [facility] Basophils (Bld) [#/Vol] 0.1 10*3/uL Normal 0.0-0.2 [facility] Comment on above: Order Comment: This order is a replacement of the rejected order with accession number [id number]. Performed By: #### 0 0121, 71841, 32442, 84540 #### [facility] [address] [place] [address], [facility] Basophils/100 WBC (Bld) 0.8 % Normal 0.0-1.0 [facility] Comment on above: Order Comment: This order is a replacement of the rejected order with accession number [id number]. Performed By: #### 0 0121, 38974, 02854, 09401 #### [facility] [address] [place] [address], [facility] Eosinophils (Bld) [#/Vol] 0.2 10*3/uL Normal 0.0-0.5 [facility] Comment on above: Order Comment: This order is a replacement of the rejected order with accession number [id number]. Performed By: #### 0 0121, 96175, 71877, 61703 #### [facility] [address] [place] [address], [facility] Eosinophils/100 WBC (Bld) 2.2 % Normal 0.0-6.0 [facility] Comment on above: Order Comment: This order is a replacement of the rejected order with accession number [id number]. Performed By: #### 0 0121, 37592, 02879, 18447 #### [facility] [address] [place] [address], [facility] Erythrocyte distribution width (RBC) [Ratio] 14.0 % Normal 11.5-15.0 [facility] Comment on above: Order Comment: This order is a replacement of the rejected order with accession number [id number]. Performed By: #### 0 0121, 79895, 94260, 07359 #### [facility] [address] [place] [address], [facility] Hematocrit (Bld) [Volume fraction] 43.4 % Normal 36.0-45.0 [facility] Comment on above: Order Comment: This order is a replacement of the rejected order with accession number [id number]. Performed By: #### 0 0121, 14908, 66562, 64041 #### [facility] [address] Hemoglobin (Bld) [Mass/Vol] 14.1 g/dL Normal 12.0-15.0 [facility] Comment on above: Order Comment: This order is a replacement of the rejected order with accession number [id number]. Performed By: #### 0 0121, 00499, 41180, 23013 #### [facility] [address] IMM PLATELET FRAC 7.9 % High 0.8-6.3 [facility] Comment on above: Order Comment: This order is a replacement of the rejected order with accession number [id number]. Performed By: #### 0 0121, 47847, 53114, 07111 #### [facility] [address] [facility]. [address] IMMATURE GRANS 0.3 % Normal 0.0-1.0 [facility] Comment on above: Order Comment: This order is a replacement of the rejected order with accession number [id number]. Performed By: #### 0 0121, 08793, 40864, 61509 #### [facility] [address] [place] [address], [facility] Lymphocytes (Bld) [#/Vol] 2.5 10*3/uL Normal 1.2-4.0 [facility] Comment on above: Order Comment: This order is a replacement of the rejected order with accession number [id number]. Performed By: #### 0 0121, 68179, 83415, 84262 #### [facility] [address] Lymphocytes/100 WBC (Bld) 23.8 % Normal 20.0-45.0 [facility] Comment on above: Order Comment: This order is a replacement of the rejected order with accession number [id number]. Performed By: #### 0 0121, 18992, 61686, 09410 #### [facility] [address] [facility] MCH (RBC) [Entitic mass] 30.4 pg Normal 27.0-33.0 [facility] Comment on above: Order Comment: This order is a replacement of the rejected order with accession number [id number]. Performed By: #### 0 0121, 20844, 40651, 76020 #### [facility] [address] MCHC (RBC) [Mass/Vol] 32.5 g/dL Normal 32.0-35.0 [facility] Comment on above: Order Comment: This order is a replacement of the rejected order with accession number [id number]. Performed By: #### 0 0121, 42563, 77606, 09945 #### [facility] [address] [facility] MCV (RBC) [Entitic vol] 93.5 fL Normal 82.0-98.0 [facility] Comment on above: Order Comment: This order is a replacement of the rejected order with accession number [id number]. Performed By: #### 0 0121, 04884, 58585, 55604 #### [facility] [address] [place] [address], [facility] Monocytes (Bld) [#/Vol] 1.1 10*3/uL High 0.1-1.0 [facility] Comment on above: Order Comment: This order is a replacement of the rejected order with accession number [id number]. Performed By: #### 0 0121, 70876, 19348, 22620 #### [facility] [address] [place] [address], [facility] MONOS 10.6 % Normal 5.0-12.0 [facility] Comment on above: Order Comment: This order is a replacement of the rejected order with accession number [id number]. Performed By: #### 0 0121, 74245, 19985, 20902 #### [facility] [address] [facility] Neutrophils/100 WBC (Bld) 62.3 % Normal 40.0-72.0 [facility] Comment on above: Order Comment: This order is a replacement of the rejected order with accession number [id number]. Performed By: #### 0 0121, 94095, 29036, 91704 #### [facility] [address] Nucleated RBC/100 WBC (Bld) [Ratio] 0 % Normal 0-0 [facility] Comment on above: Order Comment: This order is a replacement of the rejected order with accession number [id number]. Performed By: #### 0 0121, 41796, 43516, 42147 #### [facility] [address] PLAT CNT 220 10*3/uL Normal 150-400 [facility] Comment on above: Order Comment: This order is a replacement of the rejected order with accession number [id number]. Performed By: #### 0 0121, 36911, 79310, 40473 #### [facility] [address] [place] [address], [facility] RBC (Bld) [#/Vol] 4.64 10*6/uL Normal 3.80-5.00 [facility] Comment on above: Order Comment: This order is a replacement of the rejected order with accession number [id number]. Performed By: #### 0 0121, 24196, 15186, 77932 #### [facility] [address] [facility] [place] [address], [facility] WBC (Bld) [#/Vol] 10.52 10*3/uL Normal 4.00-10.60 [facility] Comment on above: Order Comment: This order is a replacement of the rejected order with accession number [id number]. Performed By: #### 0 0121, 76872, 49370, 25506 #### [facility] [address] COMP METABOLIC PANELon 04-18 Albumin [Mass/Vol] 4.1 g/dL Normal 3.5-5.7 [facility] Comment on above: Order Comment: This order is a replacement of the rejected order with accession number [id number]. Performed By: #### 0 0121, 38468, 18394, 60499 #### [facility] [address] ALKALINE PHOSPH 61 IU/L Normal 34-[address] [facility] Comment on above: Order Comment: This order is a replacement of the rejected order with accession number [id number]. Performed By: #### 0 0121, 26476, 08090, 13102 #### [facility] [address] ALT [Catalytic activity/Vol] 20 U/L Normal 7-52 [facility] Comment on above: Order Comment: This order is a replacement of the rejected order with accession number [id number]. Performed By: #### 0 0121, 23459, 67941, 77886 #### [facility] [address] [place] [address], [facility] AST [Catalytic activity/Vol] 29 U/L Normal 13-39 [facility] Comment on above: Order Comment: This order is a replacement of the rejected order with accession number [id number]. Performed By: #### 0 0121, 64070, 89836, 07615 #### [facility] [address] [place] [address], [place] Bilirubin [Mass/Vol] 0.5 mg/dL Normal 0.3-1.0 [facility] Comment on above: Order Comment: This order is a replacement of the rejected order with accession number [id number]. Performed By: #### 0 0121, 79161, 58150, 39398 #### [facility] [address] [place] [address], [place] Calcium [Mass/Vol] 9.5 mg/dL Normal 8.6-10.3 [facility] Comment on above: Order Comment: This order is a replacement of the rejected order with accession number [id number]. Performed By: #### 0 0121, 23244, 19219, 32031 #### [facility] [address] [place] [address], [place] Chloride [Moles/Vol] 101 mmol/L Normal 98-107 [facility] Comment on above: Order Comment: This order is a replacement of the rejected order with accession number [id number]. Performed By: #### 0 0121, 59813, 53036, 09136 #### [facility] [address] [place] [address], [place] CO2 [Moles/Vol] 26 mmol/L Normal 21-[address] [facility] Comment on above: Order Comment: This order is a replacement of the rejected order with accession number [id number]. Performed By: #### 0 0121, 50445, 62572, 60358 #### [facility] [address] [place] [address], [place] Creatinine [Mass/Vol] 0.83 mg/dL Normal 0.60-1.20 [facility] Comment on above: Order Comment: This order is a replacement of the rejected order with accession number [id number]. Performed By: #### 0 0121, 74246, 29721, 76926 #### [facility] [address] [place] [address], [place] GFR/1.73 sq M.predicted among blacks MDRD (S/P/Bld) [Vol rate/Area] mL/min/{1.73_m2} Normal >60 [facility] Comment on above: Order Comment: This order is a replacement of the rejected order with accession number [id number]. Result Comment: Calc ulation may not be valid for patients over 70 years Performed By: #### 0 0121, 96524, 15836, 00241 #### [facility] [address] [place] [address], [place] GFR/1.73 sq M.predicted among non-blacks MDRD (S/P/Bld) [Vol rate/Area] mL/min/{1.73_m2} Normal >60 [facility] Comment on above: Order Comment: This order is a replacement of the rejected order with accession number [id number]. Result Comment: Calc ulation may not be valid for patients over 70 years Performed By: #### 0 0121, 90502, 11320, 10199 #### [facility] [address] [place] [address], [place] Glucose [Mass/Vol] 98 mg/dL Normal 70-100 [facility] Comment on above: Order Comment: This order is a replacement of the rejected order with accession number [id number]. Performed By: #### 0 0121, 01402, 21538, 34772 #### [facility] [address] [place] [address], [place] Potassium [Moles/Vol] 4.5 mmol/L Normal 3.5-5.1 [facility] Comment on above: Order Comment: This order is a replacement of the rejected order with accession number [id number]. Performed By: #### 0 0121, 65583, 35296, 03781 #### [facility] [address] [place] [address], [place] Protein [Mass/Vol] 7.0 g/dL Normal 6.0-8.3 [facility] Comment on above: Order Comment: This order is a replacement of the rejected order with accession number [id number]. Performed By: #### 0 0121, 13648, 92631, 78967 #### [facility] [address] [place] [address], [facility] Sodium [Moles/Vol] 134 mmol/L Low 136-145 [facility] Comment on above: Order Comment: This order is a replacement of the rejected order with accession number [id number]. Performed By: #### 0 0121, 36082, 17934, 07830 #### [facility] [address] [place] [address], [facility] Urea nitrogen [Mass/Vol] 26 mg/dL High 7-25 [facility] Comment on above: Order Comment: This order is a replacement of the rejected order with accession number [id number]. Performed By: #### 0 0121, 76674, 84046, 46339 #### [facility] [address] [place] [address], [facility] LACTATE BLOODon 04-18-2021 Lactate [Moles/Vol] 1.6 mmol/L Normal .5-2.2 [facility] Comment on above: Order Comment: No: D o not add to previous draw Performed By: #### 1 0054 #### [facility] [address] [place] [address], [facility] MAGNESIUM BLOODon 04-18-2021 Magnesium [Mass/Vol] 1.5 mg/dL Low 1.9-2.7 [facility] Comment on above: Order Comment: This order is a replacement of the rejected order with accession number [id number]. Performed By: #### 0 0121, 17336, 15355, 12070 #### [facility] [address] [place] [address], [facility] PHOSPHORUS BLOODon Phosphate [Mass/Vol] 3.3 mg/dL Normal 2.5-5.0 [facility] Comment on above: Order Comment: This order is a replacement of the rejected order with accession number [id number]. Performed By: #### 0 0121, 70355, 02530, 64748 #### [address] PORTABLE CHEST 1 VIEWon 03-31 PORTABLE CHEST 1 VIEW [facility] Department of Radiology [address] [place] [id number] ===== Patient Name: MAGDALENO WOODS : 1940 Sex: F Age: Race: Other Pt. Location: [facility] Patient Status: E Ordered Date: 04/18/2021 5:10:00 PM Completed Date: 04/18/2021 05:24 PM Requesting Provider: ABBY JEROME Attending Provider: DONI SAXENA Report Copy To: Signs & Symptoms: Chest Pain History: Comments: evaluate for Cardiomegaly Exam: PORTABLE CHEST 1 VIEW ===== PORTABLE CHEST 1 VIEW 04/18/2021 5:24 PM [...] cardiomegaly Electronically signed: Leilani Mccullough. Transcribed by: [email or web address], User Resident: Electronically Signed by: LEILANI MCCULLOUGH @ 04/18/2021 05:28 PM Normal [facility] Comment on above: Order Comment: evalu ate for Cardiomegaly PROTHROMBIN TIMEon 2 INR Coag (PPP) [Relative time] 1.12 {INR} Normal 0.91-1.16 [facility] Comment on above: Result Comment: ACCC P RECOMMENDED INR FOR WARFARIN THERAPY ------ ------- CONDITION INR PROPHYLAXIS OF VENOUS THROMBOSIS 2-3 (HIGH-RISK SURGERY) TREATMENT OF VENOUS THROMBOSIS 2-3 TREATMENT OF PULMONARY EMBOLISM 2-3 PREVENTION OF SYSTEMIC EMBOLISM: 2-3 ACUTE MYOCARDIAL INFARCTION TISSUE HEART VALVES VALVULAR HEART DISEASE ATRIAL FIBRILLATION RECURRENT SYSTEMIC EMBOLISM MECHANICAL HEART VALVE 2.5-3.5 FROM: ORAL ANTICOAGULANTS. MECHANISM OF ACTION, CLINICAL EFFECTIVENESS, AND OPTIMAL THERAPEUTIC RANGE. CHEST 1995;108:231S-246S. Performed By: #### 0 0121, 84393, 61167, 32192 #### [facility] [address] PT Coag (PPP) [Time] 14.4 s Normal 12.3-14.8 [facility] Comment on above: Result Comment: ALL RESULTS MUST BE INTERPRETED WITH RESPECT TO BLOOD DRAWING ARTIFACT OR DILUTION ERROR OF ANTICOAGULANT AT THE TIME OF SAMPLING. Performed By: #### 0 0121, 36363, 33495, 34206 #### [facility] [address] TROPONIN-Ion 04-18-2021 Troponin I.cardiac [Mass/Vol] 2.26 ng/mL Critically high 0.00-0.04 [facility] Comment on above: Order Comment: This order is a replacement of the rejected order with accession number [id number]. Result Comment: M-TN EVIOUS CRITICAL RESULT REFERENCE RANGES: 0.00 - 0.04 ng/ml NORMAL 0.05 - 0.50 ng/ml INDETERMINATE > 0.50 ng/ml CONSISTENT WITH AN M.I. Performed By: #### 0 0121, 77969, 02401, 82905 #### [facility] [address] Troponin I.cardiac [Mass/Vol] 1.52 ng/mL Critically high 0.00-0.04 [facility] Comment on above: Result Comment: M-TR OPONIN INITIAL CRITICAL HIGH; RESPUN AND RETESTED M-CRITICAL RESULT(S) REVIEWED, CALLED TO AND READ BACK BY Blayne Carlisle RN at 1845. REFERENCE RANGES: 0.00 - 0.04 ng/ml NORMAL 0.05 - 0.50 ng/ml INDETERMINATE > 0.50 ng/ml CONSISTENT WITH AN M.I. Performed By: #### 5 7307, 62213 #### [facility] [address] [facility] [address] UFH HEPARIN ASSAYon 04-18-19 UNFRACTIONATED HEPARIN 0.16 IU/mL Critically low 0.30-0.70 [facility] Comment on above: Result Comment: Resu lt checked and called. Accurately read back by LUH GARCIA RN ON 04/18/2021 AT 20:49 Rivaroxaban and Apixaban will interfere with the anti Xa assay used to monitor UFH and LMWH. Performed By: #### 5 7307, 57542 #### [facility] [address] Vital Signs Date Time Vital Sign Value Performing Clinician Facility 03-28-2024 13:55-0500 Body height 157.5 cm Artie Keita DO Work Phone: [facility] 03-28-2024 13:55-0500 Body mass index (BMI) [Ratio] 38.41 kg/m2 Artie Kramercek DO Work Phone: [facility] 03-28-2024 13:55-0500 Body weight 95.25 kg Artie Kramercek DO Work Phone: [facility] 02-22-2024 15:34-0500 Body height 157.5 cm Artie Kramercek DO Work Phone: [facility] 02-22-2024 15:34-0500 Body mass index (BMI) [Ratio] 38.41 kg/m2 Artie Kramercek DO Work Phone: [facility] 02-22-2024 15:34-0500 Body weight 95.25 kg Artie Karmercek DO Work Phone: [facility] 01-27-2024 13:36-0400 Body height 157.5 cm Artie Kramercek DO Work Phone: [facility] 01-27-2024 13:36-0400 Body mass index (BMI) [Ratio] 38.41 kg/m2 Artie Kramercek DO Work Phone: [facility] 01-27-2024 13:36-0400 Body weight 95.25 kg Artie Kramercek DO Work Phone: [facility] 12-15-2023 09:23-0400 Body height 149.9 cm Kate Petznick DO Work Phone: [facility] 12-15-2023 09:23-0400 Body mass index (BMI) [Ratio] 43.63 kg/m2 Kate Petznick DO Work Phone: [facility] 12-15-2023 09:23-0400 Body temperature 96.01 [degF] Kate Petznick DO Work Phone: [facility] 12-15-2023 09:23-0400 Body weight 97.98 kg Kate Petznick DO Work Phone: [facility] 12-15-2023 09:23-0400 Diastolic blood pressure 70 mm[Hg] Kate Petznick DO Work Phone: [facility] 12-15-2023 09:23-0400 Heart rate 54 /min Kate Petznick DO Work Phone: [facility] 12-15-2023 09:23-0400 SaO2% (BldA) [Mass fraction] 98 % Kate Petznick DO Work Phone: [facility] 12-15-2023 09:23-0400 Systolic blood pressure 126 mm[Hg] Kate Petznick DO Work Phone: [facility] 10-20-2023 11:17-0400 Body height 156.21 cm DO Kate Petznick Work Phone: 5(488)273-179416 [place] [address] 10-20-2023 11:17-0400 Body mass index (BMI) [Ratio] 39.2 kg/m2 DO Kate Petznick Work Phone: 7(778)[phone] [place] [address] 10-20-2023 11:17-0400 Body temperature 97.8 [degF] DO Kate Petznick Work Phone: 6(511)330-172416 [place] [address] 10-20-2023 11:17-0400 Body weight 95.7 kg DO Kate Petznick Work Phone: 9(947)297-444021 [address] 10-20-2023 11:17-0400 Diastolic blood pressure 62 mm[Hg] DO Kate Petznick Work Phone: 4(108)755-979916 [place] [address] 10-20-2023 11:17-0400 Heart rate 60 /min DO Kate Petznick Work Phone: [facility] 10-20-2023 11:17-0400 Respiratory rate 16 /min DO Kate Petznick Work Phone: 6([phone] [address] 10-20-2023 11:17-0400 SaO2% (BldA) [Mass fraction] 98 % DO Kate Petznick Work Phone: 1(645)470-318416 [place] [address] 10-20-2023 11:17-0400 Systolic blood pressure 110 mm[Hg] DO Kate Pike Work Phone: [facility] 04-21-2023 10:30-0500 Body height 157.48 cm Maggy Sáncheznisaandrés Other [facility] Other 04-21-2023 10:30-0500 Body mass index (BMI) [Ratio] 36.21 kg/m2 Maggy Sáncheznisaandrés Other [facility] Other 04-21-2023 10:30-0500 Body temperature 97.8 [degF] Maggy Sáncheznisaandrés Other [facility] Other 04-21-2023 10:30-0500 Body weight 89.81 kg Maggy Sáncheznisaandrés Other [facility] Other 04-21-2023 10:30-0500 Diastolic blood pressure 64 mm[Hg] Maggy Sáncheznisaandrés Other [facility] Other 04-21-2023 10:30-0500 SaO2% (BldA) [Mass fraction] 98 % Maggy Sáncheznisaandrés Other [facility] Other 04-21-2023 10:30-0500 Systolic blood pressure 118 mm[Hg] Maggy Sánchezcedric Other [facility] Other Encounters Encounter Date Encounter Type Care Provider Facility Start: 05-23-2024 End: 05-23-2024 ambulatory [facility] Start: 03-28-2024 End: 03-28-2024 Bamboo flowsheet Artie Keita DO Work Phone: [facility] Start: 03-28-2024 End: 03-28-2024 Bamboo flowsheet Artie Keita DO Work Phone: [facility] Start: 03-28-2024 End: 03-28-2024 Postop follow up visit related to original px Artie Keita DO Work Phone: [facility] Comment on above: 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); Cancer of skin of external cheek Start: 03-28-2024 End: 03-28-2024 ambulatory ARTIE KEITA Not Available Start: 03-07-2024 End: 03-07-2024 Clinisync Result Encounter Generic External Data Provider [facility] External Department Unsolicited Start: 03-07-2024 End: 03-07-2024 Clinisync Result Encounter Generic External Data Provider [facility] External Department Unsolicited Start: 02-22-2024 End: 02-22-2024 Postop follow up visit related to original px Artie Keita DO Work Phone: [facility] Comment on above: 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) Start: 02-22-2024 End: 02-22-2024 ambulatory ARTIE KEITA Not Available Start: 02-22-2024 End: 02-22-2024 Bamboo flowsheet Artie Keita DO Work Phone: [facility] Start: 02-22-2024 End: 02-22-2024 Bamboo flowsheet Artie Keita DO Work Phone: [facility] Start: 02-15-2024 End: 02-15-2024 ambulatory ARTIE KEITA Not Available Start: 02-12-2024 End: 02-12-2024 ambulatory Kate Petcarmellaick DO Work Phone: [facility] Work Phone: Start: 02-12-2024 End: 02-12-2024 Departed Referred Kate Hopkinsick DO Work Phone: [facility] Work Phone: Start: 02-04-2024 End: 02-04-2024 Clinisync Result Encounter Generic External Data Provider [facility] External Department Unsolicited Start: 02-04-2024 End: 02-04-2024 Clinisync Result Encounter Generic External Data Provider [facility] External Department Unsolicited Start: 01-28-2024 End: 01-28-2024 ambulatory MANA [facility] Start: 01-27-2024 End: 01-27-2024 Patient encounter procedure DO Kate Petznick Work Phone: [facility]-Electro[facility]osti [facility] Work Phone: Start: 01-27-2024 End: 01-27-2024 ambulatory DO Katetiffany Cowanznick Work Phone: [facility] Work Phone: Start: 01-27-2024 Encounter for other preprocedural examination Artie Keita [facility] Start: 01-27-2024 End: 01-27-2024 Bamboo flowsheet Artie Keita DO Work Phone: [facility] Start: 01-27-2024 End: 01-27-2024 Bamboo flowsheet Artie Keita DO Work Phone: [facility] Start: 01-27-2024 End: 01-27-2024 External Result Encounter Artie Keita DO Work Phone: [facility] External Department Unsolicited Start: 01-27-2024 End: 01-27-2024 ambulatory ARTIE KEITA Not Available Start: 01-27-2024 End: 01-27-2024 Office outpatient new 45 minutes Artie Keita DO Work Phone: [facility] Comment on above: Chronic anticoagulat ion (Primary Dx); 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; 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 Start: 12-24-2023 End: 12-24-2023 Patient encounter procedure Juan Shaw [employer]Y [employer]IST Work Phone: [facility] Comment on above: Skin lesion of face; Neoplasm of unspecified behavior of bone, soft tissue, and skin Start: 12-24-2023 End: 12-24-2023 ambulatory JUAN SHAW Not Available Start: 12-24-2023 End: 12-24-2023 Bamboo flowsheet Juan Shaw CANDY [employer]ING SPECIALIST Work Phone: [facility] Start: 12-24-2023 End: 12-24-2023 Bamboo flowsheet Juan Shaw CANDY FE[employer]LEASING SPECIALIST Work Phone: [facility] Start: 12-15-2023 End: 12-15-2023 Patient encounter procedure Kate Pike DO Work Phone: [facility] [phone] Comment on above: Medicare annual 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 ([facility]/HCC); Carotid stenosis, asymptomatic, bilateral; Primary osteoarthritis involving multiple joints; Acquired hypothyroidism (CMS/HCC); Pure hypercholesterolemia (CMS/HCC); History of CVA (cerebrovascular accident); Class 3 severe obesity due to excess calories with serious comorbidity and body mass index (BMI) of 40.0 to 44.9 in adult (CMS/HCC); Skin lesion of face; Stasis dermatitis Start: 12-15-2023 End: 12-15-2023 ambulatory KATE PIKE Not Available Start: 10-21-2023 End: 10-21-2023 ambulatory RAVI Morrison PETCARMELLAICK Not Available Start: 10-21-2023 End: 10-21-2023 ambulatory RAVI Morrison PETZNICK Not Available Start: 10-20-2023 End: 10-20-2023 ambulatory DO Kate Petznick Work Phone: [facility] Work Phone: Start: 10-20-2023 End: 10-20-2023 Patient encounter procedure DO Kate Petznick Work Phone: [facility] Vascular Surgery Work Phone: Start: 10-19-2023 End: 10-19-2023 ambulatory GRACIELA LOVE Not Available Start: 10-14-2023 End: 10-14-2023 ambulatory RAVI PIKE Not Available Start: 08-14-2023 End: 08-14-2023 ambulatory [facility] Start: 06-15-2023 End: 06-15-2023 ambulatory KATE PIKE Not Available Start: 05-15-2023 End: 05-15-2023 ambulatory GRACIELA LOVE Not Available Start: 04-21-2023 [facility] visit new patient Maggy bowen [facility] Start: 04-21-2023 End: 04-21-2023 Patient encounter procedure DO Kate Pike Work Phone: [facility]Ul[facility] Vascular Start: 04-21-2023 End: 04-21-2023 ambulatory DO Kate Pike Work Phone: [facility] [employer] Other Start: 07-02-2022 End: 07-02-[address] KATE PIKE Facility:[facility] Start: 05-09-2022 End: 05-10-[address] JEWELL SALAZAR Facility:[facility] Start: 09-10-[address] JEWELL SALAZAR Facili ty:[facility]1 Start: 04-18-2021 End: 2021 Evaluation and management of inpatient ANGELITA COWANCARMELLAPASCALE [facility] Procedures Date Procedure Procedure Detail Performing Clinician Start: 03-07-2024 ALL BASIC METABOLIC PANEL Generic External Data Provider Start: 02-04-2024 ALL BASIC METABOLIC PANEL Generic External Data Provider Start: 02-04-2024 ALL LIPID PROFILE (FASTING) Generic External Data Provider Start: 02-04-2024 ALL PRO BNP Generic Ex ternal Data Provider Start: 01-27-2024 Complete blood count with white cell differential, automated Artie Keita DO Work Phone: Start: 12-24-2023 End: 12-24-2023 SKIN / NAIL BIOPSY Juan Shaw CANDY FEEDER-LEASING SPECIALIST Work Phone: Start: 12-15-2023 Hemoglobin glycosylated a1c Kate Pike DO Work Phone: Start: 10-20-2023 Doppler ultrasonogra phy of bilateral carotid arteries DO Kate Pike Work Phone: Plan of Treatment Date Care Activity Detail Author Start: 12-14-2024 Medicare Annual Wellness (AWV) Medicare Annual Wellness (AWV) [facility] Start: 10-19-2024 End: 10-19-2024 Patient encounter procedure 10/19/2024 9:00 AM EDT Office Visit [facility] [address] [place] [address] Graciela Love MD [address] [facility] [address] [address] [facility] Start: 06-09-2024 End: 06-09-2024 Patient encounter procedure 06/09/2024 9:30 AM EDT Office Visit [facility] [address] [place] [address] Glendy Kate M, [address] [place] [address] [facility] [address] Start: 03-28-2024 End: 03-28-2024 Patient encounter procedure [facility] Comment on above: Arrived Start: 02-22-2024 End: 02-22-2024 Patient encounter procedure [facility] [place] Comment on above: Arrived Start: 12-24-2023 End: 12-24-2023 Patient encounter procedure [facility] Comment on above: Skin lesion of face Start: 11-29-2023 Influenza vaccination Influenza Vaccine (#1) [facility] Start: 04-21-2023 Doppler ultrasonography of bilateral carotid arteries US carotid doppler BI [facility] Start: 04-21-2023 US.doppler Carotid arteries - bilateral [facility] Dermatopathology exam Dermatopat hology exam Pathology and Cytology Timed Neoplasm of unspecified behavior of bone, soft tissue, and skin Release Upon Ordering for 1 Occurrences starting 12/24/2023 [facility] Work Phone: Comment on above: Release Upon Ordering for 1 Occurrences starting 12/24/2023 US.doppler Carotid arteries - bilateral [facility] Immunizations Immunization Date Immunization Notes Care Provider Srinivasa casillas 02-23-2024 tetanus toxoid, redu jaimee diphtheria toxoid, and acellular pertussis vaccine, adsorbed Artie Neela DO Work Phone: [facility] 01-06-2024 influenza, high dose seasonal, preservative-free Artie Keita DO Work Phone: [facility] 01-06-2024 influenza virus vacc ine, unspecified formulation Artie Keita DO Work Phone: [facility] 12-29-2023 SARS-COV-2 (COVID-19 ) vaccine, mRNA, spike protein, LNP, PF, 50 mcg/0.5 mL Artie Keita DO Work Phone: [facility] 01-05-2023 Influenza, Seasonal, Quadrivalent, Adjuvanted Kate [email or web address] DO Work Phone: [facility] 01-05-2023 influenza virus vacc ine, unspecified formulation Kate Petznick DO Work Phone: [facility] 12-31-2022 SARS-COV-2 (COVID-19 ) vaccine, mRNA, spike protein, LNP, PF, 50 mcg/0.5 mL Kate [email or web address] DO Work Phone: [facility] 12-05-2022 RSV, recombinant, pr otein subunit RSVpreF, adjuvant reconstitu, 120mcg/0.5mL, PF (Arexvy) Kate [email or web address] DO Work Phone: [facility] 07-28-2022 SARS-COV-2 (COVID-19 ) vaccine, mRNA, spike protein, LNP, bivalent, preservative free, 30 mcg/0.3 mL dose, hina-sucrose formulation Kate Petznick DO Work Phone: [facility] 01-08-2022 Influenza, High-dose Seasonal, Quadrivalent, Preservative Free Kate PetznIndustrias Lebario DO Work Phone: [facility] 12-31-2021 Moderna Bivalent Perez ster Vaccination Kate Petznick DO Work Phone: [facility] 12-31-2021 SARS-COV-2 (COVID-19 ) vaccine, mRNA, spike protein, LNP, bivalent, preservative free, 30 mcg/0.3 mL dose, hina-sucrose formulation Kate Petznick DO Work Phone: [facility] 08-05-2021 Moderna SARS-CoV-2 Vaccination Kate Petznick DO Work Phone: [facility] 12-28-2020 Influenza, High-dose Seasonal, Quadrivalent, Preservative Free Kate Petznick DO Work Phone: [facility] 12-28-2019 influenza, injectabl e, quadrivalent, preservative free Kate Petznick DO Work Phone: [facility] 12-18-2018 Influenza, High-dose Seasonal, Quadrivalent, Preservative Free Kate Petznick DO Work Phone: [facility] 05-20-2018 pneumococcal conjuga te vaccine, 13 valent Kate Petznick DO Work Phone: [facility] 12-22-2017 influenza, injectabl e, quadrivalent, preservative free Kate Petznick DO Work Phone: [facility] 12-25-2016 zoster vaccine, live Kate Petznick DO Work Phone: [facility] 12-19-2016 influenza, injectabl e, quadrivalent, preservative free Kate Petznick DO Work Phone: [facility] 01-08-2015 pneumococcal polysaccharide vaccine, 23 valent Kate Petznick DO Work Phone: [facility] Payers Date Payer Category Payer Self-pay 2010 [facility] er [id number] 2010 Medicare [id number] 2010 Unknown BCBS BCBS [id number] 2010-Present [phone] [address] [place] [address] [id number] 1959 Medicare [id number] 1959 Self-pay [id number] 1959 Unknown [id number] 1942 Unknown [id number] [id number] .647 1942 Unknown [id number] 2.16.840.1.682326.3.579.2 .593 1942 Unknown [id number] 2.16.840.1.714623.3.579.2 .593 1942 Unknown [id number] 2.16.840.1.704070.3.579.2 .1259 1942 Unknown [id number] 2.16.840.1.106220.3.579.2 .1259 1942 Unknown [id number] 2.16.840.1.098162.3.579.2 .1259 1942 Unknown [id number] 2.16.840.1.249809.3.579.2 .1259 1942 Unknown [id number] 2.16.840.1.923176.3.579.2 .1259 1942 Unknown [id number] 2.16.840.1.171043.3.579.2 .1259 1942 Unknown [id number] 2.16.840.1.143632.3.579.2 .1259 1942 Unknown [id number] 2.16.840.1.315665.3.579.2 .1259 1942 Unknown [id number] 2.16.840.1.354163.3.579.2 .1259 1942 Unknown [id number] 2.16.840.1.614905.3.579.2 .1259 1942 Unknown [id number] 2.16.840.1.049895.3.579.2 .1259 1942 Unknown [id number] 2.16.840.1.867866.3.579.2 .1259 Blue Cross Blue Shield [id number] 2.16.840.1.689481.19 Unknown [id number] 2.16.840.1.897559.3.579.2 .593 Unknown [id number] 2.16.840.1.267278.3.579.2 .531 Unknown [id number] 2.16.840.1.134821.3.579.2 .531 Unknown [id number] 2.16.840.1.521980.3.579.2 .531 Unknown [id number] 2.16.840.1.876202.3.579.2 .531 Social History Date Type Detail Facility Start: 12-11-2022 End: 12-15-2023 Sex Assigned At [facility] Start: 1940 Sex Assigned At Female [facility] Start: 10-14-2023 End: 10-20-2023 Tobacco smoking status NHIS Never smoked tobacco (finding) [facility] Start: 10-14-2023 Tobacco use and exposure Smokeless tobacco non-user [facility] Start: 12-24-2023 End: 03-28-2024 Alcoholic beverage intake Ex-drinker (finding) [facility] Start: 12-11-2022 End: 12-15-2023 History of Social function [facility] Within the last year , have you been afraid of your partner or ex-partner? No [facility] Do you belong to any clubs or organizations such as christian groups, unions, fraternal or athletic groups, or [...] Healthcare Start: 09-03-2022 Sexual orientation Heterosexual (finding) [facility] Start: 02-13-2024 Sex Female (finding) [facility] Clinical Notes 2021 to 03-28-2024 Artie Keita, DO - 03/28/2024 2:00 PM Jennifer Keita, DO - 02/22/2024 3:30 PM Jennifer Keita, DO - 01/27/2024 1:30 PM CRIS Bullard - 12/24/2023 2:35 PM EDT Note Date & Type Note Facility 03-28-2024 History of Present illness Narrative HPI Patient presents today 1 month postop excision of a right lower lip and right cheek skin cancer with repair. She is doing well. Relevant postoperative physical examination Examination of both sides shows that they are well healed and the scars are nearly imperceptible. Assessment/plan Machelle was seen today for post-op. 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 She is doing fine. Final pathology shows complete removal. I made her aware. Relevant postoperative physical examination Sutures removed, everything is healing nicely. Assessment/plan Machelle was seen today for cancer. Diagnoses and all orders for this visit: Malignant neoplasm of skin of lip (Primary) Comments: Patient given wound instructions, I will see her back in a month documented in this encounter [facility] 01-28-2024 Note Deep Cardiology Follow Up Progress Note HPI: Magdaleno Woods is a 83 y.o. female past medical history including CAD status post PCI of first diagonal branch of LAD, hypertension, hyperlipidemia. She presents to cardiology clinic for routine follow-up. Patient here for 6 mo follow up CAD, hypertension, and hyperlipidemia. She was recently treated for RLE cellulitis. She will be having skin cancer removed in a few weeks and will have to hold Plavix prior. She denies chest pain. Says she gets short of breath with heavy exertion. Cardiology ROS: Review of Systems Constitutional: Positive for malaise/fatigue. Cardiovascular: Positive for leg swelling. Skin: Positive for color change. Musculoskeletal: Positive for arthritis, back pain and joint pain. All other systems reviewed and are negative. Medications Current Outpatient Medications on File Prior [...] no known allergies. Physical Exam VITAL SIGNS: There were no vitals taken for this visit. Constitutional: Well developed, Well nourished, No acute [...] on high intensity statin -Bradycardia: Chronic, asymptomatic -Lower extremity swelling -Dyspnea Plan: -Given that PCI was over 1 year ago, discussed discontinuation of Plavix and continuing with aspirin monotherapy. She denies any bleeding complications and would like to remain on DAPT at this time. She will hold her Plavix briefly for her procedure, and will resume after she is able. Continue malik intensity statin -Patient is following with her PCP for cellulitis. This appears to be the main cause of her swelling. However, she does have some component of lower extremity edema. As such, will obtain echocardiogram to assess LVEF, wall motion, valvular function. Additionally, will check a BNP and BMP -Patient is not on beta-sonu due to bradycardia. -Continue Amlodipine 5 mg, lisinopril-hydrochlorothiazide 20-25 mg, and spironolactone 25 mg daily for hypertension. Blood pressure is well controlled -Continue atorvastatin 80 mg daily for hyperlipidemia. Will check lipid panel to ensure LDL is within target range, given CAD. -Optimize medical management -Aggressive risk factor modification -Plan of care discussed with patient. All questions were answered. Patient voices understanding and is agreeable with current plan. -Patient was educated on red flag symptoms. Strict return precautions were provided. 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 Carotid artery occlusion February 2023 Cerebrovascular accident (CVA) due to thrombosis of right vertebral artery (CMS/HCC) 05/18/2023 History of being hospitalized 2013 Sudden drop in BP-observation HL (hearing loss) 1993 Hypercholesteremia (CMS/HCC) Hypertension (CMS/HCC) Hypothyroid (CMS/HCC) Myocardial infarction (CMS/HCC) 03[facility] with 2 stents Shoulder injury R shoulder [...] Right: 08/2020 CHOLECYSTECTOMY CORONARY STENT PLACEMENT 03/2021 IA- 2 stents placed MR ANGIOGRAM HEAD W [...] min Stress: No Stress Concern Present (12/11/2022) [place] [employer] - Occupational Stress Questionnaire Feeling of Stress : Not at all Social Connections: Socially Integrated (12/11/2022) Social Connection and Isolation Panel [NHANES] Frequency of Communication with Friends and Family: Three times a week Frequency of Social Gatherings with Friends and Family: More than three times a week Attends Zoroastrianism Services: More than 4 times per year Active Member of Clubs or Organizations: Yes Attends Club or Organization Meetings: More than 4 times per year Marital Status: Intimate Partner Violence: Unknown (05/21/2023) [facility] from [facility] [place] Safety & Environment Fear of Current [...] consented to proceed. documented in this encounter [facility] 12-24-2023 History of Present illness Narrative Images from the original note were not included. Lesions: Location: Right lower lip Duration: couple of months Quality: scabbed Associated symptoms: non-healing Treatments: Neosporin Lesion # 2: Location: Right cheek Duration: several months Quality: denies pain, denies bleeding Associated symptoms: red, rough Treatments: none New patient, referred by Kate Pike DO All pertinent medical history, medications, and allergies were reviewed. General Exam: alert , oriented to person, place, and time , normal affect, well appearing Accompanied by spouse A focused exam completed based on patient reported problems, see below: 1. Skin lesion of face 2. Neoplasm of unspecified behavior of bone, soft tissue, and skin (3) Right Lower Cutaneous Lip, lateral Crusted papule Lesion biopsy Type of biopsy: tangential Informed consent: discussed and consent obtained Informed consent comment: The risks and benefits of the biopsy were discussed. Risks include but are not limited to bleeding, infection, scarring, pain, and nerve damage. An opportunity to ask questions prior to the procedure was permitted and all questions were answered. Patient was prepped and draped in usual sterile fashion: area cleansed with alcohol. Anesthesia: the lesion was anesthetized in a standard fashion Anesthetic: 1% lidocaine w/ epinephrine 1-100,000 buffered w/ 8.4% NaHCO3 Instrument used: DermaBlade Hemostasis achieved with: electrodesiccation Outcome: patient tolerated procedure well Outcome comment: The specimen was placed in a prelabeled formalin container to be sent for pathology Post-procedure details: sterile dressing applied and wound care instructions given Post-procedure details comment: Emphasized need to contact clinic for any signs of infection, uncontrollable bleeding, or complications. Dressing type: bandage Additional details: Photo taken yes Amount of lidocaine used: 0.5 cc Right cheek Erythematous hyperkeratotic papule Lesion biopsy Type of biopsy: tangential Informed consent: discussed and consent obtained Informed consent comment: The risks and benefits of the biopsy were discussed. Risks include but are not limited to bleeding, infection, scarring, pain, and nerve damage. An opportunity to ask questions prior to the procedure was permitted and all questions were answered. Patient was prepped and draped in usual sterile fashion: area cleansed with alcohol. Anesthesia: the lesion was anesthetized in a standard fashion Anesthetic: 1% lidocaine w/ epinephrine 1-100,000 buffered w/ 8.4% NaHCO3 Instrument used: DermaBlade Hemostasis achieved with: electrodesiccation Outcome: patient tolerated procedure well Outcome comment: The specimen was placed in a prelabeled formalin container to be sent for pathology Post-procedure details: sterile dressing applied and wound care instructions given Post-procedure details comment: Emphasized need to contact clinic for any signs of infection, uncontrollable bleeding, or complications. Dressing type: bandage Additional details: Photo taken yes Amount of lidocaine used: 0.5 cc Right Lower Cutaneous Lip, medial Erythematous papule Lesion biopsy Type of biopsy: tangential Informed consent: discussed and consent obtained Informed consent comment: The risks and benefits of the biopsy were discussed. Risks include but are not limited to bleeding, infection, scarring, pain, and nerve damage. An opportunity to ask questions prior to the procedure was permitted and all questions were answered. Patient was prepped and draped in usual sterile fashion: area cleansed with alcohol. Anesthesia: the lesion was anesthetized in a standard fashion Anesthetic: 1% lidocaine w/ epinephrine 1-100,000 buffered w/ 8.4% NaHCO3 Instrument used: DermaBlade Hemostasis achieved with: electrodesiccation Outcome: patient tolerated procedure well Outcome comment: The specimen was placed in a prelabeled formalin container to be sent for pathology Post-procedure details: sterile dressing applied and wound care instructions given Post-procedure details comment: Emphasized need to contact clinic for any signs of infection, uncontrollable bleeding, or complications. Dressing type: bandage Additional details: Photo taken yes Amount of lidocaine used: 0.5 cc Next Visit: pending biopsy results documented in this encounter [facility] 12-16-2023 History of Present illness Narrative Associated Problem(s): Pure hypercholesterolemia (CMS/HCC) Prior to the patient's appointment today, I reviewed past laboratory testing and any diagnostics as it relates in the management of their cholesterol. Encouraged to stay on their statin medication daily and continue with a low cholesterol (mediterranean style) diet. Associated Problem(s): Class 3 severe obesity due to excess calories with serious comorbidity and body mass index (BMI) of 40.0 to 44.9 in adult (CMS/HCC) Working on dietary changes and weight loss Associated Problem(s): Impaired fasting glucose Doing well with lifestyle modifications. No medications needed at this time. Associated Problem(s): Acquired hypothyroidism (CMS/HCC) Stable, no changes needed to current treatment plan. 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 Will continue to work on risk factor reduction including BP, cholesterol, and glucose control. 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 Associated Problem(s): Essential hypertension (CMS/HCC) Prior to the patient's appointment today, I reviewed past laboratory testing and any diagnostics as it relates in the management of their hypertension. Current blood pressure readings were reviewed with the patient along with blood pressure goal of less than 140/90. Encouraged to continue a low sodium diet and will stay on current medications. Images from the original note were not included. Magdaleno Woods is a 83 y.o. female presents with chief complaint of Medicare Annual Wellness Visit Subsequent HPI: -MEDICARE WELLNESS Labs: 06/15/23 -Follow up on cellulitis on left lower leg. Pt states leg is getting better. On occasion leg will be sensitive to the blankets rubbing on leg. -Noticed lesion on right lower lip about a month or so ago. Will start to look like its going to go away, then starts to flare back up. Denies bleeding, pain or enlargement. She is wearing compression stockings but not all of the time. Is done with her lasix. Has a low sodium diet. Diabetes Mellitus Follow-up: Magdaleno Woods is here for follow-up evaluation of diabetes mellitus. She currently has prediabetes. Diabetes complications: none She has not been checking her blood glucose at all. Last A1c: 5.4 (06/15/23) Last eye exam: Due in Feb ([facility]) Current concerns include: Diet: no red meat. More lean turkey, chicken, pork chops. Trying to limit carbs but struggles. Snacks: on occasion cheese curls Drinks: water, black decaf coffee, tea, 1/2 cup tomato juice in the morning Exercise: cardiac rehab twice a week Hypoglycemia: None List of current healthcare providers: Patient Care Team: Kate Pike DO as PCP - General (Family Medicine) Kate Pike DO as PCP - ACO [employer] Medicare Annual Visit Over the past 2 weeks, how often have you been bothered by any of the following problems? Little interest or pleasure in doing things: Not at all Feeling down, depressed, or hopeless: Not at all Patient Health Questionnaire-2 Score: 0 Zhu Fall Risk History of Falling, Immediate or Within 3 Months: No Health Risk Assessment Form Do you need help eating, bathing, using the toilet, dressing, or getting around your home?: No Can you prepare your own meals?: Yes Can you do your own housework without help?: Yes Can you shop for groceries or clothes without help?: Yes Do you exercise for about 20 minutes 3 or more days a week?: No How confident are you that you can control and manage most of your health problems?: Very confident Can you mange your money, credit cards and accounts, pay bills and taxes?: Yes Vision Screening: Yes, 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 Hearing Screening: Not done Cognitive Screening Self Assessment: No overt cognitive deficiency is apparent by direct observation Pain Assessment Pain Score: 0 - No pain The following health maintenance schedule was reviewed with the patient and provided in printed form in the after visit summary: Health Maintenance Topic Date Due Influenza Vaccine (1) 11/29/2023 Medicare Annual Wellness (AWV) 12/14/2024 Pneumococcal Vaccine: 65+ Years Completed Orders Placed This Encounter Procedures Ambulatory referral to Dermatology Standing Status: Future Standing Expiration Date: 06/13/2024 Referral Priority: Routine Referral Type: Consultation Referral Reason: Consult and Treat Referral Location: [facility] [place] Referred to Provider: Madelyn Chavez MD Requested Specialty: Dermatology Number of Visits Requested: 1 POCT glycosylated hemoglobin (Hb A1C) docked device SUBJECTIVE: PROBLEM LIST SOCIAL ALLERGIES: Patient Active Problem List Diagnosis Acquired hypothyroidism (CMS/HCC) Essential hypertension (CMS/HCC) Impaired fasting glucose Class 3 severe obesity due to excess calories with serious comorbidity and body mass index (BMI) of 40.0 to 44.9 in adult (CMS/HCC) Primary osteoarthritis involving multiple joints Primary osteoarthritis of left knee Pure hypercholesterolemia (CMS/HCC) 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 Eyes: Negative for visual disturbance. Respiratory: Negative for cough, shortness of breath and wheezing. Cardiovascular: Positive for leg swelling. Negative for chest pain and palpitations. Musculoskeletal: Positive for arthralgias and back pain. Skin: Positive for rash. Neurological: Negative for numbness. Endocrine: Negative for polydipsia, polyphagia and polyuria. OBJECTIVE: 12/15/2023 9:23 AM 10/21/2023 11:52 AM 10/19/2023 11:10 AM Vitals BMI 43.63 kg/m2 43.63 kg/m2 43.42 kg/m2 Systolic 126 128 132 Diastolic 70 68 74 Heart Rate 54 62 Temp 96 F 96.7 F Height (in) 4' 11 4' 11 4' 11 Weight (lb) 216 216 215 Visit Report Report Report Report Physical Exam Constitutional: General: She is not in acute distress. Appearance: Normal appearance. She is obese. Neck: Vascular: No carotid bruit. Cardiovascular: Rate and Rhythm: Normal rate and regular rhythm. Heart sounds: No murmur heard. No friction rub. No gallop. Pulmonary: Breath sounds: Normal breath sounds. No wheezing, rhonchi or rales. Musculoskeletal: General: No swelling. Skin: Findings: Lesion and rash present. Comments: Stasis dermatitis of the right lower ext. Scabbed lesion under the right side of her bottom lip Neurological: Mental Status: She is alert. ASSESSMENT AND PLAN: Problem List Items Addressed This Visit Acquired hypothyroidism (CMS/HCC) Stable, no changes needed to current treatment plan. Essential hypertension (CMS/HCC) Prior to the patient's appointment today, I reviewed past laboratory testing and any diagnostics as it relates in the management of their hypertension. Current blood pressure readings were reviewed with the patient along with blood pressure goal of less than 140/90. Encouraged to continue a low sodium diet and will stay on current medications. Impaired fasting glucose Doing well with lifestyle modifications. No medications needed at this time. Relevant Orders POCT glycosylated hemoglobin (Hb A1C) docked device (Completed) Class 3 severe obesity due to excess calories with serious comorbidity and body mass index (BMI) of 40.0 to 44.9 in adult ([facility]) Working on dietary changes and weight loss Primary osteoarthritis involving multiple joints Pure hypercholesterolemia ([facility]) Prior to the patient's appointment today, I reviewed past laboratory testing and any diagnostics as it relates in the management of their cholesterol. Encouraged to stay on their statin medication daily and continue with a low cholesterol (mediterranean style) diet. 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 ([facility]) Prior to the patient's appointment today, I reviewed past laboratory testing and any diagnostics as it relates in the management of their coronary artery disease. Will continue to work on risk factor reduction including BP, cholesterol, and glucose control. 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 Carotid stenosis, asymptomatic, bilateral History of CVA (cerebrovascular accident) Other Visit Diagnoses Medicare annual wellness visit, subsequent - Primary Skin lesion of face Relevant Orders Ambulatory referral to Dermatology Stasis dermatitis At [facility] maintanence appointment I reviewed the patients past medical history along with any laboratory and diagnostic testing preformed prior to the visit. During the visit, health care maintanence was reviewed and recommendations made specifically for the patient based on their risk factors. Blood work: most recent blood work reviewed . Finally the patient was instructed to call the office if any health issues arise until the next well check/appointment. At the conclusion of the visit all questions were answered which were brought forth. Encouraged to live a healthy lifestyle including a healthy diet and regular exercise. Encouraged to wear compression stockings regularly, continue low sodium diet, keep legs elevated when she is sitting. If not improving will consider stopping hydrochlorothiazide and putting back on lasix regularly. Follow up in about 6 months (around 06/13/2024) for Recheck. Patient's Medications New Prescriptions No medications on file Previous Medications ACETAMINOPHEN 500 MG CAPSULE Take 2 capsules by mouth at bedtime. AMLODIPINE (NORVASC) 5 MG TABLET Take 1 tablet (5 mg) by mouth in the morning. ASPIRIN 81 MG CHEWABLE TABLET Chew 1 tablet (81 mg) 1 (one) time each day at the same time. ATORVASTATIN (LIPITOR) 80 MG TABLET Take 1 tablet (80 mg) by mouth in the morning. CLOPIDOGREL (PLAVIX) 75 MG TABLET Take 1 tablet (75 mg) by mouth in the morning. LEVOTHYROXINE (SYNTHROID, LEVOXYL) 150 MCG TABLET TAKE 1 TABLET BY MOUTH ONCE DAILY ON AN EMPTY STOMACH IN THE MORNING LISINOPRIL-HYDROCHLOROTHIAZIDE 20-25 MG TABLET Take 1 tablet by mouth in the morning. MULTIPLE VITAMIN (DAILY VITAMINS) TABLET Take 1 tablet by mouth 1 (one) time each day at the same time. SPIRONOLACTONE (ALDACTONE) 25 MG TABLET Take 1 tablet (25 mg) by mouth in the morning. Take with food.. Modified Medications No medications on file Discontinued Medications FUROSEMIDE (LASIX) 20 MG TABLET 1 tablet bid x 1 week then daily HYDROXYZINE HCL (ATARAX) 25 MG TABLET Take 1 tablet (25 mg) by mouth every 8 (eight) hours if needed for itching for up to 10 days I have reviewed and reconciled the history and medication list with the patient today. documented in this encounter [facility] 08-14-2023 Note Deep Cardiology Follow Up Progress Note HPI: Magdaleno [...] She attends phase 3 cardiac rehab at [facility] twice a week. Cardiology ROS: [...] as needed Mana Wilson MD Interventional Cardiology [facility] 04-21-2023 Evaluation note Encounter Date Diagnosis Assessment [...] any questions. Mar, Non-smoker (ICD-10 - Z78.9) Ayudarum Other 01-22-2022 NoteMR#: [id number] I [facility] Pt. Name: Magdaleno Woods Admitted: 04/18/2021 Discharged: [...] Bahena MD Date Trans: 2021 09:07 A/glen [id number]Evaluation noteNo assessment information availableGrand [facility] Work Phone: Evaluation note* Diagnosis Onset Date Resolution Status Left carotid stenosis acute [facility] Work Phone: Evaluation note* Diagnosis Medicare annual wellness visit, subsequent- Primary Essential hypertension (CMS/HCC) Unspecified essential hypertension 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 (CMS/HCC) Stage 3a chronic kidney disease (HCC) (CMS/HCC) Primary osteoarthritis involving multiple joints Acquired hypothyroidism (CMS/HCC) Unspecified hypothyroidism Impaired fasting glucose Morbid obesity due to excess calories (CMS/HCC) Pure hypercholesterolemia (CMS/HCC) Pure hypercholesterolemia Acquired hypothyroidism (CMS/HCC)- Primary Unspecified hypothyroidism Impaired fasting glucose Essential hypertension (CMS/HCC) Unspecified essential hypertension Pure hypercholesterolemia (CMS/HCC) Pure hypercholesterolemia 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 (CMS/HCC) Carotid stenosis, asymptomatic, bilateral Stage 3a chronic kidney disease (HCC) (CMS/HCC) Primary osteoarthritis involving multiple joints Class 3 severe obesity due to excess calories with serious comorbidity and body mass index (BMI) of 40.0 to 44.9 in adult ([facility]) History of CVA (cerebrovascular accident) Transient ischemic attack (TIA), and cerebral infarction without residual deficits Medicare annual wellness visit, subsequent- Primary Impaired fasting glucose Essential hypertension (CMS/HCC) Unspecified essential hypertension 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 (CMS/HCC) Carotid stenosis, asymptomatic, bilateral Primary osteoarthritis involving multiple joints Acquired hypothyroidism (CMS/HCC) Unspecified hypothyroidism Pure hypercholesterolemia ([facility]/HCC) Pure hypercholesterolemia History of CVA (cerebrovascular accident) Transient ischemic attack (TIA), and cerebral infarction without residual deficits Class 3 severe obesity due to excess calories with serious comorbidity and body mass index (BMI) of 40.0 to 44.9 in adult ([facility]) Skin lesion of face Unspecified disorder of skin and subcutaneous tissue Stasis dermatitis Varicose veins of lower extremities with inflammation Chronic anticoagulation- Primary Encounter for long-term (current) use of anticoagulants 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 [facility] Diagnosis Medicare annual wellness visit, subsequent- Primary Essential hypertension (CMS/HCC) Unspecified essential hypertension 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 (CMS/HCC) Stage 3a chronic kidney disease (HCC) ([facility]/HCC) Primary osteoarthritis involving multiple joints Acquired hypothyroidism (CMS/HCC) Unspecified hypothyroidism Impaired fasting glucose Morbid obesity due to excess calories (CMS/HCC) Pure hypercholesterolemia (CMS/HCC) Pure hypercholesterolemia Acquired hypothyroidism (CMS/HCC)- Primary Unspecified hypothyroidism Impaired fasting glucose Essential hypertension (CMS/HCC) Unspecified essential hypertension Pure hypercholesterolemia (CMS/HCC) Pure hypercholesterolemia 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 (CMS/HCC) Carotid stenosis, asymptomatic, bilateral Stage 3a chronic kidney disease (HCC) (CMS/HCC) Primary osteoarthritis involving multiple joints Class 3 severe obesity due to excess calories with serious comorbidity and body mass index (BMI) of 40.0 to 44.9 in adult (CMS/HCC) History of CVA (cerebrovascular accident) Transient ischemic attack (TIA), and cerebral infarction without residual deficits Medicare annual wellness visit, subsequent- Primary Impaired fasting glucose Essential hypertension (CMS/HCC) Unspecified essential hypertension Unstable angina pectoris due [...] 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 Other malignant neoplasm of skin of lip [facility] Diagnosis Medicare annual wellness visit, subsequent- Primary Impaired fasting glucose Essential hypertension (CMS/HCC) Unspecified essential hypertension Unstable angina pectoris due [...] Varicose veins of lower extremities with inflammation [facility] Diagnosis Skin lesion of face Unspecified disorder of skin and subcutaneous tissue Neoplasm of unspecified behavior of bone, soft tissue, and skin documented [facility] Diagnosis Medicare annual wellness visit, subsequent- Primary Essential hypertension (CMS/HCC) Unspecified essential hypertension 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 (CMS/HCC) Stage 3a chronic kidney disease (HCC) (CMS/HCC) Primary osteoarthritis involving multiple joints Acquired hypothyroidism (CMS/HCC) Unspecified hypothyroidism Impaired fasting glucose Morbid obesity due to excess calories (CMS/HCC) Pure hypercholesterolemia (CMS/HCC) Pure hypercholesterolemia Acquired hypothyroidism (CMS/HCC)- Primary Unspecified hypothyroidism Impaired fasting glucose Essential hypertension (CMS/HCC) Unspecified essential hypertension Pure hypercholesterolemia (CMS/HCC) Pure hypercholesterolemia 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 (CMS/HCC) Carotid stenosis, asymptomatic, bilateral Stage 3a chronic kidney disease (HCC) (CMS/HCC) Primary osteoarthritis involving multiple joints Class 3 severe obesity due to excess calories with serious comorbidity and body mass index (BMI) of 40.0 to 44.9 in adult (CMS/HCC) History of CVA (cerebrovascular accident) Transient ischemic attack (TIA), and cerebral infarction without residual deficits Medicare annual wellness visit, subsequent- Primary Impaired fasting glucose Essential hypertension (CMS/HCC) Unspecified essential hypertension Unstable angina pectoris due [...] 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 [facility] N[facility]ative - Reported* Type Description Date Medical History HTN Medical History hyperlipidemia Medical History Heart Disease Surgical History Cardiac Stents Surgical History cholecystectomy Surgical History D & C Surgical History Cataracts B/L Hospitalization History see above Ayudarum Other Reason for referral (narrative)* Consultation (Routine) - Authorized Specialty Diagnoses / Procedures Referred By Rupert dorman Referred To Contact Dermatology Diagnoses Skin lesion of face Procedures [place] OFFICE/OUTPATIENT [facility] 60 MINUTES Kate Pike DO [address] [place] [address] Madelyn Chavez MD [address] [place] [address] Referral ID Status Reason Start Date Expiration Date Visits Requested Visits Authorized [id number] Authorized Consult and Treat 12/15/2023 06/12/2024 1 1 [facility] Summary Purpose Family History No Family History Records Found Relationship Condition Age at Onset Recorded Date/T celi father Unknown family member Family history of other condition Unknow n mother Unknown Advance Directives No Advanced Directives Records Found Advance Directive Response Recorded Date/ Time Advance Directives No April 27, 2023 3:19pm Advance Directive Response Recorded Date/ Time Advance Directives No April 27, 2023 2:19pm Chief Complaint and Reason for Visit Chief Complaint [email or web address] Chief Complaint 6 MO WITH CAR U/S AT 1030AM I65.23 Chief Complaint 6 MO WITH CAR U/S AT 1030AM I65.23 Reason for Visit Left carotid stenosi s Chief Complaint Z Chief Complaint Admit Date ZJanuary 27, 2024 2 :37pm Additional Source Comments INFORMATION SOURCE (unrecogn ized section and content) DATE CREATED AUTHOR 04/25/2021 [facility] DATE CREATED AUTHOR AUTHOR'S ORGANIZ ATION 06/21/2021 [facility] dical Specialist DATE CREATED AUTHOR AUTHOR'S ORGANIZ ATION 07/07/2022 [facility] DATE CREATED AUTHOR AUTHOR'S ORGANIZ ATION 02/23/2024 [facility] DATE CREATED AUTHOR AUTHOR'S ORGANIZ ATION 03/29/2024 [facility] dical Specialists EPIC DATE CREATED AUTHOR AUTHOR'S ORGANIZ ATION 05/24/2024 [facility] REASON FOR VISIT (unrecogniz ed section and content) Reason Comments Suspicious Skin Lesion New Patient: BCC Lop, SCCIS RT Cheek Specialty Diagnoses / Procedures Referred By Rupert t Referred To Contact Otolaryngology Diagnoses 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 Procedures [place] OFFICE/OUTPATIENT [facility] 60 MINUTES Juan Shaw, CANDY FEEDER-LEASING SPECIALIST [address] [place] [address] Phone: tel: fax: Artie Keita W, DO [address] [place] [address] Phone: tel: fax: Referral ID Status Reason Start Date Expiration Date V isits Requested Visits Authorized [id number] Closed Specialty Services Required 12/31/2023 06/28/2024 1 1 Reason Comments Cancer BCC Lower Lip and SC C RT Cheek Reason Comments Medicare Annual Wellness Visit Subsequen t Reason Comments Suspicious Skin Lesion Specialty Diagnoses / Procedures Referred By Contac t Referred To Contact Dermatology Diagnoses Skin lesion of face Procedures [place] OFFICE/OUTPATIENT [facility] 60 MINUTES Kate Pike DO [address] [place] [address] Madelyn Chavez MD [address] [place] [address] Referral ID Status Reason Start Date Expiration Date V isits Requested Visits Authorized [id number] Closed Consult and Treat 12/15/2023 06/12/2024 1 1 Reason Comments Post-op 1 month ricardo Care Teams (unrecognized sec tion and content) [...] January 27, 2024 End: January 27, 2024 Rn Spine Relationship Specialty Start Date End Date SalvadorcarmellaKate haji DO [address] [place] [address] PCP - ACO Reach 08/21/22 Kate Pike Dedrick, DO [address] [place] [address] PCP - General Family Medicine 08/05/22 Juan Shaw APRN-LEASING SPECIALIST [address] [place] [address] Nurse Practitioner Dermatology 01/27/24 Artie Keita, DO [address] [place] [address] Otolaryngology 01/27/24 Rn Spine Relationship Specialty Start Date End Date Salvadordarshan Kate M, DO [address] [place] [address] PCP - ACO Reach 08/21/22 Kate Pike, DO [address] [place] [address] PCP - General Family Medicine 08/05/22 Juan Shaw APRN-LEASING SPECIALIST [address] [place] [address] Nurse Practitioner Dermatology 01/27/24 Artie Keita, DO [address] [place] [address] Otolaryngology 01/27/24 Rn Spine Relationship Specialty Start Date End Date Reagan Piketiffany Tse, DO [address] [place] [address] PCP - ACO Reach 08/21/22 Kate Pike, DO [address] [place] [address] PCP - General Family Medicine 08/05/22 Juan Shaw APRN-LEASING SPECIALIST [address] [place] [address] Nurse Practitioner Dermatology 01/27/24 Artie Keita, DO [address] [place] [address] Otolaryngology 01/27/24 Rn Spine Relationship Specialty Start Date End Date Kate Pike Dedrick, DO [address] [place] [address] PCP - ACO Reach 08/21/22 Kate Pike, DO [address] [place] [address] PCP - General Family Medicine 08/05/22 Juan Shaw APRN-LEASING SPECIALIST [address] [place] [address] Nurse Practitioner Dermatology 01/27/24 Artie Keita, DO [address] [place] [address] Otolaryngology 01/27/24 Team Status: Inactive Member Role Status Dates Artie Keita DO Attending Provider Active S tart: February 12, 2024 End: February 12, 2024 Rn Spine Relationship Specialty Start Date End Date Kate Pike, DO [address] [place] [address] PCP - ACO Reach 08/21/22 Kate Pike, DO [address] [place] [address] PCP - General Family Medicine 08/05/22 Juan Shaw, CANDY FEEDER-LEASING SPECIALIST [address] [place] [address] Nurse Practitioner Dermatology 01/27/24 Artie Keita, DO [address] [place] [address] Otolaryngology 01/27/24 Rn Spine Relationship Specialty Start Date End Date Kate Pike, DO [address] [place] [address] PCP - ACO Reach 08/21/22 Kate Pike, DO [address] [place] [address] PCP - General Family Medicine 08/05/22 Rn Spine Relationship Specialty Start Date End Date Kate Pike, DO [address] [place] [address] PCP - ACO Reach 08/21/22 Kate Pike, DO [address] [place] [address] PCP - General Family Medicine 08/05/22 Rn Spine Relationship Specialty Start Date End Date Kate Pike, DO [address] [place] [address] PCP - ACO Reach 08/21/22 Kate Pike, DO [address] [place] [address] PCP - General Family Medicine 08/05/22 Rn Spine Relationship Specialty Start Date End Date Kate Pike, DO [address] [place] [address] PCP - ACO Reach 08/21/22 Kate Pike, DO [address] [place] [address] PCP - General Family Medicine 08/05/22 Jaun Shaw, CANDY FEEDER-LEASING SPECIALIST [address] [place] [address] Nurse Practitioner Dermatology 01/27/24 Artie Keita, DO [address] [place] [address] Otolaryngology 01/27/24 Rn Spine Relationship Specialty Start Date End Date Kate Pike, DO [address] [place] [address] PCP - ACO Reach 08/21/22 Kate Pike, DO [address] [place] [address] PCP - General Family Medicine 08/05/22 Juan Shaw APRN-LEASING SPECIALIST [address] [place] [address] Nurse Practitioner Dermatology 01/27/24 Artie Keita, DO [address] [place] [place] [address] Otolaryngology 01/27/24 Goals (unrecognized section and content) [...] BE BASED ON THE PRIMARY CLINICAL RECORDS. [employer] [facility]. provides no warranty or guarantee of the accuracy or completeness of information in this document.
[2024-06-03 12:53] LABS: Anion Gap 12.9; BUN Creatinine Ratio 32.7; Calcium 9.1 mg/dL (8.5-10.1); Chloride 102 mmol/L (98-107); Estimated GFR (African America >60 (>=60 mL/min/1.73m^2); Estimated GFR (Non-African Ame 54 (>=60 mL/min/1.73m^2); Glucose 82 mg/dL (74-106); Potassium 4.9 mmol/L (3.5-5.1); Sodium 137 mmol/L (136-145)
== END 2024-06-03 12:12 | disposition home or self-care (01) ==
LOC: LAB 12:13
PROVIDERS: PCP Family Medicine; Visit Provider Internal Medicine Cardiovascular Disease
DX: I11.0 Hypertensive heart disease with heart failure (principal)
CPT/HCPCS: 36415; 80048

== ENCOUNTER 2024-08-03 08:10 | Outpatient (OUT) | payer MEDICARE, BC, SELFPAY ==
[2024-08-03 08:56] LABS: Alanine Aminotransferase 28 U/L (14-59); Anion Gap 11.9; Aspartate Amino Transferase 20 U/L (15-37); BUN Creatinine Ratio 31.9; Calcium 9.3 mg/dL (8.5-10.1); Carbon Dioxide 28.8 mmol/L (21.0-32.0); Chloride 100 mmol/L (98-107); Chol HDL Ratio 2.2; Cholesterol 100 mg/dL (<=200); Estimated GFR (African America >60 (>=60 mL/min/1.73m^2); Estimated GFR (Non-African Ame 57 (>=60 mL/min/1.73m^2); Glucose 102 mg/dL (74-106); HDL Cholesterol 46 mg/dL (40-60); LDL Cholesterol Calculated 32.8 mg/dL; Potassium 4.7 mmol/L (3.5-5.1); Sodium 136 mmol/L (136-145); Triglycerides 106 mg/dL (<=150); VLDL CHOLESTEROL 21.2 mg/dL
== END 2024-08-03 08:11 | disposition home or self-care (01) ==
PROVIDERS: PCP Family Medicine; Visit Provider Internal Medicine Cardiovascular Disease
DX: E78.00 Pure hypercholesterolemia, unspecified (principal); I10 Essential (primary) hypertension
CPT/HCPCS: 36415; 80048; 80061; 84450; 84460